=== PATIENT | male | born 1950 | race Caucasian/White ===

== ENCOUNTER → 2016-05-25 | Outpatient (CLI) | payer MEDICARE, OTHER ==
--- NOTE | 2016-05-25 19:09 | PN ---
DATE OF SERVICE: 05/25/2016 A 65-year-old gentleman who has been followed in the sleep center for treatment of obstructive sleep apnea/hypopnea syndrome. Recently patient had a diagnostic sleep study and CPAP titration and I discussed results of the tests with him. He received his new CPAP unit. I checked his CPAP unit. He uses equipment every night for the whole night without any problems. He used it 30 out of 30 nights for more than 4 hours range. Average usage time is 8.7 hours. CPAP pressure of 17 and leak is 11 L/min, which is acceptable. Apnea-hypopnea index with the machine is only 0.4 so patient's respiration is in very good control. He feels comfortable with the machine. He feels well with it regarding his sleep and during the day. [place] Sleepiness Scale today is 4. MEDICATIONS: Lisinopril, amlodipine, furosemide, atorvastatin, baby aspirin. PHYSICAL EXAMINATION: GENERAL: During physical exam, the patient in no distress. VITAL SIGNS: BP 152/90, HR 103, RR 16. Weight 320. Temperature 97.9. Oxygen saturation at room air 96%. HEENT: PERRLA, EOMI, Evaluation of the oropharynx showed extremely low position of soft palate. NECK: Supple. No JVD, Thyroid is not palpable. LUNGS: Clear to percussion and to auscultation. Good air exchange. No wheezing or rhonchi. HEART: S1, S2 regular. No murmurs, gallops, or rubs. ABDOMEN: Obese, soft and nontender. Bowel sounds are present. No organomegaly appreciated. TELEPHONE DIRECTORY DELIVERER: Awake, alert, and oriented x3. Cranial nerves 2 to 7 intact. There is no fasciculation or atrophy noted. No focal deficits observed. IMPRESSION: 1. Obstructive sleep apnea/hypopnea syndrome on control with CPAP at 17 cm of water. Patient demonstrated 100% compliance with treatment benefiting from treatment. 2. Obesity. 3. Hypertension. 4. Mild periodic limb movements documented during the sleep study. 5. Hyperlipidemia. 6. History of swelling of the legs in the past. No swelling today. 7. History of nocturia. Possibly one episode of nocturia at night. PLAN: 1. Continue treatment with CPAP every night for the whole night. 2. Losing weight. 3. Sleep hygiene with regular time in bed for at least 8 hours. 4. No driving if feeling any sleepiness. 5. Follow-up visit in one year. Thank you very much for allowing me to participate in the management of your patient. Sincerely, Alcides Schreiber MD, PhD, FAASM Diplomat of [place] [employer], Sleep Medicine Board by [place] [employer] [employer] Advanced Quality Engineer of [facility] [place]
== END | disposition home or self-care (01) ==
LOC: SLEEP 15:23
PROVIDERS: ATTEND Internal Medicine
DX: G47.33 Obstructive sleep apnea (adult) (pediatric) (principal); E66.9 Obesity, unspecified; I10 Essential (primary) hypertension; E78.5 Hyperlipidemia, unspecified; Z79.899 Other long term (current) drug therapy

== ENCOUNTER 2016-11-29 10:42 | Inpatient (IN) | payer MEDICARE, OTHER ==
[2016-11-29] MEDS ORDERED: SODIUM CHLORIDE 0.9% 500 ML IV STA (11:01)
--- NOTE | 2016-11-29 11:06 | ED ---
General Adult HPI - General Chief complaint: Neuro Symptoms/Deficit Stated complaint: slurred speach, sent by Time Seen by Provider: 11/29/16 10:45 Source: patient, RN notes reviewed Mode of arrival: wheelchair Limitations: no limitations - History of Present Illness Initial comments: This is a 66-year-old male who presents emergency department after having seen his primary medical care doctor. Patient was here for just a regular checkup but he had a little bit of slurred speech and the patient states he's noticed this for a month. Patient states his been getting slightly worse such that more words or being slurred. Patient states sometimes he is able to speak clearly but for the most part he's got a little bit of slur. Patient denies headache patient denies any numbness or weakness patient denies any facial droop per patient denies any visual disturbance. Patient denies any chest pain palpitations difficulty breathing shortness of breath. Patient denies abdominal pain patient denies nausea vomiting diarrhea. Patient denies any other symptoms at this time. - Related Data Home Medications Medication Instructions Recorded Confirmed Aspirin [Adult Low Dose Aspirin EC] 81 mg PO HS 10/25/15 11/29/16 Furosemide [Lasix] 20 mg PO DAILY 10/25/15 11/29/16 Lisinopril [Zestril] 20 mg PO BID 10/25/15 11/29/16 amLODIPine BESYLATE [Norvasc] 10 mg PO DAILY 10/28/15 11/29/16 Atorvastatin [Lipitor] 10 mg PO DAILY 11/29/16 11/29/16 Magnesium Oxide [Mag-Ox] 400 mg PO DAILY 11/29/16 11/29/16 Potassium 99 mg PO BID 11/29/16 11/29/16 Allergies Allergy/AdvReac Type Severity Reaction Status Date / Time No Known Allergies Allergy Verified 11/29/16 11:34 Review of Systems ROS Statement: Those systems with pertinent positive or pertinent negative responses have been documented in the HPI. ROS Other: All systems not noted in ROS Statement are negative. Past Medical History Past Medical History: Hypertension, Sleep Apnea/CPAP/BIPAP Additional Past Medical History / Comment(s): uses CPAP, leg swelling History of Any Multi-Drug Resistant Organisms: None Reported Past Surgical History: Orthopedic Surgery Additional Past Surgical History / Comment(s): heel spurs removed, colonoscopy, basal call carcinoma Past Anesthesia/Blood Transfusion Reactions: Previous Problems w/ Anesthesia Additional Past Anesthesia/Blood Transfusion Reaction / Comment(s): stopped breathing during colonoscopy yrs. ago before sleep apnea diagnosed per pt. Past Psychological History: No Psychological Hx Reported Smoking Status: Never smoker Past Alcohol Use History: None Reported Past Drug Use History: None Reported - Past Family History Father Family Medical History: Cancer General Exam - General Exam Comments Initial Comments: GENERAL: Patient is well-developed and well-nourished. Patient is nontoxic and well- hydrated and is in mild distress. ENT: Neck is soft and supple. No significant lymphadenopathy is noted. Oropharynx is clear. Moist mucous membranes. Neck has full range of motion without eliciting any pain. EYES: The sclera were anicteric and conjunctiva were pink and moist. Extraocular movements were intact and pupils were equal round and reactive to light. Eyelids were unremarkable. PULMONARY: Unlabored respirations. Good breath sounds bilaterally. No audible rales rhonchi or wheezing was noted. CARDIOVASCULAR: There is a regular rate and rhythm without any murmurs gallops or rubs. ABDOMEN: Soft and nontender with normal bowel sounds. SKIN: Skin is clear with no lesions or rashes and otherwise unremarkable. NEUROLOGIC: Patient is alert and oriented x3. Cranial nerves II through XII are grossly intact. Motor and sensory are also intact. Occasionally the patient has a very mild slurring of some words. Symmetrical smile. Cerebellar exam grossly intact. MUSCULOSKELETAL: Normal extremities with adequate strength and full range of motion. LYMPHATICS: No significant lymphadenopathy is noted PSYCHIATRIC: Normal psychiatric evaluation. Limitations: no limitations Course Vital Signs 11/29/16 10:47 Temperature 98.0 F Pulse Rate 78 Respiratory 18 Rate Blood Pressure 187/110 O2 Sat by Pulse 97 Oximetry Medical Decision Making - Medical Decision Making EKG shows normal sinus rhythm at 87 bpm MA interval is 172 QRS is 90 QT interval is 392 QTC is 471. EKG shows no ST segment elevation or depression or T wave abnormalities are noted Computed tomography scan shows no acute abnormality. Chest x-ray shows no acute normalities. I spoke with Dr. Uriarte he agreed to admit the patient admitted the patient I consult the neurology. - Lab Data Result diagrams: 11/29/16 11:20 11/29/16 11:20 Lab Results 11/29/16 11/29/16 11/29/16 Range/Units 11:20 11:20 11:20 WBC 7.8 (3.8-10.6) k/uL RBC 5.33 (4.30-5.90) m/uL Hgb 16.3 (13.0-17.5) gm/dL Hct 45.7 (39.0-53.0) % MCV 85.8 (80.0-100.0) fL MCH 30.6 (25.0-35.0) pg MCHC 35.7 (31.0-37.0) g/dL RDW 13.4 (11.5-15.5) % Plt Count 277 (150-450) k/uL Neutrophils % 66 % Lymphocytes % 22 % Monocytes % 6 % Eosinophils % 4 % Basophils % 1 % Neutrophils # 5.1 (1.3-7.7) k/uL Lymphocytes # 1.7 (1.0-4.8) k/uL Monocytes # 0.5 (0-1.0) k/uL Eosinophils # 0.3 (0-0.7) k/uL Basophils # 0.1 (0-0.2) k/uL PT (9.0-12.0) sec INR (<1.2) APTT (22.0-30.0) sec Sodium 140 (137-145) mmol/L Potassium 4.3 (3.5-5.1) mmol/L Chloride 107 (98-107) mmol/L Carbon Dioxide 25 (22-30) mmol/L Anion Gap 8 mmol/L BUN 15 (9-20) mg/dL Creatinine 0.87 (0.66-1.25) mg/dL Est GFR (MDRD) Af Amer >60 (>60 ml/min/1.73 sqM) Est GFR (MDRD) Non-Af >60 (>60 ml/min/1.73 sqM) Glucose 107 H (74-99) mg/dL Calcium 9.0 (8.4-10.2) mg/dL Total Bilirubin 0.6 (0.2-1.3) mg/dL AST 23 (17-59) U/L ALT 40 (21-72) U/L Alkaline Phosphatase 65 (38-126) U/L Total Creatine Kinase 52 L (55-170) U/L CK-MB (CK-2) 0.9 (0.0-2.4) ng/mL CK-MB (CK-2) Rel Index 1.7 Troponin I <0.012 (0.000-0.034) ng/mL Total Protein 6.8 (6.3-8.2) g/dL Albumin 4.1 (3.5-5.0) g/dL 11/29/16 Range/Units 11:20 WBC (3.8-10.6) k/uL RBC (4.30-5.90) m/uL Hgb (13.0-17.5) gm/dL Hct (39.0-53.0) % MCV (80.0-100.0) fL MCH (25.0-35.0) pg MCHC (31.0-37.0) g/dL RDW (11.5-15.5) % Plt Count (150-450) k/uL Neutrophils % % Lymphocytes % % Monocytes % % Eosinophils % % Basophils % % Neutrophils # (1.3-7.7) k/uL Lymphocytes # (1.0-4.8) k/uL Monocytes # (0-1.0) k/uL Eosinophils # (0-0.7) k/uL Basophils # (0-0.2) k/uL PT 10.3 (9.0-12.0) sec INR 1.0 (<1.2) APTT 25.4 (22.0-30.0) sec Sodium (137-145) mmol/L Potassium (3.5-5.1) mmol/L Chloride (98-107) mmol/L Carbon Dioxide (22-30) mmol/L Anion Gap mmol/L BUN (9-20) mg/dL Creatinine (0.66-1.25) mg/dL Est GFR (MDRD) Af Amer (>60 ml/min/1.73 sqM) Est GFR (MDRD) Non-Af (>60 ml/min/1.73 sqM) Glucose (74-99) mg/dL Calcium (8.4-10.2) mg/dL Total Bilirubin (0.2-1.3) mg/dL AST (17-59) U/L ALT (21-72) U/L Alkaline Phosphatase (38-126) U/L Total Creatine Kinase (55-170) U/L CK-MB (CK-2) (0.0-2.4) ng/mL CK-MB (CK-2) Rel Index Troponin I (0.000-0.034) ng/mL Total Protein (6.3-8.2) g/dL Albumin (3.5-5.0) g/dL Disposition Clinical Impression: Cerebrovascular accident Disposition: ADMITTED IP TO THIS HOSP Referrals: Joaquim Balncas MD [Primary Care Provider] - 1-2 days Time of Disposition: 12:56
[2016-11-29 11:40] LABS: Basophils # (A) 0.1 k/uL (0-0.2); Basophils % (A) 1 %; CH 31.1; CHCM 36.4; Eosinophils # (A) 0.3 k/uL (0-0.7); Eosinophils % (A) 4 %; HCT 45.7 % (39.0-53.0); HDW 3.09; HGB 16.3 gm/dL (13.0-17.5); Luc # (Auto) 0.14; Luc % (Auto) 2; Lymphocytes # (A) 1.7 k/uL (1.0-4.8); Lymphocytes % (A) 22 %; MCH 30.6 pg (25.0-35.0); MCHC 35.7 g/dL (31.0-37.0); MCV 85.8 fL (80.0-100.0); Mean Platelet Volume 6.7; Monocytes # (A) 0.5 k/uL (0-1.0); Monocytes % (A) 6 %; Neutrophils # (A) 5.1 k/uL (1.3-7.7); Neutrophils % (A) 66 %; RBC 5.33 m/uL (4.30-5.90); RDW 13.4 % (11.5-15.5); WBC 7.8 k/uL (3.8-10.6); WBC (Perox) 7.78
[2016-11-29 11:45] LABS: ALT 40 U/L (21-72); AST 23 U/L (17-59); Alkaline Phosphatase 65 U/L (38-126); Anion Gap 8 mmol/L; Blood Urea Nitrogen 15 mg/dL (9-20); Carbon Dioxide 25 mmol/L (22-30); Chloride 107 mmol/L (98-107); Glucose 107 mg/dL (74-99); Non-African American GFR(MDRD) >60 (>60 ml/min/1.73 sqM); Potassium 4.3 mmol/L (3.5-5.1); Sodium 140 mmol/L (137-145); Total Bilirubin 0.6 mg/dL (0.2-1.3); Total Protein 6.8 g/dL (6.3-8.2)
[2016-11-29 11:52] LABS: Partial Thromboplastin Time 25.4 sec (22.0-30.0); Prothrombin Time 10.3 sec (9.0-12.0)
[2016-11-29 11:58] LABS: Creatine Kinase 52 U/L (55-170)
[2016-11-29 12:11] LABS: Creatine Kinase MB 0.9 ng/mL (0.0-2.4); Troponin I <0.012 ng/mL (0.000-0.034)
--- NOTE | 2016-11-29 12:34 | XR ---
EXAMINATION TYPE: XR chest 2V DATE OF EXAM: 11/29/2016 COMPARISON: NONE TECHNIQUE: PA and lateral views submitted. HISTORY: Altered mental status FINDINGS: The lungs are clear and there is no pneumothorax, pleural effusion, or focal pneumonia. Hypertrophi c degenerative change spine. Arthropathy of the shoulders. IMPRESSION: 1. No acute process.
--- NOTE | 2016-11-29 12:34 | CT ---
EXAMINATION TYPE: CT brain wo con DATE OF EXAM: 11/29/2016 COMPARISON: NONE HISTORY: Slurred speech for one month. CT DLP: 1180.[address] of the brain was performed. The ventricles, basal cisterns and sulci overlying the cerebral convexities demonstrate mild enlargem ent. There is no evidence for intracranial hemorrhage or sulcal effacement. There is decreased attenuation about the periventricular white matter and deep white matter of both c erebral hemispheres, compatible with chronic small vessel ischemia. Differential diagnosis does inclu de demyelination. No mass effects are seen.No midline shift. Osseous calvarium is intact. Chronic sinusitis. If symptoms persist consider MRI. IMPRESSION: 1. Age related atrophic and chronic small vessel ischemic change without acute intracranial process s een at this time.
--- NOTE | 2016-11-29 17:06 | US ---
EXAMINATION TYPE: US carotid duplex BILAT DATE OF EXAM: 11/29/2016 COMPARISON: NONE CLINICAL HISTORY: Stenosis. EXAM MEASUREMENTS: RIGHT: Peak Systolic Velocity (PSV) cm/sec ----- Right CCA: 62.8 ----- Right ICA: 71.3 ----- Right ECA: 106.2 ICA/CCA ratio: 1.1 RIGHT: End Diastole cm/sec ----- Right CCA: 14.4 ----- Right ICA: 29.6 ----- Right ECA: 17.5 LEFT: Peak Systolic Velocity (PSV) cm/sec ----- Left CCA: 75.8 ----- Left ICA: 96.8 ----- Left ECA: 118.0 ICA/CCA ratio: 1.3 LEFT: End Diastole cm/sec ----- Left CCA: 22.5 ----- Left ICA: 38.6 ----- Left ECA: 23.4 VERTEBRALS (direction of flow): Right Vertebral: Antegrade Left Vertebral: Antegrade Rhythm: Normal IMPRESSION: MILD/MODERATE AMOUNT OF INTIMAL THICKENING; NO ELEVATED VELOCITIES AND NO SIGNIFICANT STENOSIS.
--- NOTE | 2016-11-29 17:17 | P.CNNES ---
History of Present Illness Consult date: 11/29/16 Reason for Consult: Patient being evaluated for slurred speech and possible TIA. History of Present Illness: This patient is a 66-year-old right-handed white male who was in his usual state of health until earlier this morning. Patient went to see his primary care physician Dr. Blancas and was noted on examination today he is having slurring of his speech. According to the patient he has been having difficulty with his speech for the past 1 month. He states he has word finding difficulties as well as some degree of aphasia. Sometimes he speaks clearly and other times his speech is quite slurred and difficult to understand. The patient denied any headache or visual changes. He denied any facial drooping. He has no previous history of TIA or stroke. Dr. Blancas recommended the patient to go directly to the emergency room this morning for further evaluation. He was seen in the ER by Dr. Gibson. A computed tomography scan of the brain was ordered which revealed age related atrophy and chronic small vessel ischemic changes. No evidence for acute stroke or hemorrhage. Patient was recommended admission to the hospital for a full neurological workup for possible TIA versus stroke. The patient's stroke risk factors include hypertension, obesity, and borderline diabetes mellitus. Patient states he does check his blood sugars once or twice a day. His sugars are always below 130. This morning his blood sugar was 134. The patient denies any headache at this time. He has no visual changes. He has been taking one baby aspirin on a daily basis. He does have a history of obstructive sleep apnea and does use a CPAP machine at night. The patient denies any family history of stroke. His speech does appear to be slightly dysphasic today on examination. He is now been admitted and neurology has been consulted for further evaluation and recommendations. Review of Systems Constitutional: Denies chills, Denies fever Eyes: denies blurred vision, denies pain Ears, nose, mouth and throat: Denies headache, Denies sore throat Cardiovascular: Denies chest pain, Denies shortness of breath Respiratory: Denies cough Gastrointestinal: Denies abdominal pain, Denies diarrhea, Denies nausea, Denies vomiting Musculoskeletal: Denies myalgias Integumentary: Denies pruritus, Denies rash Neurological: Reports aphasia, Reports change in speech, Reports confusion, Reports memory loss, Reports vertigo, Denies numbness, Denies weakness Psychiatric: Denies anxiety, Denies depression Endocrine: Denies fatigue, Denies weight change Past Medical History Past Medical History: Cancer, Hyperlipidemia, Hypertension, Pneumonia, Rheumatoid Arthritis (RA), Sleep Apnea/CPAP/BIPAP Additional Past Medical History / Comment(s): stress test 2006, rt side dominant ,uses CPAP,bronchitis, skin ca lt arm, "i was told i was on [place]line of dm- i just watch what i eat" History of Any Multi-Drug Resistant Organisms: None Reported Past Surgical History: Orthopedic Surgery, Tonsillectomy Additional Past Surgical History / Comment(s): heel spurs removed, colonoscopy, basal call carcinoma Past Anesthesia/Blood Transfusion Reactions: Previous Problems w/ Anesthesia Additional Past Anesthesia/Blood Transfusion Reaction / Comment(s): stopped breathing during colonoscopy yrs. ago before sleep apnea diagnosed per pt. Smoking Status: Never smoker - Past Family History Father Family Medical History: Cancer, Hypertension Additional Family Medical History / Comment(s): oral cancer Mother Family Medical History: Cancer Additional Family Medical History / Comment(s): "irreg heart rythym" Medications and Allergies Home Medications Medication Instructions Recorded Confirmed Type Aspirin [Adult Low Dose Aspirin EC] 81 mg PO HS 10/25/15 11/29/16 History Furosemide [Lasix] 20 mg PO DAILY 10/25/15 11/29/16 History Lisinopril [Zestril] 20 mg PO BID 10/25/15 11/29/16 History amLODIPine BESYLATE [Norvasc] 10 mg PO DAILY 10/28/15 11/29/16 History Atorvastatin [Lipitor] 10 mg PO DAILY 11/29/16 11/29/16 History Magnesium Oxide [Mag-Ox] 400 mg PO DAILY 11/29/16 11/29/16 History Potassium 99 mg PO BID 11/29/16 11/29/16 History Allergies Allergy/AdvReac Type Severity Reaction Status Date / Time No Known Allergies Allergy Verified 11/29/16 11:34 Physical Examination - Vital Signs Vital Signs: Vital Signs Temp Pulse Pulse Resp BP BP Pulse Ox 11/29/16 14:37 97.4 F L 83 18 182/86 96 11/29/16 14:00 97.3 F L 16 153/78 98 11/29/16 13:02 98.5 F 81 20 159/80 98 11/29/16 10:47 98.0 F 78 18 187/110 97 Intake and Output 11/29/16 11/29/16 11/29/16 06:59 14:59 22:59 Intake Total 500 Balance 500 Intake: IV 500 Invasive Line 1 500 Other: Weight 142.428 kg Patient Weight 11/30/16 06:59 Weight 142.428 kg - Constitutional General appearance: cooperative, obese - EENT EENT: PERRL, mucous membranes moist - Respiratory Respiratory: lungs clear, normal breath sounds - Cardiovascular Cardiovascular: regular rate, normal S1, normal S2 Extremities: no peripheral edema bilaterally - Gastrointestinal Gastrointestinal: normoactive bowel sounds - Integumentary Integumentary: normal - Neurologic Cranial nerve examination: PERRL, EOMI, VFF, V1/V2/V3 grossly intact, face symmetric, tongue midline, intact gag reflex, intact corneal reflex, normal palatal elevation Speech examination: intact Sensorimotor examination: intact Detailed motor examination: grossly full strength in all extremities Motor examination - right side: 4/5: biceps, triceps, wrist flexion, wrist extension, generating station mechanic, hip flexors, knee extensors, dorsiflexion, toe extension (EHL) , plantarflexion Motor examination - left side: 4/5: biceps, triceps, wrist flexion, wrist extension, generating station mechanic, hip flexors, knee extensors, dorsiflexion, toe extension (EHL) , plantarflexion Detailed sensory examination: intact Reflex and gait examination: intact Reflexes: 1+: ankle, bicep, knee, tricep - Musculoskeletal Musculoskeletal: no pain - Psychiatric Psychiatric: mood/affect appropriate, cooperative Results - Laboratory Findings CBC and BMP: 11/29/16 11:20 11/29/16 11:20 Abnormal Lab Findings: Abnormal Labs 11/29/16 11/29/16 11:20 11:20 Glucose 107 H Total Creatine Kinase 52 L Assessment and Plan (1) Acute ischemic left middle cerebral artery (MCA) stroke Status: Acute Code(s): I63.512 - CEREB INFRC D/T UNSP OCCLS OR STENOS OF LEFT MID CEREB ART (2) Essential hypertension Status: Acute Code(s): I10 - ESSENTIAL (PRIMARY) HYPERTENSION (3) TIA (transient ischemic attack) Status: Acute Code(s): G45.9 - TRANSIENT CEREBRAL ISCHEMIC ATTACK, UNSPECIFIED (4) Morbid obesity Status: Acute Code(s): E66.01 - MORBID (SEVERE) OBESITY DUE TO EXCESS CALORIES Plan: This patient is a 66-year-old male who was admitted to the hospital today due to findings of slurred speech which has been ongoing for the past 1 month. Patient went to see his primary care physician this morning Dr. Blancas and was found to have evidence of slurred speech. He was recommended to come directly to the emergency room for further evaluation. He was seen in the ER by Dr. Gibson. A computed tomography scan of the brain was completed and was negative for any evidence of acute stroke. He was admitted to hospital for further evaluation and treatment. Patient denies any previous history of TIA or stroke. Apparently his speech problems have been ongoing for the past 1 month. He has episodes of intermittent aphasia. We have recommended the patient undergo a complete stroke evaluation. We will also obtain an MRI of the brain for further evaluation of acute left hemispheric stroke. Due to the patient's weight hopefully he will be able to complete the MRI locally. The patient should be maintained on aspirin at this time for secondary stroke prevention. We will continue close neurological follow-up with this patient during this admission. His overall prognosis at this time remains guarded. Time with Patient: Greater than 30
[2016-11-29] MEDS: LISINOPRIL 20 MG TAB PO SCH (20:56)
[2016-11-29] MEDS: POTASSIUM CHLORIDE ORAL LIQUID 40 MEQ/30 ML CUP PO SCH (20:56)
[2016-11-29] MEDS ORDERED: ASPIRIN 81 MG PO SCH (21:00)
--- NOTE | 2016-11-29 22:06 | HP ---
HISTORY AND PHYSICAL DATE OF ADMISSION: 11/29/2016 PRESENTING COMPLAINT: Slurred speech. HISTORY OF PRESENTING COMPLAINT: This is a pleasant 66-year-old patient of Dr. Blancas. He presented with his . Chronic stable medical conditions include hypertension, hyperlipidemia, rheumatoid arthritis and obstructive sleep apnea. The patient went to see Dr. Blancas today and did mention that for about 3 days his speech has been slurred. His has not noticed that. He has no difficulty in swallowing, no change in vision. No headache. No focal weakness. Patient was sent in for further workup. REVIEW OF SYSTEMS: CONSTITUTIONAL: None. HEENT: None. RESPIRATORY: None. CARDIOVASCULAR: None. GASTROINTESTINAL: None. GENITOURINARY: None. MUSCULOSKELETAL: Pain in the joints. DERMATOLOGICAL: None. HEMATOLOGIC: None. LYMPHATICS: None. PSYCHIATRY: None. NEUROLOGICAL: As above. PAST HISTORY: 1. Hypertension. 2. Hyperlipidemia. 3. Rheumatoid arthritis. 4. Obstructive sleep apnea. PAST SURGICAL HISTORY: 1. Orthopedic surgery. 2. Tonsillectomy. 3. Heel spurs removed. 4. Colonoscopy. 5. Basal cell carcinoma. SOCIAL HISTORY: Does not smoke. Drinks alcohol rarely. . FAMILY HISTORY: Hypertension, oral cancer. HOME MEDICATIONS: 1. Norvasc 10 mg p.o. daily. 2. Potassium 99 mEq p.o. b.i.d. 3. Magnesium 400 mg p.o. daily. 4. Zestril 20 mg p.o. b.i.d. 5. Lasix 20 mg p.o. daily. 6. Lipitor 10 mg p.o. daily. 7. Aspirin 81 mg at bedtime. ALLERGIES: NONE. PHYSICAL EXAMINATION: Temperature 98, pulse 78, respiration 18, blood pressure 187/110, pulse ox 97% on room air. Repeat blood pressure 159/80. GENERAL APPEARANCE: Well built; BMI 43.8. Sitting up, not in distress. EYES: Pupils equal. Conjunctivae normal. HEENT: Oral cavity normal. NECK JVD not raised. Mass not palpable. RESPIRATORY: Effort normal. LUNGS: Clear. CARDIOVASCULAR: First and second sounds normal. No edema. ABDOMEN: Soft, nontender. Liver and spleen not palpable. LYMPHATIC: No lymph node palpable in neck or axillae. PSYCHIATRY: Alert and oriented x3. Mood and affect normal. NEUROLOGICAL: Pupils equal. Very slight facial asymmetry. Speech is very slightly slow. Power and sensation grossly intact. Both the limbs equal and symmetrical. Sensation preserved. INVESTIGATIONS: White count 7.8, hemoglobin 16.3, potassium 4.3. BUN and creatinine are normal. Troponin negative. CT scan of brain showed no specific changes. Carotid Doppler negative for any critical stenosis. EKG shows normal sinus rhythm. ASSESSMENT: 1. Possible subacute stroke in a patient with 3 days of duration. Could be a lacunar infarct affecting only the speech area; that is the right-sided Broca's area. This though could be ischemic in a right-handed patient. 2. Morbid obesity. BMI 43.8. 3. Essential hypertension. 4. Hyperlipidemia. 5. Bilateral chronic rheumatoid arthritis. 6. Obstructive sleep apnea; uses CPAP machine. PLAN: Neurology was consulted. The patient is already on aspirin. Will increase the Lipitor to 40 mg a day. Other home medications to be resumed. Care was discussed with the patient and his at the bedside. Questions were answered. Since the stroke symptoms are already 3 days out, another plain CT scan will not make much of a difference. Await further input from Neurology. Neurology has already ordered an EEG and an MRI of the brain without contrast. MMODL / IJN: [id number] /
[2016-11-30 02:51] LABS: Cholesterol 144 mg/dL (<200); HDL Cholesterol 39 mg/dL (40-60)
[2016-11-30] MEDS: LISINOPRIL 20 MG TAB PO SCH (08:35)
[2016-11-30] MEDS: POTASSIUM CHLORIDE ORAL LIQUID 40 MEQ/30 ML CUP PO SCH (08:35)
[2016-11-30] MEDS ORDERED: amLODIPine 10 MG TAB PO SCH (09:00)
[2016-11-30] MEDS ORDERED: ENOXAPARIN 40 MG/0.4 ML SYRINGE SQ SCH (09:00)
[2016-11-30] MEDS ORDERED: FUROSEMIDE 20 MG TAB PO SCH (09:00)
[2016-11-30] MEDS ORDERED: MAGNESIUM OXIDE 400 MG TAB PO SCH (09:00)
[2016-11-30] MEDS ORDERED: ATORVASTATIN 10 MG TAB PO SCH (09:00)
[2016-11-30 10:04] VITALS: RESP 20; TEMP 97.6
--- NOTE | 2016-11-30 11:12 | MR ---
EXAMINATION TYPE: MR brain wo con DATE OF EXAM: 11/30/2016 COMPARISON: NONE HISTORY: Patient with acute aphasia and weakness CONTRAST: Performed utilizing 0 mL intravenous Gadavist gadolinium contrast. TECHNIQUE: Multiplanar, multiecho imaging on a 3.0 Sharita magnet is performed through the brain. Stud y is performed within 24 hours of arrival to the hospital. The craniovertebral junction is normal. The pituitary is normal. Diffusion-weighted imaging is performed. No abnormal hyperintensity is present to suggest an acute i ntracranial infarct or acute ischemic change. There are normal vascular flow voids within the visualized intracranial cerebral vasculature. Optic c hiasm is visualized is normal. There is a small area of increased signal within the parietal-occipital white matter near the occipit al horn of the left lateral ventricle. This measures 1.1 x 0.7 cm. There are additional punctate subc ortical white matter changes present bilaterally in the hernadez radiata and centrum semiovale. These n umber greater than expected for the patient age. Findings are nonspecific. Findings are most likely r elated to microvascular ischemic changes. Ventricles and sulci are slightly prominent for the patient age. IMPRESSIONS: 1. Chronic appearing deep white matter ischemic changes with age-related atrophy.
[2016-11-30 12:23] VITALS: BP 146/85; PULSE 91
--- NOTE | 2016-11-30 18:54 | P.DS ---
Providers Date of admission: 11/29/16 12:57 Expected date of discharge: 11/30/16 Attending physician: Scottie Uriarte Consults: 11/29/16 12:57 Consult Physician Routine Consulting Provider: Jackelin Caldwell Consult Reason/Comments: CVA, slurred speech Do you want consulting provider notified?: Yes Primary care physician: [facility] Course: FINAL DIAGNOSES: -Possible subacute stroke in a patient with 3 days of duration. Could be a lacunar infarct affecting only speech area. That is the right sided brokers area. This is thought to be ischemic in a right-handed patient. -Morbid obesity BMI 43.8. -Essential hypertension. -Hyperlipidemia. -Bilateral chronic rheumatoid arthritis. -Obstructive sleep apnea uses CPAP machine. HOSPTIAL COURSE: 66-year-old patient who presented to his primary care physician's office for a 6 month evaluation stated that his speech is been slurred for about 3 days. His had noticed this. No difficulty swallowing no changes in vision no headache. Sent by primary care physician for further workup, patient admitted, neurology consulted. Computed tomography scan of the brain was negative for any evidence of acute stroke. MRI and EEG ordered, MRI revealed chronic appearing deep white matter ischemic changes with age-related atrophy. EEG likely to be performed outpatient. Patient did not have any increasing of the symptoms of brought him here nor did he have any new symptoms of strokelike activity. Patient is ambulatory with some mild assistance, tolerating his diet eating 100% of his meals, last BM prior to admission. Condition overall stable for discharge. PHYSICAL EXAM: CARDIOVASCULAR: First and second sounds noted no edema RESPIRATORY: Respiratory effort normal, lung sounds diminished bilaterally. NEUROLOGIC: Pupils equal, very slight facial asymmetry, speech is very slightly slow. Power and sensation grossly intact. Both limbs equal and symmetrical. Sensation preserved. Patient was seen and examined by nurse practitioner Shruti Gonzalez in all elements of the case discussed with attending Dr. Uriarte DISPOSITION: Home to the care of his Plan - Discharge Summary New Discharge Prescriptions: New Atorvastatin Calcium [Lipitor] 40 mg PO HS #30 tablet Lisinopril-Hctz 20-12.5 mg [Zestoretic 20-12.5] 1 tab PO BID #60 tab Continue Aspirin [Adult Low Dose Aspirin EC] 81 mg PO HS amLODIPine BESYLATE [Norvasc] 10 mg PO DAILY Magnesium Oxide [Mag-Ox] 400 mg PO DAILY Discontinued Lisinopril [Zestril] 20 mg PO BID Furosemide [Lasix] 20 mg PO DAILY Atorvastatin [Lipitor] 10 mg PO DAILY Potassium 99 mg PO BID Discharge Medication List Aspirin [Adult Low Dose Aspirin EC] 81 mg PO HS 10/25/15 [History] amLODIPine BESYLATE [Norvasc] 10 mg PO DAILY 10/28/15 [History] Magnesium Oxide [Mag-Ox] 400 mg PO DAILY 11/29/16 [History] Atorvastatin Calcium [Lipitor] 40 mg PO HS #30 tablet 11/30/16 [Rx] Lisinopril-Hctz 20-12.5 mg [Zestoretic 20-12.5] 1 tab PO BID #60 tab 11/30/16 [ Rx] Follow up Appointment(s)/Referral(s): Joaquim Blancas MD [Primary Care Provider] - 12/12/16 2:00 pm Patient Instructions/Handouts: Transient Ischemic Attack (DC), Aphasia (DC) Discharge Disposition: HOME SELF-CARE
--- NOTE | 2016-12-01 19:22 | DS ---
DISCHARGE SUMMARY DATE OF SERVICE: 11/30/2016 ATTENDING NOTE: This patient seen and examined by me on 11/30/2016. I discussed with my RASPBERRY CHECKER, Ms. Gonzalez. The patient's MRI was unremarkable. The patient could have had a lacunar stroke. Care was discussed with the patient and at the bedside. Lipitor dose being increased. Patient already on aspirin. On examination: Lungs are clear. Speech is nearly normal. Followup was arranged. MMODL / IJN: [id number] /
== END 2016-11-30 15:14 | disposition home or self-care (01) | DRG 65 ==
LOC: EC 10:42 → 6SEL 12:57
PROVIDERS: ADMIT Hospitalist; ATTEND Hospitalist
DX: I63.519 Cerebral infarction due to unspecified occlusion or stenosis of unspecified middle cerebral artery (principal); Z68.41 Body mass index [BMI] 40.0-44.9, adult; R47.01 Aphasia; I10 Essential (primary) hypertension; E66.01 Morbid (severe) obesity due to excess calories; R47.02 Dysphasia; E78.5 Hyperlipidemia, unspecified; E11.9 Type 2 diabetes mellitus without complications; M06.9 Rheumatoid arthritis, unspecified; G47.33 Obstructive sleep apnea (adult) (pediatric); Z79.82 Long term (current) use of aspirin; Z79.899 Other long term (current) drug therapy; Z85.828 Personal history of other malignant neoplasm of skin
CPT/HCPCS: 36415; 70450; 70551; 71020; 80053; 80061; 82550; 82553; 84484; 85025; 85610; 85730; 93005; 93880; 95819; 96360; 99285

== ENCOUNTER → 2017-06-14 | Outpatient (CLI) | payer MEDICARE, OTHER ==
--- NOTE | 2017-06-14 16:13 | SFUN ---
SLEEP STUDY FOLLOW UP NOTE DATE OF SERVICE: 06/14/2017 66-year-old gentleman has been followed [facility] for treatment of obstructive sleep apnea-hypopnea syndrome. The patient continued to use his CPAP equipment at home with a full-face mask. He did change his mask to different style. Part of the mask was broken by his dog and presently he is using Cynthia gel mask. I checked the patient unit. He is using equipment 24/30 nights and 13/30 nights for more than 4 hours. Average usage is 4.4 hours. Pressure is 16.2 cm of water. High leak of 54 L/minute, but apnea-hypopnea index is totally perfect 0.6. [place] Sleepiness Scale today is 1. MEDICATIONS: Lisinopril, amlodipine, furosemide, atorvastatin, baby aspirin, PHYSICAL EXAM: GENERAL Patient in no distress. VITAL SIGNS BP 128/75, HR 81, RR 16, height 5 foot 10, weight 307.8, body mass index 44, temperature 98.1, oxygen saturation on room air 95%. HEENT PERRLA, EOMI, evaluation of oropharynx showed extremely low position of soft palate. NECK Supple, no JVD. Thyroid is not palpable. LUNGS Clear to percussion and to auscultation. Good air exchange. No wheezing or rhonchi. HEART S1, S2 regular. No murmurs, gallops, or rubs. ABDOMEN Obese. Soft and nontender. Bowel sounds are present. No organomegaly appreciated. EXTREMITIES No clubbing or cyanosis. DECATOR OPERATOR Awake, alert, and oriented X3. Cranial nerves 2 to 7 intact. There is no fasciculation or atrophy. noted. No focal deficits observed. IMPRESSION: 1. Obstructive sleep apnea-hypopnea syndrome on control with CPAP at the pressure of 17 cm of water. The patient is benefitting from treatment. 2. Significant leak from the full-face mask. 3. Obesity. 4. Hypertension. 5. Hyperlipidemia. PLAN: 1. Refitted patient with a AirFit F 20 large fullface mask and with this mask the patient feels better and it looks like there is no significant leak. 2. The patient will continue to use his CPAP equipment with the same pressure every night for the whole night. 3. Prescription for AirFit F 20 large fullface mask. 4. Losing weight. 5. No driving if feeling sleepiness. 6. Followup visit in 1 year or earlier if patient has any problems. Thank you very much for allowing me to participate in management of your patient. Sincerely, Alcides Schreiber MD, PhD, FAASM Diplomat of [employer] [employer] [employer] Defense Analyst of [facility] [place] KAYODE / COREEN: [id number] /
== END | disposition home or self-care (01) ==
LOC: SLEEP 14:59
PROVIDERS: ATTEND Internal Medicine
DX: G47.33 Obstructive sleep apnea (adult) (pediatric) (principal); E66.9 Obesity, unspecified; E78.5 Hyperlipidemia, unspecified; I10 Essential (primary) hypertension; Z99.89 Dependence on other enabling machines and devices; Z79.82 Long term (current) use of aspirin; Z79.899 Other long term (current) drug therapy; Z68.41 Body mass index [BMI] 40.0-44.9, adult

== ENCOUNTER 2017-08-19 11:03 | Inpatient (IN) | payer MEDICARE, OTHER ==
[2017-08-19] MEDS ORDERED: cefTRIAXone IN SWFI 1,000 MG/10 ML SYRINGE IVP STA (11:19)
[2017-08-19] MEDS: SODIUM CHLORIDE 0.9% 500 ML IV SCH (11:38)
[2017-08-19 12:05] LABS: Basophils % (A) 0 %; Eosinophils # (A) 0.1 k/uL (0-0.7); Eosinophils % (A) 0 %; HCT 41.7 % (39.0-53.0); HGB 14.9 gm/dL (13.0-17.5); Lymphocytes % (A) 5 %; MCH 31.5 pg (25.0-35.0); MCHC 35.9 g/dL (31.0-37.0); Mean Platelet Volume 6.1; Monocytes # (A) 1.2 k/uL (0-1.0); Monocytes % (A) 6 %; Neutrophils # (A) 18.7 k/uL (1.3-7.7); Neutrophils % (A) 89 %; Platelet Count 217 k/uL (150-450); RBC 4.74 m/uL (4.30-5.90); RDW 13.6 % (11.5-15.5); WBC 21.1 k/uL (3.8-10.6)
[2017-08-19 12:14] LABS: Albumin 4.3 g/dL (3.5-5.0); Calcium 9.2 mg/dL (8.4-10.2); Potassium 3.7 mmol/L (3.5-5.1); Total Protein 6.5 g/dL (6.3-8.2)
[2017-08-19 12:19] LABS: INR 1.1 (<1.2); Partial Thromboplastin Time 23.1 sec (22.0-30.0); Prothrombin Time 10.4 sec (9.0-12.0)
[2017-08-19 12:26] LABS: Appearance,Urine Cloudy (Clear); Bacteria,Urine Many /hpf; Bilirubin,Urine Negative (Negative); Blood,Urine Small (Negative); Color,Urine Yellow; Glucose,Urine (UA) Negative (Negative); Ketones,Urine Negative (Negative); Leukocyte Esterase,Urine Large (Negative); Mucus,Urine Rare /hpf; Nitrite,Urine Positive (Negative); PH, Urine 5.5 (5.0-8.0); Protein,Urine Negative (Negative); RBC,Urine 11 /hpf (0-5); Specific Gravity,Urine 1.014 (1.001-1.035); Sperm,Urine Occasional /hpf; Urobilinogen,Urine <2.0 mg/dL (<2.0); WBC,Urine 98 /hpf (0-5)
--- NOTE | 2017-08-19 12:43 | XR ---
EXAMINATION TYPE: XR chest 2V DATE OF EXAM: 08/19/2017 COMPARISON: 11/29/2016 TECHNIQUE: PA and lateral views submitted. HISTORY: Fever and weakness FINDINGS: Lateral view limited by motion artifact. Hypertrophic and degenerative changes of the spine noted. No pneumothorax or overt failure. Heart size stable. Lateral view nondiagnostic. Right hemidiaphragm is elevated and stable. IMPRESSION: 1. Lateral view nondiagnostic. Frontal view demonstrates no gross evidence of acute infiltrate. Stabl e elevation the right hemidiaphragm.
--- NOTE | 2017-08-19 13:28 | ED ---
General Adult HPI - General Chief complaint: Fever Stated complaint: Fever Time Seen by Provider: 08/19/17 11:05 Source: patient Mode of arrival: EMS Limitations: no limitations - History of Present Illness Initial comments: 66 years old male comes in with a fever and generalized weakness he said he noticed a fever last night he is awfully weak he said he had a hard time ambulating he felt some his legs and bear his weight. A trouble voiding and he feels that he has a bladder infection. He denies any headache no neck stiffness no chest pain or shortness of breath has not been coughing up phlegm no abdominal pain no frequency urgency dysuria area and difficulty voiding noticed some frequency urgency. No weakness of upper or lower extremity - Related Data Home Medications Medication Instructions Recorded Confirmed amLODIPine BESYLATE [Norvasc] 10 mg PO DAILY 10/28/15 08/19/17 Aspirin EC [Ecotrin] 325 mg PO DAILY 08/19/17 08/19/17 Carbidopa-Levodopa 25-100 mg 1 tab PO TID@,,08/19/17 08/19/17 [Sinemet 25-100] Levothyroxine Sodium [Synthroid] 88 mcg PO DAILY 08/19/17 08/19/17 Loratadine [Claritin] 10 mg PO DAILY 08/19/17 08/19/17 Rosuvastatin Calcium [Crestor] 10 mg PO DAILY 08/19/17 08/19/17 Triamcinolone Acetonide [Nasacort] 1 spray EA NOSTRIL BID 08/19/17 08/19/17 Previous Rx's Medication Instructions Recorded Lisinopril-Hctz 20-12.5 mg 1 tab PO BID #60 tab 11/30/16 [Zestoretic 20-12.5] Allergies Allergy/AdvReac Type Severity Reaction Status Date / Time No Known Allergies Allergy Verified 08/19/17 12:26 Review of Systems ROS Statement: Those systems with pertinent positive or pertinent negative responses have been documented in the HPI. ROS Other: All systems not noted in ROS Statement are negative. Past Medical History Past Medical History: Cancer, Hyperlipidemia, Hypertension, Pneumonia, Rheumatoid Arthritis (RA), Sleep Apnea/CPAP/BIPAP Additional Past Medical History / Comment(s): stress test 2006, rt side dominant ,uses CPAP,bronchitis, skin ca lt arm, "i was told i was on boarderline of dm- i just watch what i eat" History of Any Multi-Drug Resistant Organisms: None Reported Past Surgical History: Orthopedic Surgery, Tonsillectomy Additional Past Surgical History / Comment(s): heel spurs removed, colonoscopy, basal call carcinoma Past Anesthesia/Blood Transfusion Reactions: Previous Problems w/ Anesthesia Additional Past Anesthesia/Blood Transfusion Reaction / Comment(s): stopped breathing during colonoscopy yrs. ago before sleep apnea diagnosed per pt. Past Psychological History: No Psychological Hx Reported Smoking Status: Never smoker - Past Family History Father Family Medical History: Cancer, Hypertension Additional Family Medical History / Comment(s): oral cancer Mother Family Medical History: Cancer Additional Family Medical History / Comment(s): "irreg heart rythym" General Exam - General Exam Comments Initial Comments: General: The patient is awake and alert, tired and pale Skin: Skin is warm and dry and no rashes or lesions are noted. Eye: Pupils are equal, round and reactive to light, extra-ocular movements are intact; there is normal conjunctiva bilaterally. Ears, nose, mouth and throat: There are moist mucous membranes and no oral lesions. Neck: The neck is supple, there is no tenderness or JVD. Cardiovascular: There is a regular rate and rhythm. No murmur, rub or gallop is appreciated. Respiratory: To auscultation bilateral, no wheezing no rhonchi no distress respiratory hutchinson noticed Gastrointestinal: Soft, non-distended, non-tender abdomen without masses or organomegaly noted. There is no rebound or guarding present. Bowel sounds are unremarkable. Back: There is no tenderness to palpation in the midline. There is no obvious deformity. Musculoskeletal: Normal ROM, no tenderness, There is no pedal edema. There is no calf tenderness or swelling. No cords were appreciated. Neurological: CN II-XII intact, Cranial nerves III through XII are intact. There are no obvious motor or sensory deficits. Coordination appears grossly intact. Speech is normal. Psychiatric: Cooperative, appropriate mood & affect, normal judgment. Limitations: no limitations Course Vital Signs 08/19/17 08/19/17 08/19/17 11:07 11:11 13:02 Temperature 98.4 F 98.4 F Pulse Rate 104 H 102 H Respiratory 22 20 Rate Blood Pressure 123/65 125/67 O2 Sat by Pulse 93 L 100 Oximetry On reassessment noticed white count is 21 with a significant left shift compressive metabolic panel is unremarkable chest x-ray is unremarkable urinalysis shows significant for UTIs most probably source of sepsis, he has a history of congestive heart failure carefully we hydrated him and he got some antibiotics and now is going to be on coronary Zosyn be admitted to Dr. Moran service and will consult to Dr. Bhavesh GARCIA doctor EKG Findings - EKG Comments: EKG Findings:: EKG is a normal sinus rhythm ventricular rate is 100 [place] interval is 1 H2 QRS duration is 96 QT/QTc is 374/482 review of this EKG does not reveal any ST elevation or ST depression Medical Decision Making - Lab Data Result diagrams: 08/19/17 11:41 08/19/17 11:41 Lab Results 08/19/17 08/19/17 08/19/17 Range/Units 11:41 11:41 11:41 WBC 21.1 H (3.8-10.6) k/uL RBC 4.74 (4.30-5.90) m/uL Hgb 14.9 (13.0-17.5) gm/dL Hct 41.7 (39.0-53.0) % MCV 88.0 (80.0-100.0) fL MCH 31.5 (25.0-35.0) pg MCHC 35.9 (31.0-37.0) g/dL RDW 13.6 (11.5-15.5) % Plt Count 217 (150-450) k/uL Neutrophils % 89 % Lymphocytes % 5 % Monocytes % 6 % Eosinophils % 0 % Basophils % 0 % Neutrophils # 18.7 H (1.3-7.7) k/uL Lymphocytes # 1.0 (1.0-4.8) k/uL Monocytes # 1.2 H (0-1.0) k/uL Eosinophils # 0.1 (0-0.7) k/uL Basophils # 0.0 (0-0.2) k/uL PT (9.0-12.0) sec INR (<1.2) APTT (22.0-30.0) sec Sodium 138 (137-145) mmol/L Potassium 3.7 (3.5-5.1) mmol/L Chloride 100 (98-107) mmol/L Carbon Dioxide 23 (22-30) mmol/L Anion Gap 15 mmol/L BUN 25 H (9-20) mg/dL Creatinine 1.15 (0.66-1.25) mg/dL Est GFR (CKD-EPI)AfAm 77 (>60 ml/min/1.73 sqM) Est GFR (CKD-EPI)NonAf 66 (>60 ml/min/1.73 sqM) Glucose 151 H (74-99) mg/dL Plasma Lactic Acid Antonio 1.1 (0.7-2.0) mmol/L Calcium 9.2 (8.4-10.2) mg/dL Total Bilirubin 1.0 (0.2-1.3) mg/dL AST 15 L (17-59) U/L ALT 20 L (21-72) U/L Alkaline Phosphatase 49 (38-126) U/L Troponin I (0.000-0.034) ng/mL Total Protein 6.5 (6.3-8.2) g/dL Albumin 4.3 (3.5-5.0) g/dL Urine Color Urine Appearance (Clear) Urine pH (5.0-8.0) Ur Specific Paulding (1.001-1.035) Urine Protein (Negative) Urine Glucose (UA) (Negative) Urine Ketones (Negative) Urine Blood (Negative) Urine Nitrite (Negative) Urine Bilirubin (Negative) Urine Urobilinogen (<2.0) mg/dL Ur Leukocyte Esterase (Negative) Urine RBC (0-5) /hpf Urine WBC (0-5) /hpf Urine Bacteria (None) /hpf Urine Mucus (None) /hpf Urine Sperm (None) /hpf 08/19/17 08/19/17 08/19/17 Range/Units 11:41 11:41 12:09 WBC (3.8-10.6) k/uL RBC (4.30-5.90) m/uL Hgb (13.0-17.5) gm/dL Hct (39.0-53.0) % MCV (80.0-100.0) fL MCH (25.0-35.0) pg MCHC (31.0-37.0) g/dL RDW (11.5-15.5) % Plt Count (150-450) k/uL Neutrophils % % Lymphocytes % % Monocytes % % Eosinophils % % Basophils % % Neutrophils # (1.3-7.7) k/uL Lymphocytes # (1.0-4.8) k/uL Monocytes # (0-1.0) k/uL Eosinophils # (0-0.7) k/uL Basophils # (0-0.2) k/uL PT 10.4 (9.0-12.0) sec INR 1.1 (<1.2) APTT 23.1 (22.0-30.0) sec Sodium (137-145) mmol/L Potassium (3.5-5.1) mmol/L Chloride (98-107) mmol/L Carbon Dioxide (22-30) mmol/L Anion Gap mmol/L BUN (9-20) mg/dL Creatinine (0.66-1.25) mg/dL Est GFR (CKD-EPI)AfAm (>60 ml/min/1.73 sqM) Est GFR (CKD-EPI)NonAf (>60 ml/min/1.73 sqM) Glucose (74-99) mg/dL Plasma Lactic Acid Antonio (0.7-2.0) mmol/L Calcium (8.4-10.2) mg/dL Total Bilirubin (0.2-1.3) mg/dL AST (17-59) U/L ALT (21-72) U/L Alkaline Phosphatase (38-126) U/L Troponin I <0.012 (0.000-0.034) ng/mL Total Protein (6.3-8.2) g/dL Albumin (3.5-5.0) g/dL Urine Color Yellow Urine Appearance Cloudy (Clear) Urine pH 5.5 (5.0-8.0) Ur Specific Paulding 1.014 (1.001-1.035) Urine Protein Negative (Negative) Urine Glucose (UA) Negative (Negative) Urine Ketones Negative (Negative) Urine Blood Small H (Negative) Urine Nitrite Positive (Negative) Urine Bilirubin Negative (Negative) Urine Urobilinogen <2.0 (<2.0) mg/dL Ur Leukocyte Esterase Large H (Negative) Urine RBC 11 H (0-5) /hpf Urine WBC 98 H (0-5) /hpf Urine Bacteria Many H (None) /hpf Urine Mucus Rare H (None) /hpf Urine Sperm Occasional H (None) /hpf Disposition Clinical Impression: Sepsis Disposition: ADMITTED IP TO THIS HOSP Condition: Good Referrals: Joaquim Blancas MD [Primary Care Provider] - 1-2 days
[2017-08-19] MEDS ORDERED: ACETAMINOPHEN TAB 325 MG TAB PO PRN (13:31)
[2017-08-19] MEDS ORDERED: NALOXONE 0.4 MG/ML 1 ML VIAL IV PRN (13:31)
[2017-08-19] MEDS ORDERED: ONDANSETRON 4 MG/2 ML VIAL IVP PRN (13:31)
[2017-08-19] MEDS ORDERED: PIPERACILLIN-TAZOBACTAM 3.375 GM in DEXTROSE/WATER 1 50ML.BAG IVPB STA (13:35)
[2017-08-19 14:58] VITALS: BMI 41.9
[2017-08-19] MEDS: ACETAMINOPHEN TAB 500 MG TAB PO PRN ×2 (15:35→22:55)
[2017-08-19 17:08] LABS: Glucose,Whole Blood 134 mg/dL (75-99)
[2017-08-19] MEDS: CARBIDOPA-LEVODOPA 25-100 MG 1 EACH TAB PO SCH (17:31)
[2017-08-19] MEDS ORDERED: CALCIUM CARBONATE 500 MG CHEWABLE PO PRN (18:27)
[2017-08-19] MEDS ORDERED: MELATONIN 3 MG TABLET PO PRN (18:27)
[2017-08-19] MEDS ORDERED: ALPRAZolam 0.25 MG TAB PO PRN (18:27)
[2017-08-19 18:45] LABS: Creatine Kinase 42 U/L (55-170)
[2017-08-19] MEDS: LACTATED RINGERS 1,000 ML IV SCH (18:47)
[2017-08-19 18:52] LABS: Creatine Kinase MB <0.2 ng/mL (0.0-2.4)
--- NOTE | 2017-08-19 19:07 | HP ---
HISTORY AND PHYSICAL DATE OF ADMISSION: 08/19/2017 DATE OF SERVICE: August 19, 2017. PRESENTING COMPLAINT: Weak and tired. HISTORY OF PRESENTING COMPLAINT: A very pleasant 66-year-old patient of Dr. Blancas. Chronic stable medical conditions include obesity, hypertension, hyperlipidemia, rheumatoid arthritis and obstructive sleep apnea for which he uses a CPAP machine. Patient over 25 pounds, feeling extremely weak, tired, run down, could barely get up, difficulty in urinating, decreased appetite, fever, tired, run down. Some fullness in the pelvic area. The patient presented to the ER, was found to have a fever. Urine came back rather infected appearing. Was started on IV Zosyn. Having some difficulty making urine. Hence a Nielsen catheter was placed. The patient was admitted. REVIEW OF SYSTEMS: CONSTITUTIONAL: Weak, tired, febrile. HEENT none. RESPIRATORY: Baseline some shortness of breath. CARDIOVASCULAR none. GASTROINTESTINAL none. GENITOURINARY as above. MUSCULOSKELETAL: Pain in joints. DERMATOLOGICAL and hematologic, lymphatics none. PSYCHIATRY none. NEUROLOGICAL none. PAST MEDICAL HISTORY: Diet-controlled diabetes, hyperlipidemia, hypertension, rheumatoid arthritis, obstructive sleep apnea, hypothyroid, skin cancer, left arm. PAST SURGICAL HISTORY: Tonsillectomy, heel spur removed, colonoscopy, basal cell carcinoma. SOCIAL HISTORY: Alcohol rarely. Does not smoke. . Uses a CPAP. FAMILY HISTORY: Of cancer, hypertension, oral cancer. HOME MEDICATIONS: 1. Norvasc 10 mg a day. 2. Nasacort 1 spray each nostril b.i.d. 3. Crestor 10 mg p.o. daily. 4. Claritin 10 mg p.o. daily. 5. Zestoretic 20/12.5 one tab p.o. b.i.d. 6. Synthroid 88 mcg p.o. daily. 7. Sinemet 25/100 one tablet p.o. t.i.d. 8. Aspirin 325 p.o. daily. ALLERGIES: None. PHYSICAL EXAMINATION: VITAL SIGNS: Temperature 100.8, pulse 125, respiratory rate 24, blood pressure 143/80, pulse ox 98% on 3 L. GENERAL APPEARANCE: Well built, BMI 42. Lying in bed, tired appearing. EYES: Pupils equal. Conjunctivae normal. HEENT: External appearance of nose and ears normal. Oral cavity normal. NECK: JVD unable to assess. Mass not palpable. RESPIRATORY: Effort increased. LUNGS: Decreased breath sounds. CARDIOVASCULAR: Heart sounds muffled. No edema. ABDOMEN: Soft, nontender. Liver and spleen not palpable. LYMPHATICS: No lymph nodes palpable in the neck and axillae. PSYCHIATRY: Alert and oriented x3. Mood and affect normal. NEUROLOGICAL: Pupils equal. Cranial nerves grossly intact. Power and sensation grossly intact. INVESTIGATIONS: White count 21.1, hemoglobin 14.9, potassium 3.7, BUN 25. UA positive for leukocyte esterase. WBC. ASSESSMENT: 1. Acute uncomplicated cystitis causing severe sepsis, present on admission. 2. Morbid obesity BMI 42.0. 3. Essential hypertension. 4. Hyperlipidemia. 5. Chronic rheumatoid arthritis. 6. Obstructive sleep apnea uses CPAP machine. PLAN: Home medications resumed. Patient is put on IV fluids, started on IV Zosyn. Care was discussed with the patient. Questions were answered. Copy to Dr. Blancas. MMGALDINOL / ROSION: [id number] /
[2017-08-19] MEDS: LISINOPRIL-HCTZ 20-12.5 MG 1 EACH TAB PO SCH (20:20)
[2017-08-19] MEDS: ENOXAPARIN 40 MG/0.4 ML SYRINGE SQ SCH (20:21)
[2017-08-19 20:58] LABS: Glucose,Whole Blood 123 mg/dL (75-99)
[2017-08-19] MEDS ORDERED: PIPERACILLIN-TAZOBACTAM 3.375 GM in DEXTROSE/WATER 1 50ML.BAG IVPB SCH (22:00)
--- NOTE | 2017-08-19 23:17 | CONS ---
CONSULTATION DATE OF SERVICE: 08/19/2017. REASON FOR CONSULTATION: Sepsis. HISTORY OF PRESENT ILLNESS: The patient is a 66-year-old male presenting to the ER at [facility] with fever and generalized . The patient's symptoms started last night. The patient week he tried to go to urinate. However, he was having difficulty urinating. However, the mentioned that when he would stand up he was able to urinate some. The patient has been complaining of burning of urine as well, but denies having any significant suprapubic or flank pain, has been nauseated but no vomiting. The patient denies having any chest pain or shortness of breath or cough. With worsening symptoms, he presented to the [facility] ER. The patient being evaluated by the ER physician. The patient did have a fever of 100.8. He did have elevated white count 21.1 and urine has been significantly positive. The patient did have a chest x-ray that was reported negative for any pneumonia. The patient has been diagnosed with urinary tract infection with possible sepsis. The patient did received a dose of Zosyn in the hospital and ID was consulted for further recommendation regarding antibiotic therapy. REVIEW OF SYSTEMS: CONSTITUTIONAL: Positive for weakness along with fever and chills. Eyes: No complaint. ENT no complaint. Respiratory no complaint. Cardiovascular no complaint. Genitourinary as per HPI. Gastrointestinal no complaint. Musculoskeletal no complaint. Integumentary: No complaint. Psychological no complaint. Endocrine no complaint. Neurologic no complaint. PAST MEDICAL HISTORY: Hypertension, hyperlipidemia, rheumatoid arthritis, sleep apnea, skin cancer. PAST SURGICAL HISTORY: Tonsillectomy, spur removed, colonoscopy and questionable infection. SOCIAL HISTORY: Denies smoking, drinking or drug use. FAMILY HISTORY: Father history of oral cancer. Mother history of irregular heart rhythm and cancer. ALLERGIES: No known drug allergies. MEDICATION: The patient is currently on Zosyn, Zofran, Narcan, Melatonin, Claritin and Synthroid, lactated Ringers, lisinopril, hydrochlorothiazide, Lovenox, Sinemet, TUMS, Lipitor, aspirin, Norvasc, Xanax and Tylenol. EXAMINATION: Blood pressure is 143/80 with a pulse of 125, temperature of 100.8. He is 98% on 2 L nasal cannula. General description is an elderly male lying in bed in no distress. No tachypnea or accessory muscles of respiration use. HEENT: Shows no pallor or scleral icterus. Oral mucosa membranes dry. No pharyngeal erythema or thrush. Neck trachea central. No thyromegaly. Lungs unlabored breathing. Clear to auscultation anteriorly. No wheeze or crackles. Heart S1, S2. Regular rate and rhythm. ABDOMEN: Soft, no tenderness. No guarding. No rigidity. No organomegaly. EXTREMITIES: No edema of the feet. Skin examination: No rash or mass palpable. Neurological: Patient is awake, alert, oriented times three. Mood and affect normal. LABS: Hemoglobin is 14.8, white count 21.1 with a BUN of 25, creatinine is 1.15. Electrolytes have been normal. Liver enzymes are normal. Urine has been cloudy with large leukocyte esterases, 98 WBC. Cultures currently pending. DIAGNOSTIC IMPRESSION AND PLAN: Patient admitted to the hospital with sepsis and patient did have fever of 100.8, significant difficulty urination along with burning of urine, significantly positive urinalysis, tachycardia, elevated white count, likely sepsis with secondary urinary source with risk factors including urinary outflow obstruction likely from enteric gram- negative pathogen could be an E coli, or similar pathogen as the patient has not been on antibiotic in the recent past. PLAN: 1. Discontinue Zosyn. 2. We will start the patient on Rocephin 2 g IV piggyback. 3. In view of the difficulty in urination and urine retention, temporary Nielsen catheter with initiation of the Flomax and a goal of discontinue of Nielsen in the next 24-48 hours. 4. We will follow up on clinical condition and culture to further adjust medication if needed. Thank you for this consultation. We will follow this patient along with you. MMODL / IJN: [id number] /
[2017-08-20 00:25] LABS: Creatine Kinase 41 U/L (55-170)
[2017-08-20] MEDS: TAMSULOSIN 0.4 MG CAP.ER.24H PO SCH ×2 (00:32→16:43)
[2017-08-20 00:34] LABS: Creatine Kinase MB <0.2 ng/mL (0.0-2.4)
[2017-08-20] MEDS: IBUPROFEN 400 MG TAB PO PRN (01:17)
[2017-08-20] MEDS: LACTATED RINGERS 1,000 ML IV SCH ×3 (01:26→16:44)
[2017-08-20] MEDS: LEVOTHYROXINE 88 MCG TAB PO SCH (06:33)
[2017-08-20 07:15] LABS: Glucose,Whole Blood 121 mg/dL (75-99)
[2017-08-20] MEDS: amLODIPine 10 MG TAB PO SCH (07:55)
[2017-08-20] MEDS: LISINOPRIL-HCTZ 20-12.5 MG 1 EACH TAB PO SCH ×2 (07:56→20:30)
[2017-08-20] MEDS: LORATADINE 10 MG TAB PO SCH (08:02)
[2017-08-20] MEDS: ASPIRIN 325 MG TAB PO SCH (08:02)
[2017-08-20] MEDS: ATORVASTATIN 20 MG TAB PO SCH (08:02)
[2017-08-20] MEDS: CARBIDOPA-LEVODOPA 25-100 MG 1 EACH TAB PO SCH ×3 (08:02→16:43)
[2017-08-20] MEDS: cefTRIAXone IN SWFI 2,000 MG/20 ML SYRINGE IVP SCH (08:02)
[2017-08-20] MEDS: FLUTICASONE 50MCG/SPRAY NASAL 16GM EA NOSTRIL SCH (08:02)
[2017-08-20] MEDS: ENOXAPARIN 40 MG/0.4 ML SYRINGE SQ SCH (08:02)
[2017-08-20 08:45] LABS: Basophils # (A) 0.1 k/uL (0-0.2); Basophils % (A) 0 %; Eosinophils % (A) 0 %; HCT 39.5 % (39.0-53.0); HGB 13.6 gm/dL (13.0-17.5); Lymphocytes # (A) 1.2 k/uL (1.0-4.8); Lymphocytes % (A) 8 %; MCHC 34.5 g/dL (31.0-37.0); MCV 90.1 fL (80.0-100.0); Mean Platelet Volume 6.7; Monocytes # (A) 0.7 k/uL (0-1.0); Monocytes % (A) 4 %; Neutrophils # (A) 14.4 k/uL (1.3-7.7); Neutrophils % (A) 87 %; Platelet Count 198 k/uL (150-450); RBC 4.39 m/uL (4.30-5.90); RDW 13.5 % (11.5-15.5); WBC 16.4 k/uL (3.8-10.6)
[2017-08-20 08:57] LABS: Calcium 8.6 mg/dL (8.4-10.2); Potassium 3.6 mmol/L (3.5-5.1)
[2017-08-20 09:10] LABS: Creatine Kinase MB 0.3 ng/mL (0.0-2.4)
[2017-08-20 09:28] LABS: Glucose,Whole Blood 196 mg/dL (75-99)
[2017-08-20 11:22] LABS: Hemoglobin A1C 5.1 % (4.0-6.0)
[2017-08-20 11:43] LABS: Glucose,Whole Blood 147 mg/dL (75-99)
[2017-08-20 17:04] LABS: Glucose,Whole Blood 121 mg/dL (75-99)
[2017-08-20 20:53] LABS: Glucose,Whole Blood 158 mg/dL (75-99)
--- NOTE | 2017-08-20 20:54 | PN ---
PROGRESS NOTE DATE OF SERVICE: 08/20/2017. REASON FOR FOLLOWUP: Urinary tract infection with sepsis. INTERVAL HISTORY: The patient is afebrile. He is feeling slightly better. RN did mention after placement of a Nielsen catheter, almost 1800 mL of dark purulent urine was drained out. The patient denies any chest pain or shortness of breath or cough. No abdominal pain or diarrhea. EXAMINATION: Blood pressure 90/60 with a pulse of 99, temperature 98.7, he is 94% on room air. GENERAL DESCRIPTION: An elderly male lying in bed in no distress. RESPIRATORY SYSTEM: Unlabored breathing. Clear to auscultation anteriorly. HEART: S1, S2. Regular rate and rhythm. ABDOMEN: Soft, no tenderness. LABS: Hemoglobin 13.6, white count 16.4 with a BUN of 23, creatinine is 1.32. Urine showing gram-negative. DIAGNOSTIC IMPRESSION AND PLAN: Patient admitted to the hospital with sepsis, source is Gram-negative urinary tract infection with risk factor including the urinary retention, status post Nielsen catheter placement and initiation of Flomax. The patient, at this time, will continue with Rocephin while waiting for the urine culture to finalize. Continue supportive care. MMODL / IJN: [id number] /
[2017-08-21] MEDS: LEVOTHYROXINE 88 MCG TAB PO SCH (06:24)
[2017-08-21] MEDS: LACTATED RINGERS 1,000 ML IV SCH ×3 (06:24→16:46)
[2017-08-21 07:07] LABS: Glucose,Whole Blood 112 mg/dL (75-99)
[2017-08-21 09:46] LABS: Anion Gap 12 mmol/L; Blood Urea Nitrogen 16 mg/dL (9-20); Calcium 8.3 mg/dL (8.4-10.2); Carbon Dioxide 24 mmol/L (22-30); Chloride 105 mmol/L (98-107); Glucose 157 mg/dL (74-99); Potassium 3.8 mmol/L (3.5-5.1); Sodium 141 mmol/L (137-145)
[2017-08-21] MEDS: amLODIPine 10 MG TAB PO SCH (10:04)
[2017-08-21] MEDS: CARBIDOPA-LEVODOPA 25-100 MG 1 EACH TAB PO SCH ×3 (10:04→16:45)
[2017-08-21] MEDS: ASPIRIN 325 MG TAB PO SCH (10:04)
[2017-08-21] MEDS: ATORVASTATIN 20 MG TAB PO SCH (10:04)
[2017-08-21] MEDS: cefTRIAXone IN SWFI 2,000 MG/20 ML SYRINGE IVP SCH (10:04)
[2017-08-21] MEDS: LORATADINE 10 MG TAB PO SCH (10:05)
[2017-08-21] MEDS: FLUTICASONE 50MCG/SPRAY NASAL 16GM EA NOSTRIL SCH (10:05)
[2017-08-21] MEDS: ENOXAPARIN 40 MG/0.4 ML SYRINGE SQ SCH (10:05)
[2017-08-21] MEDS: LISINOPRIL-HCTZ 20-12.5 MG 1 EACH TAB PO SCH ×2 (10:05→21:06)
[2017-08-21 12:10] LABS: Glucose,Whole Blood 198 mg/dL (75-99)
--- NOTE | 2017-08-21 15:37 | PN ---
PROGRESS NOTE DATE OF SERVICE: 08/21/2017. REASON FOR FOLLOWUP: E coli urinary tract infection. INTERVAL HISTORY: The patient overall fever pattern has improved. He is breathing comfortably. Denies having any chest pain or shortness of breath or cough. No abdominal pain or any diarrhea. He still has a Nielsen catheter in. EXAMINATION: Blood pressure is 121/76, pulse of 98, temperature 99. He is 94% on room air. General description is an elderly male lying in bed in no distress. Respiratory system: Unlabored breathing, clear to auscultation anteriorly. Heart S1, S2. Regular rate and rhythm. Abdomen soft, no tenderness. LABS: BUN of 15, creatinine 1.0. Urine with an E coli sensitive pathogen. Blood cultures have been negative. DIAGNOSTIC IMPRESSION AND PLAN: Patient with sepsis, source is E coli urinary tract infection in a patient who does have underlying urinary retention to be a risk factor. Currently on Rocephin. Plan to continue with the plan to finish therapy with oral Cipro 500 mg twice a day for at least 10-12 days. Nielsen catheter should be discontinued with a trial of void. Continue supportive care. MMODL / IJN: [id number] /
[2017-08-21] MEDS: TAMSULOSIN 0.4 MG CAP.ER.24H PO SCH (16:45)
[2017-08-21 16:53] LABS: Glucose,Whole Blood 143 mg/dL (75-99)
--- NOTE | 2017-08-21 20:43 | PN ---
PROGRESS NOTE DATE OF SERVICE: 08/20/2017 PRESENTING COMPLAINT: Tired, rundown. INTERVAL HISTORY: This patient presented with UTI and sepsis. He was seen by me yesterday. Feeling tired, rundown. Feels warm. Low-grade fever. Appetite is okay, a shad better. Getting IV Zosyn. Nielsen catheter in place. Still feels tired and rundown, not too keen to get out of bed. REVIEW OF SYSTEMS: Done for constitutional, cardiovascular, GI, pulmonary; relevant findings as above. CURRENT MEDICATIONS: Current medications include IV Zosyn. PHYSICAL EXAMINATION: T-max was 101.1 the night before, pulse of 118. Fever has now come down. Blood pressure 86/49, pulse ox 94% on room air. GENERAL APPEARANCE: Lying in bed, tired-appearing. EYES: Pupils equal. Conjunctivae normal. HEENT: External appearance of nose and ears normal. Oral cavity normal. NECK: JVD not raised. Mass not palpable. RESPIRATORY: Effort increased. LUNGS: Decreased breath sounds. CARDIOVASCULAR: Heart sounds muffled. No edema. ABDOMEN: Soft, nontender. Liver and spleen not palpable. PSYCHIATRY: Alert and oriented x3. Mood and affect normal. Nielsen catheter in place. INVESTIGATIONS: White count 16.4, potassium 3.6, BUN 23, creatinine 1.32. Accu-Cheks noted. ASSESSMENT: 1. Acute complicated cystitis causing severe sepsis, present on admission, from Escherichia coli. 2. Morbid obesity with body mass index of 42. 3. Essential hypertension. 4. Hyperlipidemia. 5. Chronic rheumatoid arthritis. 6. Obstructive sleep apnea; uses CPAP machine. PLAN: Continue with current medication and treatment plan. Antibiotics were switched to ceftriaxone. Patient is still feeling tired, rundown. Encouraged to be out of bed. MMODL / IJN: [id number] /
--- NOTE | 2017-08-21 20:55 | PN ---
PROGRESS NOTE DATE OF SERVICE: August 21, 2017 PRESENTING COMPLAINT: UTI with sepsis. INTERVAL HISTORY: This patient presented with acute UTI with sepsis. Cultures are growing E coli. Feels a shade better. Does not like hospital food. is present. Did get out of bed once with therapy. Does still feeling tired. Still has a Nielsen catheter. REVIEW OF SYSTEMS: Done for constitutional, cardiovascular, GI, pulmonary and relevant findings as above. CURRENT MEDICATIONS: Reviewed that include IV ceftriaxone. PHYSICAL EXAMINATION: VITAL SIGNS: Temperature 99.8, pulse 103, respirations 16, blood pressure 126/68, pulse ox 92% on room air. GENERAL APPEARANCE: Lying in bed, tired appearing, flushed. EYES: Pupils equal. Conjunctivae normal. HEENT: External appearance of nose and ears normal. Oral cavity normal. NECK: JVD unable to assess. Mass not palpable. RESPIRATORY: Effort increased. LUNGS: Decreased breath sounds. CARDIOVASCULAR. Heart sounds muffled. No edema. ABDOMEN: Soft, nontender. Liver and spleen not palpable. PSYCHIATRY: Alert and oriented x3. Mood and affect normal. INVESTIGATIONS: Potassium 3.8, BUN and creatinine is normal. ASSESSMENT: 1. Acute cystitis causing severe sepsis, present on admission from E coli. 2. Morbid obesity BMI 42. 3. Essential hypertension. 4. Hyperlipidemia. 5. Chronic rheumatoid arthritis. 6. Obstructive sleep apnea uses CPAP machine. 7. Medical debility from underlying sepsis. PLAN: Patient is doing somewhat better. Did speak to the patient and the . Encouraged to increase oral intake. I spoke to the nurse to DC the Nielsen catheter and get him up on a chair. Questions were answered. I do expect him hopefully to turn around significantly by tomorrow. MMODL / IJN: [id number] /
[2017-08-21 21:04] LABS: Glucose,Whole Blood 142 mg/dL (75-99)
[2017-08-22] MEDS: LEVOTHYROXINE 88 MCG TAB PO SCH (06:25)
[2017-08-22] MEDS: LACTATED RINGERS 1,000 ML IV SCH ×3 (06:26→17:37)
[2017-08-22] MEDS: IBUPROFEN 400 MG TAB PO PRN (06:34)
[2017-08-22 07:22] LABS: Glucose,Whole Blood 134 mg/dL (75-99)
[2017-08-22] MEDS: ATORVASTATIN 20 MG TAB PO SCH (09:32)
[2017-08-22] MEDS: ASPIRIN 325 MG TAB PO SCH (09:32)
[2017-08-22] MEDS: amLODIPine 10 MG TAB PO SCH (09:32)
[2017-08-22] MEDS: FLUTICASONE 50MCG/SPRAY NASAL 16GM EA NOSTRIL SCH (09:35)
[2017-08-22] MEDS: ENOXAPARIN 40 MG/0.4 ML SYRINGE SQ SCH (09:35)
[2017-08-22] MEDS: cefTRIAXone IN SWFI 2,000 MG/20 ML SYRINGE IVP SCH (09:35)
[2017-08-22] MEDS: CARBIDOPA-LEVODOPA 25-100 MG 1 EACH TAB PO SCH ×3 (09:35→16:33)
[2017-08-22] MEDS: LISINOPRIL-HCTZ 20-12.5 MG 1 EACH TAB PO SCH ×2 (09:35→21:32)
[2017-08-22] MEDS: LORATADINE 10 MG TAB PO SCH (09:36)
[2017-08-22 09:56] LABS: Basophils % (A) 1 %; Eosinophils # (A) 0.3 k/uL (0-0.7); Eosinophils % (A) 4 %; HGB 13.6 gm/dL (13.0-17.5); Lymphocytes # (A) 0.8 k/uL (1.0-4.8); Lymphocytes % (A) 11 %; MCH 30.8 pg (25.0-35.0); MCHC 34.7 g/dL (31.0-37.0); MCV 88.6 fL (80.0-100.0); Mean Platelet Volume 6.8; Monocytes # (A) 0.4 k/uL (0-1.0); Monocytes % (A) 5 %; Neutrophils # (A) 5.5 k/uL (1.3-7.7); Neutrophils % (A) 78 %; Platelet Count 188 k/uL (150-450); RBC 4.41 m/uL (4.30-5.90); RDW 13.5 % (11.5-15.5)
[2017-08-22 10:04] LABS: Anion Gap 14 mmol/L; Blood Urea Nitrogen 18 mg/dL (9-20); Calcium 8.6 mg/dL (8.4-10.2); Carbon Dioxide 26 mmol/L (22-30); Chloride 104 mmol/L (98-107); Glucose 150 mg/dL (74-99); Potassium 4.2 mmol/L (3.5-5.1); Sodium 144 mmol/L (137-145)
[2017-08-22 11:36] LABS: Glucose,Whole Blood 151 mg/dL (75-99)
[2017-08-22 16:44] LABS: Glucose,Whole Blood 147 mg/dL (75-99)
[2017-08-22] MEDS: TAMSULOSIN 0.4 MG CAP.ER.24H PO SCH (17:36)
--- NOTE | 2017-08-22 17:46 | PN ---
PROGRESS NOTE DATE OF SERVICE: 08/22/2017 REASON FOR FOLLOWUP: Urinary tract infection. INTERVAL HISTORY: The patient is currently afebrile. He seems to be breathing comfortably. Denies having any chest pain or shortness of breath or cough. Still has significant amount of urinary retention, as the straight catheterization this morning had about 2 L of urine. PHYSICAL EXAMINATION: Blood pressure is 127/77 with a pulse of 89, temperature 98.5. He is 96% on room air. General description is an elderly male up in the chair in no distress. RESPIRATORY SYSTEM: Unlabored breathing. Clear to auscultation anteriorly. HEART: S1, S2. Regular rate and rhythm. ABDOMEN: Soft. No tenderness. LABS: Hemoglobin is 13.6, white count of 7.0, BUN of 18, creatinine 0.99. DIAGNOSTIC IMPRESSION AND PLAN: Patient admitted to hospital with sepsis. Source is E coli urinary tract infection. Patient does have significant urinary retention, putting him at risk of this infection. Patient at this time will continue with Rocephin with the plan to finish therapy with oral Cipro 500 mg twice a day for another 10 days with close outpatient followup. MMODL / IJN: [id number] /
--- NOTE | 2017-08-22 19:14 | PN ---
PROGRESS NOTE DATE OF SERVICE: 08/27/2017. PRESENTING COMPLAINT: Tired. INTERVAL HISTORY: Patient presents with UTI with sepsis. Cultures growing E coli. The patient's arthritic pain in the hip and lower back is flaring up. Appetite is better today. Did walk a bit in the hallway. The patient did retain some urine. REVIEW OF SYSTEMS: Done for constitutional, cardiovascular, GI, pulmonary; relevant findings as above. CURRENT MEDICATIONS: Reviewed, that include IV ceftriaxone. PHYSICAL EXAMINATION: On examination, afebrile, pulse 80, respirations 16, blood pressure 139/75, pulse 95% on 3 L. GENERAL APPEARANCE: Sitting up in a chair, awake. EYES: Pupils equal. Conjunctivae normal. HEENT: External appearance of nose and ears normal. Oral cavity normal. NECK: JVD not raised. Mass not palpable. Respiratory effort normal. LUNGS: Decreased breath sounds. CARDIOVASCULAR: First heart sound muffled. No edema. ABDOMEN: Soft, nontender. Liver and spleen not palpable. PSYCHIATRY: Alert and oriented x3. Mood and affect normal. INVESTIGATIONS: White count 7, potassium 4.2 Accu-Cheks are noted. ASSESSMENT: 1. Acute uncomplicated cystitis causing severe sepsis, present on admission with E coli. 2. Morbid obesity, BMI of 42. 3. Essential hypertension. 4. Hyperlipidemia. 5. Chronic rheumatoid arthritis. 6. Obstructive sleep apnea, uses CPAP machine. 7. Medical debility from underlying sepsis. 8. Acute urinary retention after using a Nielsen catheter, probably from decreased mobility. PLAN: Patient encouraged to ambulate. Will add some Flomax. The patient's white count has come down. Will follow. MMODL / IJN: [id number] /
[2017-08-22 21:01] LABS: Glucose,Whole Blood 150 mg/dL (75-99)
[2017-08-23 06:31] VITALS: BP 124/78; PULSE 86; RESP 16; TEMP 97.4
[2017-08-23] MEDS: LEVOTHYROXINE 88 MCG TAB PO SCH (06:58)
[2017-08-23 07:24] LABS: Glucose,Whole Blood 124 mg/dL (75-99)
[2017-08-23] MEDS: IBUPROFEN 400 MG TAB PO PRN (08:04)
[2017-08-23] MEDS: cefTRIAXone IN SWFI 2,000 MG/20 ML SYRINGE IVP SCH (08:05)
[2017-08-23] MEDS: amLODIPine 10 MG TAB PO SCH (08:05)
[2017-08-23] MEDS: LORATADINE 10 MG TAB PO SCH (08:05)
[2017-08-23] MEDS: ATORVASTATIN 20 MG TAB PO SCH (08:05)
[2017-08-23] MEDS: ENOXAPARIN 40 MG/0.4 ML SYRINGE SQ SCH (08:05)
[2017-08-23] MEDS: CARBIDOPA-LEVODOPA 25-100 MG 1 EACH TAB PO SCH ×2 (08:05→12:31)
[2017-08-23] MEDS: LISINOPRIL-HCTZ 20-12.5 MG 1 EACH TAB PO SCH (08:05)
[2017-08-23] MEDS: FLUTICASONE 50MCG/SPRAY NASAL 16GM EA NOSTRIL SCH (08:06)
[2017-08-23] MEDS: ASPIRIN 325 MG TAB PO SCH (08:06)
[2017-08-23 09:26] LABS: Anion Gap 13 mmol/L; Blood Urea Nitrogen 17 mg/dL (9-20); Carbon Dioxide 27 mmol/L (22-30); Chloride 101 mmol/L (98-107); Glucose 156 mg/dL (74-99); Potassium 3.8 mmol/L (3.5-5.1); Sodium 141 mmol/L (137-145)
--- NOTE | 2017-08-23 14:48 | PN ---
PROGRESS NOTE DATE OF SERVICE: 08/23/2017 REASON FOR FOLLOWUP: E coli urinary tract infection, complicated. INTERVAL HISTORY: The patient is currently afebrile. He seems to be breathing comfortably. Denies having any chest pain or shortness of breath. No abdominal pain or any diarrhea. PHYSICAL EXAMINATION: Blood pressure 124/78 with a pulse of 86, temperature 97.4. He is 97% on room air. General description is an elderly male up in the chair in no distress. RESPIRATORY SYSTEM: Unlabored breathing, clear to auscultation anteriorly. HEART: S1, S2. Regular rate and rhythm. ABDOMEN: Soft, no tenderness. LABS: BUN of 17, creatinine 0.92. DIAGNOSTIC IMPRESSION AND PLAN: Patient with an Escherichia coli urinary tract infection complicated, currently on Rocephin and will be transitioned to oral Cipro 500 mg twice a day for another 10 days with close outpatient followup. MMODL / IJN: [id number] /
== END 2017-08-23 15:12 | disposition home or self-care (01) | DRG 872 ==
LOC: EC 11:03 → 4MS4W 13:31
PROVIDERS: ADMIT Hospitalist; ATTEND Hospitalist
DX: A41.51 Sepsis due to Escherichia coli [E. coli] (principal); N30.00 Acute cystitis without hematuria; Z68.41 Body mass index [BMI] 40.0-44.9, adult; R65.20 Severe sepsis without septic shock; E03.9 Hypothyroidism, unspecified; E11.9 Type 2 diabetes mellitus without complications; E66.01 Morbid (severe) obesity due to excess calories; E78.5 Hyperlipidemia, unspecified; G47.33 Obstructive sleep apnea (adult) (pediatric); I10 Essential (primary) hypertension; M06.9 Rheumatoid arthritis, unspecified; N13.9 Obstructive and reflux uropathy, unspecified; M16.10 Unilateral primary osteoarthritis, unspecified hip; M47.9 Spondylosis, unspecified; Z79.899 Other long term (current) drug therapy; Z79.82 Long term (current) use of aspirin; Z79.890 Hormone replacement therapy; Z85.828 Personal history of other malignant neoplasm of skin; Z87.01 Personal history of pneumonia (recurrent); Z82.49 Family history of ischemic heart disease and other diseases of the circulatory system; Z80.0 Family history of malignant neoplasm of digestive organs
CPT/HCPCS: 36415; 71046; 80048; 80053; 81001; 82550; 82553; 83036; 83605; 84484; 85025; 85610; 85730; 87040; 87077; 87086; 87186; 93005; 94760; 96361; 96365; 96375; 99285

== ENCOUNTER 2018-03-26 22:17 | Observation (INO) | payer MEDICARE, OTHER ==
[2018-03-26] MEDS ORDERED: IBUPROFEN 600 MG TAB PO STA (22:28)
[2018-03-26] MEDS ORDERED: ACETAMINOPHEN TAB 500 MG TAB PO STA (22:28)
[2018-03-26] MEDS ORDERED: SODIUM CHLORIDE 0.9% 500 ML 500 ML IV SCH (22:30)
--- NOTE | 2018-03-26 22:33 | ED ---
General Adult HPI - General Stated complaint: Weakness Time Seen by Provider: 03/26/18 22:21 Source: patient, EMS, RN notes reviewed Mode of arrival: EMS Limitations: no limitations - History of Present Illness Initial comments: Patient is a pleasant 67-year-old male presenting to the emergency Department with general weakness. Onset of symptoms was just the past hour or 2. Patient feels weak all over. Patient had difficulty walking up the steps. No isolated area of weakness. No confusion. EMS did notice fever. Patient was unaware of this. Patient does admit to having mild rhinorrhea. No cough or dyspnea. No chest pain. No abdominal pain. Patient does have a catheter placed approximately one month ago. Patient does admit to having some leg swelling however states this is actually improved for him compared to chronic. - Related Data Home Medications Medication Instructions Recorded Confirmed amLODIPine BESYLATE [Norvasc] 10 mg PO DAILY 10/28/15 03/26/18 Carbidopa-Levodopa 25-100 mg 1 tab PO TID 08/19/17 03/26/18 [Sinemet 25-100 mg] Levothyroxine Sodium [Synthroid] 88 mcg PO DAILY 08/19/17 03/26/18 Loratadine [Claritin] 10 mg PO DAILY 08/19/17 03/26/18 Rosuvastatin Calcium [Crestor] 10 mg PO DAILY 08/19/17 03/26/18 Ibuprofen [Motrin Ib] 200 mg PO Q4H PRN 03/26/18 03/26/18 Lisinopril-Hctz 20-12.5 mg 1 tab PO DAILY 03/26/18 03/26/18 [Zestoretic 20-12.5] diphenhydrAMINE [Benadryl] 25 mg PO HS PRN 03/26/18 03/26/18 Previous Rx's Medication Instructions Recorded Aspirin 81 mg PO DAILY #1 chewable 08/23/17 Allergies Allergy/AdvReac Type Severity Reaction Status Date / Time No Known Allergies Allergy Verified 03/26/18 22:50 Review of Systems ROS Statement: Those systems with pertinent positive or pertinent negative responses have been documented in the HPI. ROS Other: All systems not noted in ROS Statement are negative. Constitutional: Reports: chills, weakness, other (Patient was unaware of fever.) Eyes: Denies: eye pain ENT: Reports: congestion. Denies: ear pain Respiratory: Denies: cough, dyspnea Cardiovascular: Denies: chest pain Endocrine: Denies: fatigue Gastrointestinal: Denies: abdominal pain Genitourinary: Denies: dysuria, hematuria Musculoskeletal: Denies: back pain Skin: Denies: rash Neurological: Reports: as per HPI Past Medical History Past Medical History: Cancer, CVA/TIA, Diabetes Mellitus, Hyperlipidemia, Hypertension, Pneumonia, Rheumatoid Arthritis (RA), Sleep Apnea/CPAP/BIPAP, Thyroid Disorder Additional Past Medical History / Comment(s): stress test 2006, rt side weak/ slurred speech/possible tia ,uses CPAP,bronchitis, skin ca lt arm, parkinson's disease, "i was told i was on [place] of dm- i just watch what i eat" History of Any Multi-Drug Resistant Organisms: None Reported Past Surgical History: Tonsillectomy Additional Past Surgical History / Comment(s): heel spurs removed, colonoscopy, basal call carcinoma Past Anesthesia/Blood Transfusion Reactions: Previous Problems w/ Anesthesia Additional Past Anesthesia/Blood Transfusion Reaction / Comment(s): stopped breathing during colonoscopy yrs. ago before sleep apnea diagnosed per pt. Past Psychological History: No Psychological Hx Reported Additional Psychological History / Comment(s): pt is independant. lives in single level home that has 4 front porch steps.1 pet dog. no home care services recieved. has a cpap machine. Smoking Status: Never smoker Past Alcohol Use History: Rare Past Drug Use History: None Reported - Past Family History Father Family Medical History: Cancer, Hypertension Additional Family Medical History / Comment(s): oral cancer Mother Family Medical History: Cancer Additional Family Medical History / Comment(s): "irreg heart rythym" General Exam Limitations: no limitations General appearance: alert, in no apparent distress Head exam: Present: atraumatic Eye exam: Present: normal appearance, PERRL ENT exam: Present: normal oropharynx Neck exam: Present: normal inspection. Absent: meningismus Respiratory exam: Present: normal lung sounds bilaterally Cardiovascular Exam: Present: normal rhythm, tachycardia GI/Abdominal exam: Present: soft. Absent: distended, tenderness Extremities exam: Present: pedal edema. Absent: calf tenderness Neurological exam: Present: alert, oriented X3, CN II-XII intact. Absent: motor sensory deficit Expanded Neurological exam: Present: protecting the airway Patient oriented to: Present: person, place, time Speech: Present: fluid speech Cranial nerves: EOM's Intact: Normal Motor strength exam: RUE: 5, LUE: 5, RLE: 5, LLE: 5 Eye Response: (4) open spontaneously Motor Response: (6) obeys commands Verbal Response: (5) oriented Psychiatric exam: Present: normal affect, normal mood Skin exam: Present: normal color. Absent: rash Course Vital Signs 03/26/18 03/26/18 22:29 23:57 Temperature 103.1 F H 101.8 F H Pulse Rate 124 H 114 H Respiratory 18 20 Rate Blood Pressure 150/86 110/63 O2 Sat by Pulse 95 95 Oximetry - Reevaluation(s) Reevaluation #1: 03/27/18 00:39 Heart rate has improved to 111. Patient still has difficulty getting up and walking. Patient does meet sepsis criteria. This is diagnosed at 0039. Blood culture and lactic acid and IV and about X have all been ordered. Dr. Lewis has been paged for admission. EKG Findings - EKG Comments: EKG Findings:: Sinus tachycardia 120. [place] 182. QRS 90. QT return. QTC 438. Left axis. No acute ST change. Normal QRS. Medical Decision Making - Lab Data Result diagrams: 03/26/18 23:04 03/26/18 23:04 Lab Results 03/26/18 03/26/18 03/26/18 Range/Units 23:04 23:04 23:04 WBC 8.7 (3.8-10.6) k/uL RBC 4.81 (4.30-5.90) m/uL Hgb 14.5 (13.0-17.5) gm/dL Hct 42.0 (39.0-53.0) % MCV 87.3 (80.0-100.0) fL MCH 30.2 (25.0-35.0) pg MCHC 34.6 (31.0-37.0) g/dL RDW 12.8 (11.5-15.5) % Plt Count 293 (150-450) k/uL Neutrophils % 78 % Lymphocytes % 12 % Monocytes % 7 % Eosinophils % 1 % Basophils % 1 % Neutrophils # 6.7 (1.3-7.7) k/uL Lymphocytes # 1.0 (1.0-4.8) k/uL Monocytes # 0.6 (0-1.0) k/uL Eosinophils # 0.1 (0-0.7) k/uL Basophils # 0.1 (0-0.2) k/uL PT 9.9 (9.0-12.0) sec INR 0.9 (<1.2) APTT 24.4 (22.0-30.0) sec Sodium (137-145) mmol/L Potassium (3.5-5.1) mmol/L Chloride (98-107) mmol/L Carbon Dioxide (22-30) mmol/L Anion Gap mmol/L BUN (9-20) mg/dL Creatinine (0.66-1.25) mg/dL Est GFR (CKD-EPI)AfAm (>60 ml/min/1.73 sqM) Est GFR (CKD-EPI)NonAf (>60 ml/min/1.73 sqM) Glucose (74-99) mg/dL Plasma Lactic Acid Antonio 1.1 (0.7-2.0) mmol/L Calcium (8.4-10.2) mg/dL Total Bilirubin (0.2-1.3) mg/dL AST (17-59) U/L ALT (21-72) U/L Alkaline Phosphatase (38-126) U/L Total Protein (6.3-8.2) g/dL Albumin (3.5-5.0) g/dL Urine Color Urine Appearance (Clear) Urine pH (5.0-8.0) Ur Specific [place] (1.001-1.035) Urine Protein (Negative) Urine Glucose (UA) (Negative) Urine Ketones (Negative) Urine Blood (Negative) Urine Nitrite (Negative) Urine Bilirubin (Negative) Urine Urobilinogen (<2.0) mg/dL Ur Leukocyte Esterase (Negative) Urine RBC (0-5) /hpf Urine WBC (0-5) /hpf Urine WBC Clumps (None) /hpf Ur Squamous Epith Cells (0-4) /hpf Urine Bacteria (None) /hpf Influenza Type A RNA (Not Detectd) Influenza Type B (PCR) (Not Detectd) 03/26/18 03/26/18 03/26/18 Range/Units 23:04 23:04 23:10 WBC (3.8-10.6) k/uL RBC (4.30-5.90) m/uL Hgb (13.0-17.5) gm/dL Hct (39.0-53.0) % MCV (80.0-100.0) fL MCH (25.0-35.0) pg MCHC (31.0-37.0) g/dL RDW (11.5-15.5) % Plt Count (150-450) k/uL Neutrophils % % Lymphocytes % % Monocytes % % Eosinophils % % Basophils % % Neutrophils # (1.3-7.7) k/uL Lymphocytes # (1.0-4.8) k/uL Monocytes # (0-1.0) k/uL Eosinophils # (0-0.7) k/uL Basophils # (0-0.2) k/uL PT (9.0-12.0) sec INR (<1.2) APTT (22.0-30.0) sec Sodium 137 (137-145) mmol/L Potassium 4.0 (3.5-5.1) mmol/L Chloride 102 (98-107) mmol/L Carbon Dioxide 24 (22-30) mmol/L Anion Gap 11 mmol/L BUN 27 H (9-20) mg/dL Creatinine 1.32 H (0.66-1.25) mg/dL Est GFR (CKD-EPI)AfAm 64 (>60 ml/min/1.73 sqM) Est GFR (CKD-EPI)NonAf 56 (>60 ml/min/1.73 sqM) Glucose 158 H (74-99) mg/dL Plasma Lactic Acid Antonio (0.7-2.0) mmol/L Calcium 9.2 (8.4-10.2) mg/dL Total Bilirubin 0.8 (0.2-1.3) mg/dL AST 19 (17-59) U/L ALT 20 L (21-72) U/L Alkaline Phosphatase 60 (38-126) U/L Total Protein 6.8 (6.3-8.2) g/dL Albumin 4.0 (3.5-5.0) g/dL Urine Color Yellow Urine Appearance Turbid (Clear) Urine pH 6.0 (5.0-8.0) Ur Specific [place] 1.016 (1.001-1.035) Urine Protein 3+ H (Negative) Urine Glucose (UA) Negative (Negative) Urine Ketones Negative (Negative) Urine Blood Moderate H (Negative) Urine Nitrite Positive (Negative) Urine Bilirubin Negative (Negative) Urine Urobilinogen <2.0 (<2.0) mg/dL Ur Leukocyte Esterase Large H (Negative) Urine RBC 65 H (0-5) /hpf Urine WBC >182 H (0-5) /hpf Urine WBC Clumps Few H (None) /hpf Ur Squamous Epith Cells 1 (0-4) /hpf Urine Bacteria Rare H (None) /hpf Influenza Type A RNA Not Detected (Not Detectd) Influenza Type B (PCR) Not Detected (Not Detectd) - Radiology Data Radiology results: report reviewed (Chest x-ray shows no acute process) Critical Care Time Critical Care Time: Yes Total Critical Care Time: 33 Disposition Clinical Impression: Sepsis, Urinary tract infection Disposition: ADMITTED IP TO THIS [facility] Condition: Serious Is patient prescribed a controlled substance at d/c from ED?: No Referrals: Joaquim Blancas MD [Primary Care Provider] - 1-2 days Decision Time: 00:40
[2018-03-26 23:22] LABS: Basophils # (A) 0.1 k/uL (0-0.2); Basophils % (A) 1 %; Eosinophils # (A) 0.1 k/uL (0-0.7); Eosinophils % (A) 1 %; HGB 14.5 gm/dL (13.0-17.5); Lymphocytes % (A) 12 %; MCH 30.2 pg (25.0-35.0); MCHC 34.6 g/dL (31.0-37.0); MCV 87.3 fL (80.0-100.0); Mean Platelet Volume 6.1; Monocytes # (A) 0.6 k/uL (0-1.0); Monocytes % (A) 7 %; Neutrophils # (A) 6.7 k/uL (1.3-7.7); Neutrophils % (A) 78 %; Platelet Count 293 k/uL (150-450); RBC 4.81 m/uL (4.30-5.90); RDW 12.8 % (11.5-15.5); WBC 8.7 k/uL (3.8-10.6)
[2018-03-26 23:27] LABS: Appearance,Urine Turbid (Clear); Bacteria,Urine Rare /hpf; Bilirubin,Urine Negative (Negative); Blood,Urine Moderate (Negative); Color,Urine Yellow; Glucose,Urine (UA) Negative (Negative); Ketones,Urine Negative (Negative); Leukocyte Esterase,Urine Large (Negative); Nitrite,Urine Positive (Negative); Protein,Urine 3+ (Negative); RBC,Urine 65 /hpf (0-5); Specific Gravity,Urine 1.016 (1.001-1.035); Squamous Epithelial Cell,Urine 1 /hpf (0-4); Urobilinogen,Urine <2.0 mg/dL (<2.0); WBC,Urine >182 /hpf (0-5)
[2018-03-26 23:30] LABS: INR 0.9 (<1.2); Partial Thromboplastin Time 24.4 sec (22.0-30.0); Prothrombin Time 9.9 sec (9.0-12.0)
[2018-03-26 23:32] LABS: Calcium 9.2 mg/dL (8.4-10.2); Total Bilirubin 0.8 mg/dL (0.2-1.3); Total Protein 6.8 g/dL (6.3-8.2)
[2018-03-26] MEDS ORDERED: cefTRIAXone 2,000 MG in SODIUM CHLORIDE 0.9% 100 ML IVPB STA (23:34)
[2018-03-26] MEDS ORDERED: SODIUM CHLORIDE 0.9% 500 ML 500 ML IV STA (23:35)
--- NOTE | 2018-03-26 23:45 | XR ---
EXAMINATION TYPE: XR chest 2V DATE OF EXAM: 03/26/2018 COMPARISON: 08/19/2017 HISTORY: Fever and weakness TECHNIQUE: Frontal and lateral views of the chest are obtained. FINDINGS: There is no heart failure nor confluent pneumonic infiltrate. Costophrenic angles are jackie r. There is poor inspiration. There are chest leads. IMPRESSION: No active cardiopulmonary disease. Inspiration decreased compared to old exam.
[2018-03-27] MEDS ORDERED: NALOXONE 0.4 MG/ML 1 ML VIAL IV PRN (00:40)
[2018-03-27] MEDS ORDERED: IBUPROFEN 400 MG TAB PO PRN (00:40)
[2018-03-27] MEDS ORDERED: ACETAMINOPHEN TAB 325 MG TAB PO PRN (00:40)
[2018-03-27] MEDS: SODIUM CHLORIDE 0.9% 1,000 ML IV SCH ×3 (01:31→17:15)
[2018-03-27 09:53] VITALS: BMI 44.1
[2018-03-27] MEDS ORDERED: CARBIDOPA-LEVODOPA 25-100 MG 1 EACH TAB PO SCH (12:00)
[2018-03-27] MEDS: ASPIRIN 81 MG PO SCH (12:51)
[2018-03-27] MEDS: ATORVASTATIN 10 MG TAB PO SCH (12:51)
[2018-03-27] MEDS: amLODIPine 10 MG TAB PO SCH (12:51)
[2018-03-27] MEDS: LEVOTHYROXINE 88 MCG TAB PO SCH (12:51)
[2018-03-27] MEDS: CARBIDOPA-LEVODOPA 25-100 MG 1 EACH TAB PO SCH ×2 (14:37→20:45)
[2018-03-27] MEDS ORDERED: CALCIUM CARBONATE 500 MG CHEWABLE PO PRN (17:00)
[2018-03-27] MEDS ORDERED: LACTULOSE 20 GM/30 ML CUP PO PRN (17:00)
[2018-03-27] MEDS ORDERED: ONDANSETRON 4 MG/2 ML VIAL IVP PRN (17:00)
[2018-03-27] MEDS ORDERED: MAGNESIUM HYDROXIDE 2,400 MG/10 ML CUP PO PRN (17:00)
[2018-03-27] MEDS ORDERED: MELATONIN 3 MG TABLET PO PRN (17:00)
[2018-03-27] MEDS ORDERED: Acetaminophen-Codeine 300-30mg TAB PO PRN (17:00)
[2018-03-27] MEDS ORDERED: ALPRAZolam 0.25 MG TAB PO PRN (17:00)
[2018-03-27] MEDS: ENOXAPARIN 40 MG/0.4 ML SYRINGE SQ SCH (17:15)
--- NOTE | 2018-03-27 18:04 | HP ---
HISTORY AND PHYSICAL DATE OF ADMISSION: 03/27/2018 DATE OF SERVICE: 03/27/2018 PRESENTING COMPLAINT: Feeling unwell. HOSPITAL COURSE: This is a pleasant 67-year-old patient who follows with Dr. Blancas. Chronic stable medical conditions include osteoarthritis, hypertension, hyperlipidemia, rheumatoid arthritis, obstructive sleep apnea. Uses a CPAP machine. He has diabetes. Patient is being worked up for Parkinson's disease and due to see Dr. [facility] at [facility]. Patient about a week ago for urinary retention had a Nielsen catheter placed by Dr. Rao. Four days ago he started having fever, chills, feeling tired, rundown, not feeling well. He presented to the ER, had a fever up to 103.1. Patient's urine came back rather infected-appearing and patient was given IV ceftriaxone, admitted for the same. His is present. Appetite had gone down. Feeling tired and rundown. REVIEW OF SYSTEMS: CONSTITUTIONAL: Weak, tired, febrile. HEENT: None. RESPIRATORY: None. CARDIOVASCULAR: None. GASTROINTESTINAL: None. GENITOURINARY: As above. MUSCULOSKELETAL: Pain in joints. DERMATOLOGICAL: None. HEMATOLOGICAL: None. LYMPHATICS: None. PSYCHIATRY: None. NEUROLOGICAL: Slowness of movement. Does use a cane when he goes outside. PAST MEDICAL HISTORY: 1. Diet-controlled diabetes. 2. Hyperlipidemia. 3. Hypertension. 4. Rheumatoid arthritis. 5. Obstructive sleep apnea. 6. Hypothyroid. 7. Skin cancer. PAST SURGICAL HISTORY: 1. Tonsillectomy. 2. Left heel spur. 3. Colonoscopy. 4. Basal cell carcinoma. SOCIAL HISTORY: Alcohol rarely. Does not smoke. . FAMILY HISTORY: Cancer, hypertension, oral cancer. HOME MEDICATIONS: 1. Sinemet 25/100 two tablets p.o. b.i.d., 1.5 tablet at noon. 2. Benadryl 25 mg at bedtime p.r.n. 3. Norvasc 10 mg p.o. daily. 4. Crestor 10 mg p.o. daily. 5. Claritin 10 mg p.o. daily. 6. Zestoretic 20/12.5 one tablet p.o. daily. 7. Synthroid 88 mcg p.o. daily. 8. Motrin 200 mg q.4 p.r.n. 9. Aspirin 81 mg a day. ALLERGIES: NONE. PHYSICAL EXAMINATION: VITAL SIGNS ON PRESENTATION: Temperature 103.1, pulse 124, respiration 18, blood pressure 150/86, pulse ox 95% on room air. GENERAL APPEARANCE: Well built; BMI 44.2. Propped up in bed, tired-appearing. EYES: Pupils equal. Conjunctivae normal. HEENT: External appearance of nose and ears normal. Oral cavity normal. NECK: JVD unable to assess. Mass not palpable. RESPIRATORY: Effort increased. LUNGS: Decreased breath sounds. CARDIOVASCULAR: Heart sounds muffled. No edema. ABDOMEN: Soft, nontender. Liver and spleen not palpable. Nielsen catheter in place. Urine somewhat strong-appearing, yellow in color. LYMPHATICS: No lymph node palpable in neck or axillae. PSYCHIATRY: Alert and oriented x3. Mood and affect normal. NEUROLOGICAL: Pupils equal. Cranial nerves grossly intact. Power and sensation grossly intact. INVESTIGATIONS: White count 8.7, hemoglobin 14.5, potassium 4.0, BUN 27, creatinine 1.32. The patient's creatinine was 0.9 back in August. UA positive for leukocyte esterase, WBC. ASSESSMENT: 1. Acute urinary tract infection, likely from cystitis secondary to Nielsen catheter causing sepsis on presentation. 2. Acute renal failure in a patient who has been taking Motrin and also on Zestoretic; could be acute tubular necrosis. 3. Morbid obesity; body mass index more than 40. 4. Essential hypertension. 5. Hyperlipidemia. 6. Chronic rheumatoid arthritis. 7. Obstructive sleep apnea. Uses CPAP machine. 8. Possible Parkinson's disease, for which patient is on Sinemet. 9. Hypothyroid. 10.Hyperlipidemia. PLAN: Home medications are resumed. Patient is put on IV ceftriaxone. He is also getting IV fluids. Will give Lovenox for DVT prophylaxis. Urine cultures pending. Will consult Urology to get their opinion. Will add Flomax 0.4 mg at night. Care was discussed in detail with the patient and his at the bedside. Patient will need a 2-night stay in the hospital, given the sepsis picture. MMODL / IJN: [id number] /
[2018-03-27] MEDS: LACTATED RINGERS 1,000 ML IV SCH (18:16)
[2018-03-28] MEDS: LACTATED RINGERS 1,000 ML IV SCH ×2 (07:56→20:32)
[2018-03-28 08:50] LABS: Basophils # (A) 0.1 k/uL (0-0.2); Basophils % (A) 1 %; Eosinophils # (A) 0.3 k/uL (0-0.7); Eosinophils % (A) 3 %; HCT 43.3 % (39.0-53.0); HGB 14.9 gm/dL (13.0-17.5); Lymphocytes # (A) 2.1 k/uL (1.0-4.8); Lymphocytes % (A) 21 %; MCH 30.7 pg (25.0-35.0); MCHC 34.4 g/dL (31.0-37.0); MCV 89.2 fL (80.0-100.0); Mean Platelet Volume 6.8; Monocytes # (A) 0.7 k/uL (0-1.0); Monocytes % (A) 7 %; Neutrophils # (A) 6.5 k/uL (1.3-7.7); Neutrophils % (A) 66 %; Platelet Count 280 k/uL (150-450); RBC 4.86 m/uL (4.30-5.90); RDW 12.9 % (11.5-15.5); WBC 9.9 k/uL (3.8-10.6)
[2018-03-28] MEDS: CARBIDOPA-LEVODOPA 25-100 MG 1 EACH TAB PO SCH ×3 (09:01→20:31)
[2018-03-28] MEDS: amLODIPine 10 MG TAB PO SCH (09:02)
[2018-03-28] MEDS: ENOXAPARIN 40 MG/0.4 ML SYRINGE SQ SCH (09:03)
[2018-03-28] MEDS: ASPIRIN 81 MG PO SCH (09:03)
[2018-03-28] MEDS: ATORVASTATIN 10 MG TAB PO SCH (09:03)
[2018-03-28 09:08] LABS: Calcium 9.1 mg/dL (8.4-10.2); Potassium 4.3 mmol/L (3.5-5.1)
[2018-03-28] MEDS: LEVOTHYROXINE 88 MCG TAB PO SCH (10:08)
[2018-03-28 21:40] LABS: Hemoglobin A1C 5.1 % (4.0-6.0)
--- NOTE | 2018-03-29 00:23 | PN ---
PROGRESS NOTE ] DATE OF SERVICE: 03/28/2018. PRESENTING COMPLAINT: Unwell. INTERVAL HISTORY: This patient presented with acute UTI with sepsis with a Nielsen catheter just placed by Dr. Rao. Feeling better. Diet is getting better. Did have some fever last night. Tolerating a diet better. at the bedside. REVIEW OF SYSTEMS: Done for constitutional, cardiovascular, GI, pulmonary; relevant findings as above. CURRENT MEDICATIONS: Reviewed that include IV ceftriaxone. PHYSICAL EXAMINATION: VITAL SIGNS: Temperature last night 101.2, none this morning. Pulse 83, respirations 18, blood pressure 131/78, pulse ox 95% on room air. GENERAL APPEARANCE: Lying in bed, looking better. EYES: Conjunctivae normal. NECK: JVD not raised. Mass not palpable. Respiratory effort normal. LUNGS: Clear. CARDIOVASCULAR: Heart sounds muffled no edema. ABDOMEN: Soft, nontender. Liver and spleen not palpable. Nielsen catheter in place. PSYCHIATRY: Alert and oriented x3. Mood and affect normal. INVESTIGATIONS: White count 9.9, BUN 16, creatinine 1.17. Urine microbiology showing gram-negative bacilli. ASSESSMENT: 1. Acute urinary tract infection, likely cystitis secondary to Nielsen catheter causing sepsis on presentation, from gram-negative bacilli. 2. Acute renal failure. The patient has been taking Motrin. Also, Zestoretic. Could be acute tubular necrosis with some improvement. 3. Morbid obesity. BMI more than 40. 4. Essential hypertension. 5. Hyperlipidemia. 6. Chronic rheumatoid arthritis. 7. Obstructive sleep apnea uses CPAP machine. 8. Parkinson disease on Sinemet. 9. Hypothyroid. 10.Hyperlipidemia. PLAN: Continue current medication and treatment plan. Repeat labs in the morning. Awaiting culture results. Care was discussed with the patient and . MMODL / IJN: [id number] /
[2018-03-29] MEDS: LEVOTHYROXINE 88 MCG TAB PO SCH (05:54)
[2018-03-29 08:21] LABS: Basophils # (A) 0.1 k/uL (0-0.2); Basophils % (A) 1 %; Eosinophils # (A) 0.4 k/uL (0-0.7); Eosinophils % (A) 4 %; HCT 41.4 % (39.0-53.0); Lymphocytes # (A) 2.4 k/uL (1.0-4.8); Lymphocytes % (A) 29 %; MCH 30.3 pg (25.0-35.0); MCHC 33.8 g/dL (31.0-37.0); MCV 89.8 fL (80.0-100.0); Mean Platelet Volume 6.7; Monocytes # (A) 0.6 k/uL (0-1.0); Monocytes % (A) 7 %; Neutrophils # (A) 4.7 k/uL (1.3-7.7); Neutrophils % (A) 56 %; Platelet Count 274 k/uL (150-450); RBC 4.61 m/uL (4.30-5.90); RDW 12.9 % (11.5-15.5); WBC 8.4 k/uL (3.8-10.6)
[2018-03-29 08:30] LABS: Calcium 9.2 mg/dL (8.4-10.2); Potassium 4.4 mmol/L (3.5-5.1)
[2018-03-29] MEDS: CARBIDOPA-LEVODOPA 25-100 MG 1 EACH TAB PO SCH ×2 (08:38→12:56)
[2018-03-29] MEDS: amLODIPine 10 MG TAB PO SCH (08:38)
[2018-03-29] MEDS: ATORVASTATIN 10 MG TAB PO SCH (08:38)
[2018-03-29] MEDS: ASPIRIN 81 MG PO SCH (08:38)
[2018-03-29] MEDS: ENOXAPARIN 40 MG/0.4 ML SYRINGE SQ SCH (08:39)
[2018-03-29] MEDS: LACTATED RINGERS 1,000 ML IV SCH (08:51)
[2018-03-29 12:40] VITALS: BP 121/71; PULSE 97; TEMP 97.5
[2018-03-29 12:42] VITALS: RESP 18
--- NOTE | 2018-03-29 22:41 | DS ---
DISCHARGE SUMMARY DATE OF ADMISSION: 03/27/2018. DATE OF DISCHARGE: 03/29/2018. FINAL DIAGNOSES: 1. Acute urinary tract infection from cystitis secondary to Nielsen catheter causing sepsis from Escherichia coli, present on admission. 2. Acute renal failure likely acute tubular necrosis from sepsis and possibly from medication, with improvement. 3. Morbid obesity, BMI 40. 4. Essential hypertension. 5. Hyperlipidemia. 6. Chronic rheumatoid arthritis. 7. Obstructive sleep apnea, uses CPAP machine. 8. Parkinson disease, on Sinemet. 9. Hypothyroid. 10.Hyperlipidemia. HOSPITAL COURSE: This very pleasant patient who had just a Nielsen catheter placed for trouble urinating by Dr. Rao about a week ago, presented with septic picture. Cultures came back positive for Escherichia coli, treated with IV ceftriaxone. Nearly back to his baseline by the time of discharge. The patient is being followed by out of [facility] for Parkinson disease. Today, patient is tolerating a diet, feeling well. PHYSICAL EXAMINATION: Temperature 97.5, pulse 997, respirations 18, blood pressure 120/71, pulse ox normal on room air. LUNGS: Fair air entry. PSYCH: A and O x3. LABS: White count 8.4, hemoglobin 14.0, creatinine 1.16. Urine culture did grow E coli. DISCHARGE MEDICATIONS: 1. Norvasc 10 mg a day. 2. Sinemet 25/100, tablet p.o. daily. 3. Synthroid 88 mcg a day. 4. Crestor 10 mg p.o. daily. 5. Aspirin 81 mg a day. 6. Zestoretic 20/12.5 one tab p.o. daily. 7. Levaquin 250 mg a day for 7 tablets. 8. Melatonin 5 mg at bedtime p.r.n. Discontinued, Claritin, Benadryl, ibuprofen. FOLLOWUP: 1. Follow up with Dr. Blancas in 1 week. 2. Follow up with Dr. Rao in 1 week. OTHER: Nielsen catheter remains in place. MMODL / IJN: [id number] /
== END 2018-03-29 16:10 | disposition home or self-care (01) ==
LOC: EC 22:17 → 3NMEDONC 03-27 00:45
PROVIDERS: ADMIT Hospitalist; ATTEND Hospitalist
DX: N30.90 Cystitis, unspecified without hematuria (principal); A41.51 Sepsis due to Escherichia coli [E. coli]; T83.518A Infection and inflammatory reaction due to other urinary catheter, initial encounter; N17.9 Acute kidney failure, unspecified; Z68.41 Body mass index [BMI] 40.0-44.9, adult; E66.01 Morbid (severe) obesity due to excess calories; I10 Essential (primary) hypertension; E78.5 Hyperlipidemia, unspecified; M06.9 Rheumatoid arthritis, unspecified; Z99.89 Dependence on other enabling machines and devices; G20 Parkinson's disease; E03.9 Hypothyroidism, unspecified; M19.90 Unspecified osteoarthritis, unspecified site; E11.9 Type 2 diabetes mellitus without complications; G47.33 Obstructive sleep apnea (adult) (pediatric); R47.81 Slurred speech; R53.1 Weakness; Z85.828 Personal history of other malignant neoplasm of skin; Z82.49 Family history of ischemic heart disease and other diseases of the circulatory system; Z80.8 Family history of malignant neoplasm of other organs or systems; Z79.899 Other long term (current) drug therapy; Z79.82 Long term (current) use of aspirin; Z79.890 Hormone replacement therapy; M79.89 Other specified soft tissue disorders; Z86.73 Personal history of transient ischemic attack (TIA), and cerebral infarction without residual deficits; Z87.01 Personal history of pneumonia (recurrent)
CPT/HCPCS: 96372 ×3; 96365; 99291; 36415; 94760; 93005; 97163; 97535; 97166; 80053; 80048 ×2; 83605; 85025 ×3; 85610; 85730; 81001; 87040; 87086; 87077; 87186; 87502; 83036; 71046; G0378 ×3; J0696 ×3; J1650 ×3

== ENCOUNTER 2018-06-06 09:24 | Emergency (ER) | payer MEDICARE, OTHER ==
[2018-06-06 09:30] VITALS: BP 157/82; PULSE 88; RESP 20; TEMP 97.9
[2018-06-06] MEDS ORDERED: COLLAGENASE 250 UNIT/GM OINTMENT 30 GM TUBE TOPICAL STA (09:53)
--- NOTE | 2018-06-06 09:56 | ED ---
Skin/Abscess/FB HPI - General Chief complaint: Skin/Abscess/Foreign Body Stated complaint: bedsore Time Seen by Provider: 06/06/18 09:32 Source: patient, RN notes reviewed Mode of arrival: ambulatory Limitations: no limitations - History of Present Illness Initial comments: 67-year-old male presents emergency department with family for concerns of decub itus ulcer. Patient states that he had cervical fusion 2 weeks ago. Patient states he has been changing positions but no some discomfort in the cleft of his buttocks. Patient states that this home health care nurse advised him come emergency department to be referred to wound center. Patient reports no fevers or chills. Patient states that he has been sitting on the cushion he has been laying in bed on his side and off taking pressure off the area. - Related Data Home Medications Medication Instructions Recorded Confirmed amLODIPine BESYLATE [Norvasc] 10 mg PO DAILY 10/28/15 03/26/18 Levothyroxine Sodium [Synthroid] 88 mcg PO DAILY 08/19/17 03/26/18 Rosuvastatin Calcium [Crestor] 10 mg PO DAILY 08/19/17 03/26/18 Lisinopril-Hctz 20-12.5 mg 1 tab PO DAILY 03/26/18 03/26/18 [Zestoretic 20-12.5] Acetaminophen Tab [Tylenol Tab] 650 mg PO Q6H PRN 06/06/18 06/06/18 Gabapentin [Neurontin] 600 mg PO TID 06/06/18 06/06/18 Methocarbamol [Robaxin] 1,000 mg PO Q8H 06/06/18 06/06/18 Sennosides-Docusate Sodium 2 tab PO BID 06/06/18 06/06/18 [Senokot-S] oxyCODONE HCL [Roxicodone] 5 - 10 mg PO Q4H PRN 06/06/18 06/06/18 Previous Rx's Medication Instructions Recorded Aspirin 81 mg PO DAILY #1 chewable 08/23/17 Collagenase [Santyl] 1 applic TOPICAL DAILY #40 tube 06/06/18 Allergies Allergy/AdvReac Type Severity Reaction Status Date / Time No Known Allergies Allergy Verified 06/06/18 10:01 Review of Systems ROS Statement: Those systems with pertinent positive or pertinent negative responses have been documented in the HPI. ROS Other: All systems not noted in ROS Statement are negative. Past Medical History Past Medical History: Cancer, CVA/TIA, Diabetes Mellitus, Hyperlipidemia, Hypertension, Pneumonia, Rheumatoid Arthritis (RA), Sleep Apnea/CPAP/BIPAP, Thyroid Disorder Additional Past Medical History / Comment(s): Slurred speech/possible tia ,uses CPAP at bed,bronchitis, skin ca lt arm, parkinson's disease is being worked up, History of Any Multi-Drug Resistant Organisms: Other MDRO Past Surgical History: Tonsillectomy Additional Past Surgical History / Comment(s): Heel spurs removed, colonoscopy, basal call carcinoma: skin cancer removed, Spinal fusion. Past Anesthesia/Blood Transfusion Reactions: Previous Problems w/ Anesthesia Additional Past Anesthesia/Blood Transfusion Reaction / Comment(s): Stopped breathing during colonoscopy yrs. ago before sleep apnea diagnosed per pt. Past Psychological History: No Psychological Hx Reported Smoking Status: Never smoker Past Alcohol Use History: Rare Past Drug Use History: None Reported - Past Family History Father Family Medical History: Cancer, Hypertension Additional Family Medical History / Comment(s): oral cancer Mother Family Medical History: Cancer Additional Family Medical History / Comment(s): "irreg heart rythym" General Exam General appearance: alert, in no apparent distress Head exam: Present: atraumatic, normocephalic, normal inspection Respiratory exam: Present: normal lung sounds bilaterally. Absent: respiratory distress, wheezes, rales, rhonchi, stridor Cardiovascular Exam: Present: regular rate, normal rhythm, normal heart sounds. Absent: systolic murmur, diastolic murmur, rubs, gallop, clicks Rectal exam: Absent: normal inspection (There is most likely a deep ulcerated area at the cleft of the buttocks, unstageable secondary to not visualizing deficits. Surrounding stage II superficial) Course Vital Signs 06/06/18 09:27 Temperature 97.9 F Pulse Rate 88 Respiratory 20 Rate Blood Pressure 157/82 O2 Sat by Pulse 97 Oximetry Medical Decision Making - Medical Decision Making 67-year-old male presents emergency department for decubitus ulcer which started on Sunday. This is secondary to being more sedentary from cervical fusion. Patient was set up with wound center by us in the emergency department. Patient will be started on Santyl cream along with daily cleansing with saline. We discussed no use of hydrogen peroxide or alcohol. Patient will have saline gauze applied over. Patient will follow-up with wound center and will be return for any worsening symptoms. Patient will given oral antibiotics secondary to recent fusion and concern for infection. Disposition Clinical Impression: Decubital ulcer Disposition: HOME SELF-CARE Condition: Stable Instructions (If sedation given, give patient instructions): How to Prevent Pressure Injuries (ED) Additional Instructions: Follow-up with the wound center and home nursing.Please return to the Emergency Department if symptoms worsen or any other concerns. Prescriptions: Collagenase [Santyl] 1 applic TOPICAL DAILY #40 tube Is patient prescribed a controlled substance at d/c from ED?: No Referrals: Joaquim Blancas MD [Primary Care Provider] - 1-2 days Time of Disposition: 10:05
== END 2018-06-06 10:25 | disposition home or self-care (01) ==
LOC: EC 09:24
DX: L89.310 Pressure ulcer of right buttock, unstageable (principal); L89.320 Pressure ulcer of left buttock, unstageable; I10 Essential (primary) hypertension; G47.30 Sleep apnea, unspecified; E07.9 Disorder of thyroid, unspecified; Z99.89 Dependence on other enabling machines and devices; Z86.73 Personal history of transient ischemic attack (TIA), and cerebral infarction without residual deficits; Z85.828 Personal history of other malignant neoplasm of skin; Z98.1 Arthrodesis status; Z98.890 Other specified postprocedural states; Z79.890 Hormone replacement therapy; Z79.899 Other long term (current) drug therapy
CPT/HCPCS: 99283

== ENCOUNTER 2018-06-16 20:56 | Emergency (ER) | payer MEDICARE, OTHER ==
[2018-06-16 21:05] VITALS: TEMP 98.3
--- NOTE | 2018-06-16 21:29 | ED ---
Male Urogenital HPI - General Chief complaint: Urogenital Stated complaint: Hematuria Source: patient Mode of arrival: ambulatory - History of Present Illness Initial comments: This patient is a 67-year-old man who presents with complaint of hematuria and a feeling that his bladder is full. The patient states that he noticed blood yesterday but that it became dark red today. He has a Nielsen catheter present for approximately 3 months since having had what is believed to be neurogenic bladder. The patient last had his Nielsen catheter changed on May 18. He states that he is due to see the urologist on Sunday when the catheter will be removed and they will see if his neurogenic bladder has resolved. The patient denied any fever or chills. He has not had chest pain, dyspnea, palpitations, a bdominal pain, nausea or vomiting. No back pain. MD Complaint: other (Hematuria) Onset/Timin -: days(s) Location: abdomen Radiation: none Severity: mild Quality: other (Fullness) Consistency: constant Improves with: none Worsens with: none Reports: urinary retention, blood in urine - Related Data Home Medications Medication Instructions Recorded Confirmed amLODIPine BESYLATE [Norvasc] 10 mg PO DAILY 10/28/15 06/06/18 Levothyroxine Sodium [Synthroid] 88 mcg PO DAILY 08/19/17 06/06/18 Rosuvastatin Calcium [Crestor] 10 mg PO DAILY 08/19/17 06/06/18 Lisinopril-Hctz 20-12.5 mg 1 tab PO DAILY 03/26/18 06/06/18 [Zestoretic 20-12.5] Acetaminophen Tab [Tylenol Tab] 650 mg PO Q6H PRN 06/06/18 06/06/18 Gabapentin [Neurontin] 600 mg PO TID 06/06/18 06/06/18 Methocarbamol [Robaxin] 1,000 mg PO Q8H 06/06/18 06/06/18 Sennosides-Docusate Sodium 2 tab PO BID 06/06/18 06/06/18 [Senokot-S] oxyCODONE HCL [Roxicodone] 5 - 10 mg PO Q4H PRN 06/06/18 06/06/18 Previous Rx's Medication Instructions Recorded Aspirin 81 mg PO DAILY #1 chewable 08/23/17 Collagenase [Santyl] 1 applic TOPICAL DAILY #40 tube 06/06/18 Sulfamethox-Tmp 800-160Mg [Bactrim 1 each PO Q12HR #20 tab 06/06/18 Ds] Allergies Allergy/AdvReac Type Severity Reaction Status Date / Time No Known Allergies Allergy Verified 06/06/18 10:01 Review of Systems ROS Statement: Those systems with pertinent positive or pertinent negative responses have been documented in the HPI. ROS Other: All systems not noted in ROS Statement are negative. Constitutional: Denies: fever, chills, weakness Respiratory: Denies: cough, dyspnea Cardiovascular: Denies: chest pain, palpitations, edema Gastrointestinal: Denies: abdominal pain Genitourinary: Reports: as per HPI Musculoskeletal: Denies: back pain Skin: Denies: rash Hematological/Lymphatic: Denies: easy bleeding Past Medical History Past Medical History: Cancer, CVA/TIA, Diabetes Mellitus, Hyperlipidemia, Hypertension, Pneumonia, Rheumatoid Arthritis (RA), Sleep Apnea/CPAP/BIPAP, Thyroid Disorder Additional Past Medical History / Comment(s): Slurred speech/possible tia ,uses CPAP at bed,bronchitis, skin ca lt arm, parkinson's disease is being worked up, History of Any Multi-Drug Resistant Organisms: Other MDRO Past Surgical History: Tonsillectomy Additional Past Surgical History / Comment(s): Heel spurs removed, colonoscopy, basal call carcinoma: skin cancer removed, Spinal fusion. Past Anesthesia/Blood Transfusion Reactions: Previous Problems w/ Anesthesia Additional Past Anesthesia/Blood Transfusion Reaction / Comment(s): Stopped b reathing during colonoscopy yrs. ago before sleep apnea diagnosed per pt. Past Psychological History: No Psychological Hx Reported Smoking Status: Never smoker Past Alcohol Use History: Rare Past Drug Use History: None Reported - Past Family History Father Family Medical History: Cancer, Hypertension Additional Family Medical History / Comment(s): oral cancer Mother Family Medical History: Cancer Additional Family Medical History / Comment(s): "irreg heart rythym" General Exam General appearance: alert, in no apparent distress Respiratory exam: Present: normal lung sounds bilaterally. Absent: respiratory distress, wheezes, rales, rhonchi, stridor Cardiovascular Exam: Present: regular rate, normal rhythm, normal heart sounds. Absent: systolic murmur, diastolic murmur, rubs, gallop GI/Abdominal exam: Present: soft. Absent: distended, tenderness, guarding, rebound, rigid, mass Skin exam: Present: warm, dry, intact, normal color. Absent: rash Course Vital Signs 06/16/18 21:01 Temperature 98.3 F Pulse Rate 98 Respiratory 16 Rate Blood Pressure 111/74 O2 Sat by Pulse 98 Oximetry Disposition Clinical Impression: Hematuria, Urinary retention Disposition: HOME SELF-CARE Condition: Good Instructions (If sedation given, give patient instructions): Urinary Retention in Men (ED) Referrals: Joaquim Blancas MD [Primary Care Provider] - 1-2 days Yogesh Rao MD [STAFF PHYSICIAN] - 1-2 days
[2018-06-16] MEDS ORDERED: ACETAMINOPHEN TAB 325 MG TAB PO STA (23:38)
[2018-06-17 00:02] VITALS: PULSE 87; RESP 18
[2018-06-17 00:14] VITALS: BP 110/75
== END 2018-06-17 00:25 | disposition home or self-care (01) ==
LOC: EC 20:56
DX: R31.9 Hematuria, unspecified (principal); R33.9 Retention of urine, unspecified; E78.5 Hyperlipidemia, unspecified; I10 Essential (primary) hypertension; G47.30 Sleep apnea, unspecified; E07.9 Disorder of thyroid, unspecified; Z79.890 Hormone replacement therapy; Z79.899 Other long term (current) drug therapy; Z98.1 Arthrodesis status; Z85.828 Personal history of other malignant neoplasm of skin
CPT/HCPCS: 51702; 99283

== ENCOUNTER 2018-09-26 23:06 | Inpatient (IN) | payer MEDICARE, OTHER ==
[2018-09-26] MEDS ORDERED: LEVOFLOXACIN 750MG-D5W PMX 750 MG in DEXTROSE/WATER 1 150ML.BAG IVPB STA (23:33)
[2018-09-27] MEDS: SODIUM CHLORIDE 0.9% 500 ML 500 ML IV SCH ×3 (00:01→03:36)
[2018-09-27 00:02] LABS: Basophils # (A) 0.1 k/uL (0-0.2); Basophils % (A) 0 %; Eosinophils # (A) 0.1 k/uL (0-0.7); Eosinophils % (A) 1 %; HCT 40.4 % (39.0-53.0); HGB 14.1 gm/dL (13.0-17.5); Lymphocytes # (A) 0.5 k/uL (1.0-4.8); Lymphocytes % (A) 3 %; MCH 29.5 pg (25.0-35.0); MCHC 34.9 g/dL (31.0-37.0); MCV 84.6 fL (80.0-100.0); Mean Platelet Volume 7.1; Monocytes # (A) 0.8 k/uL (0-1.0); Monocytes % (A) 5 %; Neutrophils % (A) 91 %; Platelet Count 259 k/uL (150-450); RBC 4.78 m/uL (4.30-5.90); RDW 14.5 % (11.5-15.5); WBC 18.6 k/uL (3.8-10.6)
[2018-09-27 00:05] LABS: Albumin 4.1 g/dL (3.5-5.0); Appearance,Urine Turbid (Clear); Bilirubin,Urine Negative (Negative); Blood,Urine Large (Negative); Calcium 9.6 mg/dL (8.4-10.2); Color,Urine Dark Red; Glucose,Urine (UA) Negative (Negative); Ketones,Urine Negative (Negative); Leukocyte Esterase,Urine Large (Negative); Mucus,Urine Many /hpf; Nitrite,Urine Negative (Negative); PH, Urine 5.5 (5.0-8.0); Potassium 4.1 mmol/L (3.5-5.1); Protein,Urine 2+ (Negative); RBC,Urine >182 /hpf (0-5); Total Bilirubin 0.6 mg/dL (0.2-1.3); Total Protein 6.6 g/dL (6.3-8.2); Urobilinogen,Urine <2.0 mg/dL (<2.0); WBC,Urine >182 /hpf (0-5)
[2018-09-27 00:07] LABS: Specific Gravity,Urine >1.050 (1.001-1.035)
[2018-09-27 00:13] LABS: INR 0.9 (<1.2); Partial Thromboplastin Time 21.9 sec (22.0-30.0); Prothrombin Time 10.1 sec (9.0-12.0)
--- NOTE | 2018-09-27 00:32 | ED ---
General Adult HPI - General Source: patient, EMS Mode of arrival: EMS Limitations: no limitations <Zach Brown - Last Filed: 09/27/18 03:48> <Lion Castro - Last Filed: 09/29/18 13:19> - General Chief complaint: Weakness Stated complaint: Weakness Time Seen by Provider: 09/26/18 23:08 - History of Present Illness Initial comments: Patient is a 68-year-old male with a history of cancer and CVA is presenting to emergency Department with dizziness. Patient has a speech disability so his is here as a historian. His states the patient has a Nielsen catheter that is changed at appropriate intervals by home nurse. reports after the Nielsen was changed earlier today, hematuria was present in the bag. The states that her and the home nurse attempted to walk the patient to the bathroom when he "gave out"and fell. reports he was feeling cold and shaking. denies loss of consciousness at time of incident. At this point patient reports he feels "fine"and has no other complaints. Patient denies headache, blurry vision, nausea, vomiting, chest pain, chest tightness, shortness of breath, cough, abdominal pain, nausea, vomiting, diarrhea. The patient reports patient has bilateral lower extremity edema as his baseline. (Zach Brown) - Related Data Home Medications Medication Instructions Recorded Confirmed amLODIPine BESYLATE [Norvasc] 10 mg PO DAILY 10/28/15 09/27/18 Levothyroxine Sodium [Synthroid] 88 mcg PO DAILY 08/19/17 09/27/18 Rosuvastatin Calcium [Crestor] 10 mg PO DAILY 08/19/17 09/27/18 Lisinopril-Hctz 20-12.5 mg 1 tab PO DAILY 03/26/18 09/27/18 [Zestoretic 20-12.5] Acetaminophen Tab [Tylenol] 650 mg PO Q6H PRN 06/06/18 09/27/18 Cholecalciferol [Vitamin D3 (25 2,000 unit PO DAILY 08/31/18 09/27/18 Mcg = 1000 Iu)] Sennosides-Docusate Sodium 2 tab PO BID 09/27/18 09/27/18 [Senokot-S] Previous Rx's Medication Instructions Recorded Aspirin 81 mg PO DAILY #1 chewable 08/23/17 Psyllium Husk 100% [Metamucil 6 gm PO DAILY #1 packet 09/04/18 Packet] Allergies Allergy/AdvReac Type Severity Reaction Status Date / Time No Known Allergies Allergy Verified 09/27/18 07:24 Review of Systems ROS Other: All systems not noted in ROS Statement are negative. <Zach Brown - Last Filed: 09/27/18 03:48> ROS Other: All systems not noted in ROS Statement are negative. <Lion Castro - Last Filed: 09/29/18 13:19> ROS Statement: Those systems with pertinent positive or pertinent negative responses have been documented in the HPI. Past Medical History Past Medical History: Cancer, CVA/TIA, Hyperlipidemia, Hypertension, Pneumonia, Rheumatoid Arthritis (RA), Sleep Apnea/CPAP/BIPAP, Thyroid Disorder Additional Past Medical History / Comment(s): Slurred speech/possible tia ,uses CPAP at bed,bronchitis, skin ca lt arm, parkinson's disease is being worked up History of Any Multi-Drug Resistant Organisms: Other MDRO Past Surgical History: Tonsillectomy Additional Past Surgical History / Comment(s): Heel spurs removed, colonoscopy, basal call carcinoma: skin cancer removed, Spinal fusion. Past Anesthesia/Blood Transfusion Reactions: Previous Problems w/ Anesthesia Additional Past Anesthesia/Blood Transfusion Reaction / Comment(s): Stopped breathing during colonoscopy yrs. ago before sleep apnea diagnosed per pt. Past Psychological History: No Psychological Hx Reported Smoking Status: Never smoker Past Alcohol Use History: Rare Past Drug Use History: None Reported - Past Family History Father Family Medical History: Cancer, Hypertension Additional Family Medical History / Comment(s): oral cancer Mother Family Medical History: Cancer Additional Family Medical History / Comment(s): "irreg heart rythym" <Zach Brown - Last Filed: 09/27/18 03:48> General Exam Limitations: no limitations, language barrier (Spacious disability due to CVA) General appearance: alert, in no apparent distress, obese Head exam: Present: atraumatic, normocephalic, normal inspection Eye exam: Present: normal appearance, PERRL, EOMI Pupils: Present: normal accommodation ENT exam: Present: normal exam, normal oropharynx, mucous membranes moist, TM's normal bilaterally, normal external ear exam Neck exam: Present: normal inspection. Absent: tenderness, meningismus, lymphadenopathy Respiratory exam: Present: normal lung sounds bilaterally (Shallow breathing) Cardiovascular Exam: Present: normal rhythm, tachycardia, normal heart sounds GI/Abdominal exam: Present: soft. Absent: tenderness Extremities exam: Present: normal inspection (Bilateral lower extremity edema. +2 dorsalis pedis and posterior tibialis.), normal capillary refill. Absent: calf tenderness Back exam: Present: normal inspection Neurological exam: Present: alert, oriented X3 Psychiatric exam: Present: normal affect, normal mood Skin exam: Present: warm, intact, normal color <Zach Brown - Last Filed: 09/27/18 03:48> Course Vital Signs 09/26/18 09/27/18 09/27/18 23:11 00:10 00:11 Temperature 103.5 F H Pulse Rate 129 H 116 H Respiratory 20 22 20 Rate Blood Pressure 87/50 83/48 O2 Sat by Pulse 89 L 92 L Oximetry 09/27/18 09/27/18 09/27/18 00:20 00:46 03:32 Temperature 100.8 F H Pulse Rate 112 H 112 H 106 H Respiratory 20 20 29 H Rate Blood Pressure 105/68 94/54 O2 Sat by Pulse 92 L 94 L 94 L Oximetry 09/27/18 09/27/18 09/27/18 03:40 03:50 04:00 Temperature Pulse Rate 101 H 100 100 Respiratory 31 H 21 23 Rate Blood Pressure 78/52 78/52 92/55 O2 Sat by Pulse 96 95 95 Oximetry 09/27/18 09/27/18 09/27/18 04:10 04:20 04:30 Temperature Pulse Rate 100 96 96 Respiratory 29 H 19 22 Rate Blood Pressure 92/55 92/55 92/55 O2 Sat by Pulse 95 96 96 Oximetry 09/27/18 09/27/18 09/27/18 04:40 04:50 05:00 Temperature Pulse Rate 96 94 97 Respiratory 30 H 13 22 Rate Blood Pressure 92/55 92/55 92/55 O2 Sat by Pulse 96 96 97 Oximetry 09/27/18 09/27/18 09/27/18 05:10 05:20 05:30 Temperature Pulse Rate 93 98 99 Respiratory 23 9 L 27 H Rate Blood Pressure 92/55 92/55 92/55 O2 Sat by Pulse 97 Oximetry 09/27/18 09/27/18 09/27/18 05:40 05:50 06:00 Temperature Pulse Rate 96 97 Respiratory 8 L 28 H 12 Rate Blood Pressure 92/55 92/55 92/55 O2 Sat by Pulse Oximetry 09/27/18 09/27/18 09/27/18 06:10 06:13 06:20 Temperature 99.9 F H Pulse Rate 98 Respiratory 21 22 Rate Blood Pressure 93/61 93/61 O2 Sat by Pulse Oximetry 09/27/18 09/27/18 06:30 06:40 Temperature Pulse Rate 96 Respiratory 25 H 20 Rate Blood Pressure 93/61 105/79 O2 Sat by Pulse Oximetry EKG Findings - EKG Comments: EKG Findings:: Sinus tachycardia, low voltage QRS, borderline EKG. Ventricular rate 114, QRS duration 94, QT/QTc is 326/449, P-RT axes 70 -10 14 <Zach Brown - Last Filed: 09/27/18 03:48> Medical Decision Making - Lab Data Result diagrams: 09/26/18 23:43 09/26/18 23:43 <Zach Brown - Last Filed: 09/27/18 03:48> - Lab Data Result diagrams: 09/29/18 04:43 09/28/18 05:16 <Lion Castro - Last Filed: 09/29/18 13:19> - Medical Decision Making Patient is a 68-year-old male presenting to emergency Department with dizziness. Upon arrival patient was hypotensive, febrile and tachycardic. Immediate sepsis protocol was started. EKG is indicative of sinus tachycardia. Lactic acid was 3.9. Patient was given 2 g of Rocephin and 2.5 L of fluid. Patient has hematuria, elevated urine white blood cells and large amounts of leukocyte esterase. Possible cause for the sepsis could be related to the renal system. Patient will be admitted under sepsis protocol. Dr. Castro also examined the patient and is in agreement with the treatment plan. Admitting physician is Dr. Dubose. (Zach Brown) I saw this patient in conjunction with the physician lead recreation assistant. I performed independent history and physical exam. Agree with case management. (Camden Castro [facility]) - Lab Data Lab Results 07/18/19 07/18/19 07/18/19 Range/Units 23:43 23:43 23:43 WBC 18.6 H (3.8-10.6) k/uL RBC 4.78 (4.30-5.90) m/uL Hgb 14.1 (13.0-17.5) gm/dL Hct 40.4 (39.0-53.0) % MCV 84.6 (80.0-100.0) fL MCH 29.5 (25.0-35.0) pg MCHC 34.9 (31.0-37.0) g/dL RDW 14.5 (11.5-15.5) % Plt Count 259 (150-450) k/uL Neutrophils % 91 % Lymphocytes % 3 % Monocytes % 5 % Eosinophils % 1 % Basophils % 0 % Neutrophils # 17.0 H (1.3-7.7) k/uL Lymphocytes # 0.5 L (1.0-4.8) k/uL Monocytes # 0.8 (0-1.0) k/uL Eosinophils # 0.1 (0-0.7) k/uL Basophils # 0.1 (0-0.2) k/uL PT (9.0-12.0) sec INR (<1.2) APTT (22.0-30.0) sec Sodium 138 (137-145) mmol/L Potassium 4.1 (3.5-5.1) mmol/L Chloride 102 (98-107) mmol/L Carbon Dioxide 23 (22-30) mmol/L Anion Gap 13 mmol/L BUN 25 H (9-20) mg/dL Creatinine 1.26 H (0.66-1.25) mg/dL Est GFR (CKD-EPI)AfAm 67 (>60 ml/min/1.73 sqM) Est GFR (CKD-EPI)NonAf 58 (>60 ml/min/1.73 sqM) Glucose 136 H (74-99) mg/dL Lactic Ac Sepsis Rflx Plasma Lactic Acid Antonio 3.9 H* (0.7-2.0) mmol/L Calcium 9.6 (8.4-10.2) mg/dL Total Bilirubin 0.6 (0.2-1.3) mg/dL AST 27 (17-59) U/L ALT 29 (21-72) U/L Alkaline Phosphatase 57 (38-126) U/L Troponin I (0.000-0.034) ng/mL Total Protein 6.6 (6.3-8.2) g/dL Albumin 4.1 (3.5-5.0) g/dL Urine Color Urine Appearance (Clear) Urine pH (5.0-8.0) Ur Specific [place] (1.001-1.035) Urine Protein (Negative) Urine Glucose (UA) (Negative) Urine Ketones (Negative) Urine Blood (Negative) Urine Nitrite (Negative) Urine Bilirubin (Negative) Urine Urobilinogen (<2.0) mg/dL Ur Leukocyte Esterase (Negative) Urine RBC (0-5) /hpf Urine WBC (0-5) /hpf Urine WBC Clumps (None) /hpf Urine Mucus (None) /hpf 09/26/18 09/26/18 09/26/18 Range/Units 23:43 23:43 23:43 WBC (3.8-10.6) k/uL RBC (4.30-5.90) m/uL Hgb (13.0-17.5) gm/dL Hct (39.0-53.0) % MCV (80.0-100.0) fL MCH (25.0-35.0) pg MCHC (31.0-37.0) g/dL RDW (11.5-15.5) % Plt Count (150-450) k/uL Neutrophils % % Lymphocytes % % Monocytes % % Eosinophils % % Basophils % % Neutrophils # (1.3-7.7) k/uL Lymphocytes # (1.0-4.8) k/uL Monocytes # (0-1.0) k/uL Eosinophils # (0-0.7) k/uL Basophils # (0-0.2) k/uL PT 10.1 (9.0-12.0) sec INR 0.9 (<1.2) APTT 21.9 L (22.0-30.0) sec Sodium (137-145) mmol/L Potassium (3.5-5.1) mmol/L Chloride (98-107) mmol/L Carbon Dioxide (22-30) mmol/L Anion Gap mmol/L BUN (9-20) mg/dL Creatinine (0.66-1.25) mg/dL Est GFR (CKD-EPI)AfAm (>60 ml/min/1.73 sqM) Est GFR (CKD-EPI)NonAf (>60 ml/min/1.73 sqM) Glucose (74-99) mg/dL Lactic Ac Sepsis Rflx Plasma Lactic Acid Antonio (0.7-2.0) mmol/L Calcium (8.4-10.2) mg/dL Total Bilirubin (0.2-1.3) mg/dL AST (17-59) U/L ALT (21-72) U/L Alkaline Phosphatase (38-126) U/L Troponin I 0.037 H* (0.000-0.034) ng/mL Total Protein (6.3-8.2) g/dL Albumin (3.5-5.0) g/dL Urine Color Dark Red Urine Appearance Turbid (Clear) Urine pH 5.5 (5.0-8.0) Ur Specific [place] >1.050 H (1.001-1.035) Urine Protein 2+ H (Negative) Urine Glucose (UA) Negative (Negative) Urine Ketones Negative (Negative) Urine Blood Large H (Negative) Urine Nitrite Negative (Negative) Urine Bilirubin Negative (Negative) Urine Urobilinogen <2.0 (<2.0) mg/dL Ur Leukocyte Esterase Large H (Negative) Urine RBC >182 H (0-5) /hpf Urine WBC >182 H (0-5) /hpf Urine WBC Clumps Many H (None) /hpf Urine Mucus Many H (None) /hpf 09/27/18 Range/Units 00:32 WBC (3.8-10.6) k/uL RBC (4.30-5.90) m/uL Hgb (13.0-17.5) gm/dL Hct (39.0-53.0) % MCV (80.0-100.0) fL MCH (25.0-35.0) pg MCHC (31.0-37.0) g/dL RDW (11.5-15.5) % Plt Count (150-450) k/uL Neutrophils % % Lymphocytes % % Monocytes % % Eosinophils % % Basophils % % Neutrophils # (1.3-7.7) k/uL Lymphocytes # (1.0-4.8) k/uL Monocytes # (0-1.0) k/uL Eosinophils # (0-0.7) k/uL Basophils # (0-0.2) k/uL PT (9.0-12.0) sec INR (<1.2) APTT (22.0-30.0) sec Sodium (137-145) mmol/L Potassium (3.5-5.1) mmol/L Chloride (98-107) mmol/L Carbon Dioxide (22-30) mmol/L Anion Gap mmol/L BUN (9-20) mg/dL Creatinine (0.66-1.25) mg/dL Est GFR (CKD-EPI)AfAm (>60 ml/min/1.73 sqM) Est GFR (CKD-EPI)NonAf (>60 ml/min/1.73 sqM) Glucose (74-99) mg/dL Lactic Ac Sepsis Rflx Y Plasma Lactic Acid Antonio (0.7-2.0) mmol/L Calcium (8.4-10.2) mg/dL Total Bilirubin (0.2-1.3) mg/dL AST (17-59) U/L ALT (21-72) U/L Alkaline Phosphatase (38-126) U/L Troponin I (0.000-0.034) ng/mL Total Protein (6.3-8.2) g/dL Albumin (3.5-5.0) g/dL Urine Color Urine Appearance (Clear) Urine pH (5.0-8.0) Ur Specific [place] (1.001-1.035) Urine Protein (Negative) Urine Glucose (UA) (Negative) Urine Ketones (Negative) Urine Blood (Negative) Urine Nitrite (Negative) Urine Bilirubin (Negative) Urine Urobilinogen (<2.0) mg/dL Ur Leukocyte Esterase (Negative) Urine RBC (0-5) /hpf Urine WBC (0-5) /hpf Urine WBC Clumps (None) /hpf Urine Mucus (None) /hpf Disposition Is patient prescribed a controlled substance at d/c from ED?: No Time of Disposition: 02:05 <Zach Brown - Last Filed: 09/27/18 03:48> <Lion Castro - Last Filed: 09/29/18 13:19> Clinical Impression: Sepsis Disposition: ADMITTED IP TO THIS HOSP Condition: Stable
[2018-09-27] MEDS ORDERED: cefTRIAXone IN SWFI 1,000 MG/10 ML SYRINGE IVP STA ×2 (00:37→00:38)
[2018-09-27] MEDS ORDERED: SODIUM CHLORIDE 0.9% 2,500 ML IV STA (00:45)
--- NOTE | 2018-09-27 00:48 | XR ---
EXAM: XR Chest, 1 View CLINICAL HISTORY: ITS.REASON XR Reason: Fever TECHNIQUE: Frontal view of the chest. COMPARISON: No relevant prior studies available. FINDINGS: Lungs: Unremarkable. No consolidation. Pleural space: Unremarkable. No pneumothorax. Heart: No pneumomediastinum. Mediastinum: Unremarkable. Bones/joints: No definite fracture. IMPRESSION: No acute findings.
[2018-09-27 08:13] LABS: Basophils # (A) 0.1 k/uL (0-0.2); Basophils % (A) 0 %; Eosinophils % (A) 0 %; HGB 11.7 gm/dL (13.0-17.5); Lymphocytes # (A) 0.8 k/uL (1.0-4.8); Lymphocytes % (A) 3 %; MCH 29.4 pg (25.0-35.0); MCHC 33.4 g/dL (31.0-37.0); MCV 87.8 fL (80.0-100.0); Mean Platelet Volume 7.1; Monocytes # (A) 1.2 k/uL (0-1.0); Monocytes % (A) 5 %; Neutrophils # (A) 22.1 k/uL (1.3-7.7); Neutrophils % (A) 91 %; Platelet Count 238 k/uL (150-450); RBC 3.99 m/uL (4.30-5.90); RDW 13.5 % (11.5-15.5); WBC 24.4 k/uL (3.8-10.6)
[2018-09-27 10:01] LABS: Glucose,Whole Blood 106 mg/dL (75-99)
[2018-09-27] MEDS ORDERED: SODIUM CHLORIDE 0.9% 1,000 ML IV SCH (13:30)
[2018-09-27 18:43] LABS: Basophils # (A) 0.1 k/uL (0-0.2); Basophils % (A) 0 %; Eosinophils % (A) 0 %; HCT 38.7 % (39.0-53.0); HGB 12.9 gm/dL (13.0-17.5); Lymphocytes # (A) 0.8 k/uL (1.0-4.8); Lymphocytes % (A) 5 %; MCH 28.9 pg (25.0-35.0); MCHC 33.3 g/dL (31.0-37.0); MCV 86.7 fL (80.0-100.0); Mean Platelet Volume 6.7; Monocytes # (A) 0.5 k/uL (0-1.0); Monocytes % (A) 3 %; Neutrophils # (A) 14.8 k/uL (1.3-7.7); Neutrophils % (A) 91 %; Platelet Count 226 k/uL (150-450); RBC 4.46 m/uL (4.30-5.90); RDW 13.3 % (11.5-15.5); WBC 16.3 k/uL (3.8-10.6)
[2018-09-27] MEDS: ACETAMINOPHEN TAB 325 MG TAB PO PRN (19:44)
--- NOTE | 2018-09-28 00:32 | P.HPIM ---
History of Present Illness H&P Date: 09/27/18 Chief Complaint: Dizzy History of presenting complaint: This is a very pleasant 67-year-old patient of follows with Dr. Blancas.. Chronic stable medical conditions include osteoarthritis, hypertension, hyperlipidemia, rheumatoid arthritis, obstructive sleep apnea and uses CPAP machine, diabetes. Patient has been worked up by at [facility] and he does not have Parkinson's disease but has some Parkinson-like features. Patient had cervical spine fusion from C2 to C6 at [facility]. Patient does go for physical therapy for both upper and lower extremity. At her baseline able to use his walker to get about the house. Can also do about 4-5 stairs. Patient able to use his right arm and feed himself. He is not able to wipe himself. Prior to surgery is having increasing pain in the right arm which is better now. The patient had a chronic Nielsen catheter. Follows with Dr. Cerda from urology. Patient had a home care nurse come out with a change the Nielsen catheter. Not much urine was coming out some blood was coming out under the nurse later came out." Significant amount of blood came out and so around the Nielsen and soaked the bed. Eventually the Nielsen catheter was changed and then urine output was coming out good. According to the patient had lost a quarter good amount of blood. When patient to try to walk he became dizzy and patient had to be low to the ground. Patient has been feeling a bit cold. And patient admitted for the same. Appetite is okay otherwise.. Review of systems: GEN.: Weak and tired. EYES: None HEENT: None NECK: Wears a collar with some pain RESPIRATORY: None CARDIOVASCULAR: None GASTROINTESTINAL: Has a bowel movement every 2 or 3 days] GENITOURINARY: As above MUSCULOSKELETAL: Weakness in the arms and legs LYMPHATICS: None HEMATOLOGICAL: None PSYCHIATRY: None NEUROLOGICAL: None Past medical history: Diet controlled diabetes, hyperlipidemia, hypertension, rheumatoid arthritis, obstructive sleep apnea, hypothyroid, skin cancer, Parkinson-like symptoms, chronic bladder dysfunction, with chronic Nielsen catheter Social history: Lives with his . Does not smoke. Alcohol rarely. Uses a walker Family history: Cancer, hypertension, oral cancer Physical examination: VITAL SIGNS: 103.5, 129, 20, 87 x 50, 89% room air GENERAL: BMI 45.6, sitting up propped up tired, . EYES: Pupils equal. Conjunctiva normal. HEENT: External appearance of nose and ears normal, oral cavity grossly normal. NECK: Neck collar in place. HEART: First and second heart sounds are normal; no edema. LUNGS: Respiratory rate normal; clear to auscultation. ABDOMEN: Soft, nontender, liver spleen not palpable, no masses palpable, Nielsen catheter in place. LYMPHATICS: No lymph nodes palpable in the axilla and neck. PSYCH: Alert and oriented x3; mood and affect normal. NEUROLOGICAL: Cranial nerves grossly intact; no facial asymmetry, decreased power lower extremity. Investigations reviewed in the clinical context: White count 18.6, repeat 24.4 hemoglobin 11.7 BUN 25 creatinine 1.26 Plasma lactic acid 3.9, repeat 2.0 Troponin I 0.037, 0.070 UA infected appearing Assessment: -Acute UTI from cystitis secondary to Nielsen catheter causing severe sepsis, POA -Lactic acidosis from sepsis -Morbid obesity BMI 39.1 -Essential hypertension -Hyperlipidemia -Chronic rheumatoid arthritis -Obstructive sleep apnea uses CPAP machine -Hypothyroid -Hyperlipidemia -Parkinson's-like symptoms with no Parkinson disease -Recent C2 to C6 cervical spine fusion with a neck collar in place -Gait dysfunction currently using a walker -Chronic bladder dysfunction with urinary retention with a chronic Nielsen catheter for further workup at [facility] being followed by by Dr. Maxwell olivera Plan: Home medications be renewed. Care was discussed the patient and . Give IV fluids. Antibiotics. Expect patient to stay in the hospital at least for 2 nights. Past Medical History Past Medical History: Cancer, CVA/TIA, Hyperlipidemia, Hypertension, Pneumonia, Rheumatoid Arthritis (RA), Sleep Apnea/CPAP/BIPAP, Thyroid Disorder Additional Past Medical History / Comment(s): Slurred speech/possible tia ,uses CPAP at bed,bronchitis, skin ca lt arm, parkinson's disease is being worked up History of Any Multi-Drug Resistant Organisms: Other MDRO Past Surgical History: Tonsillectomy Additional Past Surgical History / Comment(s): Heel spurs removed, colonoscopy, basal call carcinoma: skin cancer removed, Spinal fusion. Past Anesthesia/Blood Transfusion Reactions: Previous Problems w/ Anesthesia Additional Past Anesthesia/Blood Transfusion Reaction / Comment(s): Stopped breathing during colonoscopy yrs. ago before sleep apnea diagnosed per pt. Past Psychological History: No Psychological Hx Reported Smoking Status: Never smoker Past Alcohol Use History: Rare Past Drug Use History: None Reported - Past Family History Father Family Medical History: Cancer, Hypertension Additional Family Medical History / Comment(s): oral cancer Mother Family Medical History: Cancer Additional Family Medical History / Comment(s): "irreg heart rythym" Medications and Allergies Home Medications Medication Instructions Recorded Confirmed Type amLODIPine BESYLATE [Norvasc] 10 mg PO DAILY 10/28/15 09/27/18 History Levothyroxine Sodium [Synthroid] 88 mcg PO DAILY 08/19/17 09/27/18 History Rosuvastatin Calcium [Crestor] 10 mg PO DAILY 08/19/17 09/27/18 History Aspirin 81 mg PO DAILY #1 chewable 08/23/17 09/27/18 Rx Lisinopril-Hctz 20-12.5 mg 1 tab PO DAILY 03/26/18 09/27/18 History [Zestoretic 20-12.5] Acetaminophen Tab [Tylenol] 650 mg PO Q6H PRN 06/06/18 09/27/18 History Cholecalciferol [Vitamin D3 (25 2,000 unit PO DAILY 08/31/18 09/27/18 History Mcg = 1000 Iu)] Psyllium Husk 100% [Metamucil 6 gm PO DAILY #1 packet 09/04/18 09/27/18 Rx Packet] Sennosides-Docusate Sodium 2 tab PO BID 09/27/18 09/27/18 History [Senokot-S] Allergies Allergy/AdvReac Type Severity Reaction Status Date / Time No Known Allergies Allergy Verified 09/27/18 07:24 Physical Exam Vitals: Vital Signs Temp Pulse Pulse Resp BP BP Pulse Ox 09/27/18 17:01 96 09/27/18 16:00 98 F 98 96 24 119/59 94 L 09/27/18 14:00 96 22 134/70 95 09/27/18 12:00 99 F 105 H 96 22 135/77 94 L 09/27/18 11:00 24 135/77 95 09/27/18 09:45 99.9 F H 96 18 128/76 96 09/27/18 06:40 20 105/79 09/27/18 06:30 96 25 H 93/61 09/27/18 06:20 98 22 93/61 09/27/18 06:13 99.9 F H 09/27/18 06:10 21 93/61 09/27/18 06:00 97 12 92/55 09/27/18 05:50 28 H 92/55 09/27/18 05:40 96 8 L 92/55 09/27/18 05:30 99 27 H 92/55 09/27/18 05:20 98 9 L 92/55 09/27/18 05:10 93 23 92/55 97 09/27/18 05:00 97 22 92/55 97 09/27/18 04:50 94 13 92/55 96 09/27/18 04:40 96 30 H 92/55 96 09/27/18 04:30 96 22 92/55 96 09/27/18 04:20 96 19 92/55 96 09/27/18 04:10 100 29 H 92/55 95 09/27/18 04:00 100 23 92/55 95 09/27/18 03:50 100 21 78/52 95 09/27/18 03:40 101 H 31 H 78/52 96 09/27/18 03:32 106 H 29 H 94 L 09/27/18 00:46 100.8 F H 112 H 20 94/54 94 L 09/27/18 00:20 112 H 20 105/68 92 L 09/27/18 00:11 20 09/27/18 00:10 116 H 22 83/48 92 L 09/26/18 23:11 103.5 F H 129 H 20 87/50 89 L Intake and Output 09/27/18 09/27/18 09/27/18 06:59 14:59 22:59 Intake Total 600 Output Total 200 2400 855 Balance -200 -2400 -255 Intake: IV 600 Sodium Chloride 0.9% 1, 600 000 ml @ 75 mls/hr IV . [id number] [facility] Rx#:[id number] Output: Urine 200 2400 855 Uretheral (Nielsen) 200 Other: Voiding Method Indwelling Catheter Indwelling Catheter Weight 136.078 kg Results CBC & Chem 7: 09/27/18 17:52 09/26/18 23:43 Labs: Abnormal Lab Results - Last 24 Hours (Table) 09/26/18 09/26/18 09/26/18 Range/Units 23:43 23:43 23:43 WBC 18.6 H (3.8-10.6) k/uL RBC (4.30-5.90) m/uL Hgb (13.0-17.5) gm/dL Hct (39.0-53.0) % Neutrophils # 17.0 H (1.3-7.7) k/uL Lymphocytes # 0.5 L (1.0-4.8) k/uL Monocytes # (0-1.0) k/uL APTT (22.0-30.0) sec BUN 25 H (9-20) mg/dL Creatinine 1.26 H (0.66-1.25) mg/dL Glucose 136 H (74-99) mg/dL POC Glucose (mg/dL) (75-99) mg/dL Plasma Lactic Acid Antonio 3.9 H* (0.7-2.0) mmol/L Troponin I (0.000-0.034) ng/mL Ur Specific [place] (1.001-1.035) Urine Protein (Negative) Urine Blood (Negative) Ur Leukocyte Esterase (Negative) Urine RBC (0-5) /hpf Urine WBC (0-5) /hpf Urine WBC Clumps (None) /hpf Urine Mucus (None) /hpf 09/26/18 09/26/18 09/26/18 Range/Units 23:43 23:43 23:43 WBC (3.8-10.6) k/uL RBC (4.30-5.90) m/uL Hgb (13.0-17.5) gm/dL Hct (39.0-53.0) % Neutrophils # (1.3-7.7) k/uL Lymphocytes # (1.0-4.8) k/uL Monocytes # (0-1.0) k/uL APTT 21.9 L (22.0-30.0) sec BUN (9-20) mg/dL Creatinine (0.66-1.25) mg/dL Glucose (74-99) mg/dL POC Glucose (mg/dL) (75-99) mg/dL Plasma Lactic Acid Antonio (0.7-2.0) mmol/L Troponin I 0.037 H* (0.000-0.034) ng/mL Ur Specific [place] >1.050 H (1.001-1.035) Urine Protein 2+ H (Negative) Urine Blood Large H (Negative) Ur Leukocyte Esterase Large H (Negative) Urine RBC >182 H (0-5) /hpf Urine WBC >182 H (0-5) /hpf Urine WBC Clumps Many H (None) /hpf Urine Mucus Many H (None) /hpf 09/27/18 09/27/18 09/27/18 Range/Units 04:32 04:32 09:59 WBC 24.4 H (3.8-10.6) k/uL RBC 3.99 L (4.30-5.90) m/uL Hgb 11.7 L (13.0-17.5) gm/dL Hct 35.0 L (39.0-53.0) % Neutrophils # 22.1 H (1.3-7.7) k/uL Lymphocytes # 0.8 L (1.0-4.8) k/uL Monocytes # 1.2 H (0-1.0) k/uL APTT (22.0-30.0) sec BUN (9-20) mg/dL Creatinine (0.66-1.25) mg/dL Glucose (74-99) mg/dL POC Glucose (mg/dL) 106 H (75-99) mg/dL Plasma Lactic Acid [place] (0.7-2.0) mmol/L Troponin I 0.070 H* (0.000-0.034) ng/mL Ur Specific [place] (1.001-1.035) Urine Protein (Negative) Urine Blood (Negative) Ur Leukocyte Esterase (Negative) Urine RBC (0-5) /hpf Urine WBC (0-5) /hpf Urine WBC Clumps (None) /hpf Urine Mucus (None) /hpf 09/27/18 Range/Units 17:52 WBC 16.3 H (3.8-10.6) k/uL RBC (4.30-5.90) m/uL Hgb 12.9 L (13.0-17.5) gm/dL Hct 38.7 L (39.0-53.0) % Neutrophils # 14.8 H (1.3-7.7) k/uL Lymphocytes # 0.8 L (1.0-4.8) k/uL Monocytes # (0-1.0) k/uL APTT (22.0-30.0) sec BUN (9-20) mg/dL Creatinine (0.66-1.25) mg/dL Glucose (74-99) mg/dL POC Glucose (mg/dL) (75-99) mg/dL Plasma Lactic Acid Antonio (0.7-2.0) mmol/L Troponin I (0.000-0.034) ng/mL Ur Specific [place] (1.001-1.035) Urine Protein (Negative) Urine Blood (Negative) Ur Leukocyte Esterase (Negative) Urine RBC (0-5) /hpf Urine WBC (0-5) /hpf Urine WBC Clumps (None) /hpf Urine Mucus (None) /hpf Microbiology - Last 24 Hours (Table) 09/26/18 23:43 Urine Culture - Preliminary Urine,Voided
[2018-09-28] MEDS ORDERED: ENOXAPARIN 40 MG/0.4 ML SYRINGE SQ SCH (00:35)
[2018-09-28] MEDS: SODIUM CHLORIDE 0.9% 1,000 ML IV SCH ×3 (02:11→16:15)
[2018-09-28] MEDS: ACETAMINOPHEN TAB 325 MG TAB PO PRN ×2 (03:40→19:53)
[2018-09-28 05:40] LABS: Basophils # (A) 0.1 k/uL (0-0.2); Basophils % (A) 1 %; Eosinophils # (A) 0.1 k/uL (0-0.7); Eosinophils % (A) 1 %; HCT 36.4 % (39.0-53.0); HGB 12.1 gm/dL (13.0-17.5); Lymphocytes # (A) 1.2 k/uL (1.0-4.8); Lymphocytes % (A) 11 %; MCH 29.2 pg (25.0-35.0); MCHC 33.3 g/dL (31.0-37.0); MCV 87.6 fL (80.0-100.0); Mean Platelet Volume 7.1; Monocytes # (A) 0.4 k/uL (0-1.0); Monocytes % (A) 4 %; Neutrophils # (A) 9.1 k/uL (1.3-7.7); Neutrophils % (A) 83 %; Platelet Count 194 k/uL (150-450); RBC 4.15 m/uL (4.30-5.90); RDW 14.5 % (11.5-15.5)
[2018-09-28 05:50] LABS: African American GFR (CKD) >90 (>60 ml/min/1.73 sqM); Anion Gap 8 mmol/L; Blood Urea Nitrogen 15 mg/dL (9-20); Calcium 8.5 mg/dL (8.4-10.2); Carbon Dioxide 25 mmol/L (22-30); Chloride 106 mmol/L (98-107); Glucose 115 mg/dL (74-99); Potassium 3.8 mmol/L (3.5-5.1); Sodium 139 mmol/L (137-145)
[2018-09-28] MEDS: ENOXAPARIN 40 MG/0.4 ML SYRINGE SQ SCH (06:14)
[2018-09-28] MEDS: LEVOTHYROXINE 88 MCG TAB PO SCH (06:14)
[2018-09-28] MEDS: SENNOSIDES-DOCUSATE SODIUM 1 EACH TAB PO SCH ×2 (08:44→19:49)
[2018-09-28] MEDS: PSYLLIUM HUSK 100% 6 GM PACKET PO SCH (08:44)
[2018-09-28] MEDS: ATORVASTATIN 20 MG TAB PO SCH (08:49)
[2018-09-28] MEDS: amLODIPine 10 MG TAB PO SCH (08:49)
[2018-09-28] MEDS: ASPIRIN 81 MG PO SCH (08:49)
[2018-09-28] MEDS: CHOLECALCIFEROL 1,000 UNIT TAB PO SCH (08:49)
[2018-09-28] MEDS: LISINOPRIL-HCTZ 20-12.5 MG 1 EACH TAB PO SCH (08:50)
[2018-09-28] MEDS ORDERED: amLODIPine 10 MG TAB PO SCH (09:00)
[2018-09-28] MEDS ORDERED: ATORVASTATIN 10 MG TAB PO SCH (09:00)
--- NOTE | 2018-09-28 12:59 | P.PN ---
Progress Note - Text Progress Note Date: 09/28/18 Chief Complaint: Dizzy History of presenting complaint: This is a very pleasant 67-year-old patient of follows with Dr. Blancas.. Chronic stable medical conditions include osteoarthritis, hypertension, hyperlipidemia, rheumatoid arthritis, obstructive sleep apnea and uses CPAP machine, diabetes. Patient has been worked up by at [facility] and he does not have Parkinson's disease but has some Parkinson-like features. Patient had cervical spine fusion from C2 to C6 at [facility]. Patient does go for physical therapy for both upper and lower extremity. At her baseline able to use his walker to get about the house. Can also do about 4-5 stairs. Patient able to use his right arm and feed himself. He is not able to wipe himself. Prior to surgery is having increasing pain in the right arm which is better now. The patient had a chronic Nielsen catheter. Follows with Dr. Cerda from urology. Patient had a home care nurse come out with a change the Nielsen catheter. Not much urine was coming out some blood was coming out under the nurse later came out." Significant amount of blood came out and so around the Nielsen and soaked the bed. Eventually the Nielsen catheter was changed and then urine output was coming out good. According to the patient had lost a quarter good amount of blood. When patient to try to walk he became dizzy and patient had to be low to the ground. Patient has been feeling a bit cold. Patient is having fever and chills Patient was admitted with acute UTI with severe sepsis Today-sitting up in bed. Urine in the Nielsen catheter is clear. Appetite improving. He was coming down. Getting IV fluids. Getting antibiotics. Overall feels better. Review of systems: Was done for constitutional, cardiovascular, GI, pulmonary. Genitourinary relevant finding as above Active Medications Acetaminophen (Tylenol Tab) 650 mg PO Q6HR PRN PRN Reason: Fever and/ or Pain Last Admin: 09/28/18 03:40 Dose: 650 mg Documented by: Amlodipine Besylate (Norvasc) 10 mg PO DAILY [facility] Last Admin: 09/28/18 08:49 Dose: 10 mg Documented by: Aspirin (Aspirin) 81 mg PO DAILY [facility] Last Admin: 09/28/18 08:49 Dose: 81 mg Documented by: Atorvastatin Calcium (Lipitor) 20 mg PO DAILY [facility] Last Admin: 09/28/18 08:49 Dose: 20 mg Documented by: Cholecalciferol (Vitamin D3 (25 Mcg = 1000 Iu)) 2,000 unit PO DAILY [facility] Last Admin: 09/28/18 08:49 Dose: 2,000 unit Documented by: Enoxaparin Sodium (Lovenox) 40 mg SQ DAILY [facility] Last Admin: 09/28/18 06:14 Dose: 40 mg Documented by: Lisinopril/HCTZ (Zestoretic 20-12.5) 1 each PO DAILY [facility] Last Admin: 09/28/18 08:50 Dose: 1 each Documented by: Ceftriaxone Sodium 1 gm/ (Sodium Chloride) 50 mls @ 100 mls/hr IVPB Q24H [facility] Last Admin: 09/28/18 02:08 Dose: 100 mls/hr Documented by: Sodium Chloride (Saline 0.9%) 1,000 mls @ 125 mls/hr IV .Q8H [facility] Last Admin: 09/28/18 08:49 Dose: 125 mls/hr Documented by: Levothyroxine Sodium (Synthroid) 88 mcg PO DAILY@0630 [facility] Last Admin: 09/28/18 06:14 Dose: 88 mcg Documented by: Psyllium Hydrophilic Mucilloid (Metamucil) 6 gm PO DAILY [facility] Last Admin: 09/28/18 08:44 Dose: Not Given Documented by: Senna/Docusate Sodium (Senokot-S) 2 each PO BID [facility] Last Admin: 09/28/18 08:44 Dose: Not Given Documented by: Physical examination: VITAL SIGNS: T-max 100.6 last night, afebrile this morning 79, 24, 104/59, 95% on 2 L GENERAL: Propped up in bed, eating his lunch, . EYES: Pupils equal. Conjunctiva normal. HEENT: External appearance of nose and ears normal, oral cavity grossly normal. NECK: JVD not raised, mass not palpable HEART: First and second heart sounds are normal; no edema. LUNGS: Respiratory rate normal; clear to auscultation. ABDOMEN: Soft, nontender, liver spleen not palpable, no masses palpable, Nielsen catheter in place. PSYCH: Alert and oriented x3; mood and affect normal. NEUROLOGICAL: Cranial nerves grossly intact; no facial asymmetry, decreased power lower extremity. Investigations reviewed in the clinical context: White count 11 hemoglobin 12.1 potassium 3.8 creatinine 0.97 Urine culture growing Pseudomonas Blood cultures positive for gram-negative bacilli Assessment: -Acute UTI from cystitis secondary to Nielsen catheter causing severe sepsis, with positive blood cultures with initial cultures growing Pseudomonas -Lactic acidosis from sepsis -Morbid obesity BMI 39.1 -Essential hypertension -Hyperlipidemia -Chronic rheumatoid arthritis -Obstructive sleep apnea uses CPAP machine -Hypothyroid -Hyperlipidemia -Parkinson's-like symptoms with no Parkinson disease -Recent C2 to C6 cervical spine fusion -Gait dysfunction currently using a walker -Chronic bladder dysfunction with urinary retention with a chronic Nielsen catheter for further workup at [facility] being followed by by Dr. Cerda Plan: Continue with current medications. Patient is responding to current antibiotic. Cultures are growing. Clinically looking better. Care was discussed with the patient at the bedside. We'll consult ID.
--- NOTE | 2018-09-28 15:13 | P.CRDCN ---
History of Present Illness Consult date: 09/28/18 History of present illness: This is a 67-year-old gentlemanwith history of hypertension and hyperlipidemia who was recently in the hospital and treated for sepsis. He was sent home with a Nielsen catheter. He is also diagnosed to have Parkinson's-like features. Apparently at home. Patient was having some difficulty with his Nielsen catheter. Apparently there was significantbleeding around the catheter. According to patient's , he lost quite a bit of blood. Patient was trying to walk and apparently became dizzy and lightheaded. The Nielsen was finally changed and patient has been having good urine output.patient is a troponin value was elevated. The first value was 0.037 and second one was 0.070. Patient is not having any chest pain. EKG showed sinus tachycardia. She doesn't appear that patient is having any acute coronary syndrome. We'll obtain an EKG and also echocardiogram. If there are no new changeson the EKG or echocardiogram, no further cardiac workup is suggested at this time. Review of Systems as per the chart Past Medical History Past Medical History: Cancer, CVA/TIA, Hyperlipidemia, Hypertension, Pneumonia, Rheumatoid Arthritis (RA), Sleep Apnea/CPAP/BIPAP, Thyroid Disorder Additional Past Medical History / Comment(s): Slurred speech/possible tia ,uses CPAP at bed,bronchitis, skin ca lt arm, parkinson's disease is being worked up History of Any Multi-Drug Resistant Organisms: Other MDRO Past Surgical History: Tonsillectomy Additional Past Surgical History / Comment(s): Heel spurs removed, colonoscopy, basal call carcinoma: skin cancer removed, Spinal fusion. Past Anesthesia/Blood Transfusion Reactions: Previous Problems w/ Anesthesia Additional Past Anesthesia/Blood Transfusion Reaction / Comment(s): Stopped breathing during colonoscopy yrs. ago before sleep apnea diagnosed per pt. Past Psychological History: No Psychological Hx Reported Smoking Status: Never smoker Past Alcohol Use History: Rare Past Drug Use History: None Reported - Past Family History Father Family Medical History: Cancer, Hypertension Additional Family Medical History / Comment(s): oral cancer Mother Family Medical History: Cancer Additional Family Medical History / Comment(s): "irreg heart rythym" Medications and Allergies Home Medications Medication Instructions Recorded Confirmed Type amLODIPine BESYLATE [Norvasc] 10 mg PO DAILY 10/28/15 09/27/18 History Levothyroxine Sodium [Synthroid] 88 mcg PO DAILY 08/19/17 09/27/18 History Rosuvastatin Calcium [Crestor] 10 mg PO DAILY 08/19/17 09/27/18 History Aspirin 81 mg PO DAILY #1 chewable 08/23/17 09/27/18 Rx Lisinopril-Hctz 20-12.5 mg 1 tab PO DAILY 03/26/18 09/27/18 History [Zestoretic 20-12.5] Acetaminophen Tab [Tylenol] 650 mg PO Q6H PRN 06/06/18 09/27/18 History Cholecalciferol [Vitamin D3 (25 2,000 unit PO DAILY 08/31/18 09/27/18 History Mcg = 1000 Iu)] Psyllium Husk 100% [Metamucil 6 gm PO DAILY #1 packet 09/04/18 09/27/18 Rx Packet] Sennosides-Docusate Sodium 2 tab PO BID 09/27/18 09/27/18 History [Senokot-S] Allergies Allergy/AdvReac Type Severity Reaction Status Date / Time No Known Allergies Allergy Verified 09/27/18 07:24 Physical Exam Vitals: Vital Signs Temp Pulse Pulse Resp BP Pulse Ox 09/28/18 12:00 98.0 F 85 12 114/73 93 L 09/28/18 10:00 68 17 112/57 94 L 09/28/18 08:00 98.1 F 79 24 104/59 95 09/28/18 04:00 98.3 F 81 20 118/61 94 L 09/28/18 02:00 80 22 117/68 95 09/28/18 00:00 99.5 F 86 22 119/65 94 L 09/27/18 22:00 89 12 99/57 93 L 09/27/18 20:00 100.6 F H 91 20 109/61 94 L 09/27/18 18:00 100 7 L 120/58 09/27/18 17:01 96 09/27/18 16:00 98 F 98 96 24 119/59 94 L Intake and Output 09/28/18 09/28/18 09/28/18 06:59 14:59 22:59 Intake Total 800 1370 Output Total 800 2075 Balance 0 -705 Intake: IV 750 650 Sodium Chloride 0.9% 1, 500 000 ml @ 125 mls/hr IV . Q8H [facility] Rx#:[id number] Sodium Chloride 0.9% 1, 750 150 000 ml @ 75 mls/hr IV . [id number] [facility] Rx#:[id number] Intake, IV Titration 50 Amount cefTRIAXone 1 gm In 50 Sodium Chloride 0.9% 50 ml @ 100 mls/hr IVPB Q24H [facility] Rx#:[id number] Oral 720 Output: Urine 800 2075 Other: Voiding Method Indwelling Catheter Indwelling Catheter Weight 143.2 kg GENERAL EXAM: Patient is alert and oriented and doesn't appear to be in any acute distress HEENT: Normocephalic. Normal reaction of pupils, equal size, normal range of extraocular motion. No erythema or exudates in the throat. NECK: No masses, no nuchal rigidity. CHEST: No chest wall deformity. LUNGS: Equal air entry with no crackles or wheeze. HEART: S1 and S2 normal with no audible mumurs or gallops. Regular rhythm, femorals equal on both sides.. ABDOMEN: No hepatosplenomegaly, normal bowel sounds, no guarding or rigidity. SKIN: No rashes CENTRAL NERVOUS SYSTEM: No focal deficits. EXTREMITIES: No cyanosis, clubbing or edema. Results 09/28/18 05:16 09/28/18 05:16 CBC 09/27/18 09/28/18 Range/Units 17:52 05:16 WBC 16.3 H 11.0 H (3.8-10.6) k/uL RBC 4.46 4.15 L (4.30-5.90) m/uL Hgb 12.9 L 12.1 L (13.0-17.5) gm/dL Hct 38.7 L 36.4 L (39.0-53.0) % Plt Count 226 194 (150-450) k/uL Comprehensive Metabolic Panel 09/28/18 Range/Units 05:16 Sodium 139 (137-145) mmol/L Potassium 3.8 (3.5-5.1) mmol/L Chloride 106 (98-107) mmol/L Carbon Dioxide 25 (22-30) mmol/L BUN 15 (9-20) mg/dL Creatinine 0.97 (0.66-1.25) mg/dL Glucose 115 H (74-99) mg/dL Calcium 8.5 (8.4-10.2) mg/dL Current Medications Generic Name Dose Route Start Last Admin Trade Name Freq PRN Reason Stop Dose Admin Acetaminophen 650 mg 09/27/18 13:29 09/28/18 03:40 Tylenol Tab PO 650 mg Q6HR PRN Administration Fever and/ or Pain Amlodipine Besylate 10 mg 09/28/18 09:00 09/28/18 08:49 Norvasc PO 10 mg DAILY [facility] Administration Aspirin 81 mg 09/28/18 09:00 09/28/18 08:49 Aspirin PO 81 mg DAILY [facility] Administration Atorvastatin Calcium 20 mg 09/28/18 09:00 09/28/18 08:49 Lipitor PO 20 mg DAILY [facility] Administration Cholecalciferol 2,000 unit 09/28/18 09:00 09/28/18 08:49 Vitamin D3 (25 Mcg = 1000 Iu) PO 2,000 unit DAILY [facility] Administration Enoxaparin Sodium 40 mg 09/28/18 09:00 09/28/18 06:14 Lovenox SQ 40 mg DAILY [facility] Administration Lisinopril/HCTZ 1 each 09/28/18 09:00 09/28/18 08:50 Zestoretic 20-12.5 PO 1 each DAILY [facility] Administration Sodium Chloride 1,000 mls @ 125 mls/hr 09/28/18 00:45 09/28/18 08:49 Saline 0.9% IV 125 mls/hr .Q8H [facility] Administration Ceftazidime 2 gm/ Sodium 100 mls @ 100 mls/hr 09/28/18 14:25 Chloride IVPB Q8HR [facility] Levothyroxine Sodium 88 mcg 09/28/18 06:30 09/28/18 06:14 Synthroid PO 88 mcg DAILY@0630 [facility] Administration Psyllium Hydrophilic Mucilloid 6 gm 09/28/18 09:00 09/28/18 08:44 Metamucil PO Not Given DAILY [facility] Senna/Docusate Sodium 2 each 09/28/18 09:00 09/28/18 08:44 Senokot-S PO Not Given BID [facility] Intake and Output 09/28/18 09/28/18 09/28/18 06:59 14:59 22:59 Intake Total 800 1370 Output Total 800 2075 Balance 0 -705 Intake: IV 750 650 Sodium Chloride 0.9% 1, 500 000 ml @ 125 mls/hr IV . Q8H [facility] Rx#:[id number] Sodium Chloride 0.9% 1, 750 150 000 ml @ 75 mls/hr IV . [id number] [facility] Rx#:[id number] Intake, IV Titration 50 Amount cefTRIAXone 1 gm In 50 Sodium Chloride 0.9% 50 ml @ 100 mls/hr IVPB Q24H [facility] Rx#:[id number] Oral 720 Output: Urine 800 2075 Other: Voiding Method Indwelling Catheter Indwelling Catheter Weight 143.2 kg 09/28/18 05:16 09/28/18 05:16 EKG Interpretations (text) sinus rhythm and sinus tachycardia Assessment and Plan (1) Elevated troponin Current Visit: Yes Status: Acute Code(s): R74.8 - ABNORMAL LEVELS OF OTHER SERUM ENZYMES SNOMED Code(s): 926480442 (2) History of CVA (cerebrovascular accident) Current Visit: Yes Status: Acute Code(s): Z86.73 - PRSNL HX OF TIA (TIA), AND CEREB INFRC W/O RESID DEFICITS SNOMED Code(s): 361010192 (3) Essential hypertension Current Visit: No Status: Acute Code(s): I10 - ESSENTIAL (PRIMARY) HYPERTENSION SNOMED Code(s): 52329326 Plan: There is no clinical picture consistent with acute coronary syndrome. Troponin values are elevated , underlying ischemic heart disease cannot be excluded. An echo he is being done along with a repeat EKG. If they don't show any significant findings, continue maximal medical therapy. No further cardiac workup at this time unless clinical picture changes.
--- NOTE | 2018-09-28 16:15 | ECHOF ---
Referral Reason:assess heart function MEASUREMENTS -------- HEIGHT: 180.3 cm WEIGHT: 135.2 kg BP: RVIDd: 3.1 cm (< 3.3) IVSd: 1.1 cm (0.6 - 1.1) LVIDd: 4.3 cm (3.9 - 5.3) LVPWd: 1.6 cm (0.6 - 1.1) IVSs: 1.9 cm LVIDs: 2.2 cm LVPWs: 1.7 cm Ao Diam: 3.3 cm (2.0 - 3.7) AV Cusp: 2.3 cm (1.5 - 2.6) LA Diam: 3.4 cm (2.7 - 3.8) MV EXCURSION: 12.104 mm (> 18.000) MV EF SLOPE: 64 mm/s (70 - 150) EPSS: 1.0 cm MV E Yasir: 0.68 m/s MV DecT: 186 ms MV A Yasir: 0.65 m/s MV E/A Ratio: 1.05 RAP: 5.00 mmHg RVSP: 28.15 mmHg FINDINGS -------- Sinus rhythm. This was a technically difficult study with suboptimal views. The left ventricular size is normal. Left ventricular wall thickness is normal. Overall left vent ricular systolic function is normal with, an EF between 55 - 60 %. The right ventricle is normal in size. The left atrial size is normal. The right atrial size is normal. Lumason used The aortic valve is trileaflet and appears structurally normal. The mitral valve is normal. There is trace mitral regurgitation. The tricuspid valve appears structurally normal. Mild tricuspid regurgitation present. Right vent ricular systolic pressure is normal at < 35 mmHg. There is no pulmonic regurgitation present. The aortic root size is normal. IVC Not well visulized. There is no pericardial effusion. CONCLUSIONS -------- 1. Sinus rhythm. 2. This was a technically difficult study with suboptimal views. 3. The left ventricular size is normal. 4. Left ventricular wall thickness is normal. 5. Overall left ventricular systolic function is normal with, an EF between 55 - 60 %. 6. The right ventricle is normal in size. 7. The left atrial size is normal. 8. The right atrial size is normal. 9. Lumason used 10. The aortic valve is trileaflet and appears structurally normal. 11. The mitral valve is normal. 12. There is trace mitral regurgitation. 13. The tricuspid valve appears structurally normal. 14. Mild tricuspid regurgitation present. 15. Right ventricular systolic pressure is normal at < 35 mmHg. 16. There is no pulmonic regurgitation present. 17. The aortic root size is normal. 18. IVC Not well visulized. 19. There is no pericardial effusion. HATCHERY LABORER: Afshan Miner RDCS
--- NOTE | 2018-09-28 17:14 | P.CONS ---
History of Present Illness - Reason for Consult Consult date: 09/28/18 Pseudomonas urinary tract infection and bacteremia Requesting physician: Scottie Uriarte - Chief Complaint Weakness and hematuria x 1 day - History of Present Illness Patient is a 68 year male with a past medical history significant for CVA. History of urinary retention requiring chronic indwelling Nielsen catheter and history of urinary tract infection recently with a Pseudomonas UTI and sepsis patient has been brought into the ER at [facility] on [id number] with a chief complaints of weakness apparently the patient Nielsen catheter was changed the day of presentation hospital however the patient's had did have hematuria after change of his Nielsen catheter patient was complaining of feeling cold and shaking chills no nausea no vomiting no abdominal pain or any diarrhea with the symptom the patient was evaluated by the ER physician, on arrival to the ER the patient did have a fever of 103F the patient was tachycardic heart rate of 101 patient also hypotensive with a blood pressure of 87 systolic, patient did have a positive UA with large leukocyte estrace more than 182 WBC did have elevated white 24,000 patient has been diagnosed with sepsis secondary to urinary source has been admitted to the ICU he was started on Rocephin with a blood and urine culture were positive for pseudomonas that prompted this infectious disease consultation Review of Systems Positive point has been mentioned in the HPI rest of the systems are negative Past Medical History Past Medical History: Cancer, CVA/TIA, Hyperlipidemia, Hypertension, Pneumonia, Rheumatoid Arthritis (RA), Sleep Apnea/CPAP/BIPAP, Thyroid Disorder Additional Past Medical History / Comment(s): Slurred speech/possible tia ,uses CPAP at bed,bronchitis, skin ca lt arm, parkinson's disease is being worked up History of Any Multi-Drug Resistant Organisms: Other MDRO Past Surgical History: Tonsillectomy Additional Past Surgical History / Comment(s): Heel spurs removed, colonoscopy, basal call carcinoma: skin cancer removed, Spinal fusion. Past Anesthesia/Blood Transfusion Reactions: Previous Problems w/ Anesthesia Additional Past Anesthesia/Blood Transfusion Reaction / Comm: Stopped breathing during colonoscopy yrs. ago before sleep apnea diagnosed per pt. Past Psychological History: No Psychological Hx Reported Smoking Status: Never smoker Past Alcohol Use History: Rare Past Drug Use History: None Reported - Past Family History Father Family Medical History: Cancer, Hypertension Additional Family Medical History / Comment(s): oral cancer Mother Family Medical History: Cancer Additional Family Medical History / Comment(s): "irreg heart rythym" Medications and Allergies Home Medications Medication Instructions Recorded Confirmed Type amLODIPine BESYLATE [Norvasc] 10 mg PO DAILY 10/28/15 09/27/18 History Levothyroxine Sodium [Synthroid] 88 mcg PO DAILY 08/19/17 09/27/18 History Rosuvastatin Calcium [Crestor] 10 mg PO DAILY 08/19/17 09/27/18 History Aspirin 81 mg PO DAILY #1 chewable 08/23/17 09/27/18 Rx Lisinopril-Hctz 20-12.5 mg 1 tab PO DAILY 03/26/18 09/27/18 History [Zestoretic 20-12.5] Acetaminophen Tab [Tylenol] 650 mg PO Q6H PRN 06/06/18 09/27/18 History Cholecalciferol [Vitamin D3 (25 2,000 unit PO DAILY 08/31/18 09/27/18 History Mcg = 1000 Iu)] Psyllium Husk 100% [Metamucil 6 gm PO DAILY #1 packet 09/04/18 09/27/18 Rx Packet] Sennosides-Docusate Sodium 2 tab PO BID 09/27/18 09/27/18 History [Senokot-S] Allergies Allergy/AdvReac Type Severity Reaction Status Date / Time No Known Allergies Allergy Verified 09/27/18 07:24 Physical Exam Vitals: Vital Signs Temp Pulse Resp BP Pulse Ox 09/28/18 16:00 98.8 F 80 21 127/70 95 09/28/18 14:00 88 22 128/83 93 L 09/28/18 12:00 98.0 F 85 12 114/73 93 L 09/28/18 10:00 68 17 112/57 94 L 09/28/18 08:00 98.1 F 79 24 104/59 95 09/28/18 04:00 98.3 F 81 20 118/61 94 L 09/28/18 02:00 80 22 117/68 95 09/28/18 00:00 99.5 F 86 22 119/65 94 L 09/27/18 22:00 89 12 99/57 93 L 09/27/18 20:00 100.6 F H 91 20 109/61 94 L 07/19/19 18:00 100 7 L 120/58 09/27/18 17:01 96 Intake and Output 09/28/18 09/28/18 09/28/18 06:59 14:59 22:59 Intake Total 800 1370 980 Output Total 800 2075 3000 Balance Intake: IV 750 650 500 Sodium Chloride 0.9% 1, 500 500 000 ml @ 125 mls/hr IV . Q8H MAC Rx#:[id number] Sodium Chloride 0.9% 1, 750 150 000 ml @ 75 mls/hr IV . [id number] MAC Rx#:[id number] Intake, IV Titration 50 Amount cefTRIAXone 1 gm In 50 Sodium Chloride 0.9% 50 ml @ 100 mls/hr IVPB Q24H [facility] Rx#:[id number] Oral 720 480 Output: Urine 800 2075 3000 Other: Voiding Method Indwelling Catheter Indwelling Catheter Indwelling Catheter Weight 143.2 kg GENERAL DESCRIPTION: Elderly male lying in bed, no distress. No tachypnea or accessory muscle of respiration use. HEENT: Shows Pallor , no scleral icterus. Oral mucous membrane is dry. No pharyngeal erythema or thrush NECK: Trachea central, no thyromegaly. LUNGS: Unlabored breathing. Clear to auscultation anteriorly. No wheeze or crackle. HEART: S1, S2, regular rate and rhythm. No loud murmur ABDOMEN: Soft, no tenderness , guarding or rigidity, no organomegaly EXTREMITIES: No edema of feet. SKIN: No rash, no masses palpable. NEUROLOGICAL: The patient is awake, alert, oriented x3, mood and affect normal. Results CBC & Chem 7: 09/28/18 05:16 09/28/18 05:16 Labs: Abnormal Lab Results - Last 24 Hours (Table) 09/27/18 09/28/18 09/28/18 Range/Units 17:52 05:16 05:16 WBC 16.3 H 11.0 H (3.8-10.6) k/uL RBC 4.15 L (4.30-5.90) m/uL Hgb 12.9 L 12.1 L (13.0-17.5) gm/dL Hct 38.7 L 36.4 L (39.0-53.0) % Neutrophils # 14.8 H 9.1 H (1.3-7.7) k/uL Lymphocytes # 0.8 L (1.0-4.8) k/uL Glucose 115 H (74-99) mg/dL Microbiology - Last 24 Hours (Table) 09/26/18 23:43 Blood Culture Gram Stain - Preliminary Blood Blood Culture - Preliminary Pseudomonas aeruginosa 09/26/18 23:43 Urine Culture - Preliminary Urine,Voided Pseudomonas spec 09/26/18 23:43 Blood Culture - Final Blood Assessment and Plan Assessment: 1-patient admitted hospital with sepsis in this patient who did have hypotension, tachycardia, elevated white count and a significantly positive UA presenting to the hospital have with weakness and hematuria after changing weighs Nielsen catheter with a recent history of Pseudomonas UTI likely an other episodes of Pseudomonas UTI with secondary sepsis Plan: 1-discontinue the Rocephin 2-Fortaz 2 g every 8 hours 3-gentle IV fluid 4-ultrasound of the kidney bladder area to make sure no evidence of any structur al abnormality We will follow on clinical condition and cultures to further adjust medication if needed Thank you for this consultation will follow this patient with you Time with Patient: Greater than 30
[2018-09-29] MEDS: SODIUM CHLORIDE 0.9% 1,000 ML IV SCH ×3 (01:02→17:44)
[2018-09-29 04:56] LABS: HCT 36.5 % (39.0-53.0); HGB 12.3 gm/dL (13.0-17.5); MCH 29.2 pg (25.0-35.0); MCHC 33.7 g/dL (31.0-37.0); MCV 86.6 fL (80.0-100.0); Mean Platelet Volume 7.2; Platelet Count 209 k/uL (150-450); RBC 4.21 m/uL (4.30-5.90); RDW 14.7 % (11.5-15.5)
[2018-09-29] MEDS: LEVOTHYROXINE 88 MCG TAB PO SCH (06:57)
--- NOTE | 2018-09-29 09:34 | P.PN ---
Subjective Progress Note Date: 09/29/18 This is a 68-year-old gentleman was admitted with dizziness and some difficulty with Nielsen catheter and bleeding. Patient is cardiac-hutchinson stable. His troponins are borderline elevated. His echo showed normal LV function. An EKG did not show any acute changes. He number had chest pains. He is being treated for UTI. From Cardec standpoint patient is stable Objective - Vital Signs Vital signs: Vital Signs Temp 97.8 F 09/29/18 08:00 Pulse 77 09/29/18 08:00 Resp 24 09/29/18 08:00 BP 120/75 09/29/18 08:00 Pulse Ox 95 09/29/18 08:00 Intake & Output 09/28/18 09/29/18 09/29/18 18:59 06:59 18:59 Intake Total 2350 2005 870 Output Total 5075 2075 1400 Balance -2725 -70 -530 Weight 140.3 kg Intake: IV 1150 1125 750 Sodium Chloride 0.9% 1, 1000 1125 750 000 ml @ 125 mls/hr IV . Q8H [facility] Rx#:[id number] Sodium Chloride 0.9% 1, 150 000 ml @ 75 mls/hr IV . [id number] [facility] Rx#:[id number] Intake, IV Titration 100 Amount cefTAZidime 2 gm In 100 Sodium Chloride 0.9% 100 ml @ 100 mls/hr IVPB Q8HR [facility] Rx#:[id number] Oral 1200 780 120 Output: Urine 5075 2075 1400 Other: Voiding Method Indwelling Catheter Indwelling Catheter - Exam GENERAL EXAM: Patient is alert and oriented and doesn't appear to be in any acute distress HEENT: Normocephalic. Normal reaction of pupils, equal size, normal range of extraocular motion. No erythema or exudates in the throat. NECK: No masses, no nuchal rigidity. CHEST: No chest wall deformity. LUNGS: Equal air entry with no crackles or wheeze. HEART: S1 and S2 normal with no audible mumurs or gallops. Regular rhythm, femorals equal on both sides.. ABDOMEN: No hepatosplenomegaly, normal bowel sounds, no guarding or rigidity. SKIN: No rashes CENTRAL NERVOUS SYSTEM: No focal deficits. EXTREMITIES: No cyanosis, clubbing or edema. - Labs CBC & Chem 7: 09/29/18 04:43 09/28/18 05:16 Labs: Abnormal Lab Results - Last 24 Hours (Table) 09/29/18 Range/Units 04:43 RBC 4.21 L (4.30-5.90) m/uL Hgb 12.3 L (13.0-17.5) gm/dL Hct 36.5 L (39.0-53.0) % Microbiology - Last 24 Hours (Table) 09/26/18 23:43 Blood Culture Gram Stain - Preliminary Blood Blood Culture - Preliminary Pseudomonas aeruginosa 09/26/18 23:43 Urine Culture - Preliminary Urine,Voided Pseudomonas spec Assessment and Plan (1) Elevated troponin Current Visit: Yes Status: Acute Code(s): R74.8 - ABNORMAL LEVELS OF OTHER SERUM ENZYMES SNOMED Code(s): 719221203 (2) History of CVA (cerebrovascular accident) Current Visit: Yes Status: Acute Code(s): Z86.73 - PRSNL HX OF TIA (TIA), AND CEREB INFRC W/O RESID DEFICITS SNOMED Code(s): 728342271 (3) Essential hypertension Current Visit: No Status: Acute Code(s): I10 - ESSENTIAL (PRIMARY) HYPERTENSION SNOMED Code(s): 72452064 Plan: Patient is stable from Cardec standpoint. Echo is reviewed. No further cardiac workup at this time. We'll see him as needed
[2018-09-29] MEDS: LISINOPRIL-HCTZ 20-12.5 MG 1 EACH TAB PO SCH (09:36)
[2018-09-29] MEDS: amLODIPine 10 MG TAB PO SCH (09:36)
[2018-09-29] MEDS: CHOLECALCIFEROL 1,000 UNIT TAB PO SCH (09:36)
[2018-09-29] MEDS: ATORVASTATIN 20 MG TAB PO SCH (09:36)
[2018-09-29] MEDS: ENOXAPARIN 40 MG/0.4 ML SYRINGE SQ SCH (09:36)
[2018-09-29] MEDS: ASPIRIN 81 MG PO SCH (09:36)
[2018-09-29] MEDS: SENNOSIDES-DOCUSATE SODIUM 1 EACH TAB PO SCH ×2 (09:37→19:35)
[2018-09-29] MEDS: PSYLLIUM HUSK 100% 6 GM PACKET PO SCH (09:37)
--- NOTE | 2018-09-29 13:25 | P.PN ---
Progress Note - Text Progress Note Date: 09/29/18 Chief Complaint: Tired Interval history: This is a very pleasant 67-year-old patient of follows with Dr. Blancas.. Chronic stable medical conditions include osteoarthritis, hypertension, hyperlipidemia, rheumatoid arthritis, obstructive sleep apnea and uses CPAP machine, diabetes. Patient has been worked up by at [facility] and he does not have Parkinson's disease but has some Parkinson-like features. Patient had cervical spine fusion from C2 to C6 at [facility]. Patient does go for physical therapy for both upper and lower extremity. At her baseline able to use his walker to get about the house. Can also do about 4-5 stairs. Patient able to use his right arm and feed himself. He is not able to wipe himself. Prior to surgery is having increasing pain in the right arm which is better now. The patient had a chronic Nielsen catheter. Follows with Dr. Cerda from urology. Patient had a home care nurse come out with a change the [place] catheter. Not much urine was coming out some blood was coming out under the nurse later came out." Significant amount of blood came out and so around the Nielsen and soaked the bed. Eventually the Nielsen catheter was changed and then urine output was coming out good. According to the patient had lost a quarter good amount of blood. When patient to try to walk he became dizzy and patient had to be low to the ground. Patient has been feeling a bit cold. Patient is having fever and chills Patient was admitted with acute UTI with severe sepsis Today-propped up in bed. Tolerating his diet. No fever. Overall feels a bit better.. Patient stood up with physical therapist for about 8 minutes. Review of systems: Was done for constitutional, cardiovascular, GI, pulmonary. Genitourinary relevant finding as above Active Medications Acetaminophen (Tylenol Tab) 650 mg PO Q6HR PRN PRN Reason: Fever and/ or Pain Last Admin: 09/28/18 19:53 Dose: 650 mg Documented by: Amlodipine Besylate (Norvasc) 10 mg PO DAILY [facility] Last Admin: 09/29/18 09:36 Dose: 10 mg Documented by: Aspirin (Aspirin) 81 mg PO DAILY [facility] Last Admin: 09/29/18 09:36 Dose: 81 mg Documented by: Atorvastatin Calcium (Lipitor) 20 mg PO DAILY [facility] Last Admin: 09/29/18 09:36 Dose: 20 mg Documented by: Cholecalciferol (Vitamin D3 (25 Mcg = 1000 Iu)) 2,000 unit PO DAILY [facility] Last Admin: 09/29/18 09:36 Dose: 2,000 unit Documented by: Enoxaparin Sodium (Lovenox) 40 mg SQ DAILY [facility] Last Admin: 09/29/18 09:36 Dose: 40 mg Documented by: Lisinopril/HCTZ (Zestoretic 20-12.5) 1 each PO DAILY [facility] Last Admin: 09/29/18 09:36 Dose: 1 each Documented by: Sodium Chloride (Saline 0.9%) 1,000 mls @ 125 mls/hr IV .Q8H [facility] Last Admin: 09/29/18 09:40 Dose: 125 mls/hr Documented by: Ceftazidime 2 gm/ Sodium (Chloride) 100 mls @ 100 mls/hr IVPB Q8HR [facility] Last Admin: 09/29/18 08:56 Dose: 100 mls/hr Documented by: Levothyroxine Sodium (Synthroid) 88 mcg PO DAILY@0630 [facility] Last Admin: 09/29/18 06:57 Dose: 88 mcg Documented by: Psyllium Hydrophilic Mucilloid (Metamucil) 6 gm PO DAILY [facility] Last Admin: 09/29/18 09:37 Dose: 6 gm Documented by: Senna/Docusate Sodium (Senokot-S) 2 each PO BID [facility] Last Admin: 09/29/18 09:37 Dose: 2 each Documented by: Physical examination: VITAL SIGNS: 97.8, 77, 24, 120/75, 95% room air GENERAL: Sitting up in bed, . EYES: Pupils equal. Conjunctiva normal. HEENT: External appearance of nose and ears normal, oral cavity grossly normal. NECK: JVD not raised, mass not palpable HEART: First and second heart sounds are normal; no edema. LUNGS: Respiratory rate normal; clear to auscultation. ABDOMEN: Soft, nontender, liver spleen not palpable, no masses palpable, Nielsen catheter in place. PSYCH: Alert and oriented x3; mood and affect normal. NEUROLOGICAL: Cranial nerves grossly intact; no facial asymmetry, decreased power lower extremity. Investigations reviewed in the clinical context: White count 8 hemoglobin 12.3 Urine culture growing pseudomonas aeruginosa Blood cultures positive for pseudomonas aeruginosa Assessment: -Acute UTI from cystitis secondary to Nielsen catheter causing severe sepsis, with positive blood cultures with pseudomonas aeruginosa, clinically responding -Lactic acidosis from sepsis -Morbid obesity BMI 39.1 -Essential hypertension -Hyperlipidemia -Chronic rheumatoid arthritis -Obstructive sleep apnea uses CPAP machine -Hypothyroid -Hyperlipidemia -Parkinson's-like symptoms with no Parkinson disease -Recent C2 to C6 cervical spine fusion -Gait dysfunction currently using a walker -Chronic bladder dysfunction with urinary retention with a chronic Nielsen catheter for further workup at [facility] being followed by by Dr. Cerda Plan: Improving. We'll probably need inpatient rehab. Care was discussed with the patient. Current medications to continue. Follow with ID.
--- NOTE | 2018-09-29 19:42 | PN ---
PROGRESS NOTE DATE OF SERVICE: 09/29/2018. REASON FOR FOLLOWUP: Pseudomonas UTI and bacteremia. INTERVAL HISTORY: The patient is currently afebrile. The patient is breathing comfortably. Denies having any chest pain. Occasional cough. No nausea, no vomiting. No abdominal pain or any diarrhea. PHYSICAL EXAMINATION: Blood pressure is 130/63 with a pulse of 66. Temperature 98.3. He is 91% on room air. General description is an elderly male lying in bed in no distress. Respiratory system: Unlabored breathing, clear to auscultation anteriorly. Heart S1, S2. Regular rate and rhythm. ABDOMEN: Soft, no tenderness. His extremities some trace edema of the feet. LABS: Hemoglobin is 12.8, white count 8.0, BUN of 15, creatinine 0.97. Urine finalized with Pseudomonas. Blood culture Pseudomonas with sensitivities pending. DIAGNOSTIC IMPRESSION AND PLAN: Patient with Pseudomonas aeruginosa bacteremia secondary to urinary source. The patient at this time to continue with Fortaz 2 g Q 8h. Await ultrasounds of the kidney, bladder area, blood culture repeated to document clearance of bacteremia and hopefully finish therapy with oral antibiotics. Continue supportive care. MMODL / IJN: [id number] /
[2018-09-29] MEDS: MELATONIN 3 MG TABLET PO PRN (22:12)
[2018-09-30] MEDS: ACETAMINOPHEN TAB 325 MG TAB PO PRN ×2 (04:50→22:00)
[2018-09-30] MEDS: SODIUM CHLORIDE 0.9% 1,000 ML IV SCH ×4 (04:51→23:45)
[2018-09-30] MEDS: LEVOTHYROXINE 88 MCG TAB PO SCH (06:32)
[2018-09-30] MEDS: CHOLECALCIFEROL 1,000 UNIT TAB PO SCH (08:25)
[2018-09-30] MEDS: ATORVASTATIN 20 MG TAB PO SCH (08:25)
[2018-09-30] MEDS: ENOXAPARIN 40 MG/0.4 ML SYRINGE SQ SCH (08:25)
[2018-09-30] MEDS: amLODIPine 10 MG TAB PO SCH (08:26)
[2018-09-30] MEDS: LISINOPRIL-HCTZ 20-12.5 MG 1 EACH TAB PO SCH (08:26)
[2018-09-30] MEDS: SENNOSIDES-DOCUSATE SODIUM 1 EACH TAB PO SCH ×2 (08:26→20:27)
[2018-09-30] MEDS: PSYLLIUM HUSK 100% 6 GM PACKET PO SCH (08:26)
[2018-09-30] MEDS: ASPIRIN 81 MG PO SCH (08:26)
--- NOTE | 2018-09-30 14:55 | PN ---
PROGRESS NOTE DATE OF SERVICE: 09/30/2018 REASON FOR FOLLOWUP: Pseudomonas aeruginosa UTI and bacteremia. INTERVAL HISTORY: The patient is currently afebrile. The patient has been breathing comfortably. The patient denies having any chest pain or shortness of breath or cough. No abdominal pain. No nausea, vomiting, or any diarrhea. PHYSICAL EXAMINATION: Blood pressure is 116/70 with a pulse of 59, temperature 97, he is 92% on room air. General description is an elderly male, lying in bed in no distress. RESPIRATORY SYSTEM: Unlabored breathing with decreased breath sounds at the base. HEART: S1, S2. Regular rate and rhythm. ABDOMEN: Soft, no tenderness. LABS: Hemoglobin is 12.1, white count of 8.0, BUN of 15, creatinine 0.97. DIAGNOSTIC IMPRESSION AND PLAN: Patient with Pseudomonas aeruginosa bacteremia secondary to urinary source. Await the ultrasound. Repeat blood cultures. Continue the Fortaz. Plan to finish therapy with oral Cipro. at the bedside, questions were answered. MMODL / IJN: [id number] /
--- NOTE | 2018-09-30 15:40 | US ---
EXAMINATION TYPE: US renals and bladder DATE OF EXAM: 09/30/2018 COMPARISON: NONE CLINICAL HISTORY: recurrent UTI and bacteremia. EXAM MEASUREMENTS: Right Kidney: 13.0 x 5.4 x 5.4 cm Left Kidney: 12.1 x5.7 x 5.6 cm Morbidly obese patient, unable to move for examiner. Right Kidney: No hydronephrosis or masses seen, lobular surface texture, measures large Left Kidney: No hydronephrosis or masses seen, portions of inferior and superior pole obscured by bow el gas, measures large Bladder: not visualized Normal Post Void Residual: There is no evidence for hydronephrosis at this point in time. No nephrolithiasis is seen. No guillermina s are identified. The urinary bladder is poorly visualized. IMPRESSION: No distinct abnormality seen at this time. Limited examination.
--- NOTE | 2018-09-30 21:42 | P.PN ---
Subjective Progress Note Date: 09/30/18 Principal diagnosis: Sepsis secondary to UTI is a 67-year-old patient of follows with Dr. Blancas, with the PMH of osteoarthritis, hypertension, hyperlipidemia, rheumatoid arthritis, obstructive sleep apnea and uses CPAP machine, diabetes. Patient has been worked up by at [facility] and he does not have Parkinson's disease but has some Parkinson-like features. Patient had cervical spine fusion from C2 to C6 at [facility]. Patient does go for physical therapy for both upper and lower extremity. At her baseline able to use his walker to get about the house. Can also do about 4-5 stairs. Patient able to use his right arm and feed himself. He is not able to wipe himself. Prior to surgery is having increasing pain in the right arm which is better now. The patient had a chronic Nielsen catheter. Follows with Dr. Cerda from urology. Patient was admitted for severe sepsis due to UTI. His blood and urine cultures positive for pseudomonas. His is currently on IV Abx. On 09/30/18 - Pt is still in the ICU. He is bed bound for the more part and needs help with his ADLs. He denies having any fevers, chills or rigors. His fatigue is much better. He has a Nielsen' s catheter in place with clear urine. No chest pain or palpitations. No difficulty in breathing. No abdominal pain, nausea or vomiting. Labs and Medication reviewed. Active Medications Acetaminophen (Tylenol Tab) 650 mg PO Q6HR PRN PRN Reason: Fever and/ or Pain Last Admin: 09/30/18 04:50 Dose: 650 mg Documented by: Amlodipine Besylate (Norvasc) 10 mg PO DAILY [facility] Last Admin: 09/30/18 08:26 Dose: 10 mg Documented by: Aspirin (Aspirin) 81 mg PO DAILY [facility] Last Admin: 09/30/18 08:26 Dose: 81 mg Documented by: Atorvastatin Calcium (Lipitor) 20 mg PO DAILY [facility] Last Admin: 09/30/18 08:25 Dose: 20 mg Documented by: Cholecalciferol (Vitamin D3 (25 Mcg = 1000 Iu)) 2,000 unit PO DAILY [facility] Last Admin: 09/30/18 08:25 Dose: 2,000 unit Documented by: Enoxaparin Sodium (Lovenox) 40 mg SQ DAILY [facility] Last Admin: 09/30/18 08:25 Dose: 40 mg Documented by: Lisinopril/HCTZ (Zestoretic 20-12.5) 1 each PO DAILY [facility] Last Admin: 09/30/18 08:26 Dose: 1 each Documented by: Sodium Chloride (Saline 0.9%) 1,000 mls @ 125 mls/hr IV .Q8H [facility] Last Admin: 09/30/18 20:29 Dose: 125 mls/hr Documented by: Ceftazidime 2 gm/ Sodium (Chloride) 100 mls @ 100 mls/hr IVPB Q8HR [facility] Last Admin: 09/30/18 16:37 Dose: 100 mls/hr Documented by: Levothyroxine Sodium (Synthroid) 88 mcg PO DAILY@0630 [facility] Last Admin: 09/30/18 06:32 Dose: 88 mcg Documented by: Melatonin (Melatonin) 3 mg PO HS PRN PRN Reason: Insomnia Last Admin: 09/29/18 22:12 Dose: 3 mg Documented by: Psyllium Hydrophilic Mucilloid (Metamucil) 6 gm PO DAILY [facility] Last Admin: 09/30/18 08:26 Dose: 6 gm Documented by: Senna/Docusate Sodium (Senokot-S) 2 each PO BID [facility] Last Admin: 09/30/18 20:27 Dose: 2 each Documented by: Objective - Vital Signs Vital signs: Vital Signs Temp 97.0 F L 09/30/18 08:00 Pulse 59 L 09/30/18 10:00 Resp 20 09/30/18 10:00 BP 116/70 09/30/18 10:00 Pulse Ox 92 L 09/30/18 10:00 Intake & Output 09/29/18 09/30/18 09/30/18 18:59 06:59 18:59 Intake Total 4480 2685 960 Output Total 8027 7500 1845 Balance -420 -2240 -278 Weight 138.5 kg Intake: IV 2000 1725 600 Sodium Chloride 0.9% 1, 1800 1625 500 000 ml @ 125 mls/hr IV . Q8H [facility] Rx#:[id number] cefTAZidime 2 gm In 200 100 100 Sodium Chloride 0.9% 100 ml @ 100 mls/hr IVPB Q8HR [facility] Rx#:[id number] Oral 2480 960 360 Output: Urine 4900 4925 1600 Other: Voiding Method Indwelling Catheter Indwelling Catheter Indwelling Catheter - Exam GENERAL: lying in bed . EYES: Pupils equal. Conjunctiva normal. HEENT: External appearance of nose and ears normal, oral cavity grossly normal. NECK: JVD not raised, mass not palpable HEART: First and second heart sounds are normal; no edema. LUNGS: Respiratory rate normal; clear to auscultation. ABDOMEN: Soft, nontender, liver spleen not palpable, no masses palpable, Nielsen catheter in place. PSYCH: Alert and oriented x3; mood and affect normal. NEUROLOGICAL: Cranial nerves grossly intact; no facial asymmetry, decreased power lower extremity. - Labs CBC & Chem 7: 09/29/18 04:43 09/28/18 05:16 Labs: Microbiology - Last 24 Hours (Table) 09/26/18 23:43 Blood Culture Gram Stain - Final Blood Blood Culture - Final Pseudomonas aeruginosa Assessment and Plan Assessment: Assessment: -Severe sepsis - due to UTI -Acute UTI from cystitis secondary to Nielsen catheter with pseudomonas aeruginosa -Lactic acidosis from sepsis -Morbid obesity BMI 39.1 -Essential hypertension -Hyperlipidemia -Chronic rheumatoid arthritis -Obstructive sleep apnea uses CPAP machine -Hypothyroid -Hyperlipidemia -Parkinson's-like symptoms with no Parkinson disease -Recent C2 to C6 cervical spine fusion -Gait dysfunction currently using a walker -Chronic bladder dysfunction with urinary retention with a chronic Nielsen catheter Plan: Clinically patient is responding to the antibiotics, his WBC trending down. Repeat blood cultures pending. Continue with the current medication regimen. Further recommendations to follow depending on the progress of the patient. Will have vp digital marketing social media and crm on board for possible [facility] vs NH placement. Plan discussed with him and his at bed side.
[2018-09-30] MEDS: MELATONIN 3 MG TABLET PO PRN (22:01)
[2018-10-01] MEDS: guaiFENesin SYRUP 100MG/5ML 200 MG/10 ML CUP PO PRN ×2 (02:03→20:43)
[2018-10-01] MEDS: LEVOTHYROXINE 88 MCG TAB PO SCH (06:11)
[2018-10-01] MEDS: ACETAMINOPHEN TAB 325 MG TAB PO PRN ×2 (06:11→22:12)
[2018-10-01] MEDS: PSYLLIUM HUSK 100% 6 GM PACKET PO SCH (08:36)
[2018-10-01] MEDS: SODIUM CHLORIDE 0.9% 1,000 ML IV SCH ×2 (08:36→17:17)
[2018-10-01] MEDS: ASPIRIN 81 MG PO SCH (08:37)
[2018-10-01] MEDS: SENNOSIDES-DOCUSATE SODIUM 1 EACH TAB PO SCH ×2 (08:37→20:36)
[2018-10-01] MEDS: ATORVASTATIN 20 MG TAB PO SCH (08:37)
[2018-10-01] MEDS: ENOXAPARIN 40 MG/0.4 ML SYRINGE SQ SCH (08:37)
[2018-10-01] MEDS: amLODIPine 10 MG TAB PO SCH (08:37)
[2018-10-01] MEDS: LISINOPRIL-HCTZ 20-12.5 MG 1 EACH TAB PO SCH (08:38)
[2018-10-01] MEDS: CHOLECALCIFEROL 1,000 UNIT TAB PO SCH (08:38)
--- NOTE | 2018-10-01 20:14 | PN ---
PROGRESS NOTE DATE OF SERVICE: 10/01/2018. REASON FOR FOLLOWUP: Pseudomonas UTI and bacteremia. INTERVAL HISTORY: The patient is currently afebrile. The patient has been breathing comfortably. The patient denies having any chest pain or any cough. No nausea, vomiting, abdominal pain, or any diarrhea. PHYSICAL EXAMINATION: Blood pressure is 140/78 with a pulse of 71, temperature 98. He is 94% on room air. General description is an elderly male, up in the chair in no distress. Respiratory system: Unlabored breathing. Clear to auscultation anteriorly. Heart is S1, S2. Regular rate and rhythm. Abdomen soft, no tenderness. LABS: No new labs have been obtained today. Ultrasound was negative for any structural abnormality. DIAGNOSTIC IMPRESSION AND PLAN: Patient with Pseudomonas urinary tract infection with secondary bacteremia as the patient is going to the custodial for rehab, advised to get a midline and continue with cefepime 2 g q.12h for another 10 days to finish course of therapy. Continue supportive care. MMODL / IJN: [id number] /
[2018-10-02] MEDS: SODIUM CHLORIDE 0.9% 1,000 ML IV SCH ×2 (04:52→08:07)
[2018-10-02] MEDS: LEVOTHYROXINE 88 MCG TAB PO SCH (06:40)
[2018-10-02] MEDS: ATORVASTATIN 20 MG TAB PO SCH (08:06)
[2018-10-02] MEDS: SENNOSIDES-DOCUSATE SODIUM 1 EACH TAB PO SCH (08:06)
[2018-10-02] MEDS: amLODIPine 10 MG TAB PO SCH (08:06)
[2018-10-02] MEDS: ASPIRIN 81 MG PO SCH (08:06)
[2018-10-02] MEDS: LISINOPRIL-HCTZ 20-12.5 MG 1 EACH TAB PO SCH (08:06)
[2018-10-02] MEDS: CHOLECALCIFEROL 1,000 UNIT TAB PO SCH (08:06)
[2018-10-02] MEDS: PSYLLIUM HUSK 100% 6 GM PACKET PO SCH (08:07)
[2018-10-02] MEDS: ENOXAPARIN 40 MG/0.4 ML SYRINGE SQ SCH (08:07)
--- NOTE | 2018-10-02 11:07 | P.PN ---
Subjective This is a pleasant 68 years old male with past medical history of CVA/TIA, hyperlipidemia, hypertension, rheumatoid arthritis, sleep apnea on CPAP/BiPAP, hypothyroidism, slurred speech with possible history of TIA/CVA. Parkinson disease. He presents with altered mental status secondary to UTI related to his indwelling Nielsen catheter with culture growing Pseudomonas. Patient was started on antibiotics Fortaz as per ID recommendation and plan to finish therapy with oral Cipro. Renal ultrasound was negative for structural abnormality. Objective - Vital Signs Vital signs: Vital Signs Temp 98.4 F 10/01/18 08:00 Pulse 76 10/01/18 08:00 Resp 12 10/01/18 12:00 BP 118/69 10/01/18 08:00 Pulse Ox 93 L 10/01/18 08:00 Intake & Output 09/30/18 10/01/18 10/01/18 18:59 06:59 18:59 Intake Total 1560 1600 860 Output Total 3300 2480 1400 Balance -1740 -880 -540 Intake: IV 1100 1600 500 Sodium Chloride 0.9% 1, 1000 1500 400 000 ml @ 125 mls/hr IV . Q8H [facility] Rx#:[id number] cefTAZidime 2 gm In 100 100 100 Sodium Chloride 0.9% 100 ml @ 100 mls/hr IVPB Q8HR [facility] Rx#:[id number] Intake, IV Titration 100 Amount cefTAZidime 2 gm In 100 Sodium Chloride 0.9% 100 ml @ 100 mls/hr IVPB Q8HR [facility] Rx#:[id number] Oral 360 360 Output: Urine 3300 2480 1400 Other: Voiding Method Indwelling Catheter Indwelling Catheter Indwelling Catheter - Exam GENERAL: The patient is alert and oriented x3, not in any acute distress. Obese -HEENT: Pupils are round and equally reacting to light. EOMI. No scleral icterus. No conjunctival pallor. Normocephalic, atraumatic. No pharyngeal erythema. No thyromegaly. Speech is slurred (it looks chronic as per history) CARDIOVASCULAR: S1 and S2 present. No murmurs, rubs, or gallops. PULMONARY: Chest is clear to auscultation, no wheezing or crackles. -ABDOMEN: Soft, nontender, nondistended, normoactive bowel sounds. No palpable organomegaly. Nielsen catheter is in place MUSCULOSKELETAL: No joint swelling or deformity. EXTREMITIES: No cyanosis, clubbing, or pedal edema. NEUROLOGICAL: Gross neurological examination did not reveal any focal deficits. SKIN: No rashes. - Labs CBC & Chem 7: 09/29/18 04:43 09/28/18 05:16 Assessment and Plan Assessment: -Severe sepsis - due to UTI -Acute UTI from cystitis secondary to Nielsen catheter with pseudomonas aeruginosa -Lactic acidosis from sepsis. Back to normal -Chronic slurred speech -Morbid obesity BMI 39.1 -Essential hypertension -Hyperlipidemia -Chronic rheumatoid arthritis -Obstructive sleep apnea uses CPAP machine -Hypothyroid -Hyperlipidemia -Parkinson's-like symptoms with no Parkinson disease -Recent C2 to C6 cervical spine fusion -Gait dysfunction currently using a walker -Chronic bladder dysfunction with urinary retention with a chronic Nielsen catheter Plan: Patient responded to IV antibiotics, doubly BC is back to normal patient is been afebrile for more than 24 hrs. No other new symptoms and patient looks like back to his baseline. He is alert and oriented. Nielsen catheter is in place. ID recommendation for patient to be discharged on parenteral antibiotics , so midline was placed after that Patient looks like medically he is cleared for discharge . Patient will go back to [facility] upon discharge. GI prophylaxis is not indicated. DVT prophylaxis with Lovenox. Discussed with staff
--- NOTE | 2018-10-02 11:13 | P.DS ---
Providers Date of admission: 09/27/18 01:35 Attending physician: Scottie Uriarte Consults: 09/28/18 12:59 Consult Physician Routine Consulting Provider: Janki Ospina Consult Reason/Comments: UTI with sepsis Do you want consulting provider notified?: Yes Primary care physician: [facility] Course: Discharge diagnoses: -Severe sepsis - due to UTI -Acute UTI from cystitis secondary to Nielsne catheter with pseudomonas aeruginosa -Lactic acidosis from sepsis. Back to normal -Chronic slurred speech -Morbid obesity BMI 39.1 -Essential hypertension -Hyperlipidemia -Chronic rheumatoid arthritis -Obstructive sleep apnea uses CPAP machine -Hypothyroid -Hyperlipidemia -Parkinson's-like symptoms with no Parkinson disease -Recent C2 to C6 cervical spine fusion -Gait dysfunction currently using a walker -Chronic bladder dysfunction with urinary retention with a chronic Nielsen catheter Hospital course: This is a pleasant 68 years old male with past medical history of CVA/TIA, hyperlipidemia, hypertension, rheumatoid arthritis, sleep apnea on CPAP/BiPAP, hypothyroidism, slurred speech with possible history of TIA/CVA. Parkinson disease. He presents with altered mental status secondary to UTI related to his indwelling Nielsen catheter with culture growing Pseudomonas. Patient was started on antibiotics Fortaz as per ID recommendation and plan to finish therapy with cefepime 2 g every 12 hours for 10 more days. Patient is back to his basic mental status. Patient is cleared for discharge by ID team. Problems and management plan were discussed with the patient and he verbalized understanding and acceptance Patient was found stable and can be discharged home however he needs follow-up as an outpatient. Patient instructed to follow up with his PCP in one week Gen: patient is a AAOx3, no distress CVS: S1-S2, RRR, no murmur Lungs: B/L CTA, no wheezing Abdomen: soft, no distention, no tenderness, positive bowel sounds. Nielsen catheter is in a Place Extremity: no leg edema or induration Time spent more than 35 minutes Patient Condition at Discharge: Stable Plan - Discharge Summary New Discharge Prescriptions: New Ciprofloxacin HCl [Cipro] 500 mg PO Q12H 10 Days #20 tab Heparin Sodium,Porcine [Heparin Sodium] 5,000 unit SQ Q12HR #1 vial Continue amLODIPine BESYLATE [Norvasc] 10 mg PO DAILY Rosuvastatin Calcium [Crestor] 10 mg PO DAILY Levothyroxine Sodium [Synthroid] 88 mcg PO DAILY Aspirin 81 mg PO DAILY #1 chewable Lisinopril-Hctz 20-12.5 mg [Zestoretic 20-12.5] 1 tab PO DAILY Acetaminophen Tab [Tylenol] 650 mg PO Q6H PRN PRN Reason: Pain Cholecalciferol [Vitamin D3 (25 Mcg = 1000 Iu)] 2,000 unit PO DAILY Psyllium Husk 100% [Metamucil Packet] 6 gm PO DAILY #1 packet Sennosides-Docusate Sodium [Senokot-S] 2 tab PO BID Discharge Medication List amLODIPine BESYLATE [Norvasc] 10 mg PO DAILY 10/28/15 [History] Levothyroxine Sodium [Synthroid] 88 mcg PO DAILY 08/19/17 [History] Rosuvastatin Calcium [Crestor] 10 mg PO DAILY 08/19/17 [History] Aspirin 81 mg PO DAILY #1 chewable 08/23/17 [Rx] Lisinopril-Hctz 20-12.5 mg [Zestoretic 20-12.5] 1 tab PO DAILY 03/26/18 [History] Acetaminophen Tab [Tylenol] 650 mg PO Q6H PRN 06/06/18 [History] Cholecalciferol [Vitamin D3 (25 Mcg = 1000 Iu)] 2,000 unit PO DAILY 08/31/18 [History] Psyllium Husk 100% [Metamucil Packet] 6 gm PO DAILY #1 packet 09/04/18 [Rx] Sennosides-Docusate Sodium [Senokot-S] 2 tab PO BID 09/27/18 [History] Ciprofloxacin HCl [Cipro] 500 mg PO Q12H 10 Days #20 tab 10/01/18 [Rx] Heparin Sodium,Porcine [Heparin Sodium] 5,000 unit SQ Q12HR #1 vial 10/01/18 [Rx] Follow up Appointment(s)/Referral(s): Joaquim Blancas MD [Primary Care Provider] - 1-2 days Activity/Diet/Wound Care/Special Instructions: Patient will be admitted for further management. Discharge Disposition: TRANSFER TO SNF/[facility]
[2018-10-02 14:00] VITALS: BP 144/85; PULSE 80; RESP 16; TEMP 97.8
--- NOTE | 2018-10-02 15:28 | PN ---
PROGRESS NOTE DATE OF SERVICE: 10/02/2018 REASON FOR FOLLOWUP: Pseudomonas aeruginosa UTI and bacteremia. INTERVAL HISTORY: The patient is currently afebrile. Patient has been breathing comfortably. He was seen on rounds this afternoon. No chest pain, shortness of breath or cough. No abdominal pain, no diarrhea. PHYSICAL EXAMINATION: Blood pressure is 144/85 with a pulse of 80, temperature 97.8. He is 95% on room air. General description is an elderly male up in the chair, in no distress. RESPIRATORY SYSTEM: Unlabored breathing, clear to auscultation anteriorly. HEART: S1, S2. Regular rhythm and rhythm. ABDOMEN: Soft, no tenderness. LABS: Hemoglobin 12.2, white count of 8.0, creatinine 0.97. DIAGNOSTIC IMPRESSION AND PLAN: Patient with pseudomonas aeruginosa urinary tract infection with bacteremia, abnormality. Continue with cefepime 2 g for another 10 days to finish a course of therapy, close outpatient followup. Continue supportive care. MMODL / IJN: [id number] /
== END 2018-10-02 13:40 | DRG 698 ==
LOC: EC 23:06 → 3SCARD 09-27 01:35 → 2SICU 09-27 09:09
PROVIDERS: ADMIT Hospitalist; ATTEND Hospitalist
PROC: 05HD33Z Insertion of Infusion Device into Right Cephalic Vein, Percutaneous Approach (ICD-10-PCS; principal; 2018-10-01 15:00)
PROC: B54MZZA Ultrasonography of Right Upper Extremity Veins, Guidance (ICD-10-PCS; principal; 2018-10-01 15:00)
DX: T83.511A Infection and inflammatory reaction due to indwelling urethral catheter, initial encounter (principal); A41.52 Sepsis due to Pseudomonas; R65.20 Severe sepsis without septic shock; E87.2 Acidosis; R47.81 Slurred speech; E66.01 Morbid (severe) obesity due to excess calories; E11.9 Type 2 diabetes mellitus without complications; E78.5 Hyperlipidemia, unspecified; G20 Parkinson's disease; G47.00 Insomnia, unspecified; N30.91 Cystitis, unspecified with hematuria; I10 Essential (primary) hypertension; E03.9 Hypothyroidism, unspecified; G47.33 Obstructive sleep apnea (adult) (pediatric); M19.90 Unspecified osteoarthritis, unspecified site; M06.9 Rheumatoid arthritis, unspecified; R26.9 Unspecified abnormalities of gait and mobility; Z16.24 Resistance to multiple antibiotics; Z74.01 Bed confinement status; Z98.1 Arthrodesis status; Z68.39 Body mass index [BMI] 39.0-39.9, adult; Z79.890 Hormone replacement therapy; Z79.899 Other long term (current) drug therapy; Z79.82 Long term (current) use of aspirin; Z86.73 Personal history of transient ischemic attack (TIA), and cerebral infarction without residual deficits; Z85.828 Personal history of other malignant neoplasm of skin; Z87.01 Personal history of pneumonia (recurrent); Z87.440 Personal history of urinary (tract) infections; Z80.8 Family history of malignant neoplasm of other organs or systems; Z82.49 Family history of ischemic heart disease and other diseases of the circulatory system; Z99.89 Dependence on other enabling machines and devices; Z86.19 Personal history of other infectious and parasitic diseases; Z85.820 Personal history of malignant melanoma of skin; Z90.89 Acquired absence of other organs; Z98.890 Other specified postprocedural states
CPT/HCPCS: 36410; 36415; 71045; 76770; 76937; 80048; 80053; 81001; 83605; 84484; 85025; 85027; 85610; 85730; 87040; 87077; 87086; 87186; 93005; 93306; 96360; 96361; 96365; 96366; 96367; 99285

== ENCOUNTER → 2018-12-31 | Outpatient (CLI) | payer MEDICARE, OTHER ==
--- NOTE | 2018-12-31 21:32 | MR ---
EXAMINATION TYPE: MR cervical spine wo/w con DATE OF EXAM: 12/31/2018 COMPARISON: Outside MRI 02/09/2018 HISTORY: 68-year-old male Radiculopathy, cervical /cervical spine fusion follow up Technique: Multiplanar, multisequence images of the cervical spine were obtained before and after adm inistration of 13 mL intravenous Gadavist gadolinium contrast. FINDINGS: No cranial cervical junction abnormality, predental space widening, or prevertebral soft tissue swell ing. Preserved alignment of the cervical spine with moderate multilevel degenerative disc disease with end plate spondylosis. There is disc desiccation throughout with scattered disc herniations as seen on . However, in the interval, there has been dorsal decompression of the spinal canal with laminectomies extending from C3 through C6 levels. A 2.8 x 0.6 x 0.7 cm fluid collection is interposed along the mi dline laminectomy site from C3 down to C4-C5. Mild smooth peripheral enhancement is demonstrated. Below the laminectomy at C6-C7, there is diffuse disc bulge and ligamentum flavum thickening which re sults in mild narrowing of the spinal canal and abutment of the dorsal cord but no cord flattening or cord compression. Patchy artifact projects over the cervical spinal cord. Allowing for this artifact, no definite myelo pathic cord signal change. No definite abnormal enhancement within the spinal canal, though, again, assessment is limited due to artifacts. There is additional posterior cervical fusion spanning from C2 through the C6 level. At C5-C6, there is uncovertebral joint arthropathy likely contributed to a significant right-sided ne ural foraminal stenosis. No suspicious bone marrow replacement. IMPRESSION: 1. Interval laminectomy extending from C3 through C6 levels along with posterior cervical fusion from C2 through C6 levels. 2. A smoothly marginated 2.8 x 0.6 x 0.7 cm fluid collection is interposed along the midline laminect abigail bed from C3-C5. Clinical correlation recommended. Differential considerations include postsurgica l fluid collection such as seroma or abscess. 3. Moderate multilevel degenerative disc disease. Below the fusion at C6/C7, there is diffuse disc bu lge and ligamentum flavum thickening with mild overall spinal canal stenosis and abutment of the dors al cord but no cord compression. 4. Allowing for metal hardware artifact, no discrete cord signal abnormality or abnormal enhancement within the spinal canal. 5. Neural foraminal assessment is limited due to metal artifact. Suspect a significant right-sided ne ural foraminal stenosis at C5-C6.
== END | disposition home or self-care (01) ==
LOC: RADMRIMAIN 12:43
PROVIDERS: ATTEND Neurological Surgery
DX: M48.02 Spinal stenosis, cervical region (principal); M50.123 Cervical disc disorder at C6-C7 level with radiculopathy; M50.10 Cervical disc disorder with radiculopathy, unspecified cervical region; Z98.1 Arthrodesis status; Z98.890 Other specified postprocedural states
CPT/HCPCS: 72156; A9585

== ENCOUNTER 2019-01-12 13:10 | Emergency (ER) | payer MEDICARE, OTHER ==
[2019-01-12 13:40] LABS: Appearance,Urine Cloudy (Clear); Bilirubin,Urine Negative (Negative); Blood,Urine Small (Negative); Color,Urine Yellow; Glucose,Urine (UA) Negative (Negative); Ketones,Urine Negative (Negative); Leukocyte Esterase,Urine Large (Negative); Mucus,Urine Few /hpf; Nitrite,Urine Negative (Negative); PH, Urine 6.5 (5.0-8.0); Protein,Urine Trace (Negative); RBC,Urine 27 /hpf (0-5)
[2019-01-12] MEDS ORDERED: SODIUM CHLORIDE 0.9% 500 ML 500 ML IV STA (13:46)
--- NOTE | 2019-01-12 14:00 | ED ---
General Adult HPI - General Chief complaint: Urogenital Stated complaint: WEAKNESS Time Seen by Provider: 01/12/19 13:20 Source: patient, RN notes reviewed Mode of arrival: EMS Limitations: no limitations - History of Present Illness Initial comments: This is a 68-year-old male who presents emergency Department with a past medical history significant for TIA and progressive right-sided weakness and slurred speech since 2017. Patient also has a catheter in place because he has urinary retention issues. Patient comes in complaining of generalized weakness since yesterday. Patient states he just feels weak overall and this is often indicative of his urinary tract infections. Patient denies any fever or chills. Patient denies chest pain difficulty breathing shortness of breath. Patient denies any recent cough. Patient denies abdominal pain patient denies nausea vomiting diarrhea. Patient denies any recent injury or trauma. Patient denies any back pain. Patient denies any lightheadedness or dizziness. Patient denies headache. - Related Data Home Medications Medication Instructions Recorded Confirmed amLODIPine BESYLATE [Norvasc] 10 mg PO DAILY 10/28/15 01/12/19 Levothyroxine Sodium [Synthroid] 88 mcg PO DAILY 08/19/17 01/12/19 Rosuvastatin Calcium [Crestor] 10 mg PO DAILY 08/19/17 01/12/19 Lisinopril-Hctz 20-12.5 mg 1 tab PO DAILY 03/26/18 01/12/19 [Zestoretic 20-12.5] Cholecalciferol [Vitamin D3 (25 2,000 unit PO DAILY 08/31/18 01/12/19 Mcg = 1000 Iu)] Sennosides-Docusate Sodium 2 tab PO BID 09/27/18 01/12/19 [Senokot-S] Acetaminophen Tab [Tylenol Tab] 1,000 mg PO BID PRN 01/12/19 01/12/19 Citalopram Hydrobromide [CeleXA] 20 mg PO DAILY 01/12/19 01/12/19 Nystatin 100,000 Unit/gm Powd 1 applic TOPICAL BID PRN 01/12/19 01/12/19 [Mycostatin Powder] Polyethylene Glycol 3350 [Miralax] 17 gm PO DAILY 01/12/19 01/12/19 Zinc Oxide [Desitin] 1 applic TOPICAL DAILY PRN 01/12/19 01/12/19 Previous Rx's Medication Instructions Recorded Aspirin 81 mg PO DAILY #1 chewable 08/23/17 Sulfamethox-Tmp 800-160Mg [Bactrim 1 each PO Q12HR #14 tab 01/12/19 DS 800-160 mg] Allergies Allergy/AdvReac Type Severity Reaction Status Date / Time No Known Allergies Allergy Verified 01/12/19 14:28 Review of Systems ROS Statement: Those systems with pertinent positive or pertinent negative responses have been documented in the HPI. ROS Other: All systems not noted in ROS Statement are negative. Past Medical History Past Medical History: Cancer, CVA/TIA, Hyperlipidemia, Hypertension, Pneumonia, Rheumatoid Arthritis (RA), Sleep Apnea/CPAP/BIPAP, Thyroid Disorder Additional Past Medical History / Comment(s): Slurred speech/possible tia ,uses CPAP at bed,bronchitis, skin ca lt arm, parkinson's disease is being worked up History of Any Multi-Drug Resistant Organisms: C-DIFF Date of last positivie culture/infection: 2017 MDRO Source:: stool Past Surgical History: Tonsillectomy Additional Past Surgical History / Comment(s): Heel spurs removed, colonoscopy, basal call carcinoma: skin cancer removed, Spinal fusion. Past Anesthesia/Blood Transfusion Reactions: Previous Problems w/ Anesthesia Additional Past Anesthesia/Blood Transfusion Reaction / Comment(s): Stopped breathing during colonoscopy yrs. ago before sleep apnea diagnosed per pt. Past Psychological History: No Psychological Hx Reported Smoking Status: Never smoker Past Alcohol Use History: Rare Past Drug Use History: None Reported - Past Family History Father Family Medical History: Cancer, Hypertension Additional Family Medical History / Comment(s): oral cancer Mother Family Medical History: Cancer Additional Family Medical History / Comment(s): "irreg heart rythym" General Exam - General Exam Comments Initial Comments: GENERAL: Patient is well-developed and well-nourished. Patient is nontoxic and well- hydrated and is in mild distress. ENT: Neck is soft and supple. No significant lymphadenopathy is noted. Oropharynx is clear. Moist mucous membranes. Neck has full range of motion without e liciting any pain. EYES: The sclera were anicteric and conjunctiva were pink and moist. Extraocular movements were intact and pupils were equal round and reactive to light. Eyelids were unremarkable. PULMONARY: Unlabored respirations. Good breath sounds bilaterally. No audible rales rhonchi or wheezing was noted. CARDIOVASCULAR: There is a regular rate and rhythm without any murmurs gallops or rubs. ABDOMEN: Soft and nontender with normal bowel sounds. SKIN: Skin is clear with no lesions or rashes and otherwise unremarkable. NEUROLOGIC: Patient is alert and oriented x3. Cranial nerves II through XII are grossly intact. Patient has right sided arm and leg weakness but and patient state this is been ongoing for quite a while. Patient has slurred speech but again patient states his been going on over 1 year and a half MUSCULOSKELETAL: Normal extremities with adequate strength and full range of motion. No lower extremity swelling or edema. No calf tenderness. LYMPHATICS: No significant lymphadenopathy is noted PSYCHIATRIC: Normal psychiatric evaluation. Limitations: no limitations Course Vital Signs 01/12/19 13:22 Temperature 98.1 F Pulse Rate 88 Respiratory 18 Rate Blood Pressure 136/78 O2 Sat by Pulse 95 Oximetry Medical Decision Making - Medical Decision Making EKG shows normal sinus rhythm at 70 bpm ME interval 290 QRS is 84 QT interval 364 QTC is 414. Patient's EKG shows no ST segment elevation or depression is noted. Chest x-ray showed no acute abnormality. Patient is so would appear to be a sterile pyuria but because of past history and the way the patient feels we will be treating the urinary tract infection and he will follow-up in 2 days with his primary medical care doctor or sooner if symptoms worsen. CT of the brain shows no acute abnormality. I spoke to the and she stated that though he felt weak he was not exhibiting any signs of weakness that she noticed and that he was getting around the home normally. She stated that she felt comfortable taking him home to follow-up. - Lab Data Result diagrams: 01/12/19 14:29 01/12/19 14:29 Lab Results 01/12/19 01/12/19 01/12/19 Range/Units 13:20 14:29 14:29 WBC 10.2 (3.8-10.6) k/uL RBC 4.75 (4.30-5.90) m/uL Hgb 14.7 (13.0-17.5) gm/dL Hct 41.9 (39.0-53.0) % MCV 88.2 (80.0-100.0) fL MCH 30.9 (25.0-35.0) pg MCHC 35.1 (31.0-37.0) g/dL RDW 13.6 (11.5-15.5) % Plt Count 287 (150-450) k/uL Neutrophils % 73 % Lymphocytes % 18 % Monocytes % 5 % Eosinophils % 2 % Basophils % 1 % Neutrophils # 7.5 (1.3-7.7) k/uL Lymphocytes # 1.8 (1.0-4.8) k/uL Monocytes # 0.5 (0-1.0) k/uL Eosinophils # 0.2 (0-0.7) k/uL Basophils # 0.1 (0-0.2) k/uL PT (9.0-12.0) sec INR (<1.2) APTT (22.0-30.0) sec Sodium 139 (137-145) mmol/L Potassium 4.2 (3.5-5.1) mmol/L Chloride 104 (98-107) mmol/L Carbon Dioxide 23 (22-30) mmol/L Anion Gap 12 mmol/L BUN 26 H (9-20) mg/dL Creatinine 1.13 (0.66-1.25) mg/dL Est GFR (CKD-EPI)AfAm 77 (>60 ml/min/1.73 sqM) Est GFR (CKD-EPI)NonAf 67 (>60 ml/min/1.73 sqM) Glucose 90 (74-99) mg/dL Plasma Lactic Acid Antonio (0.7-2.0) mmol/L Calcium 9.6 (8.4-10.2) mg/dL Magnesium 2.1 (1.6-2.3) mg/dL Total Bilirubin 0.5 (0.2-1.3) mg/dL AST 21 (17-59) U/L ALT 16 L (21-72) U/L Alkaline Phosphatase 55 (38-126) U/L Troponin I (0.000-0.034) ng/mL Total Protein 7.2 (6.3-8.2) g/dL Albumin 4.4 (3.5-5.0) g/dL Urine Color Yellow Urine Appearance Cloudy (Clear) Urine pH 6.5 (5.0-8.0) Ur Specific [place] 1.020 (1.001-1.035) Urine Protein Trace H (Negative) Urine Glucose (UA) Negative (Negative) Urine Ketones Negative (Negative) Urine Blood Small H (Negative) Urine Nitrite Negative (Negative) Urine Bilirubin Negative (Negative) Urine Urobilinogen 2.0 (<2.0) mg/dL Ur Leukocyte Esterase Large H (Negative) Urine RBC 27 H (0-5) /hpf Urine WBC 50 H (0-5) /hpf Urine Mucus Few H (None) /hpf 01/12/19 01/12/19 01/12/19 Range/Units 14:29 14:29 14:29 WBC (3.8-10.6) k/uL RBC (4.30-5.90) m/uL Hgb (13.0-17.5) gm/dL Hct (39.0-53.0) % MCV (80.0-100.0) fL MCH (25.0-35.0) pg MCHC (31.0-37.0) g/dL RDW (11.5-15.5) % Plt Count (150-450) k/uL Neutrophils % % Lymphocytes % % Monocytes % % Eosinophils % % Basophils % % Neutrophils # (1.3-7.7) k/uL Lymphocytes # (1.0-4.8) k/uL Monocytes # (0-1.0) k/uL Eosinophils # (0-0.7) k/uL Basophils # (0-0.2) k/uL PT 9.7 (9.0-12.0) sec INR 0.9 (<1.2) APTT 25.1 (22.0-30.0) sec Sodium (137-145) mmol/L Potassium (3.5-5.1) mmol/L Chloride (98-107) mmol/L Carbon Dioxide (22-30) mmol/L Anion Gap mmol/L BUN (9-20) mg/dL Creatinine (0.66-1.25) mg/dL Est GFR (CKD-EPI)AfAm (>60 ml/min/1.73 sqM) Est GFR (CKD-EPI)NonAf (>60 ml/min/1.73 sqM) Glucose (74-99) mg/dL Plasma Lactic Acid Antonio 1.2 (0.7-2.0) mmol/L Calcium (8.4-10.2) mg/dL Magnesium (1.6-2.3) mg/dL Total Bilirubin (0.2-1.3) mg/dL AST (17-59) U/L ALT (21-72) U/L Alkaline Phosphatase (38-126) U/L Troponin I <0.012 (0.000-0.034) ng/mL Total Protein (6.3-8.2) g/dL Albumin (3.5-5.0) g/dL Urine Color Urine Appearance (Clear) Urine pH (5.0-8.0) Ur Specific [place] (1.001-1.035) Urine Protein (Negative) Urine Glucose (UA) (Negative) Urine Ketones (Negative) Urine Blood (Negative) Urine Nitrite (Negative) Urine Bilirubin (Negative) Urine Urobilinogen (<2.0) mg/dL Ur Leukocyte Esterase (Negative) Urine RBC (0-5) /hpf Urine WBC (0-5) /hpf Urine Mucus (None) /hpf Disposition Clinical Impression: Generalized weakness, UTI (urinary tract infection) Disposition: ADMITTED IP TO THIS [facility] Instructions (If sedation given, give patient instructions): Urinary Tract Infection in Men (ED) Prescriptions: Sulfamethox-Tmp 800-160Mg [Bactrim DS 800-160 mg] 1 each PO Q12HR #14 tab Is patient prescribed a controlled substance at d/c from ED?: No Referrals: Joaquim Blancas MD [Primary Care Provider] - 1-2 days Time of Disposition: 16:11
[2019-01-12 14:40] LABS: Basophils # (A) 0.1 k/uL (0-0.2); Basophils % (A) 1 %; Eosinophils # (A) 0.2 k/uL (0-0.7); Eosinophils % (A) 2 %; HCT 41.9 % (39.0-53.0); HGB 14.7 gm/dL (13.0-17.5); Lymphocytes # (A) 1.8 k/uL (1.0-4.8); Lymphocytes % (A) 18 %; MCH 30.9 pg (25.0-35.0); MCHC 35.1 g/dL (31.0-37.0); MCV 88.2 fL (80.0-100.0); Mean Platelet Volume 5.7; Monocytes # (A) 0.5 k/uL (0-1.0); Monocytes % (A) 5 %; Neutrophils # (A) 7.5 k/uL (1.3-7.7); Neutrophils % (A) 73 %; Platelet Count 287 k/uL (150-450); RBC 4.75 m/uL (4.30-5.90); RDW 13.6 % (11.5-15.5); WBC 10.2 k/uL (3.8-10.6)
--- NOTE | 2019-01-12 14:44 | XR ---
EXAMINATION TYPE: XR chest 2V DATE OF EXAM: 01/12/2019 COMPARISON: 09/27/2018 HISTORY: Weakness TECHNIQUE: Frontal and lateral views of the chest are obtained. FINDINGS: Heart and mediastinum are normal. Lungs are clear. Diaphragm is normal. Bony thorax is int act. Pulmonary vascularity is normal. IMPRESSION: Normal chest. There is slight improved inspiration compared to last exam.
[2019-01-12 14:45] LABS: Albumin 4.4 g/dL (3.5-5.0); Calcium 9.6 mg/dL (8.4-10.2); Magnesium 2.1 mg/dL (1.6-2.3); Potassium 4.2 mmol/L (3.5-5.1); Total Bilirubin 0.5 mg/dL (0.2-1.3); Total Protein 7.2 g/dL (6.3-8.2)
[2019-01-12 14:46] LABS: INR 0.9 (<1.2); Partial Thromboplastin Time 25.1 sec (22.0-30.0); Prothrombin Time 9.7 sec (9.0-12.0)
--- NOTE | 2019-01-12 15:10 | CT ---
EXAMINATION TYPE: CT brain wo con DATE OF EXAM: 01/12/2019 COMPARISON: 11/29/2016 HISTORY: Weakness CT DLP: 1099.4 mGycm Automated exposure control for dose reduction was used. FINDINGS: There is cerebral cortical atrophy. There is no mass effect nor midline shift. There is no sign of in tracranial hemorrhage. The calvarium is intact. IMPRESSION: CEREBRAL ATROPHY. NO ACUTE INTRACRANIAL ABNORMALITY. There is clearing of the sinusitis compared to o ld exam.
[2019-01-12] MEDS ORDERED: cefTRIAXone IN SWFI 1,000 MG/10 ML SYRINGE IVP STA (16:10)
[2019-01-12 16:27] VITALS: BP 120/72; PULSE 73; RESP 17
[2019-01-12 16:31] VITALS: TEMP 98
== END 2019-01-12 16:36 | disposition other institution (70) ==
LOC: EC 13:10
DX: N39.0 Urinary tract infection, site not specified (principal); R53.1 Weakness; R47.81 Slurred speech; E78.5 Hyperlipidemia, unspecified; I10 Essential (primary) hypertension; M06.9 Rheumatoid arthritis, unspecified; G20 Parkinson's disease; G47.30 Sleep apnea, unspecified; E07.9 Disorder of thyroid, unspecified; Z79.890 Hormone replacement therapy; Z79.82 Long term (current) use of aspirin; Z79.899 Other long term (current) drug therapy; Z85.828 Personal history of other malignant neoplasm of skin; Z99.89 Dependence on other enabling machines and devices; Z86.73 Personal history of transient ischemic attack (TIA), and cerebral infarction without residual deficits
CPT/HCPCS: 36415; 93005; 80053; 83605; 83735; 84484; 85025; 85610; 85730; 81001; 87086; 71046; 70450; 96374; 96361; 99285; J0696; 87077; 87186

== ENCOUNTER 2019-02-07 22:56 | Inpatient (IN) | payer MEDICARE, OTHER ==
--- NOTE | 2019-02-07 23:10 | ED ---
General Adult HPI - General Stated complaint: Fever Time Seen by Provider: 02/07/19 22:57 Source: EMS Mode of arrival: EMS Limitations: physical limitation - History of Present Illness Initial comments: Dictation was produced using [employer] dictation software. please excuse any grammatical, word or spelling errors. Chief Complaint: 68-year-old male with past medical history of rheumatoid arthritis, pneumonia, hypertension, parkinsonism presents with fever. History of Present Illness: Patient 68-year-old male presents with fever. Has been coughing extensively for the last 48 hours. Patient has history of Nielsen catheterization for urinary retention. Patient has had Nielsen is placed chronically since April of this year. His Nielsen was last changed about a week ago. Patient has been coughing. He does have some mild shortness of breath. His cough is productive of sputum. No diarrhea. No abdominal pain. No urinary symptoms. Patient has been having temperatures measuring 10 4F at home. The ROS documented in this emergency department record has been reviewed and confirmed by me. Those systems with pertinent positive or negative responses have been documented in the HPI. All other systems are other negative and/or noncontributory. PHYSICAL EXAM: General Impression: Alert and oriented x3, not in acute distress HEENT: Normocephalic atraumatic, extra-ocular movements intact, pupils equal and reactive to light bilaterally, mucous membranes moist, no oropharyngeal erythema, but membranes clear bilaterally Cardiovascular: Heart regular rate and rhythm, S1&S2 audible, no murmurs, rubs or gallops Chest: Lungs clear to auscultation bilaterally, no rhonchi, no wheeze, no rales Abdomen: Bowel sounds present, abdomen soft, non-tender, non-distended, no organomegaly Musculoskeletal: Pulses present and equal in all extremities, no peripheral edema Motor: no focal deficits noted Neurological: CN II-XII grossly intact, no focal motor or sensory deficits noted Skin: Intact with no visualized rashes Psych: Normal affect and mood ED course:68 y Old male presents with fever, cough.Vital signs upon arrival shows temperature 101.9, heart rate of 106, rest of vital signs within acceptable limits. Patient received Tylenol provided by family member prior to arrival. Laboratory evaluation obtained. Leukocytosis of 16.9. Coag panel is unremarkable. Metabolic panel shows slight elevation of renal markers with a creatinine of 1.29. Glucose 124. Urinalysis is positive for nitrates. 24 white blood cells. Unclear whether this represents urinary tract infection or colonization of his Nielsen catheter. X-ray is unremarkable. Patient continues to feel ill. Given patient's risk factors there is concern that patient may be headed towards early sepsis. Unclear where his source is from. Regardless. Patient started on Zosyn for concerns of pulmonary infection versus urinary tract infection. Blood cultures pending. Patient understandable agreeable with disposition. EKG interpretation: Ventricular rate 100, normal sinus rhythm,. Interval 84, Q 74, QTC 451. No [place] prolongation, no QTC prolongation, no ST or T-wave changes noted. EKG compared to 01/12/2019 showing no changes. Overall, this EKG is unremarkable - Related Data Home Medications Medication Instructions Recorded Confirmed amLODIPine BESYLATE [Norvasc] 10 mg PO DAILY 10/28/15 01/12/19 Levothyroxine Sodium [Synthroid] 88 mcg PO DAILY 08/19/17 01/12/19 Rosuvastatin Calcium [Crestor] 10 mg PO DAILY 08/19/17 01/12/19 Lisinopril-Hctz 20-12.5 mg 1 tab PO DAILY 03/26/18 01/12/19 [Zestoretic 20-12.5] Cholecalciferol [Vitamin D3 (25 2,000 unit PO DAILY 08/31/18 01/12/19 Mcg = 1000 Iu)] Sennosides-Docusate Sodium 2 tab PO BID 09/27/18 01/12/19 [Senokot-S] Acetaminophen Tab [Tylenol Tab] 1,000 mg PO BID PRN 01/12/19 01/12/19 Citalopram Hydrobromide [CeleXA] 20 mg PO DAILY 01/12/19 01/12/19 Nystatin 100,000 Unit/gm Powd 1 applic TOPICAL BID PRN 01/12/19 01/12/19 [Mycostatin Powder] Polyethylene Glycol 3350 [Miralax] 17 gm PO DAILY 01/12/19 01/12/19 Zinc Oxide [Desitin] 1 applic TOPICAL DAILY PRN 01/12/19 01/12/19 Previous Rx's Medication Instructions Recorded Aspirin 81 mg PO DAILY #1 chewable 08/23/17 Sulfamethox-Tmp 800-160Mg [Bactrim 1 each PO Q12HR #14 tab 01/12/19 DS 800-160 mg] Allergies Allergy/AdvReac Type Severity Reaction Status Date / Time No Known Allergies Allergy Verified 02/07/19 23:09 Review of Systems ROS Statement: Those systems with pertinent positive or pertinent negative responses have been documented in the HPI. ROS Other: All systems not noted in ROS Statement are negative. Past Medical History Past Medical History: Cancer, CVA/TIA, Hyperlipidemia, Hypertension, Pneumonia, Rheumatoid Arthritis (RA), Sleep Apnea/CPAP/BIPAP, Thyroid Disorder Additional Past Medical History / Comment(s): Slurred speech/possible tia ,uses CPAP at bed,bronchitis, skin ca lt arm, parkinson's disease is being worked up History of Any Multi-Drug Resistant Organisms: C-DIFF Date of last positivie culture/infection: 2017 MDRO Source:: stool Past Surgical History: Tonsillectomy Additional Past Surgical History / Comment(s): Heel spurs removed, colonoscopy, basal call carcinoma: skin cancer removed, Spinal fusion. Past Anesthesia/Blood Transfusion Reactions: Previous Problems w/ Anesthesia Additional Past Anesthesia/Blood Transfusion Reaction / Comment(s): Stopped breathing during colonoscopy yrs. ago before sleep apnea diagnosed per pt. Past Psychological History: No Psychological Hx Reported Smoking Status: Never smoker Past Alcohol Use History: Rare Past Drug Use History: None Reported - Past Family History Father Family Medical History: Cancer, Hypertension Additional Family Medical History / Comment(s): oral cancer Mother Family Medical History: Cancer Additional Family Medical History / Comment(s): "irreg heart rythym" General Exam Limitations: physical limitation Course Vital Signs 02/07/19 02/07/19 02/07/19 23:02 23:09 23:23 Temperature 101.9 F H 100.9 F H 99.2 F Pulse Rate 106 H 101 H 99 Respiratory 20 20 20 Rate Blood Pressure 135/77 129/91 126/79 O2 Sat by Pulse 97 94 L 94 L Oximetry 02/07/19 02/07/19 23:35 23:42 Temperature 99.6 F 99.2 F Pulse Rate 99 92 Respiratory 20 18 Rate Blood Pressure 140/80 143/80 O2 Sat by Pulse 92 L 92 L Oximetry Medical Decision Making - Lab Data Result diagrams: 02/07/19 23:23 02/07/19 23:23 Lab Results 02/07/19 02/07/19 02/07/19 Range/Units 23:23 23:23 23:23 WBC 16.9 H (3.8-10.6) k/uL RBC 4.69 (4.30-5.90) m/uL Hgb 14.5 (13.0-17.5) gm/dL Hct 41.7 (39.0-53.0) % MCV 88.8 (80.0-100.0) fL MCH 30.9 (25.0-35.0) pg MCHC 34.8 (31.0-37.0) g/dL RDW 13.1 (11.5-15.5) % Plt Count 257 (150-450) k/uL Neutrophils % 84 % Lymphocytes % 8 % Monocytes % 6 % Eosinophils % 1 % Basophils % 0 % Neutrophils # 14.2 H (1.3-7.7) k/uL Lymphocytes # 1.4 (1.0-4.8) k/uL Monocytes # 1.0 (0-1.0) k/uL Eosinophils # 0.1 (0-0.7) k/uL Basophils # 0.0 (0-0.2) k/uL PT (9.0-12.0) sec INR (<1.2) APTT (22.0-30.0) sec Sodium 137 (137-145) mmol/L Potassium 4.1 (3.5-5.1) mmol/L Chloride 101 (98-107) mmol/L Carbon Dioxide 25 (22-30) mmol/L Anion Gap 11 mmol/L BUN 21 H (9-20) mg/dL Creatinine 1.29 H (0.66-1.25) mg/dL Est GFR (CKD-EPI)AfAm 66 (>60 ml/min/1.73 sqM) Est GFR (CKD-EPI)NonAf 57 (>60 ml/min/1.73 sqM) Glucose 124 H (74-99) mg/dL Plasma Lactic Acid Antonio 1.2 (0.7-2.0) mmol/L Calcium 9.6 (8.4-10.2) mg/dL Total Bilirubin 0.6 (0.2-1.3) mg/dL AST 14 L (17-59) U/L ALT 16 L (21-72) U/L Alkaline Phosphatase 54 (38-126) U/L Total Protein 6.7 (6.3-8.2) g/dL Albumin 4.2 (3.5-5.0) g/dL Urine Color Urine Appearance (Clear) Urine pH (5.0-8.0) Ur Specific [place] (1.001-1.035) Urine Protein (Negative) Urine Glucose (UA) (Negative) Urine Ketones (Negative) Urine Blood (Negative) Urine Nitrite (Negative) Urine Bilirubin (Negative) Urine Urobilinogen (<2.0) mg/dL Ur Leukocyte Esterase (Negative) Urine RBC (0-5) /hpf Urine WBC (0-5) /hpf Ur Squamous Epith Cells (0-4) /hpf Urine Bacteria (None) /hpf 02/07/19 02/07/19 Range/Units 23:23 23:30 WBC (3.8-10.6) k/uL RBC (4.30-5.90) m/uL Hgb (13.0-17.5) gm/dL Hct (39.0-53.0) % MCV (80.0-100.0) fL MCH (25.0-35.0) pg MCHC (31.0-37.0) g/dL RDW (11.5-15.5) % Plt Count (150-450) k/uL Neutrophils % % Lymphocytes % % Monocytes % % Eosinophils % % Basophils % % Neutrophils # (1.3-7.7) k/uL Lymphocytes # (1.0-4.8) k/uL Monocytes # (0-1.0) k/uL Eosinophils # (0-0.7) k/uL Basophils # (0-0.2) k/uL PT 9.8 (9.0-12.0) sec INR 0.9 (<1.2) APTT 26.7 (22.0-30.0) sec Sodium (137-145) mmol/L Potassium (3.5-5.1) mmol/L Chloride (98-107) mmol/L Carbon Dioxide (22-30) mmol/L Anion Gap mmol/L BUN (9-20) mg/dL Creatinine (0.66-1.25) mg/dL Est GFR (CKD-EPI)AfAm (>60 ml/min/1.73 sqM) Est GFR (CKD-EPI)NonAf (>60 ml/min/1.73 sqM) Glucose (74-99) mg/dL Plasma Lactic Acid Antonio (0.7-2.0) mmol/L Calcium (8.4-10.2) mg/dL Total Bilirubin (0.2-1.3) mg/dL AST (17-59) U/L ALT (21-72) U/L Alkaline Phosphatase (38-126) U/L Total Protein (6.3-8.2) g/dL Albumin (3.5-5.0) g/dL Urine Color Light Yellow Urine Appearance Cloudy (Clear) Urine pH 6.5 (5.0-8.0) Ur Specific [place] 1.008 (1.001-1.035) Urine Protein Negative (Negative) Urine Glucose (UA) Negative (Negative) Urine Ketones Negative (Negative) Urine Blood Trace H (Negative) Urine Nitrite Positive (Negative) Urine Bilirubin Negative (Negative) Urine Urobilinogen <2.0 (<2.0) mg/dL Ur Leukocyte Esterase Large H (Negative) Urine RBC 3 (0-5) /hpf Urine WBC 24 H (0-5) /hpf Ur Squamous Epith Cells <1 (0-4) /hpf Urine Bacteria Moderate H (None) /hpf Disposition Clinical Impression: SIRS (systemic inflammatory response syndrome) Disposition: ADMITTED IP TO THIS [facility] Condition: Fair Referrals: Joaquim Blancas MD [Primary Care Provider] - 1-2 days Decision Time: 00:32
[2019-02-07] MEDS: SODIUM CHLORIDE 0.9% 500 ML 500 ML IV SCH ×2 (23:24→23:25)
[2019-02-07 23:58] LABS: Basophils % (A) 0 %; Eosinophils # (A) 0.1 k/uL (0-0.7); Eosinophils % (A) 1 %; HCT 41.7 % (39.0-53.0); HGB 14.5 gm/dL (13.0-17.5); Lymphocytes # (A) 1.4 k/uL (1.0-4.8); Lymphocytes % (A) 8 %; MCH 30.9 pg (25.0-35.0); MCHC 34.8 g/dL (31.0-37.0); MCV 88.8 fL (80.0-100.0); Mean Platelet Volume 6.2; Monocytes % (A) 6 %; Neutrophils # (A) 14.2 k/uL (1.3-7.7); Neutrophils % (A) 84 %; Platelet Count 257 k/uL (150-450); RBC 4.69 m/uL (4.30-5.90); RDW 13.1 % (11.5-15.5); WBC 16.9 k/uL (3.8-10.6)
[2019-02-08 00:02] LABS: Appearance,Urine Cloudy (Clear); Bacteria,Urine Moderate /hpf; Bilirubin,Urine Negative (Negative); Blood,Urine Trace (Negative); Color,Urine Light Yellow; Glucose,Urine (UA) Negative (Negative); Ketones,Urine Negative (Negative); Leukocyte Esterase,Urine Large (Negative); Nitrite,Urine Positive (Negative); PH, Urine 6.5 (5.0-8.0); Protein,Urine Negative (Negative); RBC,Urine 3 /hpf (0-5); Specific Gravity,Urine 1.008 (1.001-1.035); Squamous Epithelial Cell,Urine <1 /hpf (0-4); Urobilinogen,Urine <2.0 mg/dL (<2.0)
[2019-02-08] MEDS ORDERED: AMPICILLIN-SULBACTAM 3 GM in SODIUM CHLORIDE 0.9% 100 ML IVPB STA (00:03)
[2019-02-08 00:12] LABS: Albumin 4.2 g/dL (3.5-5.0); Calcium 9.6 mg/dL (8.4-10.2); Potassium 4.1 mmol/L (3.5-5.1); Total Bilirubin 0.6 mg/dL (0.2-1.3); Total Protein 6.7 g/dL (6.3-8.2)
[2019-02-08 00:19] LABS: INR 0.9 (<1.2); Partial Thromboplastin Time 26.7 sec (22.0-30.0); Prothrombin Time 9.8 sec (9.0-12.0)
[2019-02-08] MEDS ORDERED: PIPERACILLIN-TAZOBACTAM 3.375 GM in SODIUM CHLORIDE 0.9% 100 ML IVPB STA (00:26)
--- NOTE | 2019-02-08 00:27 | XR ---
EXAMINATION TYPE: XR chest 2V DATE OF EXAM: 02/07/2019 COMPARISON: 01/12/2019 HISTORY: Chest pain TECHNIQUE: Frontal and lateral views of the chest are obtained. There is no heart failure nor confluent pneumonic infiltrate. There are chest leads. There is spurrin g in the thoracic spine. Costophrenic angles are clear. IMPRESSION: No active cardiopulmonary disease. No change.
[2019-02-08] MEDS: SODIUM CHLORIDE 0.9% 1,000 ML IV SCH ×4 (00:41→23:34)
[2019-02-08] MEDS: LEVOTHYROXINE 88 MCG TAB PO SCH (06:03)
[2019-02-08] MEDS: CITALOPRAM HYDROBROMIDE 20 MG TAB PO SCH (07:28)
[2019-02-08] MEDS: ASPIRIN 81 MG PO SCH (07:29)
[2019-02-08] MEDS: CHOLECALCIFEROL 1,000 UNIT TAB PO SCH (07:29)
[2019-02-08] MEDS: PANTOPRAZOLE 40 MG/10 ML VIAL IV SCH (07:29)
[2019-02-08] MEDS: PIPERACILLIN-TAZOBACTAM 3.375 GM in SODIUM CHLORIDE 0.9% 100 ML IVPB SCH ×2 (07:29→16:41)
[2019-02-08] MEDS: ATORVASTATIN 20 MG TAB PO SCH (07:29)
[2019-02-08] MEDS ORDERED: ZINC OXIDE 20% OINT 28.4 GM TUBE TOPICAL PRN (10:36)
[2019-02-08] MEDS: GABAPENTIN 300 MG CAP PO SCH (12:15)
[2019-02-08] MEDS: LISINOPRIL-HCTZ 20-12.5 MG 1 EACH TAB PO SCH (12:15)
--- NOTE | 2019-02-08 20:31 | P.HPIM ---
History of Present Illness H&P Date: 02/08/19 Chief Complaint: Fever History of presenting complaint: This is a very pleasant 67-year-old patient of follows with Dr. Blancas.. Chronic stable medical conditions include osteoarthritis, hypertension, hyperlipidemia, rheumatoid arthritis, obstructive sleep apnea and uses CPAP machine, diabetes. Patient has been worked up by at [facility] and he does not have Parkinson's disease but has some Parkinson-like features. Patient had cervical spine fusion from C2 to C6 at [facility]. At her baseline patient is able to stand for a few minutes every hour. Able to feed himself. He will follow simple questions. Has a Nielsen catheter. Patient does tend presents after he felt weak and was feeling flushed. Had a slight cough. Slight shortness of breath. to the temperature found to be 104.2. Decided to bring the patient and. No diarrhea. Appetite has been fair. Review of systems: GEN.: Weak and tired. Fever EYES: None HEENT: None NECK: None RESPIRATORY: None CARDIOVASCULAR: None GASTROINTESTINAL: Has a bowel movement every 2 or 3 days] GENITOURINARY: As above MUSCULOSKELETAL: Weakness in the arms and legs LYMPHATICS: None HEMATOLOGICAL: None PSYCHIATRY: None NEUROLOGICAL: Weakness in the arms and legs Past medical history: Diet controlled diabetes, hyperlipidemia, hypertension, rheumatoid arthritis, ob structive sleep apnea, hypothyroid, skin cancer, Parkinson-like symptoms, chronic bladder dysfunction, with chronic Nielsen catheter Social history: Lives with his . Does not smoke. Alcohol rarely. Able to stand for a few minutes. Family history: Cancer, hypertension, oral cancer Physical examination: VITAL SIGNS: 101.9, 106, 20, 135/77, 97% on 2 L GENERAL: BMI 37.4, laying in bed, awake tired. EYES: Pupils equal. Conjunctiva normal. HEENT: External appearance of nose and ears normal, oral cavity grossly normal. NECK: JVD unable to assess, mass not palpable HEART: First and second heart sounds are normal; no edema. LUNGS: Respiratory rate normal; decreased breath sounds. ABDOMEN: Soft, nontender, liver spleen not palpable, no masses palpable, Nielsen catheter in place. LYMPHATICS: No lymph nodes palpable in the axilla and neck. PSYCH: Alert and oriented x3; mood and affect normal. NEUROLOGICAL: Cranial nerves grossly intact; no facial asymmetry, decreased power lower extremity. Investigations reviewed in the clinical context: White count 16.9 hemoglobin 14.5 potassium 4.1 bun creatinine 1.29 Renal function from earlier this month showed a bun of 26 creatinine 1.13 EKG tracing personally reviewed by me shows sinus rhythm, unable baseline Chest x-ray film personally reviewed by me-possible infiltrate Influenza A and B both negative Assessment: -Acute UTI from cystitis secondary to Nielsen catheter causing severe sepsis, POA -Possible pneumonia, suspect gram-negative organism -obesity BMI 37.4 -Essential hypertension -Hyperlipidemia -Chronic rheumatoid arthritis -Obstructive sleep apnea uses CPAP machine -Hypothyroid -Hyperlipidemia -Parkinson's-symptoms with no Parkinson disease -Recent C2 to C6 cervical spine fusion with a neck collar in place -Gait dysfunction currently using a walker -Chronic bladder dysfunction with urinary retention with a chronic Nielsen catheter for further workup at [facility] being followed by by Dr. Cerda Plan: Patient started and IV antibiotics in the ER. Home medications were resumed. Cultures were drawn. IV fluids. Care was discussed the patient and at the bedside. Questions were answered. Repeat labs in the morning. Past Medical History Past Medical History: Cancer, CVA/TIA, Hyperlipidemia, Hypertension, Pneumonia, Rheumatoid Arthritis (RA), Sleep Apnea/CPAP/BIPAP, Thyroid Disorder Additional Past Medical History / Comment(s): Slurred speech/possible tia ,uses CPAP at bed,bronchitis, skin ca lt arm, parkinson's disease is being worked up History of Any Multi-Drug Resistant Organisms: C-DIFF Date of last positivie culture/infection: 2017 MDRO Source:: stool Past Surgical History: Tonsillectomy Additional Past Surgical History / Comment(s): Heel spurs removed, colonoscopy, basal call carcinoma: skin cancer removed, Spinal fusion. Past Anesthesia/Blood Transfusion Reactions: Previous Problems w/ Anesthesia Additional Past Anesthesia/Blood Transfusion Reaction / Comment(s): Stopped breathing during colonoscopy yrs. ago before sleep apnea diagnosed per pt. Past Psychological History: No Psychological Hx Reported Additional Psychological History / Comment(s): Pt. is independent. Lives in single level home that has 4 front porch steps.1 pet dog and . No home care services recieved. Has a cpap machine. Use a claw, and either a cane or walker. Walker has 2 wheels and cane is old fashioned. Uses only walker now. Smoking Status: Never smoker Past Alcohol Use History: Rare Past Drug Use History: None Reported - Past Family History Father Family Medical History: Cancer, Hypertension Additional Family Medical History / Comment(s): oral cancer Mother Family Medical History: Cancer Additional Family Medical History / Comment(s): "irreg heart rythym" Medications and Allergies Home Medications Medication Instructions Recorded Confirmed Type amLODIPine BESYLATE [Norvasc] 10 mg PO DAILY 10/28/15 02/08/19 History Levothyroxine Sodium [Synthroid] 88 mcg PO DAILY 08/19/17 02/08/19 History Rosuvastatin Calcium [Crestor] 10 mg PO DAILY 08/19/17 02/08/19 History Aspirin 81 mg PO DAILY #1 chewable 08/23/17 02/08/19 Rx Lisinopril-Hctz 20-12.5 mg 1 tab PO DAILY 03/26/18 02/08/19 History [Zestoretic 20-12.5] Cholecalciferol [Vitamin D3 (25 2,000 unit PO TID 08/31/18 02/08/19 History Mcg = 1000 Iu)] Citalopram Hydrobromide [CeleXA] 20 mg PO DAILY 01/12/19 02/08/19 History Polyethylene Glycol 3350 [Miralax] 17 gm PO Q48H 01/12/19 02/08/19 History Zinc Oxide [Desitin] 1 applic TOPICAL DAILY PRN 01/12/19 02/08/19 History Cranberry 420mg 420 mg PO BID 02/08/19 02/08/19 History Gabapentin [Neurontin] 300 mg PO DAILY 02/08/19 02/08/19 History Allergies Allergy/AdvReac Type Severity Reaction Status Date / Time No Known Allergies Allergy Verified 02/07/19 23:09 Physical Exam Vitals: Vital Signs Temp Pulse Pulse Resp BP BP Pulse Ox 02/08/19 19:37 99.1 F 84 17 127/68 95 02/08/19 14:34 99.0 F 79 16 109/69 95 02/08/19 08:00 16 02/08/19 07:00 98.3 F 82 16 112/62 96 02/08/19 01:45 92 24 110/66 95 02/08/19 01:34 98.8 F 98 32 H 96/62 93 L 02/08/19 00:40 99.6 F 100 17 127/74 93 L 02/07/19 23:42 99.2 F 92 18 143/80 92 L 02/07/19 23:35 99.6 F 99 20 140/80 92 L 02/07/19 23:23 99.2 F 99 20 126/79 94 L 02/07/19 23:09 100.9 F H 101 H 20 129/91 94 L 02/07/19 23:02 101.9 F H 106 H 20 135/77 97 Intake and Output 02/08/19 02/08/19 02/08/19 06:59 14:59 22:59 Intake Total 480 118 118 Output Total 950 1700 Balance -470 -1582 118 Intake: Intake, IV Titration 480 Amount Sodium Chloride 0.9% 1, 480 000 ml @ 120 mls/hr IV . Q8H20M [facility] Rx#:[id number] Oral 118 118 Output: Urine 950 1700 Uretheral (Nielsen) 600 Other: Voiding Method Indwelling Catheter Indwelling Catheter Weight 121.563 kg Results CBC & Chem 7: 02/07/19 23:23 02/07/19 23:23 Labs: Abnormal Lab Results - Last 24 Hours (Table) 02/07/19 02/07/19 02/07/19 Range/Units 23:23 23:23 23:30 WBC 16.9 H (3.8-10.6) k/uL Neutrophils # 14.2 H (1.3-7.7) k/uL BUN 21 H (9-20) mg/dL Creatinine 1.29 H (0.66-1.25) mg/dL Glucose 124 H (74-99) mg/dL AST 14 L (17-59) U/L ALT 16 L (21-72) U/L Urine Blood Trace H (Negative) Ur Leukocyte Esterase Large H (Negative) Urine WBC 24 H (0-5) /hpf Urine Bacteria Moderate H (None) /hpf Microbiology - Last 24 Hours (Table) 02/07/19 23:30 Urine Culture - Preliminary Urine,Voided Thrombosis Risk Factor Assmnt - Choose All That Apply Any of the Below Risk Factors Present?: Yes Each Factor Represents 1 point: Obesity (BMI >25), Sepsis (< 1month), Swollen legs (current) Each Risk Factor Represents 2 Points: Age 61-74 years Other congenital or acquired thrombophilia - If yes, enter type in comment: No Thrombosis Risk Factor Assessment Total Risk Factor Score: 5 Thrombosis Risk Factor Assessment Level: High Risk
[2019-02-09] MEDS: PIPERACILLIN-TAZOBACTAM 3.375 GM in SODIUM CHLORIDE 0.9% 100 ML IVPB SCH ×3 (01:49→16:41)
[2019-02-09] MEDS: LEVOTHYROXINE 88 MCG TAB PO SCH (05:25)
[2019-02-09] MEDS: GABAPENTIN 300 MG CAP PO SCH (07:09)
[2019-02-09] MEDS: CHOLECALCIFEROL 1,000 UNIT TAB PO SCH (07:09)
[2019-02-09] MEDS: ATORVASTATIN 20 MG TAB PO SCH (07:09)
[2019-02-09] MEDS: ASPIRIN 81 MG PO SCH (07:09)
[2019-02-09] MEDS: CITALOPRAM HYDROBROMIDE 20 MG TAB PO SCH (07:10)
[2019-02-09] MEDS: LISINOPRIL-HCTZ 20-12.5 MG 1 EACH TAB PO SCH (07:11)
[2019-02-09] MEDS: PANTOPRAZOLE 40 MG/10 ML VIAL IV SCH (07:12)
[2019-02-09 07:40] LABS: Basophils # (A) 0.1 k/uL (0-0.2); Basophils % (A) 1 %; Eosinophils # (A) 0.3 k/uL (0-0.7); Eosinophils % (A) 3 %; HCT 38.4 % (39.0-53.0); HGB 13.1 gm/dL (13.0-17.5); Lymphocytes # (A) 1.9 k/uL (1.0-4.8); Lymphocytes % (A) 15 %; MCH 30.8 pg (25.0-35.0); MCHC 34.1 g/dL (31.0-37.0); MCV 90.3 fL (80.0-100.0); Mean Platelet Volume 6.6; Monocytes # (A) 0.7 k/uL (0-1.0); Monocytes % (A) 5 %; Neutrophils # (A) 9.7 k/uL (1.3-7.7); Neutrophils % (A) 75 %; Platelet Count 248 k/uL (150-450); RBC 4.26 m/uL (4.30-5.90); RDW 12.9 % (11.5-15.5); WBC 12.9 k/uL (3.8-10.6)
[2019-02-09 07:50] LABS: Calcium 8.9 mg/dL (8.4-10.2)
[2019-02-09] MEDS ORDERED: POLYETHYLENE GLYCOL 3350 17 GM POWD.PACK PO SCH (09:00)
[2019-02-09] MEDS: SODIUM CHLORIDE 0.9% 1,000 ML IV SCH ×2 (11:25→16:43)
--- NOTE | 2019-02-09 20:52 | P.PN ---
Progress Note - Text Progress Note Date: 02/09/19 Chief Complaint: Fever History of presenting complaint: This is a very pleasant 67-year-old patient of follows with Dr. Blancas.. Chronic stable medical conditions include osteoarthritis, hypertension, hyperlipidemia, rheumatoid arthritis, obstructive sleep apnea and uses CPAP machine, diabetes. Patient has been worked up by at [facility] and he does not have Parkinson's disease but has some Parkinson-like features. Patient had cervical spine fusion from C2 to C6 at [facility]. At her baseline patient is able to stand for a few minutes every hour. Able to feed himself. He will follow simple questions. Has a Nielsen catheter. Patient does tend presents after he felt weak and was feeling flushed. Had a slight cough. Slight shortness of breath. to the temperature found to be 104.2. Decided to bring the patient and. No diarrhea. Appetite has been fair. Admitted with-pneumonia and UTI with sepsis. Today-feeling better. Did tolerate her diet. Slight cough. Previous better. at the bedside. Review of systems: Was done for constitutional, cardiovascular, GI, pulmonary. relevant finding as above Active Medications Aspirin (Aspirin) 81 mg PO DAILY [facility] Last Admin: 02/09/19 07:09 Dose: 81 mg Documented by: Atorvastatin Calcium (Lipitor) 20 mg PO DAILY [facility] Last Admin: 02/09/19 07:09 Dose: 20 mg Documented by: Cholecalciferol (Vitamin D3 (25 Mcg = 1000 Iu)) 2,000 unit PO DAILY [facility] Last Admin: 02/09/19 07:09 Dose: 2,000 unit Documented by: Citalopram Hydrobromide (Celexa) 20 mg PO DAILY [facility] Last Admin: 02/09/19 07:10 Dose: 20 mg Documented by: Gabapentin (Neurontin) 300 mg PO DAILY [facility] Last Admin: 02/09/19 07:09 Dose: 300 mg Documented by: Lisinopril/HCTZ (Zestoretic 20-12.5) 1 each PO DAILY [facility] Last Admin: 02/09/19 07:11 Dose: 1 each Documented by: Sodium Chloride (Saline 0.9%) 1,000 mls @ 120 mls/hr IV .Q8H20M [facility] Last Admin: 02/09/19 16:43 Dose: 120 mls/hr Documented by: Piperacillin Sod/Tazobactam (Sod 3.375 gm/ Sodium Chloride) 100 mls @ 25 mls/hr IVPB Q8HR [facility] Last Admin: 02/09/19 16:41 Dose: 25 mls/hr Documented by: Levothyroxine Sodium (Synthroid) 88 mcg PO DAILY@0630 [facility] Last Admin: 02/09/19 05:25 Dose: 88 mcg Documented by: Multi-Ingredient Ointment (Zinc Oxide 20% Oint) 1 applic TOPICAL DAILY PRN PRN Reason: BEDSORE Pantoprazole Sodium (Protonix) 40 mg PO AC-BRKFST [facility] Polyethylene Glycol (Miralax) 17 gm PO Q48H [facility] Last Admin: 02/09/19 07:13 Dose: 17 gm Documented by: Physical examination: VITAL SIGNS: Afebrile, 77, 16, 117/73, 96% on 2 L GENERAL: Laying in bed, comfortable. EYES: Pupils equal. Conjunctiva normal. HEENT: External appearance of nose and ears normal, oral cavity grossly normal. NECK: JVD unable to assess, mass not palpable HEART: First and second heart sounds are normal; no edema. LUNGS: Respiratory rate normal; decreased breath sounds. ABDOMEN: Soft, nontender, liver spleen not palpable, no masses palpable, Nielsen catheter in place. PSYCH: Alert and oriented x3; mood and affect normal. NEUROLOGICAL: Cranial nerves grossly intact; no facial asymmetry, decreased power lower extremity. Investigations reviewed in the clinical context: White count 12.9 potassium 4 creatinine 1.06 Urine culture-polymicrobial Blood cultures pending Previous testing: White count 16.9 hemoglobin 14.5 potassium 4.1 bun creatinine 1.29 Renal function from earlier this month showed a bun of 26 creatinine 1.13 EKG tracing personally reviewed by me shows sinus rhythm, unable baseline Chest x-ray film personally reviewed by me-possible infiltrate Influenza A and B both negative Assessment: -Acute UTI from cystitis secondary to Nielsen catheter causing severe sepsis, POA, improving, -Possible pneumonia, suspect gram-negative organism, improving -obesity BMI 37.4 -Essential hypertension -Hyperlipidemia -Chronic rheumatoid arthritis -Obstructive sleep apnea uses CPAP machine -Hypothyroid -Hyperlipidemia -Parkinson's-symptoms with no Parkinson disease -Recent C2 to C6 cervical spine fusion with a neck collar in place -Gait dysfunction currently using a walker -Chronic bladder dysfunction with urinary retention with a chronic Nielsen catheter for further workup at [facility] being followed by by Dr. Cerda Plan: Continue with IV Zosyn. Patient clinically improving. Possibly another 24 hours.
[2019-02-09] MEDS: LACTATED RINGERS 1,000 ML IV SCH (21:40)
[2019-02-10] MEDS: PIPERACILLIN-TAZOBACTAM 3.375 GM in SODIUM CHLORIDE 0.9% 100 ML IVPB SCH ×2 (01:01→09:08)
[2019-02-10] MEDS: LEVOTHYROXINE 88 MCG TAB PO SCH (05:38)
[2019-02-10 06:54] LABS: Basophils # (A) 0.1 k/uL (0-0.2); Basophils % (A) 1 %; Eosinophils # (A) 0.5 k/uL (0-0.7); Eosinophils % (A) 5 %; HCT 38.5 % (39.0-53.0); HGB 13.3 gm/dL (13.0-17.5); Lymphocytes # (A) 1.9 k/uL (1.0-4.8); Lymphocytes % (A) 20 %; MCHC 34.5 g/dL (31.0-37.0); MCV 89.8 fL (80.0-100.0); Mean Platelet Volume 6.4; Monocytes # (A) 0.5 k/uL (0-1.0); Monocytes % (A) 5 %; Neutrophils # (A) 6.5 k/uL (1.3-7.7); Neutrophils % (A) 68 %; Platelet Count 265 k/uL (150-450); RBC 4.29 m/uL (4.30-5.90); RDW 12.7 % (11.5-15.5); WBC 9.6 k/uL (3.8-10.6)
[2019-02-10] MEDS ORDERED: PANTOPRAZOLE 40 MG TABLET PO SCH (07:30)
[2019-02-10 08:12] VITALS: RESP 12
[2019-02-10] MEDS: CHOLECALCIFEROL 1,000 UNIT TAB PO SCH (09:10)
[2019-02-10] MEDS: GABAPENTIN 300 MG CAP PO SCH (09:10)
[2019-02-10] MEDS: ATORVASTATIN 20 MG TAB PO SCH (09:11)
[2019-02-10] MEDS: LISINOPRIL-HCTZ 20-12.5 MG 1 EACH TAB PO SCH (09:11)
[2019-02-10] MEDS: ASPIRIN 81 MG PO SCH (09:11)
[2019-02-10] MEDS: CITALOPRAM HYDROBROMIDE 20 MG TAB PO SCH (09:11)
[2019-02-10] MEDS: LACTATED RINGERS 1,000 ML IV SCH (11:42)
[2019-02-10 16:09] VITALS: BP 120/73; PULSE 77; TEMP 98.2
--- NOTE | 2019-02-14 15:47 | P.DS ---
Providers Date of admission: 02/09/19 13:16 Expected date of discharge: 02/10/19 Attending physician: Scottie Uriarte Primary care physician: [facility] Course: Chief Complaint: Fever Hospital course: This is a very pleasant 67-year-old patient of follows with Dr. Blancas.. Chronic stable medical conditions include osteoarthritis, hypertension, hyperlipidemia, rheumatoid arthritis, obstructive sleep apnea and uses CPAP machine, diabetes. Patient has been worked up by at [facility] and he does not have Parkinson's disease but has some Parkinson-like features. Patient had cervical spine fusion from C2 to C6 at [facility]. At baseline patient is able to stand for a few minutes every hour. Able to feed himself. He will follow simple questions. Has a Nielsen catheter. presents after he felt weak and was feeling flushed. Had a slight cough. Slight shortness of breath. 0352 temperature found to be 104.2. No diarrhea. Appetite has been fair. Admitted with-pneumonia and UTI with sepsis. Treated with IV Zosyn. Responded well.Symptoms improved. Eating well. keen to go home Physical examination: VITAL SIGNS: 98.2, 77, 12, 120/73, 92% room air GENERAL: Laying in bed, comfortable. EYES: Pupils equal. Conjunctiva normal. HEENT: External appearance of nose and ears normal, oral cavity grossly normal. NECK: JVD unable to assess, mass not palpable HEART: First and second heart sounds are normal; no edema. LUNGS: Respiratory rate normal; decreased breath sounds. ABDOMEN: Soft, nontender, liver spleen not palpable, no masses palpable, Nielsen catheter in place. PSYCH: Alert and oriented x3; mood and affect normal. NEUROLOGICAL: Cranial nerves grossly intact; no facial asymmetry, decreased power lower extremity. Investigations reviewed in the clinical context: White count 9.6 hemoglobin 13.3 Urine and blood culture both negative Previous testing: White count 16.9 hemoglobin 14.5 potassium 4.1 bun creatinine 1.29 Renal function from earlier this month showed a bun of 26 creatinine 1.13 EKG tracing personally reviewed by me shows sinus rhythm, unable baseline Chest x-ray film personally reviewed by me-possible infiltrate Influenza A and B both negative Assessment: -Acute UTI from cystitis secondary to Nielsen catheter causing severe sepsis, POA, -Possible pneumonia, suspect gram-negative organism, POA -obesity BMI 37.4 -Essential hypertension -Hyperlipidemia -Chronic rheumatoid arthritis -Obstructive sleep apnea uses CPAP machine -Hypothyroid -Hyperlipidemia -Parkinson's-symptoms with no Parkinson disease -Recent C2 to C6 cervical spine fusion with a neck collar in place -Gait dysfunction currently using a walker -Chronic bladder dysfunction with urinary retention with a chronic Nielsen catheter for further workup at [facility] being followed by by Dr. Cerda Disposition: Home Patient Condition at Discharge: Fair Plan - Discharge Summary Discharge Rx Participant: Yes New Discharge Prescriptions: New Amoxicillin/Potassium Clav [Augmentin 875-125 Tablet] 1 tab PO Q12HR #10 tab Continue Rosuvastatin Calcium [Crestor] 10 mg PO DAILY Levothyroxine Sodium [Synthroid] 88 mcg PO DAILY Aspirin 81 mg PO DAILY #1 chewable Lisinopril-Hctz 20-12.5 mg [Zestoretic 20-12.5] 1 tab PO DAILY Cholecalciferol [Vitamin D3 (25 Mcg = 1000 Iu)] 2,000 unit PO TID Zinc Oxide [Desitin] 1 applic TOPICAL DAILY PRN PRN Reason: BEDSORE Polyethylene Glycol 3350 [Miralax] 17 gm PO Q48H Citalopram Hydrobromide [CeleXA] 20 mg PO DAILY Cranberry 420mg 420 mg PO BID Gabapentin [Neurontin] 300 mg PO DAILY Discontinued amLODIPine BESYLATE [Norvasc] 10 mg PO DAILY Discharge Medication List Levothyroxine Sodium [Synthroid] 88 mcg PO DAILY 08/19/17 [History] Rosuvastatin Calcium [Crestor] 10 mg PO DAILY 08/19/17 [History] Aspirin 81 mg PO DAILY #1 chewable 08/23/17 [Rx] Lisinopril-Hctz 20-12.5 mg [Zestoretic 20-12.5] 1 tab PO DAILY 03/26/18 [History] Cholecalciferol [Vitamin D3 (25 Mcg = 1000 Iu)] 2,000 unit PO TID 08/31/18 [History] Citalopram Hydrobromide [CeleXA] 20 mg PO DAILY 01/12/19 [History] Polyethylene Glycol 3350 [Miralax] 17 gm PO Q48H 01/12/19 [History] Zinc Oxide [Desitin] 1 applic TOPICAL DAILY PRN 01/12/19 [History] Cranberry 420mg 420 mg PO BID 02/08/19 [History] Gabapentin [Neurontin] 300 mg PO DAILY 02/08/19 [History] Amoxicillin/Potassium Clav [Augmentin 875-125 Tablet] 1 tab PO Q12HR #10 tab 02/10/19 [Rx] Follow up Appointment(s)/Referral(s): Joaquim Blancas MD [Primary Care Provider] - 02/17/19 11:00 am [facility] [NON-STAFF] - As Needed Patient Instructions/Handouts: Nielsen Catheter Placement and Care (DC)
== END 2019-02-10 15:55 | disposition home or self-care (01) | DRG 698 ==
LOC: EC 22:56 → 4SSUR 02-08 00:32 → OBSVTOIN 02-09 13:16
PROVIDERS: ADMIT Hospitalist; ATTEND Hospitalist
DX: T83.511A Infection and inflammatory reaction due to indwelling urethral catheter, initial encounter (principal); J15.6 Pneumonia due to other Gram-negative bacteria; A41.9 Sepsis, unspecified organism; R65.20 Severe sepsis without septic shock; E03.9 Hypothyroidism, unspecified; E11.9 Type 2 diabetes mellitus without complications; E66.9 Obesity, unspecified; E78.5 Hyperlipidemia, unspecified; G20 Parkinson's disease; G47.33 Obstructive sleep apnea (adult) (pediatric); I10 Essential (primary) hypertension; M06.9 Rheumatoid arthritis, unspecified; M19.90 Unspecified osteoarthritis, unspecified site; N30.90 Cystitis, unspecified without hematuria; Z68.37 Body mass index [BMI] 37.0-37.9, adult; Z79.82 Long term (current) use of aspirin; Z79.890 Hormone replacement therapy; Z79.899 Other long term (current) drug therapy; Z80.8 Family history of malignant neoplasm of other organs or systems; Z82.49 Family history of ischemic heart disease and other diseases of the circulatory system; Z85.828 Personal history of other malignant neoplasm of skin; Z86.73 Personal history of transient ischemic attack (TIA), and cerebral infarction without residual deficits; Z98.1 Arthrodesis status; Y84.6 Urinary catheterization as the cause of abnormal reaction of the patient, or of later complication, without mention of misadventure at the time of the procedure
CPT/HCPCS: 36415; 71046; 80048; 80053; 81001; 83605; 85025; 85610; 85730; 87040; 87086; 87502; 93005; 94760; 96360; 99285

== ENCOUNTER 2019-03-23 18:24 | Emergency (ER) | payer MEDICARE, OTHER ==
--- NOTE | 2019-03-23 19:04 | CT ---
EXAMINATION TYPE: CT brain jet sue con DATE OF EXAM: 03/23/2019 COMPARISON: CT brain 11/29/2016 HISTORY: Fall injury, recent cervical fusion Neck pain. Headache. CT DLP: 1125 mGycm Automated exposure control for dose reduction was used. There is cerebral cortical atrophy. There is no mass effect nor midline shift. There is no sign of in tracranial hemorrhage. The calvarium is intact. There is no evidence of cerebral edema. Cervical vertebra have normal alignment. There is hypertrophic moderate anterior spur formation from C3 to T1 vertebra. There is posterior multilevel fusion surgery in the mid and upper cervical spine. There is no compression fracture. There is no subluxation. The skull base is intact. There is multile anette laminectomy. IMPRESSION: No fracture. Multilevel cervical spine surgery. Cerebral atrophy. No acute intracranial abnormality. Brain unchanged compared to old exam.
--- NOTE | 2019-03-23 19:10 | CT ---
EXAMINATION TYPE: CT orbits wo con DATE OF EXAM: 03/23/2019 COMPARISON: None HISTORY: Fall injury, orbital laceration, recent cervical fusion CT DLP: 1125 mGycm Automated exposure control for dose reduction was used. Multiple axial sections were obtained from the bottom of the maxilla to the top of the frontal sinuse s without contrast. There is fairly normal aeration of the paranasal sinuses. There is bilateral patency of the ostium mi ddle complex. There is no evidence of a blowout fracture. Orbital margins are intact. There is no colton dence of retro-orbital mass. The globes are symmetric. The zygomatic arches appear normal. The maxilla is intact. Nasal bone appears intact. There is no colton dence of soft tissue mass. There is subcutaneous mild density anterior to the right maxilla. IMPRESSION: Mild soft tissue swelling. No fracture.
[2019-03-23 19:21] VITALS: RESP 15
--- NOTE | 2019-03-23 19:44 | XR ---
EXAMINATION TYPE: XR shoulder complete RT DATE OF EXAM: 03/23/2019 COMPARISON: NONE HISTORY: Shoulder pain TECHNIQUE: 3 views FINDINGS: There is severe narrowing of the subacromial joint space. I see no fracture nor dislocation . There are no pathologic calcifications. IMPRESSION: Osteoarthritis at the glenohumeral joint. Severe subacromial impingement consistent with chronic rotator cuff tear. No fracture.
--- NOTE | 2019-03-23 20:09 | ED ---
General Adult HPI - General Chief complaint: Fall Stated complaint: Fall Time Seen by Provider: 03/23/19 18:26 Source: patient, EMS, RN notes reviewed, old records reviewed Mode of arrival: EMS Limitations: physical limitation - History of Present Illness Initial comments: 68-year-old male patient past history of Parkinson's with baseline gait instability walking with walker presents ED for chief complaint of fall. Patient reports that he lost his balance fell forward hitting his head on a china cabinet. Glass reportedly break. Patient and felt ground. Patient did have a cervical fusion in May 2018. Denies use of blood thinners.. No loss of consciousness. Patient's chief complaint is laceration on head. Also a small abrasion to right shoulder. Denies any pain with exception of lacerations. Tetanus is up-to-date. Denies any other complaints. Systemic: Pt denies fatigue, fever/chills, rash. Pt denies weakness, night sweats, weight loss. Neuro: Pt denies headache, visual disturbances, syncope or pre-syncope. HEENT: Pt denies ocular discharge or irritation, otalgia, rhinorrhea, pharyngitis or notable lymphadenopathy. Cardiopulmonary: Pt denies chest pain, SOB, heart palpitations, dyspnea on exertion. Abdominal/GI: Pt denies abdominal pain, n/v/d. : Pt denies dysuria, burning w/ urination, frequency/urgency. Denies new onset urinary or bowel incontinence. MSK: Pt denies myalgia, loss of strength or function in extremities. Neuro: Pt denies new onset weakness, paresthesias. - Related Data Home Medications Medication Instructions Recorded Confirmed Levothyroxine Sodium [Synthroid] 88 mcg PO DAILY 08/19/17 02/08/19 Rosuvastatin Calcium [Crestor] 10 mg PO DAILY 08/19/17 02/08/19 Lisinopril-Hctz 20-12.5 mg 1 tab PO DAILY 03/26/18 02/08/19 [Zestoretic 20-12.5] Cholecalciferol [Vitamin D3 (25 2,000 unit PO TID 08/31/18 02/08/19 Mcg = 1000 Iu)] Citalopram Hydrobromide [CeleXA] 20 mg PO DAILY 01/12/19 02/08/19 Polyethylene Glycol 3350 [Miralax] 17 gm PO Q48H 01/12/19 02/08/19 Zinc Oxide [Desitin] 1 applic TOPICAL DAILY PRN 01/12/19 02/08/19 Cranberry 420mg 420 mg PO BID 02/08/19 02/08/19 Gabapentin [Neurontin] 300 mg PO DAILY 02/08/19 02/08/19 Previous Rx's Medication Instructions Recorded Aspirin 81 mg PO DAILY #1 chewable 08/23/17 Amoxicillin/Potassium Clav 1 tab PO Q12HR #10 tab 02/10/19 [Augmentin 875-125 Tablet] Allergies Allergy/AdvReac Type Severity Reaction Status Date / Time No Known Allergies Allergy Verified 02/07/19 23:09 Review of Systems ROS Statement: Those systems with pertinent positive or pertinent negative responses have been documented in the HPI. ROS Other: All systems not noted in ROS Statement are negative. Past Medical History Past Medical History: Cancer, CVA/TIA, Hyperlipidemia, Hypertension, Pneumonia, Rheumatoid Arthritis (RA), Sleep Apnea/CPAP/BIPAP, Thyroid Disorder Additional Past Medical History / Comment(s): Slurred speech/possible tia ,uses CPAP at bed,bronchitis, skin ca lt arm, parkinson's disease is being worked up History of Any Multi-Drug Resistant Organisms: C-DIFF Date of last positivie culture/infection: 2017 MDRO Source:: stool Past Surgical History: Tonsillectomy Additional Past Surgical History / Comment(s): Heel spurs removed, colonoscopy, basal call carcinoma: skin cancer removed, Spinal fusion. Past Anesthesia/Blood Transfusion Reactions: Previous Problems w/ Anesthesia Additional Past Anesthesia/Blood Transfusion Reaction / Comment(s): Stopped breathing during colonoscopy yrs. ago before sleep apnea diagnosed per pt. Past Psychological History: No Psychological Hx Reported Smoking Status: Never smoker Past Alcohol Use History: Rare Past Drug Use History: None Reported - Past Family History Father Family Medical History: Cancer, Hypertension Additional Family Medical History / Comment(s): oral cancer Mother Family Medical History: Cancer Additional Family Medical History / Comment(s): "irreg heart rythym" General Exam - General Exam Comments Initial Comments: Constitutional: NAD, AOX3, Pt has pleasant affect. HEENT: NC/AT, trachea midline, neck supple, no lymphadenopathy. Posterior pharynx non erythematous, without exudates. External ears appear normal, without discharge. Mucous membranes moist. Eyes PERRLA, EOM intact. There is no scleral icterus. No pallor noted. Cardiopulmonary: RRR, no murmurs, rubs or gallops, no JVD noted. Lungs CTAB in anterior and posterior saavedra. No peripheral edema. Abdominal exam: Abdomen soft and non-distended. Abdomen non-tender to palpation in all 4 quadrants. Bowel sounds active in LLQ. No hepatosplenomegaly. No ecchymosis Neuro: CN II-XII intact. No nuchal rigidity. No raccon eyes, no humphreys sign, no hemotympanum. No cervical spinal tenderness. Repeat neuro exam wnl. MSK: 2 cm laceration apex of skull, irrigated, approximated with 2 mony. All abrasion to right eyelid. Nonopiate does not require closure. Small abrasion to right shoulder. Not open does not require closure. No other areas of tenderness upper or lower extremities. No posterior calf tenderness bilaterally, homans sign negative bilaterally. Posterior tibialis and radial pulse +2 bilaterally. Sensation intact in upper and lower extremities. Full active ROM in upper and lower extremities, 5/5 stregnth. Limitations: physical limitation Course Vital Signs 03/23/19 03/23/19 18:26 19:20 Temperature 98.0 F Pulse Rate 78 Respiratory 18 15 Rate Blood Pressure 165/83 O2 Sat by Pulse 96 Oximetry Procedures - Laceration Laceration #1 Consent Obtained: verbal consent Site: scalp Size (cm): 2 Description: linear Depth: simple, single layer Pre-repair: wound explored, irrigated extensively Type of Sutures: other (staple) Size of Sutures: other (staple) Number of Sutures: 2 Patient Tolerated Procedure: well, no complications Medical Decision Making - Medical Decision Making 68-year-old male patient past history of Parkinson's with baseline gait instability walking with walker presents ED for chief complaint of fall. Patient reports that he lost his balance fell forward hitting his head on a china cabinet. Glass reportedly break. Patient and felt ground. Patient did have a cervical fusion in May 2018. His not any blood denies. No loss of consciousness. Patient's chief complaint is laceration on head. Also a small abrasion to right shoulder. Denies any pain with exception of lacerations. Tetanus is up-to-date. Denies any other complaints. Patient vital signs are stable, afebrile. Physical exam displayed: CN II-XII intact. No nuchal rigidity. No raccon eyes, no humphreys sign, no hemotympanum. No cervical spinal tenderness. Repeat neuro exam wnl. 2 cm laceration apex of skull, irrigated, approximated with 2 mony. All abrasion to right eyelid. Nonopiate does not require closure. Small abrasion to right shoulder. Not open does not require closure. Patient denies any pain in eyes or any changes in vision. Examination of sclera was unremarkable. CT brain C-spine did not display any acute process. CT orbits displayed mild soft tissue swelling no fracture. Plain films shoulder displayed severe subacromial impingement consistent chronic rotator cuff. Patient has had pain in her shoulder for some time per patient which was believes it was from cervical impingement. The patient orthopedic follow-up, patient would prefer to follow up with Hernando werner orthopedist who operated on neck. Patient will be discharged to follow-up with primary care provider, return precautions discussed. Case discussed with Dr. Lindsey. Disposition Clinical Impression: Fall, Laceration Disposition: HOME SELF-CARE Condition: Stable Instructions (If sedation given, give patient instructions): Fall Prevention (ED), Staple Care (ED) Additional Instructions: Patient to adhere to previously discussed treatment plan and will take medication(s) as directed. Patient to follow up with PCP in 1-2 days. Patient to return to ED if symptoms do not improve. Please return for staple removal: Hand: 7-10 days Face: 5 days Chest/abdomen: 12-14 days Extremities: 7-10 days Scalp: 7 days Eyebrow: 5-7 days Foot/sole: 12-14 days Please monitor for signs and symptoms of infection including: redness, warmth, drainage, discharge. Please return to ED if these signs or symptoms occur, new signs or symptoms develop or if condition worsens in anyway. Is patient prescribed a controlled substance at d/c from ED?: No Referrals: Joaquim Blancas MD [Primary Care Provider] - 1-2 days
[2019-03-23 20:10] VITALS: BP 158/84; PULSE 76; TEMP 98.6
== END 2019-03-23 20:14 | disposition home or self-care (01) ==
LOC: EC 18:24
DX: S01.01XA Laceration without foreign body of scalp, initial encounter (principal); S40.211A Abrasion of right shoulder, initial encounter; I10 Essential (primary) hypertension; E78.5 Hyperlipidemia, unspecified; G47.30 Sleep apnea, unspecified; E07.9 Disorder of thyroid, unspecified; G20 Parkinson's disease; Z79.890 Hormone replacement therapy; Z79.899 Other long term (current) drug therapy; Z98.1 Arthrodesis status; Z99.89 Dependence on other enabling machines and devices; Z86.73 Personal history of transient ischemic attack (TIA), and cerebral infarction without residual deficits; W18.09XA Striking against other object with subsequent fall, initial encounter
CPT/HCPCS: 12001; 70450; 70480; 72125; 99284

== ENCOUNTER 2019-05-25 | Emergency (ER) | payer MEDICARE, OTHER | END 2019-05-25 16:58 | disposition home or self-care (01) | CPT/HCPCS: 36415; 80053; 83605; 85025; 81001; 87040; 87324; 87086; 99284; 96374; 96361; J0696; 87077; 87186 ==

== ENCOUNTER 2019-08-07 17:24 | Emergency (ER) | payer MEDICARE, OTHER ==
--- NOTE | 2019-08-07 18:12 | ED ---
General Adult HPI - General Chief complaint: Urogenital Stated complaint: Catheter issues Time Seen by Provider: 08/07/19 17:43 Source: patient, family, RN notes reviewed, old records reviewed Mode of arrival: wheelchair Limitations: no limitations - History of Present Illness Initial comments: This Patient is a 60-year-old male with a history of Parkinson's that the current indwelling Nielsen catheter. He presents today with abdominal distention, bladder distention and no output from his Nielsen catheter. He has a visiting nurse that comes and attempted to replace this today however the Nielsen was not draining after she replace the Nielsen twice. Patient was then sent to the ER for further evaluation. He does complain of some lower abdominal tenderness and fullness. They do note some purulent drainage coming from the Nielsen catheter site. He reportedly has a history of some chronic urinary tract infections but no recent antibiotics in the past 2 months. His urologist is Dr. Cerda. - Related Data Home Medications Medication Instructions Recorded Confirmed Levothyroxine Sodium [Synthroid] 88 mcg PO DAILY 08/19/17 02/08/19 Rosuvastatin Calcium [Crestor] 10 mg PO DAILY 08/19/17 02/08/19 Lisinopril-Hctz 20-12.5 mg 1 tab PO DAILY 03/26/18 02/08/19 [Zestoretic 20-12.5] Cholecalciferol [Vitamin D3 (25 2,000 unit PO TID 08/31/18 02/08/19 Mcg = 1000 Iu)] Citalopram Hydrobromide [CeleXA] 20 mg PO DAILY 01/12/19 02/08/19 Polyethylene Glycol 3350 [Miralax] 17 gm PO Q48H 01/12/19 02/08/19 Zinc Oxide [Desitin] 1 applic TOPICAL DAILY PRN 01/12/19 02/08/19 Cranberry 420mg 420 mg PO BID 02/08/19 02/08/19 Gabapentin [Neurontin] 300 mg PO DAILY 02/08/19 02/08/19 Previous Rx's Medication Instructions Recorded Aspirin 81 mg PO DAILY #1 chewable 08/23/17 Amoxicillin/Potassium Clav 1 tab PO Q12HR #10 tab 02/10/19 [Augmentin 875-125 Tablet] Cephalexin [Keflex] 500 mg PO Q6HR 7 Days #28 cap 05/25/19 Vancomycin HCl [Vancocin HCl] 125 mg PO Q6H 10 Days #40 capsule 05/25/19 Levofloxacin [Levaquin] 500 mg PO DAILY 7 Days #7 tab 08/07/19 Allergies Allergy/AdvReac Type Severity Reaction Status Date / Time No Known Allergies Allergy Verified 08/07/19 17:33 Review of Systems ROS Statement: Those systems with pertinent positive or pertinent negative responses have been documented in the HPI. ROS Other: All systems not noted in ROS Statement are negative. Past Medical History Past Medical History: Cancer, CVA/TIA, Hyperlipidemia, Hypertension, Pneumonia, Rheumatoid Arthritis (RA), Sleep Apnea/CPAP/BIPAP, Thyroid Disorder Additional Past Medical History / Comment(s): Slurred speech/possible tia ,uses CPAP at bed,bronchitis, skin ca lt arm, parkinson's disease is being worked up History of Any Multi-Drug Resistant Organisms: C-DIFF Date of last positivie culture/infection: 2017 MDRO Source:: stool Past Surgical History: Tonsillectomy Additional Past Surgical History / Comment(s): Heel spurs removed, colonoscopy, basal call carcinoma: skin cancer removed, Spinal fusion. Past Anesthesia/Blood Transfusion Reactions: Previous Problems w/ Anesthesia Additional Past Anesthesia/Blood Transfusion Reaction / Comment(s): Stopped breathing during colonoscopy yrs. ago before sleep apnea diagnosed per pt. Past Psychological History: No Psychological Hx Reported Smoking Status: Never smoker Past Alcohol Use History: Rare Past Drug Use History: None Reported - Past Family History Father Family Medical History: Cancer, Hypertension Additional Family Medical History / Comment(s): oral cancer Mother Family Medical History: Cancer Additional Family Medical History / Comment(s): "irreg heart rythym" General Exam - General Exam Comments Initial Comments: 68-year-old male. Alert and oriented 3. Patient appears in no significant distress. Limitations: no limitations General appearance: alert, in no apparent distress Head exam: Present: atraumatic, normocephalic, normal inspection Eye exam: Present: normal appearance, PERRL, EOMI. Absent: scleral icterus, conjunctival injection, periorbital swelling ENT exam: Present: normal exam, mucous membranes moist Neck exam: Present: normal inspection. Absent: tenderness, meningismus, ly mphadenopathy Respiratory exam: Present: normal lung sounds bilaterally. Absent: respiratory distress, wheezes, rales, rhonchi, stridor Cardiovascular Exam: Present: regular rate, normal rhythm, normal heart sounds. Absent: systolic murmur, diastolic murmur, rubs, gallop, clicks GI/Abdominal exam: Present: soft, normal bowel sounds. Absent: distended, tenderness, guarding, rebound, rigid exam: Present: normal inspection, other (Patient has indwelling Nielsen catheter. He does have a suprapubic distention at this time.) Extremities exam: Present: normal inspection, full ROM, normal capillary refill. Absent: tenderness, pedal edema, joint swelling, calf tenderness Back exam: Present: normal inspection Neurological exam: Present: alert, oriented X3, CN II-XII intact Psychiatric exam: Present: normal affect, normal mood Skin exam: Present: warm, dry, intact, normal color. Absent: rash Course Vital Signs 08/07/19 17:32 Temperature 99.1 F Pulse Rate 109 H Respiratory 18 Rate Blood Pressure 129/80 O2 Sat by Pulse 95 Oximetry - Reevaluation(s) Reevaluation #1: 08/07/19 19:43 I discussed the case with Dr. Gibson who discussed the case with Dr. Cerad. He recommended giving the Patient a dose of Levaquin which seemed to be susceptible to previous Citrobacter and indeterminate for previous pseudomonas on his last urine culture. He requested a second urine culture to be completed at this time and Patient can follow-up with him in the office. Medical Decision Making - Medical Decision Making Patient is a 68-year-old male who presents today with obstructed Nielsen catheter was replaced by a visiting nurse today. He does have suprapubic distention. Patient had a new Nielsen catheter placed at this time and approximately 1200 mL of urine was removed. Patient had urine sample today which did show evidence of urinary tract infection. With a history of sepsis and temperature 99.2 blood work was obtained. White blood cell count of 16,000. Patient case was discussed with Dr. Gibson who discussed the patient's urologist Dr. Cerda. Recommended having the Patient for started on oral antibiotics at this time to follow-up with him in the office this week. Patient's family and Patient are agreeable to this plan. - Lab Data Result diagrams: 08/07/19 18:29 08/07/19 18:29 Lab Results 0508/07/19 08/07/19 Range/Units 18:29 18:29 18:29 WBC 16.8 H (3.8-10.6) k/uL RBC 5.26 (4.30-5.90) m/uL Hgb 15.5 (13.0-17.5) gm/dL Hct 46.7 (39.0-53.0) % MCV 88.8 (80.0-100.0) fL MCH 29.5 (25.0-35.0) pg MCHC 33.3 (31.0-37.0) g/dL RDW 13.1 (11.5-15.5) % Plt Count 247 (150-450) k/uL Neutrophils % 86 % Lymphocytes % 7 % Monocytes % 5 % Eosinophils % 1 % Basophils % 0 % Neutrophils # 14.4 H (1.3-7.7) k/uL Lymphocytes # 1.2 (1.0-4.8) k/uL Monocytes # 0.9 (0-1.0) k/uL Eosinophils # 0.2 (0-0.7) k/uL Basophils # 0.1 (0-0.2) k/uL Sodium 133 L (137-145) mmol/L Potassium 4.3 (3.5-5.1) mmol/L Chloride 101 (98-107) mmol/L Carbon Dioxide 24 (22-30) mmol/L Anion Gap 8 mmol/L BUN 16 (9-20) mg/dL Creatinine 0.89 (0.66-1.25) mg/dL Est GFR (CKD-EPI)AfAm >90 (>60 ml/min/1.73 sqM) Est GFR (CKD-EPI)NonAf 88 (>60 ml/min/1.73 sqM) Glucose 104 H (74-99) mg/dL Plasma Lactic Acid Antonio (0.7-2.0) mmol/L Calcium 9.4 (8.4-10.2) mg/dL Urine Color Yellow Urine Appearance Turbid (Clear) Urine pH 6.0 (5.0-8.0) Ur Specific [place] 1.009 (1.001-1.035) Urine Protein 2+ H (Negative) Urine Glucose (UA) Negative (Negative) Urine Ketones Negative (Negative) Urine Blood Moderate H (Negative) Urine Nitrite Positive (Negative) Urine Bilirubin Negative (Negative) Urine Urobilinogen <2.0 (<2.0) mg/dL Ur Leukocyte Esterase Large H (Negative) Urine RBC 11 H (0-5) /hpf Urine WBC >182 H (0-5) /hpf Urine WBC Clumps Many H (None) /hpf Urine Bacteria Many H (None) /hpf 08/07/19 Range/Units 19:05 WBC (3.8-10.6) k/uL RBC (4.30-5.90) m/uL Hgb (13.0-17.5) gm/dL Hct (39.0-53.0) % MCV (80.0-100.0) fL MCH (25.0-35.0) pg MCHC (31.0-37.0) g/dL RDW (11.5-15.5) % Plt Count (150-450) k/uL Neutrophils % % Lymphocytes % % Monocytes % % Eosinophils % % Basophils % % Neutrophils # (1.3-7.7) k/uL Lymphocytes # (1.0-4.8) k/uL Monocytes # (0-1.0) k/uL Eosinophils # (0-0.7) k/uL Basophils # (0-0.2) k/uL Sodium (137-145) mmol/L Potassium (3.5-5.1) mmol/L Chloride (98-107) mmol/L Carbon Dioxide (22-30) mmol/L Anion Gap mmol/L BUN (9-20) mg/dL Creatinine (0.66-1.25) mg/dL Est GFR (CKD-EPI)AfAm (>60 ml/min/1.73 sqM) Est GFR (CKD-EPI)NonAf (>60 ml/min/1.73 sqM) Glucose (74-99) mg/dL Plasma Lactic Acid Antonio 1.5 (0.7-2.0) mmol/L Calcium (8.4-10.2) mg/dL Urine Color Urine Appearance (Clear) Urine pH (5.0-8.0) Ur Specific [place] (1.001-1.035) Urine Protein (Negative) Urine Glucose (UA) (Negative) Urine Ketones (Negative) Urine Blood (Negative) Urine Nitrite (Negative) Urine Bilirubin (Negative) Urine Urobilinogen (<2.0) mg/dL Ur Leukocyte Esterase (Negative) Urine RBC (0-5) /hpf Urine WBC (0-5) /hpf Urine WBC Clumps (None) /hpf Urine Bacteria (None) /hpf Disposition Clinical Impression: UTI (urinary tract infection), Leukocytosis, Nielsen catheter problem Disposition: HOME SELF-CARE Condition: Stable Instructions (If sedation given, give patient instructions): Urinary Tract Infection in Men (ED) Additional Instructions: Patient advised to follow-up with Dr. Cerda in the office this week. Taking the antibiotic as prescribed. Prescriptions: Levofloxacin [Levaquin] 500 mg PO DAILY 7 Days #7 tab Is patient prescribed a controlled substance at d/c from ED?: No Referrals: Joaquim Blancas MD [Primary Care Provider] - 1-2 days Time of Disposition: 19:47
[2019-08-07 18:48] LABS: Basophils # (A) 0.1 k/uL (0-0.2); Basophils % (A) 0 %; Eosinophils # (A) 0.2 k/uL (0-0.7); Eosinophils % (A) 1 %; HCT 46.7 % (39.0-53.0); HGB 15.5 gm/dL (13.0-17.5); Lymphocytes # (A) 1.2 k/uL (1.0-4.8); Lymphocytes % (A) 7 %; MCH 29.5 pg (25.0-35.0); MCHC 33.3 g/dL (31.0-37.0); MCV 88.8 fL (80.0-100.0); Mean Platelet Volume 7.1; Monocytes # (A) 0.9 k/uL (0-1.0); Monocytes % (A) 5 %; Neutrophils # (A) 14.4 k/uL (1.3-7.7); Neutrophils % (A) 86 %; Platelet Count 247 k/uL (150-450); RBC 5.26 m/uL (4.30-5.90); RDW 13.1 % (11.5-15.5); WBC 16.8 k/uL (3.8-10.6)
[2019-08-07 18:56] LABS: African American GFR (CKD) >90 (>60 ml/min/1.73 sqM); Anion Gap 8 mmol/L; Blood Urea Nitrogen 16 mg/dL (9-20); Calcium 9.4 mg/dL (8.4-10.2); Carbon Dioxide 24 mmol/L (22-30); Chloride 101 mmol/L (98-107); Glucose 104 mg/dL (74-99); Non-African American GFR(CKD) 88 (>60 ml/min/1.73 sqM); Potassium 4.3 mmol/L (3.5-5.1); Sodium 133 mmol/L (137-145)
[2019-08-07 19:00] LABS: Appearance,Urine Turbid (Clear); Bacteria,Urine Many /hpf; Bilirubin,Urine Negative (Negative); Blood,Urine Moderate (Negative); Color,Urine Yellow; Glucose,Urine (UA) Negative (Negative); Ketones,Urine Negative (Negative); Leukocyte Esterase,Urine Large (Negative); Nitrite,Urine Positive (Negative); Protein,Urine 2+ (Negative); RBC,Urine 11 /hpf (0-5); Urobilinogen,Urine <2.0 mg/dL (<2.0); WBC,Urine >182 /hpf (0-5)
[2019-08-07 19:03] LABS: Specific Gravity,Urine 1.009 (1.001-1.035)
[2019-08-07] MEDS ORDERED: PIPERACILLIN-TAZOBACTAM 3.375 GM in SODIUM CHLORIDE 0.9% 100 ML IVPB STA (19:15)
[2019-08-07] MEDS ORDERED: LEVOFLOXACIN 750 MG TAB PO STA (19:41)
[2019-08-07 20:09] VITALS: BP 120/78; PULSE 93; RESP 17; TEMP 98.5
[2019-08-08] MEDS ORDERED: PIPERACILLIN-TAZOBACTAM 3.375 GM in SODIUM CHLORIDE 0.9% 100 ML IVPB SCH ×2
== END 2019-08-07 20:20 | disposition home or self-care (01) ==
LOC: EC 17:24
DX: T83.9XXA Unspecified complication of genitourinary prosthetic device, implant and graft, initial encounter (principal); N39.0 Urinary tract infection, site not specified; D72.828 Other elevated white blood cell count; E07.9 Disorder of thyroid, unspecified; E78.5 Hyperlipidemia, unspecified; I10 Essential (primary) hypertension; G47.30 Sleep apnea, unspecified; Z79.890 Hormone replacement therapy; Z79.899 Other long term (current) drug therapy; Z99.89 Dependence on other enabling machines and devices; Z86.73 Personal history of transient ischemic attack (TIA), and cerebral infarction without residual deficits; Z98.1 Arthrodesis status; Z85.828 Personal history of other malignant neoplasm of skin
CPT/HCPCS: 36415; 51702; 80048; 81001; 83605; 85025; 87086; 99284

== ENCOUNTER → 2019-08-20 | Outpatient (CLI) | payer MEDICARE, OTHER ==
[2019-08-20 12:21] LABS: Basophils # (A) 0.1 k/uL (0-0.2); Basophils % (A) 1 %; Eosinophils # (A) 0.2 k/uL (0-0.7); Eosinophils % (A) 2 %; HCT 44.8 % (39.0-53.0); HGB 15.3 gm/dL (13.0-17.5); Lymphocytes # (A) 1.5 k/uL (1.0-4.8); Lymphocytes % (A) 16 %; MCH 30.7 pg (25.0-35.0); MCHC 34.1 g/dL (31.0-37.0); MCV 90.1 fL (80.0-100.0); Mean Platelet Volume 6.7; Monocytes # (A) 0.5 k/uL (0-1.0); Monocytes % (A) 5 %; Neutrophils # (A) 7.1 k/uL (1.3-7.7); Neutrophils % (A) 75 %; Platelet Count 280 k/uL (150-450); RBC 4.98 m/uL (4.30-5.90); WBC 9.4 k/uL (3.8-10.6)
[2019-08-20 12:23] LABS: African American GFR (CKD) >90 (>60 ml/min/1.73 sqM); Anion Gap 10 mmol/L; Blood Urea Nitrogen 16 mg/dL (9-20); Calcium 9.7 mg/dL (8.4-10.2); Carbon Dioxide 27 mmol/L (22-30); Chloride 100 mmol/L (98-107); Glucose 89 mg/dL (74-99); Non-African American GFR(CKD) 82 (>60 ml/min/1.73 sqM); Potassium 4.4 mmol/L (3.5-5.1); Sodium 137 mmol/L (137-145)
[2019-08-20 14:33] LABS: Amorphous Sediment,Urine Rare /hpf; Appearance,Urine Clear (Clear); Bacteria,Urine Rare /hpf; Bilirubin,Urine Negative (Negative); Blood,Urine Small (Negative); Color,Urine Light Yellow; Glucose,Urine (UA) Negative (Negative); Ketones,Urine Negative (Negative); Leukocyte Esterase,Urine Moderate (Negative); Mucus,Urine Rare /hpf; Nitrite,Urine Negative (Negative); PH, Urine 6.5 (5.0-8.0); Protein,Urine Negative (Negative); RBC,Urine 1 /hpf (0-5); Specific Gravity,Urine 1.007 (1.001-1.035); Urobilinogen,Urine <2.0 mg/dL (<2.0); WBC,Urine 16 /hpf (0-5)
== END | disposition home or self-care (01) ==
LOC: LABPAT 09:58
PROVIDERS: ATTEND Urology
DX: Z01.818 Encounter for other preprocedural examination (principal); R33.9 Retention of urine, unspecified; N31.9 Neuromuscular dysfunction of bladder, unspecified
CPT/HCPCS: 36415; 80048; 81001; 85025; 87077; 87086; 87186

== ENCOUNTER → 2019-08-27 | Day surgery (SDC) | payer MEDICARE, OTHER ==
--- NOTE | 2019-08-26 09:49 | P.GSHP ---
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 He has urine retention. This is chronic. He is uncomfortable with the urethral catheter. The visitning nurses have a hard time changing it. We will therefore place a sp tube which should be easier to manage He comes for this procedure. - Constitutional Constitutional: Reports weakness, Reports weight gain - Genitourinary (Male) Genitourinary: Reports as per HPI - Musculoskeletal Musculoskeletal: Reports frequent falls, Reports limitation of motion - Neurological Neurological: Reports balance difficulties, Reports lack of coordination, Reports motor disturbance Past Medical History Past Medical History: Cancer, CVA/TIA, Hyperlipidemia, Hypertension, Pneumonia, Rheumatoid Arthritis (RA), Sleep Apnea/CPAP/BIPAP, Thyroid Disorder Additional Past Medical History / Comment(s): Slurred speech/possible tia ,uses CPAP at bed,bronchitis, skin ca lt arm, parkinson's disease is being worked up History of Any Multi-Drug Resistant Organisms: C-DIFF Date of last positivie culture/infection: 2017 MDRO Source:: stool Past Surgical History: Tonsillectomy Additional Past Surgical History / Comment(s): Heel spurs removed, colonoscopy, basal call carcinoma: skin cancer removed, Spinal fusion. Past Anesthesia/Blood Transfusion Reactions: Previous Problems w/ Anesthesia Additional Past Anesthesia/Blood Transfusion Reaction / Comment(s): Stopped breathing during colonoscopy yrs. ago before sleep apnea diagnosed per pt. Past Psychological History: No Psychological Hx Reported Smoking Status: Never smoker Past Alcohol Use History: Rare Past Drug Use History: None Reported - Past Family History Father Family Medical History: Cancer, Hypertension Additional Family Medical History / Comment(s): oral cancer Mother Family Medical History: Cancer Additional Family Medical History / Comment(s): "irreg heart rythym" Medications and Allergies Home Medications Medication Instructions Recorded Confirmed Type Levothyroxine Sodium [Synthroid] 88 mcg PO DAILY 08/19/17 02/08/19 History Rosuvastatin Calcium [Crestor] 10 mg PO DAILY 08/19/17 02/08/19 History Aspirin 81 mg PO DAILY #1 chewable 08/23/17 02/08/19 Rx Lisinopril-Hctz 20-12.5 mg 1 tab PO DAILY 03/26/18 02/08/19 History [Zestoretic 20-12.5] Cholecalciferol [Vitamin D3 (25 2,000 unit PO TID 08/31/18 02/08/19 History Mcg = 1000 Iu)] Citalopram Hydrobromide [CeleXA] 20 mg PO DAILY 01/12/19 02/08/19 History Polyethylene Glycol 3350 [Miralax] 17 gm PO Q48H 01/12/19 02/08/19 History Zinc Oxide [Desitin] 1 applic TOPICAL DAILY PRN 01/12/19 02/08/19 History Cranberry 420mg 420 mg PO BID 02/08/19 02/08/19 History Gabapentin [Neurontin] 300 mg PO DAILY 02/08/19 02/08/19 History Amoxicillin/Potassium Clav 1 tab PO Q12HR #10 tab 02/10/19 Rx [Augmentin 875-125 Tablet] Cephalexin [Keflex] 500 mg PO Q6HR 7 Days #28 cap 05/25/19 Rx Vancomycin HCl [Vancocin HCl] 125 mg PO Q6H 10 Days #40 capsule 05/25/19 Rx Levofloxacin [Levaquin] 500 mg PO DAILY 7 Days #7 tab 08/07/19 Rx Levofloxacin [Levaquin] 500 mg PO DAILY 7 Days #7 tab 08/07/19 Rx Allergies Allergy/AdvReac Type Severity Reaction Status Date / Time No Known Allergies Allergy Verified 08/07/19 17:33 Surgical - Exam - General well developed, no distress, obese - Eyes PERRL - ENT no hearing loss - Neck trachea midline - Respiratory normal expansion, normal respiratory effort - Cardiovascular Rhythm: regular - Abdomen Abdomen: soft, non tender - Genitourinary indwelling catheter. normal penis with no external lesions - Integumentary no rash, no growths - Neurologic loss of balance and coordination flat affect - Musculoskeletal weakness, shuffling gait.wheelchair - Psychiatric oriented to time, oriented to person, oriented to place, speech is normal, memory intact Assessment and Plan Assessment: Impression: Multisystem Atrophy, neurogenic bladder with urine retention Plan: Cysto with placement of suprapubic cystostomy tube
[2019-08-26 10:17] VITALS: BMI 42.0
[~2019-08-27] MED LIST: AMPICILLIN 1,000 MG in SODIUM CHLORIDE 0.9% 50 ML IVPB ONE; GENTAMICIN 140 MG in SODIUM CHLORIDE 0.9% 100 ML IVPB ONE; HYDROmorphone 0.5 MG/0.5 ML SYRINGE IVP PRN; LACTATED RINGERS 1,000 ML IV SCH; MIDAZOLAM 2 MG/2 ML VIAL ONE; ePHEDrine SULFATE/0.9% NACL/PF 50 MG/5 ML SYRINGE IV ONE; fentaNYL (PF) 50 MCG/ML 2 ML AMP IV PRN; fentaNYL (PF) 50 MCG/ML 2 ML AMP ONE
[2019-08-27 09:41] VITALS: RESP 16
--- NOTE | 2019-08-27 11:10 | P.OP ---
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 He has chronic urine retention due to a hypotonic neurogenic bladder. He has an indwelling urethral catheter that is difficult to exchange due to his obesity . A suprapubic tube will be placed to facilitate comfort and exchange. Description of Procedure: The patient is brought to the operating suite. He is given a spinal anesthetic. He's placed lithotomy position with sterile prep and drape. Cystoscopy Foroblique lens and 22-[place]oc[place] sheath identifies normal urethra. The prostates minimally obstructing. The bladder elmore chronically inflamed. The bladder elmore irrigated thoroughly multiple times. I then pass an 18-[place] curved notch [place] sound into the bladder. I attended to the anterior bladder wall. I then make a suprapubic incision and tediously dissect down through his large pannus into the suprapubic region. I make a cystotomy and then popped the suprapubic tube back through the cystotomy. I then place a 2-0 silk through an 18-[place]oc[place] Nielsen catheter into the eye the notched sound. I then pull the Nielsen and sound back through the bladder and into the urethra. I cut the stitch and slowly followed the catheter back into the bladder and then insufflate the catheter balloon and the bladder. I then secured the catheter suprapubically with 2 2-0 silk's. I closed the skin of the suprapubic incision for Vicryl. The catheter irrigated freely. The patient returned recovery room good condition Impression successful placement of suprapubic tube for a hypotonic neurogenic bladder due to multisystem atrophy.
[2019-08-27 11:17] VITALS: TEMP 97.1
[2019-08-27 12:33] VITALS: BP 98/68; PULSE 92
== END | disposition home or self-care (01) ==
LOC: OR 08:57
PROVIDERS: ATTEND Urology
DX: N31.9 Neuromuscular dysfunction of bladder, unspecified (principal); R33.9 Retention of urine, unspecified; G20 Parkinson's disease; G90.3 Multi-system degeneration of the autonomic nervous system; E66.9 Obesity, unspecified; I10 Essential (primary) hypertension; E78.5 Hyperlipidemia, unspecified; G47.33 Obstructive sleep apnea (adult) (pediatric); E07.9 Disorder of thyroid, unspecified; M06.9 Rheumatoid arthritis, unspecified; Z79.82 Long term (current) use of aspirin; Z79.890 Hormone replacement therapy; Z79.899 Other long term (current) drug therapy; Z99.89 Dependence on other enabling machines and devices; Z87.01 Personal history of pneumonia (recurrent); Z86.73 Personal history of transient ischemic attack (TIA), and cerebral infarction without residual deficits; Z85.828 Personal history of other malignant neoplasm of skin; Z90.89 Acquired absence of other organs; Z98.1 Arthrodesis status; Z86.19 Personal history of other infectious and parasitic diseases; Z82.49 Family history of ischemic heart disease and other diseases of the circulatory system; Z80.0 Family history of malignant neoplasm of digestive organs; Z80.9 Family history of malignant neoplasm, unspecified; Z68.41 Body mass index [BMI] 40.0-44.9, adult
CPT/HCPCS: 51040; C2627; J2250; J3010; J1580; J0290; J1170

== ENCOUNTER 2019-11-20 16:24 | Emergency (ER) | payer MEDICARE, OTHER ==
[2019-11-20 16:34] VITALS: BP 145/83; PULSE 87; RESP 18; TEMP 98.2
--- NOTE | 2019-11-20 16:34 | ED ---
Fall HPI - General Stated Complaint: Fall Time Seen by Provider: 11/20/19 16:27 Source: RN notes reviewed, old records reviewed - History of Present Illness Initial Comments: This is a 69-year-old male DF patient presents today status post a trip and fall, no symptoms prior to fall no headache chest pain shortness breath or abdo cristian pain. Patient is complaining from some pain from the fall began today to fall no traumatic injury. Patient takes no blood thinners. No loss of consciousness MD Complaint: fall -: days(s) Fall From: standing When Fall Occurred: 1 hour TARE WEIGHER Fall Witnessed: yes, by family Place Fall Occurred: home Loss of Consciousness: none Prolonged Down Time?: no Symptoms Prior to Fall: none Location: face Location - Extremities: Left: Shoulder Severity: moderate Severity scale (1-10): 4 Quality: aching Context: tripped/slipped Associated Symptoms: denies - Related Data Home Medications Medication Instructions Recorded Confirmed Levothyroxine Sodium [Synthroid] 88 mcg PO DAILY 08/19/17 08/26/19 Rosuvastatin Calcium [Crestor] 10 mg PO DAILY 08/19/17 08/26/19 Lisinopril-Hctz 20-12.5 mg 1 tab PO DAILY 03/26/18 08/26/19 [Zestoretic 20-12.5] Cholecalciferol [Vitamin D3 (25 6,000 unit PO DAILY 08/31/18 08/26/19 Mcg = 1000 Iu)] Citalopram Hydrobromide [CeleXA] 20 mg PO DAILY 01/12/19 08/26/19 Polyethylene Glycol 3350 [Miralax] 17 gm PO Q48H PRN 01/12/19 08/26/19 Zinc Oxide [Desitin] 1 applic TOPICAL DAILY PRN 01/12/19 08/26/19 Cranberry 420mg 420 mg PO DAILY 02/08/19 08/26/19 Gabapentin [Neurontin] 300 mg PO HS 02/08/19 08/26/19 Acetaminophen Tab [Tylenol] 650 mg PO HS 08/26/19 08/26/19 Loratadine [Claritin] 10 mg PO DAILY 08/26/19 08/26/19 Previous Rx's Medication Instructions Recorded Aspirin 81 mg PO DAILY #1 chewable 08/23/17 HYDROcodone/APAP 5-325MG [[place] 1 tab PO Q4HR PRN #10 tab 08/27/19 5-325] Allergies Allergy/AdvReac Type Severity Reaction Status Date / Time No Known Allergies Allergy Verified 08/27/19 09:35 Review of Systems ROS Statement: Those systems with pertinent positive or pertinent negative responses have been documented in the HPI. ROS Other: All systems not noted in ROS Statement are negative. Past Medical History Past Medical History: Cancer, CVA/TIA, Hyperlipidemia, Hypertension, Pneumonia, Rheumatoid Arthritis (RA), Sleep Apnea/CPAP/BIPAP, Thyroid Disorder Additional Past Medical History / Comment(s): Slurred speech/possible tia ,uses CPAP at bed,bronchitis, skin ca lt arm, parkinson's disease is being worked up History of Any Multi-Drug Resistant Organisms: C-DIFF Date of last positivie culture/infection: 2017 MDRO Source:: stool Past Surgical History: Tonsillectomy Additional Past Surgical History / Comment(s): Heel spurs removed, colonoscopy, basal call carcinoma: skin cancer removed, Spinal fusion. Past Anesthesia/Blood Transfusion Reactions: Previous Problems w/ Anesthesia Additional Past Anesthesia/Blood Transfusion Reaction / Comment(s): Stopped breathing during colonoscopy yrs. ago before sleep apnea diagnosed per pt. Additional Psychological History / Comment(s): Pt. is independent. Lives in single level home that has 4 front porch steps.1 pet dog and . No home care services recieved. Has a cpap machine. Use a claw, and either a cane or walker. Walker has 2 wheels and cane is old fashioned. Uses only walker now. - Past Family History Father Family Medical History: Cancer, Hypertension Additional Family Medical History / Comment(s): oral cancer Mother Family Medical History: Cancer Additional Family Medical History / Comment(s): "irreg heart rythym" General Exam General appearance: alert, in no apparent distress Head exam: Present: atraumatic, normocephalic, normal inspection Eye exam: Present: normal appearance, PERRL, EOMI. Absent: scleral icterus, conjunctival injection, periorbital swelling ENT exam: Present: normal exam, mucous membranes moist Neck exam: Present: normal inspection. Absent: tenderness, meningismus, lymphadenopathy Respiratory exam: Present: normal lung sounds bilaterally. Absent: respiratory distress, wheezes, rales, rhonchi, stridor Cardiovascular Exam: Present: regular rate, normal rhythm, normal heart sounds. Absent: systolic murmur, diastolic murmur, rubs, gallop, clicks GI/Abdominal exam: Present: soft, normal bowel sounds. Absent: distended, tende rness, guarding, rebound, rigid Extremities exam: Present: normal inspection, full ROM, normal capillary refill. Absent: tenderness, pedal edema, joint swelling, calf tenderness Back exam: Present: normal inspection Neurological exam: Present: alert, oriented X3, CN II-XII intact Psychiatric exam: Present: normal affect, normal mood Skin exam: Present: warm, dry, intact, normal color. Absent: rash Course Vital Signs 11/20/19 16:26 Temperature 98.2 F Pulse Rate 87 Respiratory 18 Rate Blood Pressure 145/83 O2 Sat by Pulse 96 Oximetry - Reevaluation(s) Reevaluation #1: Medical record is reviewed Patient reevaluated, symptoms are significantly improved Patient informed of results and questions are answered Medical Decision Making - Medical Decision Making 69 male DF status post slip and fall. No triadic injury noted from event. Patient can be discharged home - Lab Data Result diagrams: 11/20/19 16:55 11/20/19 16:55 Lab Results 11/20/19 11/20/19 11/20/19 Range/Units 16:55 16:55 16:55 WBC 11.1 H (3.8-10.6) k/uL RBC 5.18 (4.30-5.90) m/uL Hgb 15.5 (13.0-17.5) gm/dL Hct 45.8 (39.0-53.0) % MCV 88.3 (80.0-100.0) fL MCH 29.9 (25.0-35.0) pg MCHC 33.9 (31.0-37.0) g/dL RDW 13.4 (11.5-15.5) % Plt Count 271 (150-450) k/uL Neutrophils % 77 % Lymphocytes % 16 % Monocytes % 5 % Eosinophils % 1 % Basophils % 1 % Neutrophils # 8.5 H (1.3-7.7) k/uL Lymphocytes # 1.7 (1.0-4.8) k/uL Monocytes # 0.5 (0-1.0) k/uL Eosinophils # 0.1 (0-0.7) k/uL Basophils # 0.1 (0-0.2) k/uL PT 10.2 (9.0-12.0) sec INR 1.0 (<1.2) APTT 25.1 (22.0-30.0) sec Sodium (137-145) mmol/L Potassium (3.5-5.1) mmol/L Chloride (98-107) mmol/L Carbon Dioxide (22-30) mmol/L Anion Gap mmol/L BUN (9-20) mg/dL Creatinine (0.66-1.25) mg/dL Est GFR (CKD-EPI)AfAm (>60 ml/min/1.73 sqM) Est GFR (CKD-EPI)NonAf (>60 ml/min/1.73 sqM) Glucose (74-99) mg/dL Calcium (8.4-10.2) mg/dL Phosphorus (2.5-4.5) mg/dL Magnesium (1.6-2.3) mg/dL Total Bilirubin (0.2-1.3) mg/dL AST (17-59) U/L ALT (4-49) U/L Alkaline Phosphatase (38-126) U/L Creatine Kinase (55-170) U/L Troponin I (0.000-0.034) ng/mL NT-Pro-B Natriuret Pep pg/mL Total Protein (6.3-8.2) g/dL Albumin (3.5-5.0) g/dL Urine Color Yellow Urine Appearance Cloudy (Clear) Urine pH 7.0 (5.0-8.0) Ur Specific [place] 1.015 (1.001-1.035) Urine Protein Trace H (Negative) Urine Glucose (UA) Negative (Negative) Urine Ketones Negative (Negative) Urine Blood Negative (Negative) Urine Nitrite Positive (Negative) Urine Bilirubin Negative (Negative) Urine Urobilinogen <2.0 (<2.0) mg/dL Ur Leukocyte Esterase Large H (Negative) Urine RBC 5 (0-5) /hpf Urine WBC 47 H (0-5) /hpf Amorphous Sediment Occasional H (None) /hpf Urine Bacteria Rare H (None) /hpf Urine Mucus Rare H (None) /hpf 11/20/19 11/20/19 11/20/19 Range/Units 16:55 16:55 16:55 WBC (3.8-10.6) k/uL RBC (4.30-5.90) m/uL Hgb (13.0-17.5) gm/dL Hct (39.0-53.0) % MCV (80.0-100.0) fL MCH (25.0-35.0) pg MCHC (31.0-37.0) g/dL RDW (11.5-15.5) % Plt Count (150-450) k/uL Neutrophils % % Lymphocytes % % Monocytes % % Eosinophils % % Basophils % % Neutrophils # (1.3-7.7) k/uL Lymphocytes # (1.0-4.8) k/uL Monocytes # (0-1.0) k/uL Eosinophils # (0-0.7) k/uL Basophils # (0-0.2) k/uL PT (9.0-12.0) sec INR (<1.2) APTT (22.0-30.0) sec Sodium 134 L (137-145) mmol/L Potassium 4.1 (3.5-5.1) mmol/L Chloride 98 (98-107) mmol/L Carbon Dioxide 26 (22-30) mmol/L Anion Gap 10 mmol/L BUN 17 (9-20) mg/dL Creatinine 1.05 (0.66-1.25) mg/dL Est GFR (CKD-EPI)AfAm 84 (>60 ml/min/1.73 sqM) Est GFR (CKD-EPI)NonAf 73 (>60 ml/min/1.73 sqM) Glucose 92 (74-99) mg/dL Calcium 9.4 (8.4-10.2) mg/dL Phosphorus 3.2 (2.5-4.5) mg/dL Magnesium 2.1 (1.6-2.3) mg/dL Total Bilirubin 0.6 (0.2-1.3) mg/dL AST 20 (17-59) U/L ALT 13 (4-49) U/L Alkaline Phosphatase 56 (38-126) U/L Creatine Kinase 71 (55-170) U/L Troponin I <0.012 (0.000-0.034) ng/mL NT-Pro-B Natriuret Pep 81 pg/mL Total Protein 6.8 (6.3-8.2) g/dL Albumin 4.4 (3.5-5.0) g/dL Urine Color Urine Appearance (Clear) Urine pH (5.0-8.0) Ur Specific [place] (1.001-1.035) Urine Protein (Negative) Urine Glucose (UA) (Negative) Urine Ketones (Negative) Urine Blood (Negative) Urine Nitrite (Negative) Urine Bilirubin (Negative) Urine Urobilinogen (<2.0) mg/dL Ur Leukocyte Esterase (Negative) Urine RBC (0-5) /hpf Urine WBC (0-5) /hpf Amorphous Sediment (None) /hpf Urine Bacteria (None) /hpf Urine Mucus (None) /hpf - Radiology Data Radiology results: report reviewed (CT of brain and C-spine as well as chest pelvis and shoulder x-ray are all negative), image reviewed Disposition Clinical Impression: Fall Disposition: HOME SELF-CARE Condition: Good Instructions (If sedation given, give patient instructions): Fall Prevention for Older Adults (ED) Is patient prescribed a controlled substance at d/c from ED?: No Referrals: None,Stated [REFERRING] - 1-2 days
[2019-11-20] MEDS ORDERED: SODIUM CHLORIDE 0.9% 1,000 ML IV STA (16:43)
--- NOTE | 2019-11-20 17:14 | XR ---
EXAMINATION TYPE: XR shoulder complete LT DATE OF EXAM: 11/20/2019 COMPARISON: NONE HISTORY: Pain TECHNIQUE: 3 views FINDINGS: There is no evidence of fracture nor dislocation. There is minor spurring at the glenohumer al joint. IMPRESSION: Minimal arthritic changes. No fracture seen.
--- NOTE | 2019-11-20 17:15 | XR ---
EXAMINATION TYPE: XR pelvis AP view DATE OF EXAM: 11/20/2019 COMPARISON: NONE HISTORY: Pain. TECHNIQUE: Single view FINDINGS: Pelvic ring is intact. There is mild symmetric acetabular spurring. Sacroiliac joints are i ntact. There is no evidence of a hip fracture. IMPRESSION: Mild hip joint osteoarthritis. No fracture.
--- NOTE | 2019-11-20 17:17 | XR ---
EXAMINATION TYPE: XR chest 1V DATE OF EXAM: 11/20/2019 COMPARISON: 02/07/2019 HISTORY: Fall. Pain. TECHNIQUE: FINDINGS: Portable upright view shows no heart failure nor confluent pneumonic infiltrate. Costophren ic angles are clear. There is mild elevation of the right diaphragm. There is spurring in the thoraci c spine. There is cervical spine fusion surgery. IMPRESSION: No active cardiopulmonary disease. Mild chronic elevation of right diaphragm.
[2019-11-20 17:18] LABS: Basophils # (A) 0.1 k/uL (0-0.2); Basophils % (A) 1 %; Eosinophils # (A) 0.1 k/uL (0-0.7); Eosinophils % (A) 1 %; HCT 45.8 % (39.0-53.0); HGB 15.5 gm/dL (13.0-17.5); Lymphocytes # (A) 1.7 k/uL (1.0-4.8); Lymphocytes % (A) 16 %; MCH 29.9 pg (25.0-35.0); MCHC 33.9 g/dL (31.0-37.0); MCV 88.3 fL (80.0-100.0); Mean Platelet Volume 6.9; Monocytes # (A) 0.5 k/uL (0-1.0); Monocytes % (A) 5 %; Neutrophils # (A) 8.5 k/uL (1.3-7.7); Neutrophils % (A) 77 %; Platelet Count 271 k/uL (150-450); RBC 5.18 m/uL (4.30-5.90); RDW 13.4 % (11.5-15.5); WBC 11.1 k/uL (3.8-10.6)
[2019-11-20 17:25] LABS: Potassium 4.1 mmol/L (3.5-5.1)
[2019-11-20 17:27] LABS: Albumin 4.4 g/dL (3.5-5.0); Calcium 9.4 mg/dL (8.4-10.2); Magnesium 2.1 mg/dL (1.6-2.3); Phosphorus 3.2 mg/dL (2.5-4.5); Total Bilirubin 0.6 mg/dL (0.2-1.3); Total Protein 6.8 g/dL (6.3-8.2)
--- NOTE | 2019-11-20 17:37 | CT ---
EXAMINATION TYPE: CT brain cspine wo con DATE OF EXAM: 11/20/2019 COMPARISON: 03/23/2019 HISTORY: Fall today with injury CT DLP: 1785.8 mGycm Automated exposure control for dose reduction was used. There is cerebral cortical atrophy. There is no mass effect nor midline shift. There is no sign of in tracranial hemorrhage. Calvarium is intact. Skull base is intact. There is normal aeration of the tem poral bones. Cervical vertebra have normal alignment. There is posterior fusion surgery with rods and screws from C2 to C6 level. There is hypertrophic anterior bridging osteophyte formation from C3 to T1. I see no compression fracture. There is multilevel cervical laminectomy. IMPRESSION: Cerebral atrophy and no acute intracranial abnormality. Brain unchanged compared to old exam. Previous cervical spine fusion surgery. Multilevel spondylotic changes. No fracture. No change compar ed to old exam.
[2019-11-20 17:41] LABS: Amorphous Sediment,Urine Occasional /hpf; Appearance,Urine Cloudy (Clear); Bacteria,Urine Rare /hpf; Bilirubin,Urine Negative (Negative); Blood,Urine Negative (Negative); Color,Urine Yellow; Glucose,Urine (UA) Negative (Negative); Ketones,Urine Negative (Negative); Leukocyte Esterase,Urine Large (Negative); Mucus,Urine Rare /hpf; Nitrite,Urine Positive (Negative); Protein,Urine Trace (Negative); RBC,Urine 5 /hpf (0-5); Specific Gravity,Urine 1.015 (1.001-1.035); Urobilinogen,Urine <2.0 mg/dL (<2.0); WBC,Urine 47 /hpf (0-5)
[2019-11-20 18:02] LABS: Partial Thromboplastin Time 25.1 sec (22.0-30.0)
[2019-11-20 18:03] LABS: Prothrombin Time 10.2 sec (9.0-12.0)
[2019-11-20] MEDS ORDERED: cefTRIAXone IN SWFI 1,000 MG/10 ML SYRINGE IVP STA (18:11)
== END 2019-11-20 19:28 | disposition home or self-care (01) ==
LOC: EC 16:24
DX: M25.512 Pain in left shoulder (principal); E78.5 Hyperlipidemia, unspecified; I10 Essential (primary) hypertension; G47.33 Obstructive sleep apnea (adult) (pediatric); E07.9 Disorder of thyroid, unspecified; Z79.890 Hormone replacement therapy; Z79.899 Other long term (current) drug therapy; Z99.89 Dependence on other enabling machines and devices; Z86.73 Personal history of transient ischemic attack (TIA), and cerebral infarction without residual deficits; Z98.1 Arthrodesis status; Z85.828 Personal history of other malignant neoplasm of skin; Z80.8 Family history of malignant neoplasm of other organs or systems; W01.0XXA Fall on same level from slipping, tripping and stumbling without subsequent striking against object, initial encounter; Y93.89 Activity, other specified; Y92.89 Other specified places as the place of occurrence of the external cause
CPT/HCPCS: 36415; 70450; 71045; 72125; 72170; 80053; 81001; 82550; 83735; 83880; 84100; 84484; 85025; 85610; 85730; 87077; 87086; 87186; 93005; 99284

== ENCOUNTER 2019-11-28 17:05 | Emergency (ER) | payer MEDICARE, OTHER ==
[2019-11-28 17:31] VITALS: RESP 18
--- NOTE | 2019-11-28 17:46 | ED ---
General Adult HPI - General Chief complaint: Urogenital Stated complaint: Cath problems Time Seen by Provider: 11/28/19 17:30 Source: patient, EMS Mode of arrival: EMS Limitations: language barrier, physical limitation - History of Present Illness Initial comments: Dictation was produced using [employer]kick dictation software. please excuse any grammatical, word or spelling errors. This patient was cared for during a federal and state declared state of emergency secondary to Covid 19 Chief Complaint: 69-year-old male past medical history of CVA, multisystem atrophy, rheumatoid arthritis presents with urinary retention. History of Present Illness: She is 69-year-old male he has multiple comorbidities. Patient has history of chronic urinary retention. He several years ago received a urostomy tube placement by Dr. Rao. Patient was reevaluated by home health care nurse. She was not able to replace the urostomy tube per she was sent to the emergency department instead. Patient has not had passage of any urinary approximately 7 hours. He has history of chronic slurred speech Parkinson's disease. The ROS documented in this emergency department record has been reviewed and confirmed by me. Those systems with pertinent positive or negative responses have been documented in the HPI. All other systems are other negative and/or noncontributory. PHYSICAL EXAM: General Impression: Alert, responsive, no acute distress HEENT: Normocephalic atraumatic, extra-ocular movements intact, pupils equal and reactive to light bilaterally, mucous membranes moist. Cardiovascular: Heart regular rate and rhythm Chest: Able to complete full sentences, no retractions, no tachypnea Abdomen: abdomen soft, non-tender, non-distended, no organomegaly Musculoskeletal: Pulses present and equal in all extremities, no peripheral edema Motor: no focal deficits noted Neurological: CN II-XII grossly intact, no focal motor or sensory deficits noted Pelvis: Urostomy tube with bleeding around the urostomy tube site Skin: Intact with no visualized rashes Psych: Normal affect and mood ED course: 69-year-old male presents with urostomy tube malfunction. Signs upon arrival are within acceptable limits. Attempt was made to replace the urostomy tube with Nielsen catheter through the stoma the suprapubic site. There was no drainage of urine. Case is discussed with on-call for urology who asked us to try and irrigate with 40 mL of fluid. When attempting this fluid comes out from around the urostomy site. Dr. Guadarrama was contacted again and recommends placing Nielsen catheter through the penis. Laboratory evaluation obtained. Metabolic panel is normal. Nielsen catheter through the penis was inserted with significant amount of drainage removed. Dr. Guadarrama was contacted again for recommendations. He recommends that patient be discharged with outpatient follow-up with Dr. Rao for outpatient management of urostomy tube site. - Related Data Home Medications Medication Instructions Recorded Confirmed Levothyroxine Sodium [Synthroid] 88 mcg PO DAILY 08/19/17 08/26/19 Rosuvastatin Calcium [Crestor] 10 mg PO DAILY 08/19/17 08/26/19 Lisinopril-Hctz 20-12.5 mg 1 tab PO DAILY 03/26/18 08/26/19 [Zestoretic 20-12.5] Cholecalciferol [Vitamin D3 (25 6,000 unit PO DAILY 08/31/18 08/26/19 Mcg = 1000 Iu)] Citalopram Hydrobromide [CeleXA] 20 mg PO DAILY 01/12/19 08/26/19 Polyethylene Glycol 3350 [Miralax] 17 gm PO Q48H PRN 01/12/19 08/26/19 Zinc Oxide [Desitin] 1 applic TOPICAL DAILY PRN 01/12/19 08/26/19 Cranberry 420mg 420 mg PO DAILY 02/08/19 08/26/19 Gabapentin [Neurontin] 300 mg PO HS 02/08/19 08/26/19 Acetaminophen Tab [Tylenol] 650 mg PO HS 08/26/19 08/26/19 Loratadine [Claritin] 10 mg PO DAILY 08/26/19 08/26/19 Previous Rx's Medication Instructions Recorded Aspirin 81 mg PO DAILY #1 chewable 08/23/17 HYDROcodone/APAP 5-325MG [[place] 1 tab PO Q4HR PRN #10 tab 08/27/19 5-325] Allergies Allergy/AdvReac Type Severity Reaction Status Date / Time No Known Allergies Allergy Verified 08/27/19 09:35 Review of Systems ROS Statement: Those systems with pertinent positive or pertinent negative responses have been documented in the HPI. ROS Other: All systems not noted in ROS Statement are negative. Past Medical History Past Medical History: Cancer, CVA/TIA, Hyperlipidemia, Hypertension, Pneumonia, Rheumatoid Arthritis (RA), Sleep Apnea/CPAP/BIPAP, Thyroid Disorder Additional Past Medical History / Comment(s): Slurred speech/possible tia ,uses CPAP at bed,bronchitis, skin ca lt arm, parkinson's disease is being worked up History of Any Multi-Drug Resistant Organisms: C-DIFF Date of last positivie culture/infection: 2017 MDRO Source:: stool Past Surgical History: Tonsillectomy Additional Past Surgical History / Comment(s): Heel spurs removed, colonoscopy, basal call carcinoma: skin cancer removed, Spinal fusion. Past Anesthesia/Blood Transfusion Reactions: Previous Problems w/ Anesthesia Additional Past Anesthesia/Blood Transfusion Reaction / Comment(s): Stopped breathing during colonoscopy yrs. ago before sleep apnea diagnosed per pt. Past Psychological History: No Psychological Hx Reported Past Alcohol Use History: Rare Past Drug Use History: None Reported - Past Family History Father Family Medical History: Cancer, Hypertension Additional Family Medical History / Comment(s): oral cancer Mother Family Medical History: Cancer Additional Family Medical History / Comment(s): "irreg heart rythym" General Exam Limitations: language barrier, physical limitation Course Vital Signs 11/28/19 11/28/19 11/28/19 17:23 18:34 19:20 Temperature 98.6 F Pulse Rate 88 93 96 Respiratory 18 18 18 Rate Blood Pressure 133/97 116/65 129/72 O2 Sat by Pulse 95 94 L 93 L Oximetry Medical Decision Making - Lab Data Result diagrams: 11/28/19 18:10 Lab Results 11/28/19 Range/Units 18:10 Sodium 134 L (137-145) mmol/L Potassium 4.1 (3.5-5.1) mmol/L Chloride 102 (98-107) mmol/L Carbon Dioxide 24 (22-30) mmol/L Anion Gap 8 mmol/L BUN 20 (9-20) mg/dL Creatinine 0.94 (0.66-1.25) mg/dL Est GFR (CKD-EPI)AfAm >90 (>60 ml/min/1.73 sqM) Est GFR (CKD-EPI)NonAf 83 (>60 ml/min/1.73 sqM) Glucose 101 H (74-99) mg/dL Calcium 9.7 (8.4-10.2) mg/dL Disposition Clinical Impression: Urinary retention Disposition: HOME SELF-CARE Condition: Good Instructions (If sedation given, give patient instructions): Urinary Retention in Men (ED) Is patient prescribed a controlled substance at d/c from ED?: No Referrals: Yogesh Rao MD [STAFF PHYSICIAN] - 1-2 days Time of Disposition: 19:29
[2019-11-28 18:49] LABS: African American GFR (CKD) >90 (>60 ml/min/1.73 sqM); Anion Gap 8 mmol/L; Blood Urea Nitrogen 20 mg/dL (9-20); Calcium 9.7 mg/dL (8.4-10.2); Carbon Dioxide 24 mmol/L (22-30); Chloride 102 mmol/L (98-107); Glucose 101 mg/dL (74-99); Non-African American GFR(CKD) 83 (>60 ml/min/1.73 sqM); Potassium 4.1 mmol/L (3.5-5.1); Sodium 134 mmol/L (137-145)
[2019-11-28 20:02] VITALS: BP 114/70; PULSE 95; TEMP 98.8
[2019-11-28 20:04] LABS: Appearance,Urine Clear (Clear); Bacteria,Urine Rare /hpf; Bilirubin,Urine Negative (Negative); Blood,Urine Moderate (Negative); Color,Urine Light Yellow; Glucose,Urine (UA) Negative (Negative); Ketones,Urine Negative (Negative); Leukocyte Esterase,Urine Small (Negative); Nitrite,Urine Negative (Negative); Protein,Urine Negative (Negative); RBC,Urine 22 /hpf (0-5); Specific Gravity,Urine 1.007 (1.001-1.035); Urobilinogen,Urine <2.0 mg/dL (<2.0); WBC,Urine 7 /hpf (0-5)
== END 2019-11-28 20:31 | disposition home or self-care (01) ==
LOC: EC 17:05
DX: R33.9 Retention of urine, unspecified (principal); E07.9 Disorder of thyroid, unspecified; I10 Essential (primary) hypertension; G47.30 Sleep apnea, unspecified; E78.5 Hyperlipidemia, unspecified; Z79.890 Hormone replacement therapy; Z79.899 Other long term (current) drug therapy; Z86.73 Personal history of transient ischemic attack (TIA), and cerebral infarction without residual deficits; Z99.89 Dependence on other enabling machines and devices
CPT/HCPCS: 36415; 51701; 80048; 81001; 99284

== ENCOUNTER 2019-12-24 08:19 | Day surgery (SDC) | payer MEDICARE, OTHER ==
[2019-12-22 15:38] VITALS: BMI 37.2
--- NOTE | 2019-12-22 19:22 | P.GSHP ---
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 He is wheel chair bound. He had a sp tube that was inadvertently misplaced. By the time he saw me I was unable to replace. He comes for replacement of the sp tube. - Constitutional Constitutional: Reports weakness, Reports weight gain - EENT Ears, nose, mouth and throat: Reports dysphagia - Musculoskeletal Musculoskeletal: Reports frequent falls, Reports gait dysfunction, Reports muscle weakness Past Medical History Past Medical History: Cancer, CVA/TIA, Hyperlipidemia, Hypertension, Musculoskeletal Disorder, Pneumonia, Rheumatoid Arthritis (RA), Sleep Apnea/CPAP/BIPAP, Thyroid Disorder Additional Past Medical History / Comment(s): Slurred speech/possible lTIA 2016 , uses CPAP at bed, bronchitis, Melanoma skin ca lt arm, has sx of Parkinson's disease - has MSA. Neurogenic bladder, has suprapubic tube placed. History of Any Multi-Drug Resistant Organisms: C-DIFF Date of last positivie culture/infection: 09/03/19 MDRO Source:: stool Past Surgical History: Back Surgery, Orthopedic Surgery, Tonsillectomy Additional Past Surgical History / Comment(s): Heel spurs removed, colonoscopy, basal call carcinoma: skin cancer removed, Spinal fusion. Cystoscopy w/ suprapubic SP catheter 08/27/19. Past Anesthesia/Blood Transfusion Reactions: Previous Problems w/ Anesthesia Additional Past Anesthesia/Blood Transfusion Reaction / Comment(s): Stopped breathing during colonoscopy yrs. ago before sleep apnea diagnosed per pt. Smoking Status: Never smoker - Past Family History Father Family Medical History: Cancer, Hypertension Additional Family Medical History / Comment(s): oral cancer Mother Family Medical History: Cancer Additional Family Medical History / Comment(s): "irreg heart rythym" Medications and Allergies Home Medications Medication Instructions Recorded Confirmed Type Levothyroxine Sodium [Synthroid] 88 mcg PO DAILY 08/19/17 12/22/19 History Rosuvastatin Calcium [Crestor] 10 mg PO DAILY 08/19/17 12/22/19 History Aspirin 81 mg PO DAILY #1 chewable 08/23/17 12/22/19 Rx Lisinopril-Hctz 20-12.5 mg 1 tab PO DAILY 03/26/18 12/22/19 History [Zestoretic 20-12.5] Citalopram Hydrobromide [CeleXA] 40 mg PO DAILY 01/12/19 12/22/19 History Polyethylene Glycol 3350 [Miralax] 17 gm PO Q48H PRN 01/12/19 12/22/19 History Zinc Oxide [Desitin] 1 applic TOPICAL DAILY PRN 01/12/19 12/22/19 History Cranberry 420mg 420 mg PO DAILY 02/08/19 12/22/19 History Gabapentin [Neurontin] 300 mg PO HS 02/08/19 12/22/19 History Acetaminophen Tab [Tylenol] 650 mg PO HS 08/26/19 12/22/19 History Loratadine [Claritin] 10 mg PO DAILY 08/26/19 12/22/19 History Allergies Allergy/AdvReac Type Severity Reaction Status Date / Time No Known Allergies Allergy Verified 12/22/19 15:15 Surgical - Exam - General well developed, well nourished, no distress - Eyes PERRL - ENT no hearing loss - Neck trachea midline - Respiratory normal expansion, normal respiratory effort - Cardiovascular Rhythm: regular - Abdomen Abdomen: soft, distended - Genitourinary normal penis with no external lesions, testicles present - Integumentary no rash, no growths - Musculoskeletal wheelchair bound - Psychiatric oriented to time, oriented to person, oriented to place, memory intact Assessment and Plan Assessment: Impression: NGB with urine retention, multisystem atrophy Plan: cysto with suprapubic cystostomy
[~2019-12-24 08:19] MED LIST changes: +DEXAMETHASONE SOD PHOSPHATE 10 MG/ML 1 ML VIAL IV ONE; -HYDROmorphone 0.5 MG/0.5 ML SYRINGE IVP PRN; +LIDOCAINE 1% (10MG/ML) FOR IV START INTRADERMA PRN; -MIDAZOLAM 2 MG/2 ML VIAL ONE; +ONDANSETRON 4 MG/2 ML VIAL IVP ONE; -ePHEDrine SULFATE/0.9% NACL/PF 50 MG/5 ML SYRINGE IV ONE; -fentaNYL (PF) 50 MCG/ML 2 ML AMP IV PRN; -fentaNYL (PF) 50 MCG/ML 2 ML AMP ONE
[2019-12-24] MEDS ORDERED: ETOMIDATE 2 MG/ML 10 ML VIAL ONE (09:32)
[2019-12-24] MEDS ORDERED: LIDOCAINE 1% INJ 10MG/ML (20 ML MDV) ONE (09:32)
[2019-12-24] MEDS ORDERED: fentaNYL (PF) 50 MCG/ML 2 ML AMP ONE (09:32)
[2019-12-24] MEDS ORDERED: SUCCINYLCHOLINE CHLORIDE 100 MG/5 ML SYR IV ONE (09:32)
[2019-12-24] MEDS: HYDROmorphone 0.5 MG/0.5 ML SYRINGE IVP PRN ×2 (10:40→10:50)
--- NOTE | 2019-12-24 10:45 | P.OP ---
Date of Procedure: 12/24/19 Preoperative Diagnosis: Urinary retention Postoperative Diagnosis: Same Procedure(s) Performed: Cystoscopy with cystostomy Anesthesia: ROBER Surgeon: Yogesh Rao Pathology: none sent Condition: stable Disposition: PACU Indications for Procedure: The patient is 69. He has progressive multisystem atrophy diagnosed at the [facility]. He has a neurogenic bladder and urine retention. He had a suprapubic tube placed only to have a fall out recently. By the time I saw him the tract had sealed. He comes for replacement of the suprapubic tube. Description of Procedure: The patient is brought to the operating suite. He is given a general anesthetic. He's placed lithotomy position with a sterile prep and drape. The Nielsen catheter had been previously removed. I passed a curved notch sound into the bladder and tented up to the anterior bladder wall. A make an incision through the pre-pubic fat. I dissect down to the sound. With electrocautery I open the bladder and pass a curved notched sound through the bladder. I place a 2-0 silk stitch through the notched sound and then through the eye of a 20- Prydeinig Nielsen. I then pulled the Nielsen back through the urethra. I then slowly pull the suprapubic tube back into the bladder and insufflate the balloon under direct vision with the 17-Prydeinig cystoscope. There is no other abnormality of the bladder other than severe trabeculation and a large prostate. The catheter irrigates freely. The suprapubic tube is secured with 2 2-0 silk's. The patient is awakened and returned recovery room good condition.
[2019-12-24 10:49] VITALS: TEMP 97.6
[2019-12-24 10:50] VITALS: RESP 16
[2019-12-24 12:40] VITALS: BP 131/70; PULSE 96
== END 2019-12-24 12:46 | disposition home or self-care (01) ==
LOC: OR 08:19
PROVIDERS: ATTEND Urology
DX: N31.9 Neuromuscular dysfunction of bladder, unspecified (principal); R33.9 Retention of urine, unspecified; M62.81 Muscle weakness (generalized); R26.89 Other abnormalities of gait and mobility; R29.6 Repeated falls; E78.5 Hyperlipidemia, unspecified; G90.3 Multi-system degeneration of the autonomic nervous system; I10 Essential (primary) hypertension; Z87.01 Personal history of pneumonia (recurrent); M06.9 Rheumatoid arthritis, unspecified; G47.30 Sleep apnea, unspecified; Z99.89 Dependence on other enabling machines and devices; E07.9 Disorder of thyroid, unspecified; I69.328 Other speech and language deficits following cerebral infarction; Z85.820 Personal history of malignant melanoma of skin; G20 Parkinson's disease; Z86.19 Personal history of other infectious and parasitic diseases; Z98.1 Arthrodesis status; Z96.0 Presence of urogenital implants; Z82.49 Family history of ischemic heart disease and other diseases of the circulatory system; Z80.8 Family history of malignant neoplasm of other organs or systems; Z79.82 Long term (current) use of aspirin; Z79.890 Hormone replacement therapy; Z79.899 Other long term (current) drug therapy
CPT/HCPCS: 51040; C2627; J1100; J2405; J2001; J3010; J1580; J0290; J0330; J1170

== ENCOUNTER 2020-03-16 19:55 | Inpatient (IN) | payer MEDICARE, OTHER ==
[2020-03-16] MEDS ORDERED: SODIUM CHLORIDE 0.9% 1,000 ML IV STA ×2 (20:19)
[2020-03-16] MEDS ORDERED: cefTRIAXone IN SWFI 1,000 MG/10 ML SYRINGE IVP STA (20:20)
--- NOTE | 2020-03-16 20:23 | ED ---
Fever HPI - General Source: family, EMS, RN notes reviewed Mode of arrival: EMS Limitations: physical limitation - History of Present Illness MD Complaint: fever <Edgardo Silver - Last Filed: 03/16/20 20:38> <Gilbert Terrell - Last Filed: 03/16/20 22:29> - General Chief Complaint: Fever Stated Complaint: ANIBAL Time Seen by Provider: 03/16/20 20:00 - History of Present Illness Initial Comments: This is a 68-year-old male with history of multiple medical issues including a chronic indwelling Nielsen catheter CVA Parkinson's disease and rheumatoid arthritis diabetes among other issues who was brought in today by EMS at the behest of his . The patient did start having a fever yesterday was 100.1 C and get better until about 2 PM today what was 99.9 and then EMS was called was 104 under initial contact. There is slight cough no chills no sweats he has had his flu shot. No known exposure to SARS Covid 19 no nausea no vomiting he is apparently he had good fluid intake but not food intake. No other complaints or modifying factors at this time (Edgardo Silver) - Related Data Home Medications Medication Instructions Recorded Confirmed Levothyroxine Sodium [Synthroid] 88 mcg PO DAILY 08/19/17 03/16/20 Rosuvastatin Calcium [Crestor] 10 mg PO HS 08/19/17 03/16/20 Lisinopril-Hctz 20-12.5 mg 1 tab PO DAILY 03/26/18 03/16/20 [Zestoretic 20-12.5] Citalopram Hydrobromide [CeleXA] 40 mg PO DAILY 01/12/19 03/16/20 Polyethylene Glycol 3350 [Miralax] 17 gm PO DAILY PRN 01/12/19 03/16/20 Zinc Oxide [Desitin] 1 applic TOPICAL DAILY PRN 01/12/19 03/16/20 Acetaminophen Tab [Tylenol] 650 mg PO HS 08/26/19 03/16/20 Loratadine [Claritin] 10 mg PO HS 08/26/19 03/16/20 Arnica Pain Relief Gel 1 applic TOPICAL DAILY PRN 03/16/20 03/16/20 Cholecalciferol [Vitamin D3 (25 2,000 unit PO DAILY 03/16/20 03/16/20 Mcg = 1000 Iu)] Cranberry 4200mg 1 tab PO DAILY 03/16/20 03/16/20 L.acidoph,Paracasei, B.lactis 1 cap PO DAILY 03/16/20 03/16/20 [Probiotic] Psyllium Husk (with Sugar) 6 gm PO DAILY PRN 03/16/20 03/16/20 [Metamucil Powder] Previous Rx's Medication Instructions Recorded Aspirin 81 mg PO DAILY #1 chewable 08/23/17 Allergies Allergy/AdvReac Type Severity Reaction Status Date / Time No Known Allergies Allergy Verified 03/16/20 20:06 Review of Systems ROS Other: All systems not noted in ROS Statement are negative. <Edgardo Silver - Last Filed: 03/16/20 20:38> ROS Other: All systems not noted in ROS Statement are negative. <Gilbert Terrell - Last Filed: 03/16/20 22:29> ROS Statement: Those systems with pertinent positive or pertinent negative responses have been documented in the HPI. Past Medical History Past Medical History: Cancer, CVA/TIA, Hyperlipidemia, Hypertension, Musculoskeletal Disorder, Pneumonia, Rheumatoid Arthritis (RA), Sleep Apnea/CPAP/BIPAP, Thyroid Disorder Additional Past Medical History / Comment(s): Slurred speech/possible lTIA 2017 , uses CPAP at bed, bronchitis, Melanoma skin ca lt arm, has sx of Parkinson's disease - has MSA. Neurogenic bladder, has suprapubic tube placed. History of Any Multi-Drug Resistant Organisms: C-DIFF Date of last positivie culture/infection: 09/03/19 MDRO Source:: stool Past Surgical History: Back Surgery, Orthopedic Surgery, Tonsillectomy Additional Past Surgical History / Comment(s): Heel spurs removed, colonoscopy, basal call carcinoma: skin cancer removed, Spinal fusion. Cystoscopy w/ suprapubic SP catheter 08/27/19. Past Anesthesia/Blood Transfusion Reactions: Previous Problems w/ Anesthesia Additional Past Anesthesia/Blood Transfusion Reaction / Comment(s): Stopped br eathing during colonoscopy yrs. ago before sleep apnea diagnosed per pt. Past Psychological History: Depression Smoking Status: Never smoker Past Alcohol Use History: None Reported Past Drug Use History: None Reported - Past Family History Father Family Medical History: Cancer, Hypertension Additional Family Medical History / Comment(s): oral cancer Mother Family Medical History: Cancer Additional Family Medical History / Comment(s): "irreg heart rythym" <Edgardo Silver - Last Filed: 03/16/20 20:38> General Exam Limitations: physical limitation General appearance: alert, anxious Head exam: Present: atraumatic, normocephalic, normal inspection Eye exam: Present: normal appearance, PERRL, EOMI. Absent: scleral icterus, conjunctival injection, periorbital swelling ENT exam: Present: mucous membranes dry Neck exam: Present: normal inspection. Absent: tenderness, meningismus, lymphadenopathy Respiratory exam: Present: other (Family decreased breath sounds no definitive rales or rhonchi). Absent: respiratory distress, wheezes, rales, rhonchi, stridor Cardiovascular Exam: Present: normal rhythm, tachycardia, normal heart sounds. Absent: systolic murmur, diastolic murmur, rubs, gallop, clicks GI/Abdominal exam: Present: soft, normal bowel sounds. Absent: distended, tenderness, guarding, rebound, rigid Extremities exam: Present: normal inspection, full ROM, normal capillary refill. Absent: tenderness, pedal edema, joint swelling, calf tenderness Back exam: Present: normal inspection Neurological exam: Present: alert, oriented X3, CN II-XII intact Psychiatric exam: Present: normal affect, normal mood Skin exam: Present: warm, dry, intact, normal color. Absent: rash <Edgardo Silver - Last Filed: 03/16/20 20:38> - General Exam Comments Initial Comments: This is a well-developed well-nourished awake alert but poorly conversant male (Edgardo Silver) Course <Edgardo Silver - Last Filed: 03/16/20 20:38> <Gilbert Terrell - Last Filed: 03/16/20 22:29> Vital Signs 03/16/20 03/16/20 19:57 21:53 Temperature 104.5 F H 102.5 F H Pulse Rate 116 H 110 H Respiratory 22 20 Rate Blood Pressure 144/71 134/77 O2 Sat by Pulse 96 96 Oximetry - Reevaluation(s) Reevaluation #1: 03/16/20 20:38 The patient's care will be endorsed to Dr. Terrell at our shift change. (Edgardo Silver) 03/16/20 22:28 Patient does meet sepsis criteria diagnosed at 2225. Blood culture and lactic acid were ordered. IV antibiotics were ordered. (Gilbert Terrell) Medical Decision Making - EKG Data -: EKG Interpreted by Me <Edgardo Silver - Last Filed: 03/16/20 20:38> - Lab Data Result diagrams: 03/16/20 20:29 03/16/20 20:29 - Radiology Data Radiology results: image reviewed (Chest x-ray shows no acute process) <Gilbert Terrell - Last Filed: 03/16/20 22:29> - Medical Decision Making Patient reevaluated by myself, Dr. Terrell. Patient resting comfortably in bed. Patient does have some fever still on recheck. Motrin be added. Patient and family updated on results and plan. Case was discussed with Dr. Uriarte, who will admit covering for Dr. Rae (Gilbert Terrell) - Lab Data Lab Results 03/16/20 03/16/20 03/16/20 Range/Units 20:29 20:29 20:29 WBC 10.1 (3.8-10.6) k/uL RBC 4.72 (4.30-5.90) m/uL Hgb 14.5 (13.0-17.5) gm/dL Hct 42.0 (39.0-53.0) % MCV 88.8 (80.0-100.0) fL MCH 30.8 (25.0-35.0) pg MCHC 34.7 (31.0-37.0) g/dL RDW 12.4 (11.5-15.5) % Plt Count 197 (150-450) k/uL MPV 6.4 Neutrophils % 83 % Lymphocytes % 9 % Monocytes % 6 % Eosinophils % 1 % Basophils % 0 % Neutrophils # 8.3 H (1.3-7.7) k/uL Lymphocytes # 0.9 L (1.0-4.8) k/uL Monocytes # 0.6 (0-1.0) k/uL Eosinophils # 0.1 (0-0.7) k/uL Basophils # 0.0 (0-0.2) k/uL Sodium 137 (137-145) mmol/L Potassium 3.5 (3.5-5.1) mmol/L Chloride 99 (98-107) mmol/L Carbon Dioxide 30 (22-30) mmol/L Anion Gap 8 mmol/L BUN 17 (9-20) mg/dL Creatinine 1.07 (0.66-1.25) mg/dL Est GFR (CKD-EPI)AfAm 82 (>60 ml/min/1.73 sqM) Est GFR (CKD-EPI)NonAf 71 (>60 ml/min/1.73 sqM) Glucose 103 H (74-99) mg/dL Plasma Lactic Acid Antonio (0.7-2.0) mmol/L Calcium 8.7 (8.4-10.2) mg/dL Magnesium 1.9 (1.6-2.3) mg/dL Total Bilirubin 0.8 (0.2-1.3) mg/dL AST 20 (17-59) U/L ALT 18 (4-49) U/L Alkaline Phosphatase 76 (38-126) U/L Creatine Kinase 32 L (55-170) U/L Total Protein 6.6 (6.3-8.2) g/dL Albumin 3.8 (3.5-5.0) g/dL Urine Color Light Yellow Urine Appearance Clear (Clear) Urine pH 6.5 (5.0-8.0) Ur Specific [place] 1.008 (1.001-1.035) Urine Protein Trace H (Negative) Urine Glucose (UA) Negative (Negative) Urine Ketones Negative (Negative) Urine Blood Negative (Negative) Urine Nitrite Positive (Negative) Urine Bilirubin Negative (Negative) Urine Urobilinogen <2.0 (<2.0) mg/dL Ur Leukocyte Esterase Large H (Negative) Urine RBC 1 (0-5) /hpf Urine WBC 51 H (0-5) /hpf Ur Squamous Epith Cells <1 (0-4) /hpf Urine Bacteria Occasional H (None) /hpf Urine Mucus Rare H (None) /hpf Influenza Type A (PCR) (Not Detectd) Influenza Type B (PCR) (Not Detectd) RSV (PCR) (Not Detectd) SARS-CoV-2 (PCR) (Not Detectd) 03/16/20 03/16/20 Range/Units 20:29 20:29 WBC (3.8-10.6) k/uL RBC (4.30-5.90) m/uL Hgb (13.0-17.5) gm/dL Hct (39.0-53.0) % MCV (80.0-100.0) fL MCH (25.0-35.0) pg MCHC (31.0-37.0) g/dL RDW (11.5-15.5) % Plt Count (150-450) k/uL MPV Neutrophils % % Lymphocytes % % Monocytes % % Eosinophils % % Basophils % % Neutrophils # (1.3-7.7) k/uL Lymphocytes # (1.0-4.8) k/uL Monocytes # (0-1.0) k/uL Eosinophils # (0-0.7) k/uL Basophils # (0-0.2) k/uL Sodium (137-145) mmol/L Potassium (3.5-5.1) mmol/L Chloride (98-107) mmol/L Carbon Dioxide (22-30) mmol/L Anion Gap mmol/L BUN (9-20) mg/dL Creatinine (0.66-1.25) mg/dL Est GFR (CKD-EPI)AfAm (>60 ml/min/1.73 sqM) Est GFR (CKD-EPI)NonAf (>60 ml/min/1.73 sqM) Glucose (74-99) mg/dL Plasma Lactic Acid Antonio 1.3 (0.7-2.0) mmol/L Calcium (8.4-10.2) mg/dL Magnesium (1.6-2.3) mg/dL Total Bilirubin (0.2-1.3) mg/dL AST (17-59) U/L ALT (4-49) U/L Alkaline Phosphatase (38-126) U/L Creatine Kinase (55-170) U/L Total Protein (6.3-8.2) g/dL Albumin (3.5-5.0) g/dL Urine Color Urine Appearance (Clear) Urine pH (5.0-8.0) Ur Specific [place] (1.001-1.035) Urine Protein (Negative) Urine Glucose (UA) (Negative) Urine Ketones (Negative) Urine Blood (Negative) Urine Nitrite (Negative) Urine Bilirubin (Negative) Urine Urobilinogen (<2.0) mg/dL Ur Leukocyte Esterase (Negative) Urine RBC (0-5) /hpf Urine WBC (0-5) /hpf Ur Squamous Epith Cells (0-4) /hpf Urine Bacteria (None) /hpf Urine Mucus (None) /hpf Influenza Type A (PCR) Not Detected (Not Detectd) Influenza Type B (PCR) Not Detected (Not Detectd) RSV (PCR) Not Detected (Not Detectd) SARS-CoV-2 (PCR) Not Detected (Not Detectd) - EKG Data EKG Comments: Sinus tachycardia 110. Interval 194 QRS duration 60 QT since QTC 386/5.2 that exodeviation low-voltage artifact is present. (Edgardo Silver) Critical Care Time Critical Care Time: Yes Total Critical Care Time: 33 <Gilbert Terrell - Last Filed: 03/16/20 22:29> Disposition <Edgardo Silver - Last Filed: 03/16/20 20:38> Is patient prescribed a controlled substance at d/c from ED?: No Decision Time: 22:29 <Gilbert Terrell - Last Filed: 03/16/20 22:29> Clinical Impression: Fever, Urinary tract infection, Sepsis Disposition: ADMITTED IP TO THIS HOSP Referrals: Sarabjit Dickson MD [Primary Care Provider] - 1-2 days
[2020-03-16] MEDS ORDERED: ACETAMINOPHEN TAB 500 MG TAB PO STA (20:32)
[2020-03-16 20:47] LABS: Basophils % (A) 0 %; Eosinophils # (A) 0.1 k/uL (0-0.7); Eosinophils % (A) 1 %; HGB 14.5 gm/dL (13.0-17.5); Lymphocytes # (A) 0.9 k/uL (1.0-4.8); Lymphocytes % (A) 9 %; MCH 30.8 pg (25.0-35.0); MCHC 34.7 g/dL (31.0-37.0); MCV 88.8 fL (80.0-100.0); Mean Platelet Volume 6.4; Monocytes # (A) 0.6 k/uL (0-1.0); Monocytes % (A) 6 %; Neutrophils # (A) 8.3 k/uL (1.3-7.7); Neutrophils % (A) 83 %; Platelet Count 197 k/uL (150-450); RBC 4.72 m/uL (4.30-5.90); RDW 12.4 % (11.5-15.5); WBC 10.1 k/uL (3.8-10.6)
[2020-03-16 20:49] LABS: Appearance,Urine Clear (Clear); Bacteria,Urine Occasional /hpf; Bilirubin,Urine Negative (Negative); Blood,Urine Negative (Negative); Color,Urine Light Yellow; Glucose,Urine (UA) Negative (Negative); Ketones,Urine Negative (Negative); Leukocyte Esterase,Urine Large (Negative); Mucus,Urine Rare /hpf; Nitrite,Urine Positive (Negative); PH, Urine 6.5 (5.0-8.0); Protein,Urine Trace (Negative); RBC,Urine 1 /hpf (0-5); Specific Gravity,Urine 1.008 (1.001-1.035); Squamous Epithelial Cell,Urine <1 /hpf (0-4); Urobilinogen,Urine <2.0 mg/dL (<2.0); WBC,Urine 51 /hpf (0-5)
[2020-03-16 20:57] LABS: Albumin 3.8 g/dL (3.5-5.0); Calcium 8.7 mg/dL (8.4-10.2); Magnesium 1.9 mg/dL (1.6-2.3); Potassium 3.5 mmol/L (3.5-5.1); Total Bilirubin 0.8 mg/dL (0.2-1.3); Total Protein 6.6 g/dL (6.3-8.2)
--- NOTE | 2020-03-16 21:52 | XR ---
EXAMINATION TYPE: XR chest 2V DATE OF EXAM: 03/16/2020 COMPARISON: 11/20/2019 HISTORY: Fever. Cough. Short of breath. TECHNIQUE: 2 views FINDINGS: Heart and mediastinum are normal. Lungs are clear of consolidation. There are no hilar mass es. There are chest leads. Bony thorax is intact. There is no pleural effusion. IMPRESSION: No active cardiopulmonary disease. No change.
[2020-03-16] MEDS ORDERED: IBUPROFEN 600 MG TAB PO STA (22:10)
[2020-03-16] MEDS ORDERED: NALOXONE 0.4 MG/ML 1 ML VIAL IV PRN (22:30)
[2020-03-16] MEDS ORDERED: IBUPROFEN 400 MG TAB PO PRN (22:30)
[2020-03-17] MEDS: ACETAMINOPHEN TAB 325 MG TAB PO PRN (01:49)
[2020-03-17 06:59] LABS: Basophils # (A) 0.1 k/uL (0-0.2); Basophils % (A) 1 %; Eosinophils # (A) 0.1 k/uL (0-0.7); Eosinophils % (A) 1 %; HCT 38.6 % (39.0-53.0); HGB 13.5 gm/dL (13.0-17.5); Lymphocytes # (A) 1.6 k/uL (1.0-4.8); Lymphocytes % (A) 14 %; MCH 31.4 pg (25.0-35.0); MCHC 35.1 g/dL (31.0-37.0); MCV 89.5 fL (80.0-100.0); Mean Platelet Volume 6.7; Monocytes # (A) 0.7 k/uL (0-1.0); Monocytes % (A) 6 %; Neutrophils % (A) 77 %; Platelet Count 209 k/uL (150-450); RBC 4.31 m/uL (4.30-5.90); RDW 12.5 % (11.5-15.5); WBC 11.6 k/uL (3.8-10.6)
[2020-03-17 07:08] LABS: ALT 15 U/L (4-49); AST 19 U/L (17-59); African American GFR (CKD) >90 (>60 ml/min/1.73 sqM); Albumin 3.2 g/dL (3.5-5.0); Alkaline Phosphatase 64 U/L (38-126); Anion Gap 6 mmol/L; Blood Urea Nitrogen 14 mg/dL (9-20); Calcium 8.3 mg/dL (8.4-10.2); Carbon Dioxide 27 mmol/L (22-30); Chloride 104 mmol/L (98-107); Glucose 96 mg/dL (74-99); Non-African American GFR(CKD) 81 (>60 ml/min/1.73 sqM); Potassium 3.6 mmol/L (3.5-5.1); Sodium 137 mmol/L (137-145); Total Bilirubin 0.7 mg/dL (0.2-1.3); Total Protein 5.8 g/dL (6.3-8.2)
[2020-03-17] MEDS ORDERED: polyethylene glycoL 3350 17 GM POWD.PACK PO PRN (10:18)
[2020-03-17] MEDS ORDERED: PSYLLIUM HUSK 100% 6 GM PACKET PO PRN (10:18)
[2020-03-17] MEDS ORDERED: ZINC OXIDE 20% OINT 28.4 GM TUBE TOPICAL PRN (10:18)
[2020-03-17] MEDS ORDERED: CRANBERRY 4200 MG PO SCH (10:30)
[2020-03-17] MEDS: CITALOPRAM HYDROBROMIDE 20 MG TAB PO SCH (10:52)
[2020-03-17] MEDS: LEVOTHYROXINE 88 MCG TAB PO SCH (10:52)
[2020-03-17] MEDS: LISINOPRIL-HCTZ 20-12.5 MG 1 EACH TAB PO SCH (10:52)
[2020-03-17] MEDS: CHOLECALCIFEROL 1,000 UNIT TAB PO SCH (10:52)
[2020-03-17] MEDS: LACTOBACILLUS ACIDOPH & BULGAR 1 EACH PACKET PO SCH (10:52)
[2020-03-17] MEDS: ASPIRIN 81 MG PO SCH (10:52)
[2020-03-17 13:28] LABS: Appearance,Urine Cloudy (Clear); Bacteria,Urine Rare /hpf; Bilirubin,Urine Negative (Negative); Blood,Urine Moderate (Negative); Color,Urine Light Yellow; Glucose,Urine (UA) Negative (Negative); Ketones,Urine Negative (Negative); Leukocyte Esterase,Urine Large (Negative); Mucus,Urine Rare /hpf; Nitrite,Urine Negative (Negative); Protein,Urine Negative (Negative); RBC,Urine 47 /hpf (0-5); Specific Gravity,Urine 1.011 (1.001-1.035); Squamous Epithelial Cell,Urine <1 /hpf (0-4); Urobilinogen,Urine <2.0 mg/dL (<2.0); WBC,Urine 160 /hpf (0-5)
[2020-03-17 13:47] VITALS: BMI 36.4
[2020-03-17] MEDS: ATORVASTATIN 20 MG TAB PO SCH (21:49)
[2020-03-17] MEDS: LORATADINE 10 MG TAB PO SCH (21:49)
[2020-03-17] MEDS: CEFEPIME 2 GM in SODIUM CHLORIDE 0.9% 100 ML IVPB SCH (21:49)
[2020-03-17] MEDS: ACETAMINOPHEN TAB 325 MG TAB PO SCH (21:54)
--- NOTE | 2020-03-17 22:50 | P.HPIM ---
History of Present Illness H&P Date: 03/17/20 Chief Complaint: fever History of presenting complaint: This is a very pleasant 69-year-old patient of follows with Dr. Blancas.. Chronic stable medical conditions include osteoarthritis, hypertension, hyperlipidemia,neurogenic bladder, rheumatoid arthritis, obstructive sleep apnea and uses CPAP machine, diabetes. Patient has been worked up by at [facility] and he does not have Parkinson's disease but has some Parkinson-like features. Patient had cervical spine fusion from C2 to C6 at [facility]. patient is able to feed himself. Patient has chronic dysarthria.has a chronic Nielsen catheter. Patient noted to have a fever at home by his and having was brought in. Review of systems: GEN.: fever EYES: None HEENT: None NECK: None RESPIRATORY: None CARDIOVASCULAR: None GASTROINTESTINAL: Has a bowel movement every 2 or 3 days] GENITOURINARY: chronic Nielsen catheter MUSCULOSKELETAL: Weakness in the arms and legs LYMPHATICS: None HEMATOLOGICAL: None PSYCHIATRY: None NEUROLOGICAL: Weakness in the arms and legs Past medical history: Diet controlled diabetes, hyperlipidemia, hypertension, rheumatoid arthritis, ob structive sleep apnea, hypothyroid, skin cancer, Parkinson-like symptoms, chronic bladder dysfunction, with chronic Nielsen catheter, neurogenic bladder Social history: Lives with his . Does not smoke. Alcohol rarely. Family history: Cancer, hypertension, oral cancer Physical examination: VITAL SIGNS: 102.5, 110, 20, 134/77, 96% on 3 Chung GENERAL: BMI 36.5, laying in bed, awake tired. EYES: Pupils equal. Conjunctiva normal. HEENT: External appearance of nose and ears normal, oral cavity grossly normal. NECK: JVD unable to assess, mass not palpable HEART: First and second heart sounds are normal; no edema. LUNGS: Respiratory rate normal; decreased breath sounds. ABDOMEN: Soft, nontender, liver spleen not palpable, no masses palpable, Nielsen catheter in place. LYMPHATICS: No lymph nodes palpable in the axilla and neck. PSYCH: Alert and oriented x3; mood and affect normal. NEUROLOGICAL: slurred speech. Weakness of the arms and legs. hand deformity. Investigations reviewed in the clinical context: white count 10.1 hemoglobin 14.5 potassium 3.5 creatinine 1.07 UA positive for leukoesterase WBC Influenza type A type B RSV PCR, coronavirus PCR-all negative Assessment: -Acute UTI from cystitis secondary to Nielsen catheter causing severe sepsis, POA -obesity BMI 36.5 -Essential hypertension -Hyperlipidemia -Chronic rheumatoid arthritis -Obstructive sleep apnea uses CPAP machine -Hypothyroid -Hyperlipidemia -Parkinson's-likesymptoms with no Parkinson disease -chronicGait dysfunction currently using a walker -Chronic bladder dysfunction with urinary retention with a chronic Nielsen catheter Plan: home medications resumed. IV fluids. IV cefepime. Care discussed with the patient. Patient will need more than 2 nights overnight stay. Past Medical History Past Medical History: Cancer, CVA/TIA, Hyperlipidemia, Hypertension, Musculoskeletal Disorder, Pneumonia, Rheumatoid Arthritis (RA), Sleep Apnea/CPAP/BIPAP, Thyroid Disorder Additional Past Medical History / Comment(s): Slurred speech/possible lTIA 2016 , uses CPAP at bed, bronchitis, Melanoma skin ca lt arm, has sx of Parkinson's disease - has MSA. Neurogenic bladder, has suprapubic tube placed - d/c 03/02/20 History of Any Multi-Drug Resistant Organisms: C-DIFF Date of last positivie culture/infection: 09/03/19 MDRO Source:: stool Past Surgical History: Back Surgery, Orthopedic Surgery, Tonsillectomy Additional Past Surgical History / Comment(s): Heel spurs removed, colonoscopy, basal call carcinoma: skin cancer removed, Spinal fusion. Cystoscopy w/ suprapubic SP catheter 08/27/19. Past Anesthesia/Blood Transfusion Reactions: Previous Problems w/ Anesthesia Additional Past Anesthesia/Blood Transfusion Reaction / Comment(s): Stopped breathing during colonoscopy yrs. ago before sleep apnea diagnosed per pt. Past Psychological History: No Psychological Hx Reported Additional Psychological History / Comment(s): pt denied depression Smoking Status: Never smoker Past Alcohol Use History: None Reported Past Drug Use History: None Reported - Past Family History Father Family Medical History: Cancer, Hypertension Additional Family Medical History / Comment(s): oral cancer Mother Family Medical History: Cancer Additional Family Medical History / Comment(s): "irreg heart rythym" Medications and Allergies Home Medications Medication Instructions Recorded Confirmed Type Levothyroxine Sodium [Synthroid] 88 mcg PO DAILY 08/19/17 03/16/20 History Rosuvastatin Calcium [Crestor] 10 mg PO HS 08/19/17 03/16/20 History Aspirin 81 mg PO DAILY #1 chewable 08/23/17 03/16/20 Rx Lisinopril-Hctz 20-12.5 mg 1 tab PO DAILY 03/26/18 03/16/20 History [Zestoretic 20-12.5] Citalopram Hydrobromide [CeleXA] 40 mg PO DAILY 01/12/19 03/16/20 History Polyethylene Glycol 3350 [Miralax] 17 gm PO DAILY PRN 01/12/19 03/16/20 History Zinc Oxide [Desitin] 1 applic TOPICAL DAILY PRN 01/12/19 03/16/20 History Acetaminophen Tab [Tylenol] 650 mg PO HS 08/26/19 03/16/20 History Loratadine [Claritin] 10 mg PO HS 08/26/19 03/16/20 History Arnica Pain Relief Gel 1 applic TOPICAL DAILY PRN 03/16/20 03/16/20 History Cholecalciferol [Vitamin D3 (25 2,000 unit PO DAILY 03/16/20 03/16/20 History Mcg = 1000 Iu)] Cranberry 4200mg 1 tab PO DAILY 03/16/20 03/16/20 History L.acidoph,Paracasei, B.lactis 1 cap PO DAILY 03/16/20 03/16/20 History [Probiotic] Psyllium Husk (with Sugar) 6 gm PO DAILY PRN 03/16/20 03/16/20 History [Metamucil Powder] Allergies Allergy/AdvReac Type Severity Reaction Status Date / Time No Known Allergies Allergy Verified 03/16/20 20:06 Physical Exam Vitals: Vital Signs Temp Pulse Pulse Resp BP BP Pulse Ox 03/17/20 08:55 65 18 03/17/20 08:00 97.4 F L 65 18 102/64 97 03/17/20 03:42 98.5 F 03/17/20 02:00 82 110/67 96 03/17/20 01:46 100.0 F H 03/16/20 22:52 102 H 03/16/20 21:53 102.5 F H 110 H 20 134/77 96 03/16/20 20:50 101.8 F H 98 20 110/64 93 L 03/16/20 19:57 104.5 F H 116 H 22 144/71 96 Intake and Output 03/16/20 03/17/20 03/17/20 22:59 06:59 14:59 Intake Total 320 Output Total 250 Balance -250 320 Intake: Oral 320 Output: Urine 250 Other: Voiding Method Indwelling Catheter Indwelling Catheter Weight 122.016 kg 122.016 kg Results CBC & Chem 7: 03/17/20 06:28 03/17/20 06:28 Labs: Abnormal Lab Results - Last 24 Hours (Table) 03/16/20 03/16/20 03/16/20 Range/Units 20:29 20:29 20:29 WBC (3.8-10.6) k/uL Hct (39.0-53.0) % Neutrophils # 8.3 H (1.3-7.7) k/uL Lymphocytes # 0.9 L (1.0-4.8) k/uL Glucose 103 H (74-99) mg/dL Calcium (8.4-10.2) mg/dL Creatine Kinase 32 L (55-170) U/L Total Protein (6.3-8.2) g/dL Albumin (3.5-5.0) g/dL Urine Protein Trace H (Negative) Ur Leukocyte Esterase Large H (Negative) Urine WBC 51 H (0-5) /hpf Urine Bacteria Occasional H (None) /hpf Urine Mucus Rare H (None) /hpf 03/17/20 03/17/20 Range/Units 06:28 06:28 WBC 11.6 H (3.8-10.6) k/uL Hct 38.6 L (39.0-53.0) % Neutrophils # 9.0 H (1.3-7.7) k/uL Lymphocytes # (1.0-4.8) k/uL Glucose (74-99) mg/dL Calcium 8.3 L (8.4-10.2) mg/dL Creatine Kinase (55-170) U/L Total Protein 5.8 L (6.3-8.2) g/dL Albumin 3.2 L (3.5-5.0) g/dL Urine Protein (Negative) Ur Leukocyte Esterase (Negative) Urine WBC (0-5) /hpf Urine Bacteria (None) /hpf Urine Mucus (None) /hpf Microbiology - Last 24 Hours (Table) 03/16/20 20:29 Urine Culture - Preliminary Urine,Voided Thrombosis Risk Factor Assmnt - Choose All That Apply Any of the Below Risk Factors Present?: Yes Each Factor Represents 1 point: Obesity (BMI >25) Other Risk Factors: Yes Each Risk Factor Represents 2 Points: Age 61-74 years Other congenital or acquired thrombophilia - If yes, enter type in comment: No Thrombosis Risk Factor Assessment Total Risk Factor Score: 3 Thrombosis Risk Factor Assessment Level: Moderate Risk
[2020-03-18] MEDS: LACTATED RINGERS 1,000 ML IV SCH ×3 (01:32→13:08)
--- NOTE | 2020-03-18 04:34 | CONS ---
CONSULTATION DATE OF SERVICE: 03/17/2020 REASON FOR CONSULTATION: Fever, UTI. HISTORY OF PRESENT ILLNESS: The patient is a 69-year-old male. Patient has been sent to the ER at [facility] for evaluation of fever in this patient who did have multiple comorbidities including CVA, Parkinson's disease and did have a chronic indwelling Nielsen catheter for urinary retention. The patient apparently noticed to have a fever of 100.1-99.1 at home for which the EMS was called. On arrival of EMS, the patient did have a fever 104 Fahrenheit. The patient did have slight cough, but no other symptoms. The patient denies having any chest pain or shortness of breath, cough, no nausea no abdominal pain. No diarrhea. On presentation to hospital, the patient did have fever of 104.5 degrees Fahrenheit and temperature 97.4. The patient sating 97 percent on 3 L nasal cannula. The patient did have a normal white count on presentation. Did have slight left shift with white count 11.6 today, kidney function has been normal. Liver enzymes are normal. The patient did have a positive UA. Influenza and Covid PCR has been negative. Chest x-ray was negative for any acute infiltrate. The patient was started on Rocephin and admitted to the hospital. Infectious Disease was consulted for further management of antibiotic therapy. Most of the information has been obtained from review of the chart as the patient himself is not a very good historian. REVIEW OF SYSTEMS: Positive points have been mentioned in HPI. Rest of the systems are negative. PAST MEDICAL HISTORY: Hypertension, hyperlipidemia, CVA, TIA, rheumatoid arthritis, hypothyroidism, neurogenic bladder and suprapubic catheter placed. PAST SURGICAL HISTORY: Suprapubic catheter, back surgery, tonsillectomy, colonoscopy, SOCIAL HISTORY: No history of smoking, drinking or drug use. FAMILY HISTORY: Father history of oral cancer. Mother history of irregular heart rhythm. ALLERGIES: No known drug allergies. MEDICATIONS: Include the patient is currently on Tylenol, aspirin, Lipitor, Rocephin 1 g daily, vitamin D3, Celexa, Zestoretic, Motrin, Lactinex Synthroid, Claritin, Miralax and Metamucil. PHYSICAL EXAMINATION: Blood pressure is 130/82 with a pulse of 95, temperature 101.5. He is 100% on 3 L nasal cannula. General description is an elderly male lying in bed in no distress with no tachypnea or accessory muscles of respiration use. HEENT: Examination no pallor or scleral icterus. Oral mucous membranes dry. Neck: Trachea central. No thyromegaly. Lungs: Unlabored breathing. Clear to auscultation anteriorly. Heart S1, S2. Regular rate and rhythm. ABDOMEN: Soft, no tenderness. No guarding. No rigidity. Extremities are no edema of the feet. Skin examination: No rash or mass palpable. Neurological: Patient is awake, alert, oriented times three. Mood and affect normal. LABS: Hemoglobin 13.5, white count 11.6, BUN of 14, creatinine 0.96. Urine was positive. Nielsen change, urine is positive. Last culture positive for Pseudomonas and Citrobacter species. DIAGNOSTIC IMPRESSION/PLAN: Admit patient to hospital with sepsis in this patient who did have a fever, tachycardia, elevated white count source is likely catheter associated urinary tract infection. This patient has did grow Pseudomonas in his urine to be likely the pathogen. PLAN: 1. Nielsen catheter has been changed. New culture has been drawn from the new Nielsen. 2. Discontinue Rocephin. 3. Start with cefepime 2 g IV. 4. We will follow on clinical condition and culture to further adjust medication if needed. Thank you for this consultation. Will follow this patient along with you. MMODL / IJN: [id number] /
[2020-03-18] MEDS: ACETAMINOPHEN TAB 325 MG TAB PO PRN (04:51)
[2020-03-18 06:11] LABS: HCT 36.4 % (39.0-53.0); HGB 12.6 gm/dL (13.0-17.5); MCH 30.9 pg (25.0-35.0); MCHC 34.7 g/dL (31.0-37.0); MCV 89.1 fL (80.0-100.0); Mean Platelet Volume 6.7; Platelet Count 225 k/uL (150-450); RBC 4.08 m/uL (4.30-5.90); RDW 12.5 % (11.5-15.5); WBC 8.1 k/uL (3.8-10.6)
[2020-03-18 06:52] LABS: African American GFR (CKD) >90 (>60 ml/min/1.73 sqM); Anion Gap 4 mmol/L; Blood Urea Nitrogen 12 mg/dL (9-20); Calcium 8.7 mg/dL (8.4-10.2); Carbon Dioxide 27 mmol/L (22-30); Chloride 105 mmol/L (98-107); Glucose 114 mg/dL (74-99); Non-African American GFR(CKD) >90 (>60 ml/min/1.73 sqM); Potassium 3.6 mmol/L (3.5-5.1); Sodium 136 mmol/L (137-145)
[2020-03-18] MEDS: ASPIRIN 81 MG PO SCH (08:48)
[2020-03-18] MEDS: CHOLECALCIFEROL 1,000 UNIT TAB PO SCH (08:48)
[2020-03-18] MEDS: CITALOPRAM HYDROBROMIDE 20 MG TAB PO SCH (08:48)
[2020-03-18] MEDS: LACTOBACILLUS ACIDOPH & BULGAR 1 EACH PACKET PO SCH (08:49)
[2020-03-18] MEDS: LISINOPRIL-HCTZ 20-12.5 MG 1 EACH TAB PO SCH (08:49)
[2020-03-18] MEDS: CEFEPIME 2 GM in SODIUM CHLORIDE 0.9% 100 ML IVPB SCH ×2 (09:00→20:50)
[2020-03-18] MEDS: ATORVASTATIN 20 MG TAB PO SCH (20:50)
[2020-03-18] MEDS: LORATADINE 10 MG TAB PO SCH (20:50)
[2020-03-18] MEDS: ACETAMINOPHEN TAB 325 MG TAB PO SCH (20:50)
--- NOTE | 2020-03-18 22:08 | P.PN ---
Progress Note - Text Progress Note Date: 03/18/20 Chief Complaint: fever History of presenting complaint: This is a very pleasant 69-year-old patient of follows with Dr. Blancas.. Chronic stable medical conditions include osteoarthritis, hypertension, hyperlipidemia,neurogenic bladder, rheumatoid arthritis, obstructive sleep apnea and uses CPAP machine, diabetes. Patient has been worked up by at [facility] and he does not have Parkinson's disease but has some Parkinson-like features. Patient had cervical spine fusion from C2 to C6 at [facility]. patient is able to feed himself. Patient has chronic dysarthria.has a chronic Nielsen catheter. Patient noted to have a f ever at home by his and having was brought in. Admitted with acute severe UTI from cystitis secondary to Nielsen catheter causing sepsis. On IV cefepime. Today-feeling better. Oral intake better. Fevers coming down. Review of systems: Was done for constitutional, cardiovascular, GI, pulmonary. relevant finding as above Active Medications Acetaminophen (Acetaminophen Tab 325 Mg Tab) 650 mg PO Q6HR PRN PRN Reason: Mild Pain or Fever > 100.5 Last Admin: 03/18/20 04:51 Dose: 650 mg Documented by: Acetaminophen (Acetaminophen Tab 325 Mg Tab) 650 mg PO [facility] Last Admin: 03/18/20 20:50 Dose: 650 mg Documented by: Aspirin (Aspirin 81 Mg) 81 mg PO DAILY [facility] Last Admin: 03/18/20 08:48 Dose: 81 mg Documented by: Atorvastatin Calcium (Atorvastatin 20 Mg Tab) 20 mg PO [facility] Last Admin: 03/18/20 20:50 Dose: 20 mg Documented by: Cholecalciferol (Cholecalciferol 1,000 Unit Tab) 2,000 unit PO DAILY [facility] Last Admin: 03/18/20 08:48 Dose: 2,000 unit Documented by: Citalopram Hydrobromide (Citalopram Hydrobromide 20 Mg Tab) 40 mg PO DAILY [facility] Last Admin: 03/18/20 08:48 Dose: 40 mg Documented by: Lisinopril/HCTZ (Lisinopril-Hctz 20-12.5 Mg 1 Each Tab) 1 each PO DAILY [facility] Last Admin: 03/18/20 08:49 Dose: 1 each Documented by: Cefepime HCl 2 gm/ Sodium (Chloride) 100 mls @ 25 mls/hr IVPB Q12H [facility] Last Admin: 03/18/20 20:50 Dose: 25 mls/hr Documented by: Lactated Ringer's (Lactated Ringers) 1,000 mls @ 125 mls/hr IV .Q8H [facility] Last Admin: 03/18/20 13:08 Dose: Not Given Documented by: Ibuprofen (Ibuprofen 400 Mg Tab) 400 mg PO Q6HR PRN PRN Reason: Mild Pain or Fever > 100.5 Lactobacillus Acidoph/Bulgaricus (Lactobacillus Acidoph & Bulgar 1 Each Packet) 1 each PO DAILY [facility] Last Admin: 03/18/20 08:49 Dose: 1 each Documented by: Levothyroxine Sodium (Levothyroxine 88 Mcg Tab) 88 mcg PO DAILY@0630 [facility] Last Admin: 03/17/20 10:52 Dose: 88 mcg Documented by: Loratadine (Loratadine 10 Mg Tab) 10 mg PO HS [facility] Last Admin: 03/18/20 20:50 Dose: 10 mg Documented by: Multi-Ingredient Ointment (Zinc Oxide 20% Oint 28.4 Gm Tube) 1 applic TOPICAL DAILY PRN PRN Reason: BEDSORE Naloxone HCl (Naloxone 0.4 Mg/Ml 1 Ml Vial) 0.2 mg IV Q2M PRN PRN Reason: Opioid Reversal Polyethylene Glycol (Polyethylene Glycol 3350 17 Gm Powd.Pack) 17 gm PO DAILY PRN PRN Reason: Constipation Psyllium Hydrophilic Mucilloid (Psyllium Husk 100% 6 Gm Packet) 6 gm PO DAILY PRN PRN Reason: Constipation Past medical history: Diet controlled diabetes, hyperlipidemia, hypertension, rheumatoid arthritis, obstructive sleep apnea, hypothyroid, skin cancer, Parkinson-like symptoms, chronic bladder dysfunction, with chronic Nielsen catheter, neurogenic bladder Social history: Lives with his . Does not smoke. Alcohol rarely. Family history: Cancer, hypertension, oral cancer Physical examination: VITAL SIGNS: T-max 101.2-last night, 69, 22, 131/77, 95% on 3 L GENERAL: BMI 36.5, laying in bed, awake EYES: Pupils equal. Conjunctiva normal. HEENT: External appearance of nose and ears normal, oral cavity grossly normal. NECK: JVD unable to assess, mass not palpable HEART: First and second heart sounds are normal; no edema. LUNGS: Respiratory rate normal; decreased breath sounds. ABDOMEN: Soft, nontender, liver spleen not palpable, no masses palpable, Nielsen catheter in place. NEUROLOGICAL: slurred speech. Weakness of the arms and legs. hand deformity. Investigations reviewed in the clinical context: March 18: White count 8.1 hemoglobin 12.6 potassium 3.6 creatinine 0.80 white count 10.1 hemoglobin 14.5 potassium 3.5 creatinine 1.07 UA positive for leukoesterase WBC Influenza type A type B RSV PCR, coronavirus PCR-all negative Urine culture positive for Klebsiella Pneumoniae, Pseudomonas Aeruginosa Assessment: -Acute UTI from cystitis secondary to Nielsen catheter causing severe sepsis, with cultures positive forKlebsiella Pneumoniae, Pseudomonas Aeruginosa POA -obesity BMI 36.5 -Essential hypertension -Hyperlipidemia -Chronic rheumatoid arthritis -Obstructive sleep apnea uses CPAP machine -Hypothyroid -Hyperlipidemia -Parkinson's-likesymptoms with no Parkinson disease -chronicGait dysfunction currently using a walker -Chronic bladder dysfunction with urinary retention with a chronic Nielsen catheter Plan: Continue IV fluids. IV cefepime. Antibiotics to be coronary by Dr. Yanes. Other medications to continue.
--- NOTE | 2020-03-18 22:27 | PN ---
PROGRESS NOTE DATE OF SERVICE: 03/18/2020 REASON FOR FOLLOWUP: Urinary tract infection, catheter associated Pseudomonas. INTERVAL HISTORY: The patient overall fever pattern has improved. The last temperature was 101.2. No fever since then. The patient is hemodynamically stable. The patient is more awake, alert, breathing comfortably. Denies any chest pain, cough. No abdominal pain. No diarrhea has been reported. PHYSICAL EXAMINATION: Blood pressure 144/83 with a pulse of 71, temperature 98.3. He is 98% on 3 L nasal cannula. General description is an elderly male up in the chair in no distress. Respiratory system: Unlabored breathing, clear to auscultation anteriorly. Heart S1, S2. Regular rate and rhythm. ABDOMEN: Soft, no tenderness. LABS: Hemoglobin is 12.2, white count 8.9, BUN of 12, creatinine 0.80. Urine showing Klebsiella and Pseudomonas. DIAGNOSTIC IMPRESSION AND PLAN: Patient admitted to hospital with abscess, source catheter associated urinary tract infection. Patient's Nielsen has been changed. Covered with cefepime to continue and monitor clinical course closely. MMODL / IJN: [id number] /
[2020-03-19] MEDS: LACTATED RINGERS 1,000 ML IV SCH ×3 (03:05→16:39)
[2020-03-19] MEDS: LEVOTHYROXINE 88 MCG TAB PO SCH (05:49)
[2020-03-19] MEDS: LISINOPRIL-HCTZ 20-12.5 MG 1 EACH TAB PO SCH (08:28)
[2020-03-19] MEDS: CHOLECALCIFEROL 1,000 UNIT TAB PO SCH (08:28)
[2020-03-19] MEDS: CITALOPRAM HYDROBROMIDE 20 MG TAB PO SCH (08:28)
[2020-03-19] MEDS: CEFEPIME 2 GM in SODIUM CHLORIDE 0.9% 100 ML IVPB SCH ×2 (08:28→21:57)
[2020-03-19] MEDS: LACTOBACILLUS ACIDOPH & BULGAR 1 EACH PACKET PO SCH (08:28)
[2020-03-19] MEDS: ASPIRIN 81 MG PO SCH (08:28)
--- NOTE | 2020-03-19 18:09 | PN ---
PROGRESS NOTE DATE OF SERVICE: 03/19/2020 REASON FOR FOLLOW UP: Catheter-associated urinary tract infection. INTERVAL HISTORY: The patient is currently afebrile. The patient is breathing comfortably. Denies having any chest pain, cough. No abdominal pain or diarrhea. PHYSICAL EXAMINATION: Blood pressure 134/84 with a pulse of 66. Temperature is 97.5, 95% on 3 L nasal cannula. General description is an elderly male lying in bed in no distress. Respiratory system: Unlabored breathing, clear to auscultation anteriorly. Heart S1, S2. Regular rate and rhythm. Abdomen soft, no tenderness. LABS: Hemoglobin is 12.1, white count 8.1. BUN of 12, creatinine 0.80. DIAGNOSTIC IMPRESSION AND PLAN: Patient with Pseudomonas Klebsiella urinary tract infection. ( ) has been changed. We are waiting for the repeat urine culture to finalize to determine discharge antibiotics, more likely med line IV antibiotic on discharge. global compensation manager has been alerted to arrange for outpatient antibiotic. MMODL / IJN: [id number] /
[2020-03-19] MEDS: ATORVASTATIN 20 MG TAB PO SCH (20:14)
[2020-03-19] MEDS: LORATADINE 10 MG TAB PO SCH (20:14)
[2020-03-19] MEDS: ACETAMINOPHEN TAB 325 MG TAB PO SCH (20:14)
--- NOTE | 2020-03-19 23:01 | P.PN ---
Progress Note - Text Progress Note Date: 03/19/20 Chief Complaint: fever History of presenting complaint: This is a very pleasant 69-year-old patient of follows with Dr. Blancas.. Chronic stable medical conditions include osteoarthritis, hypertension, hyperlipidemia,neurogenic bladder, rheumatoid arthritis, obstructive sleep apnea and uses CPAP machine, diabetes. Patient has been worked up by at [facility] and he does not have Parkinson's disease but has some Parkinson-like features. Patient had cervical spine fusion from C2 to C6 at [facility]. patient is able to feed himself. Patient has chronic dysarthria.has a chronic Nielsen catheter. Patient noted to have a f ever at home by his and having was brought in. Admitted with acute severe UTI from cystitis secondary to Nielsen catheter causing sepsis. On IV cefepime. Today-Feeling better. Oral intake fair. Repeat UA culture has been ordered by ID.. Review of systems: Was done for constitutional, cardiovascular, GI, pulmonary. relevant finding as above Active Medications Acetaminophen (Acetaminophen Tab 325 Mg Tab) 650 mg PO Q6HR PRN PRN Reason: Mild Pain or Fever > 100.5 Last Admin: 03/18/20 04:51 Dose: 650 mg Documented by: Acetaminophen (Acetaminophen Tab 325 Mg Tab) 650 mg PO [facility] Last Admin: 03/19/20 20:14 Dose: 650 mg Documented by: Aspirin (Aspirin 81 Mg) 81 mg PO DAILY [facility] Last Admin: 03/19/20 08:28 Dose: 81 mg Documented by: Atorvastatin Calcium (Atorvastatin 20 Mg Tab) 20 mg PO [facility] Last Admin: 03/19/20 20:14 Dose: 20 mg Documented by: Cholecalciferol (Cholecalciferol 1,000 Unit Tab) 2,000 unit PO DAILY [facility] Last Admin: 03/19/20 08:28 Dose: 2,000 unit Documented by: Citalopram Hydrobromide (Citalopram Hydrobromide 20 Mg Tab) 40 mg PO DAILY [facility] Last Admin: 03/19/20 08:28 Dose: 40 mg Documented by: Lisinopril/HCTZ (Lisinopril-Hctz 20-12.5 Mg 1 Each Tab) 1 each PO DAILY [facility] Last Admin: 03/19/20 08:28 Dose: 1 each Documented by: Cefepime HCl 2 gm/ Sodium (Chloride) 100 mls @ 25 mls/hr IVPB Q12H [facility] Last Admin: 03/19/20 21:57 Dose: 25 mls/hr Documented by: Lactated Ringer's (Lactated Ringers) 1,000 mls @ 125 mls/hr IV .Q8H [facility] Last Admin: 03/19/20 16:39 Dose: Not Given Documented by: Ibuprofen (Ibuprofen 400 Mg Tab) 400 mg PO Q6HR PRN PRN Reason: Mild Pain or Fever > 100.5 Lactobacillus Acidoph/Bulgaricus (Lactobacillus Acidoph & Bulgar 1 Each Packet) 1 each PO DAILY [facility] Last Admin: 03/19/20 08:28 Dose: 1 each Documented by: Levothyroxine Sodium (Levothyroxine 88 Mcg Tab) 88 mcg PO DAILY@0630 [facility] Last Admin: 03/19/20 05:49 Dose: 88 mcg Documented by: Loratadine (Loratadine 10 Mg Tab) 10 mg PO HS [facility] Last Admin: 03/19/20 20:14 Dose: 10 mg Documented by: Multi-Ingredient Ointment (Zinc Oxide 20% Oint 28.4 Gm Tube) 1 applic TOPICAL DAILY PRN PRN Reason: BEDSORE Naloxone HCl (Naloxone 0.4 Mg/Ml 1 Ml Vial) 0.2 mg IV Q2M PRN PRN Reason: Opioid Reversal Polyethylene Glycol (Polyethylene Glycol 3350 17 Gm Powd.Pack) 17 gm PO DAILY PRN PRN Reason: Constipation Psyllium Hydrophilic Mucilloid (Psyllium Husk 100% 6 Gm Packet) 6 gm PO DAILY PRN PRN Reason: Constipation Past medical history: Diet controlled diabetes, hyperlipidemia, hypertension, rheumatoid arthritis, obstructive sleep apnea, hypothyroid, skin cancer, Parkinson-like symptoms, chronic bladder dysfunction, with chronic Nielsen catheter, neurogenic bladder Social history: Lives with his . Does not smoke. Alcohol rarely. Family history: Cancer, hypertension, oral cancer Physical examination: VITAL SIGNS: Afebrile, 66, 18, 134/84, 95% on 3 L GENERAL: BMI 36.5, up in a chair awake EYES: Pupils equal. Conjunctiva normal. HEENT: External appearance of nose and ears normal, oral cavity grossly normal. NECK: JVD unable to assess, mass not palpable HEART: First and second heart sounds are normal; no edema. LUNGS: Respiratory rate normal; decreased breath sounds. ABDOMEN: Soft, nontender, liver spleen not palpable, no masses palpable, Nielsen catheter in place. NEUROLOGICAL: slurred speech. Weakness of the arms and legs. hand deformity. Investigations reviewed in the clinical context: March 19: White count 8.1 hemoglobin 12.6 potassium 3.6 creatinine 0.80 March 18: White count 8.1 hemoglobin 12.6 potassium 3.6 creatinine 0.80 white count 10.1 hemoglobin 14.5 potassium 3.5 creatinine 1.07 UA positive for leukoesterase WBC Influenza type A type B RSV PCR, coronavirus PCR-all negative Urine culture positive for Klebsiella Pneumoniae, Pseudomonas Aeruginosa Assessment: -Acute UTI from cystitis secondary to Nielsen catheter causing severe sepsis, with cultures positive for Klebsiella Pneumoniae, Pseudomonas Aeruginosa POA. Repeat culture since pending -obesity BMI 36.5 -Essential hypertension -Hyperlipidemia -Chronic rheumatoid arthritis -Obstructive sleep apnea uses CPAP machine -Hypothyroid -Hyperlipidemia -Parkinson's-likesymptoms with no Parkinson disease -chronicGait dysfunction currently using a walker -Chronic bladder dysfunction with urinary retention with a chronic Nielsen catheter Plan: Continue IV fluids. IV cefepime. Await results of repeat culture as requested by ID. Discussed with patient.
[2020-03-20] MEDS: LACTATED RINGERS 1,000 ML IV SCH ×3 (04:51→15:52)
[2020-03-20] MEDS: CHOLECALCIFEROL 1,000 UNIT TAB PO SCH (07:59)
[2020-03-20] MEDS: ASPIRIN 81 MG PO SCH (07:59)
[2020-03-20] MEDS: LISINOPRIL-HCTZ 20-12.5 MG 1 EACH TAB PO SCH (08:00)
[2020-03-20] MEDS: CITALOPRAM HYDROBROMIDE 20 MG TAB PO SCH (08:00)
[2020-03-20] MEDS: LACTOBACILLUS ACIDOPH & BULGAR 1 EACH PACKET PO SCH (08:00)
[2020-03-20] MEDS: LEVOTHYROXINE 88 MCG TAB PO SCH (08:00)
[2020-03-20] MEDS: CEFEPIME 2 GM in SODIUM CHLORIDE 0.9% 100 ML IVPB SCH ×2 (10:31→21:31)
--- NOTE | 2020-03-20 18:01 | PN ---
PROGRESS NOTE DATE OF SERVICE: 03/20/2020 REASON FOR FOLLOWUP: Pseudomonas catheter-associated UTI. INTERVAL HISTORY: The patient is currently afebrile. The patient is breathing comfortably. The patient denies having any chest pain or shortness of breath or cough. No abdominal pain or diarrhea. PHYSICAL EXAMINATION: Blood pressure 121/80 with a pulse of 71, temperature 98.2. He is 94% on 2 L nasal cannula. General description is an elderly male lying in bed in no distress. RESPIRATORY SYSTEM: Unlabored breathing. Clear to auscultation anteriorly. HEART: S1, S2. Regular rate and rhythm. ABDOMEN: Soft. No tenderness. LABS: Hemoglobin is 12.6, white count 8.1 was repeated. Culture currently pending. DIAGNOSTIC IMPRESSION AND PLAN: Patient with catheter-associated urinary tract infection. Urine showing Pseudomonas, Klebsiella, covered with cefepime. Waiting for the repeat culture to finalize changing the Nielsen to determine his discharge antibiotics. Continue with supportive care. MMODL / IJN: [id number] /
[2020-03-20] MEDS: ACETAMINOPHEN TAB 325 MG TAB PO SCH (21:32)
[2020-03-20] MEDS: LORATADINE 10 MG TAB PO SCH (21:33)
[2020-03-20] MEDS: ATORVASTATIN 20 MG TAB PO SCH (21:33)
--- NOTE | 2020-03-20 23:27 | P.PN ---
Progress Note - Text Progress Note Date: 03/20/20 Chief Complaint: fever History of presenting complaint: This is a very pleasant 69-year-old patient of follows with Dr. Blancas.. Chronic stable medical conditions include osteoarthritis, hypertension, hyperlipidemia,neurogenic bladder, rheumatoid arthritis, obstructive sleep apnea and uses CPAP machine, diabetes. Patient has been worked up by at [facility] and he does not have Parkinson's disease but has some Parkinson-like features. Patient had cervical spine fusion from C2 to C6 at [facility]. Patient needs assistance with feeding . Patient has chronic dysarthria.has a chronic Nielsen catheter. Patient noted to h ave a fever at home by his and having was brought in. Admitted with acute severe UTI from cystitis secondary to Nielsen catheter causing sepsis. On IV cefepime. Today-Feeling better. Oral intake fair. Repeat culture pending. Review of systems: Was done for constitutional, cardiovascular, GI, pulmonary. relevant finding as above Active Medications Acetaminophen (Acetaminophen Tab 325 Mg Tab) 650 mg PO Q6HR PRN PRN Reason: Mild Pain or Fever > 100.5 Last Admin: 03/18/20 04:51 Dose: 650 mg Documented by: Acetaminophen (Acetaminophen Tab 325 Mg Tab) 650 mg PO HS [facility] Last Admin: 03/20/20 21:32 Dose: 650 mg Documented by: Aspirin (Aspirin 81 Mg) 81 mg PO DAILY [facility] Last Admin: 03/20/20 07:59 Dose: 81 mg Documented by: Atorvastatin Calcium (Atorvastatin 20 Mg Tab) 20 mg PO [facility] Last Admin: 03/20/20 21:33 Dose: 20 mg Documented by: Cholecalciferol (Cholecalciferol 1,000 Unit Tab) 2,000 unit PO DAILY [facility] Last Admin: 03/20/20 07:59 Dose: 2,000 unit Documented by: Citalopram Hydrobromide (Citalopram Hydrobromide 20 Mg Tab) 40 mg PO DAILY [facility] Last Admin: 03/20/20 08:00 Dose: 40 mg Documented by: Lisinopril/HCTZ (Lisinopril-Hctz 20-12.5 Mg 1 Each Tab) 1 each PO DAILY [facility] Last Admin: 03/20/20 08:00 Dose: 1 each Documented by: Cefepime HCl 2 gm/ Sodium (Chloride) 100 mls @ 25 mls/hr IVPB Q12H [facility] Last Admin: 03/20/20 21:31 Dose: 25 mls/hr Documented by: Lactated Ringer's (Lactated Ringers) 1,000 mls @ 125 mls/hr IV .Q8H [facility] Last Admin: 03/20/20 15:52 Dose: 125 mls/hr Documented by: Ibuprofen (Ibuprofen 400 Mg Tab) 400 mg PO Q6HR PRN PRN Reason: Mild Pain or Fever > 100.5 Last Admin: 03/19/20 23:58 Dose: 400 mg Documented by: Lactobacillus Acidoph/Bulgaricus (Lactobacillus Acidoph & Bulgar 1 Each Packet) 1 each PO DAILY [facility] Last Admin: 03/20/20 08:00 Dose: 1 each Documented by: Levothyroxine Sodium (Levothyroxine 88 Mcg Tab) 88 mcg PO DAILY@0630 [facility] Last Admin: 03/20/20 08:00 Dose: 88 mcg Documented by: Loratadine (Loratadine 10 Mg Tab) 10 mg PO HS [facility] Last Admin: 03/20/20 21:33 Dose: 10 mg Documented by: Multi-Ingredient Ointment (Zinc Oxide 20% Oint 28.4 Gm Tube) 1 applic TOPICAL DAILY PRN PRN Reason: BEDSORE Naloxone HCl (Naloxone 0.4 Mg/Ml 1 Ml Vial) 0.2 mg IV Q2M PRN PRN Reason: Opioid Reversal Polyethylene Glycol (Polyethylene Glycol 3350 17 Gm Powd.Pack) 17 gm PO DAILY PRN PRN Reason: Constipation Psyllium Hydrophilic Mucilloid (Psyllium Husk 100% 6 Gm Packet) 6 gm PO DAILY PRN PRN Reason: Constipation Past medical history: Diet controlled diabetes, hyperlipidemia, hypertension, rheumatoid arthritis, obstructive sleep apnea, hypothyroid, skin cancer, Parkinson-like symptoms, chronic bladder dysfunction, with chronic Nielsen catheter, neurogenic bladder Social history: Lives with his . Does not smoke. Alcohol rarely. Family history: Cancer, hypertension, oral cancer Physical examination: VITAL SIGNS: 98.2, 71, 20, 121/80, 94% on 2 L GENERAL: BMI 36.5, sitting up in bed, being fed EYES: Pupils equal. Conjunctiva normal. HEENT: External appearance of nose and ears normal, oral cavity grossly normal. NECK: JVD unable to assess, mass not palpable HEART: First and second heart sounds are normal; no edema. LUNGS: Respiratory rate normal; decreased breath sounds. ABDOMEN: Soft, nontender, liver spleen not palpable, no masses palpable, Nielsen catheter in place. NEUROLOGICAL: slurred speech. Weakness of the arms and legs. hand deformity. Investigations reviewed in the clinical context: March 20: Repeat urine culture negative March 19: White count 8.1 hemoglobin 12.6 potassium 3.6 creatinine 0.80 March 18: White count 8.1 hemoglobin 12.6 potassium 3.6 creatinine 0.80 white count 10.1 hemoglobin 14.5 potassium 3.5 creatinine 1.07 UA positive for leukoesterase WBC Influenza type A type B RSV PCR, coronavirus PCR-all negative Urine culture positive for Klebsiella Pneumoniae, Pseudomonas Aeruginosa Assessment: -Acute UTI from cystitis secondary to Nielsen catheter causing severe sepsis, with cultures positive for Klebsiella Pneumoniae, Pseudomonas Aeruginosa POA. Repeat culture negative -obesity BMI 36.5 -Essential hypertension -Hyperlipidemia -Chronic rheumatoid arthritis -Obstructive sleep apnea uses CPAP machine -Hypothyroid -Hyperlipidemia -Parkinson's-likesymptoms with no Parkinson disease -chronicGait dysfunction currently using a walker -Chronic bladder dysfunction with urinary retention with a chronic Nielsen catheter Plan: Continue IV fluids. IV cefepime. Other medications to continue. Antibiotic decision as per ID..
[2020-03-21] MEDS: LACTATED RINGERS 1,000 ML IV SCH ×4 (03:22→20:02)
[2020-03-21] MEDS: LISINOPRIL-HCTZ 20-12.5 MG 1 EACH TAB PO SCH (08:01)
[2020-03-21] MEDS: ASPIRIN 81 MG PO SCH (08:01)
[2020-03-21] MEDS: CITALOPRAM HYDROBROMIDE 20 MG TAB PO SCH (08:01)
[2020-03-21] MEDS: LEVOTHYROXINE 88 MCG TAB PO SCH (08:01)
[2020-03-21] MEDS: LACTOBACILLUS ACIDOPH & BULGAR 1 EACH PACKET PO SCH (08:02)
[2020-03-21] MEDS: CHOLECALCIFEROL 1,000 UNIT TAB PO SCH (08:02)
[2020-03-21] MEDS: CEFEPIME 2 GM in SODIUM CHLORIDE 0.9% 100 ML IVPB SCH ×2 (08:32→21:08)
[2020-03-21] MEDS: ACETAMINOPHEN TAB 325 MG TAB PO SCH (20:03)
[2020-03-21] MEDS: ATORVASTATIN 20 MG TAB PO SCH (20:04)
[2020-03-21] MEDS: LORATADINE 10 MG TAB PO SCH (20:04)
--- NOTE | 2020-03-21 21:11 | P.PN ---
Progress Note - Text Progress Note Date: 03/21/20 Chief Complaint: fever History of presenting complaint: This is a very pleasant 69-year-old patient of follows with Dr. Blancas.. Chronic stable medical conditions include osteoarthritis, hypertension, hyperlipidemia,neurogenic bladder, rheumatoid arthritis, obstructive sleep apnea and uses CPAP machine, diabetes. Patient has been worked up by at [facility] and he does not have Parkinson's disease but has some Parkinson-like features. Patient had cervical spine fusion from C2 to C6 at [facility]. Patient needs assistance with feeding . Patient has chronic dysarthria.has a chronic Nielsen catheter. Patient noted to h ave a fever at home by his and having was brought in. Admitted with acute severe UTI from cystitis secondary to Nielsen catheter causing sepsis. On IV cefepime. Today-Feeling better. Oral intake fair. Repeat culture negative Review of systems: Was done for constitutional, cardiovascular, GI, pulmonary. relevant finding as above Active Medications Acetaminophen (Acetaminophen Tab 325 Mg Tab) 650 mg PO Q6HR PRN PRN Reason: Mild Pain or Fever > 100.5 Last Admin: 03/18/20 04:51 Dose: 650 mg Documented by: Acetaminophen (Acetaminophen Tab 325 Mg Tab) 650 mg PO [facility] Last Admin: 03/21/20 20:03 Dose: 650 mg Documented by: Aspirin (Aspirin 81 Mg) 81 mg PO DAILY [facility] TO [facility] Last Admin: 03/21/20 08:01 Dose: 81 mg Documented by: Atorvastatin Calcium (Atorvastatin 20 Mg Tab) 20 mg PO [facility] Last Admin: 03/21/20 20:04 Dose: 20 mg Documented by: Cholecalciferol (Cholecalciferol 1,000 Unit Tab) 2,000 unit PO DAILY [facility] Last Admin: 03/21/20 08:02 Dose: 2,000 unit Documented by: Citalopram Hydrobromide (Citalopram Hydrobromide 20 Mg Tab) 40 mg PO DAILY [facility] Last Admin: 03/21/20 08:01 Dose: 40 mg Documented by: Lisinopril/HCTZ (Lisinopril-Hctz 20-12.5 Mg 1 Each Tab) 1 each PO DAILY [facility] Last Admin: 03/21/20 08:01 Dose: 1 each Documented by: Cefepime HCl 2 gm/ Sodium (Chloride) 100 mls @ 25 mls/hr IVPB Q12H [facility] Last Admin: 03/21/20 08:32 Dose: 25 mls/hr Documented by: Lactated Ringer's (Lactated Ringers) 1,000 mls @ 125 mls/hr IV .Q8H [facility] Last Admin: 03/21/20 20:02 Dose: 125 mls/hr Documented by: Ibuprofen (Ibuprofen 400 Mg Tab) 400 mg PO Q6HR PRN PRN Reason: Mild Pain or Fever > 100.5 Last Admin: 03/19/20 23:58 Dose: 400 mg Documented by: Lactobacillus Acidoph/Bulgaricus (Lactobacillus Acidoph & Bulgar 1 Each Packet) 1 each PO DAILY [facility] Last Admin: 03/21/20 08:02 Dose: 1 each Documented by: Levothyroxine Sodium (Levothyroxine 88 Mcg Tab) 88 mcg PO DAILY@0630 [facility] Last Admin: 03/21/20 08:01 Dose: 88 mcg Documented by: Loratadine (Loratadine 10 Mg Tab) 10 mg PO HS [facility] Last Admin: 03/21/20 20:04 Dose: 10 mg Documented by: Multi-Ingredient Ointment (Zinc Oxide 20% Oint 28.4 Gm Tube) 1 applic TOPICAL DAILY PRN PRN Reason: BEDSORE Naloxone HCl (Naloxone 0.4 Mg/Ml 1 Ml Vial) 0.2 mg IV Q2M PRN PRN Reason: Opioid Reversal Polyethylene Glycol (Polyethylene Glycol 3350 17 Gm Powd.Pack) 17 gm PO DAILY PRN PRN Reason: Constipation Psyllium Hydrophilic Mucilloid (Psyllium Husk 100% 6 Gm Packet) 6 gm PO DAILY PRN PRN Reason: Constipation Past medical history: Diet controlled diabetes, hyperlipidemia, hypertension, rheumatoid arthritis, obstructive sleep apnea, hypothyroid, skin cancer, Parkinson-like symptoms, chronic bladder dysfunction, with chronic Nielsen catheter, neurogenic bladder Social history: Lives with his . Does not smoke. Alcohol rarely. Family history: Cancer, hypertension, oral cancer Physical examination: VITAL SIGNS: 98.1, 61, 20, 148/88, 92% room air GENERAL: BMI 36.5, sitting up in bed, comfortable EYES: Pupils equal. Conjunctiva normal. HEENT: External appearance of nose and ears normal, oral cavity grossly normal. NECK: JVD unable to assess, mass not palpable HEART: First and second heart sounds are normal; no edema. LUNGS: Respiratory rate normal; decreased breath sounds. ABDOMEN: Soft, nontender, liver spleen not palpable, no masses palpable, Nielsen catheter in place. NEUROLOGICAL: slurred speech. Weakness of the arms and legs. hand deformity. Investigations reviewed in the clinical context: Repeat urine culture-negative March 18: White count 8.1 hemoglobin 12.6 potassium 3.6 creatinine 0.80 white count 10.1 hemoglobin 14.5 potassium 3.5 creatinine 1.07 UA positive for leukoesterase WBC Influenza type A type B RSV PCR, coronavirus PCR-all negative Urine culture positive for Klebsiella Pneumoniae, Pseudomonas Aeruginosa Assessment: -Acute UTI from cystitis secondary to Nielsen catheter causing severe sepsis, with cultures positive for Klebsiella Pneumoniae, Pseudomonas Aeruginosa POA. Repeat culture negative -obesity BMI 36.5 -Essential hypertension -Hyperlipidemia -Chronic rheumatoid arthritis -Obstructive sleep apnea uses CPAP machine -Hypothyroid -Hyperlipidemia -Parkinson's-likesymptoms with no Parkinson disease -chronicGait dysfunction currently using a walker -Chronic bladder dysfunction with urinary retention with a chronic Nielsen catheter Plan: IV cefepime. Discussed with Dr. Yanes from ID. Need a PICC line. Complete course of antibiotic. DC tomorrow.
--- NOTE | 2020-03-21 22:01 | PN ---
PROGRESS NOTE DATE OF SERVICE: 03/21/2020 REASON FOR FOLLOWUP: Pseudomonas catheter-associated urinary tract infection. INTERVAL HISTORY: The patient is currently afebrile, has been breathing comfortably. The patient denies having any chest pain or cough. No abdominal pain or diarrhea. PHYSICAL EXAMINATION: Blood pressure 115/70 with a pulse of 77, temperature 98.8. He is 94% on 2 L nasal cannula. General description is an elderly male lying in bed in no distress. RESPIRATORY SYSTEM: Unlabored breathing. Clear to auscultation anteriorly. HEART: S1, S2. Regular rate and rhythm. ABDOMEN: Soft. No tenderness. LABS: Hemoglobin is 12.6, white count 8.1, BUN of 12, creatinine 0.80. DIAGNOSTIC IMPRESSION AND PLAN: Patient with Pseudomonas aeruginosa catheter-associated urinary tract infection in this patient admitted to hospital with will get a midline to continue with IV cefepime for another week in the outpatient setting. Continue supportive care. MMODL / IJN: [id number] /
[2020-03-22] MEDS: ACETAMINOPHEN TAB 325 MG TAB PO PRN (03:10)
[2020-03-22] MEDS: LEVOTHYROXINE 88 MCG TAB PO SCH (05:43)
[2020-03-22 07:42] VITALS: RESP 19
[2020-03-22] MEDS: ASPIRIN 81 MG PO SCH (08:37)
[2020-03-22] MEDS: CHOLECALCIFEROL 1,000 UNIT TAB PO SCH (08:37)
[2020-03-22] MEDS: LISINOPRIL-HCTZ 20-12.5 MG 1 EACH TAB PO SCH (08:37)
[2020-03-22] MEDS: CITALOPRAM HYDROBROMIDE 20 MG TAB PO SCH (08:37)
[2020-03-22] MEDS: LACTOBACILLUS ACIDOPH & BULGAR 1 EACH PACKET PO SCH (08:37)
[2020-03-22] MEDS: CEFEPIME 2 GM in SODIUM CHLORIDE 0.9% 100 ML IVPB SCH (09:58)
--- NOTE | 2020-03-22 13:36 | P.PN ---
Subjective Progress Note Date: 03/22/20 HISTORY OF PRESENT ILLNESS Male patient treated for Pseudomonas catheter associated urinary tract infectio n. Patient is currently on cefepime and midline has been placed. Plan is for continue cefepime at home for one week. Patient has been afebrile, heart rate 70, blood pressure 04/04/1971, pulse ox 95% on 2 L nasal cannula. WBC 8.1, hemoglobin 12.6. Creatinine 0.8. Patient is scheduled for discharge home today. PHYSICAL EXAMINATION Gen: This is a 69-year-old obese male. He sitting up in a chair and appears to be comfortable. No acute distress. HEENT: Head is atraumatic, normocephalic. Pupils equal, round. Sclerae is anicteric. NECK: Supple. No JVD. No lymphadenopathy. LUNGS: Clear to auscultation. No wheezes or rhonchi. No intercostal retractions. HEART: Regular rate and rhythm. No murmur. ABDOMEN: Soft. Bowel sounds are present. No masses. No abdominal tenderness. EXTREMITIES: No pedal edema. No calf tenderness. NEUROLOGICAL: Patient is awake, alert and oriented x3. ASSESSMENT Pseudomonas catheter associated urinary tract infection PLAN Cefepime for 7 day course.] The above dictated assessment and findings were discussed with Dr. Ospina. The impression and plan of care have been directed as dictated. Tianna Jean-Baptiste nurse practitioner acting as scribe for Dr. Ospina. Objective - Vital Signs Vital signs: Vital Signs Temp 98 F 03/22/20 07:17 Pulse 70 03/22/20 07:17 Resp 19 03/22/20 07:17 BP 124/72 03/22/20 07:17 Pulse Ox 95 03/22/20 07:17 Intake & Output 03/21/20 03/22/20 03/22/20 18:59 06:59 18:59 Intake Total 1200 1000 Output Total 3800 2550 Balance -2600 -1550 Intake: Intake, IV Titration 1000 Amount Lactated Ringers 1,000 ml 1000 @ 125 mls/hr IV .Q8H MAC Rx#:[id number] Oral 1200 Output: Urine 3800 2550 Other: Voiding Method Indwelling Catheter Indwelling Catheter # Voids 2 1 # Bowel Movements 1 - Labs CBC & Chem 7: 03/18/20 05:38 01/07/21 05:38 Labs: Microbiology - Last 24 Hours (Table) 03/17/20 21:47 Blood Culture - Preliminary Blood No Growth after 96 hours 03/16/20 20:29 Blood Culture - Preliminary Blood No Growth after 120 hours
[2020-03-22 14:14] VITALS: BP 136/78; PULSE 77; TEMP 97.7
--- NOTE | 2020-03-23 19:03 | P.DS ---
Providers Date of admission: 03/17/20 22:50 Expected date of discharge: 03/22/20 Attending physician: Scottie Uriarte Consults: 03/16/20 22:31 Consult Physician Urgent Consulting Provider: Janki Buck Consult Reason/Comments: fever, sepsis critera Do you want consulting provider notified?: Yes Primary care physician: [facility] Course: Chief Complaint: fever History of presenting complaint: This is a very pleasant 69-year-old patient of follows with Dr. Blancas.. Chronic stable medical conditions include osteoarthritis, hypertension, hyperlipidemia,neurogenic bladder, rheumatoid arthritis, obstructive sleep apnea and uses CPAP machine, diabetes. Patient has been worked up by at [facility] and he does not have Parkinson's disease but has some Parkinson-like features. Patient had cervical spine fusion from C2 to C6 at [facility]. Patient needs assistance with feeding . Patient has chronic dysarthria.has a chronic Nielsen catheter. Patient noted to have a fever at home by his and having was brought in. Admitted with acute severe UTI from cystitis secondary to Nielsen catheter causing sepsis. On IV cefepime. Today-patient doing well. Another 7 days of IV cefepime. Midline place. Discussion and discharge planning more than 35 minutes Consultation: Dr. Yanes from ID Past medical history: Diet controlled diabetes, hyperlipidemia, hypertension, rheumatoid arthritis, obstructive sleep apnea, hypothyroid, skin cancer, Parkinson-like symptoms, chronic bladder dysfunction, with chronic Nielsen catheter, neurogenic bladder Social history: Lives with his . Does not smoke. Alcohol rarely. Family history: Cancer, hypertension, oral cancer Physical examination: VITAL SIGNS: 97.7, 77, 19, 136.78, 93% on 2 L GENERAL: comfortable EYES: Pupils equal. Conjunctiva normal. HEENT: External appearance of nose and ears normal, oral cavity grossly normal. NECK: JVD unable to assess, mass not palpable HEART: First and second heart sounds are normal; no edema. LUNGS: Respiratory rate normal; decreased breath sounds. ABDOMEN: Soft, nontender, liver spleen not palpable, no masses palpable, Nielsen catheter in place. NEUROLOGICAL: slurred speech. Weakness of the arms and legs. hand deformity. Investigations reviewed in the clinical context: Repeat urine culture-negative March 18: White count 8.1 hemoglobin 12.6 potassium 3.6 creatinine 0.80 white count 10.1 hemoglobin 14.5 potassium 3.5 creatinine 1.07 UA positive for leukoesterase WBC Influenza type A type B RSV PCR, coronavirus PCR-all negative Urine culture positive for Klebsiella Pneumoniae, Pseudomonas Aeruginosa Assessment: -Acute UTI from cystitis secondary to Nielsen catheter causing severe sepsis, with cultures positive for Klebsiella Pneumoniae, Pseudomonas Aeruginosa POA. Repeat culture negative -obesity BMI 36.5 -Essential hypertension -Hyperlipidemia -Chronic rheumatoid arthritis -Obstructive sleep apnea uses CPAP machine -Hypothyroid -Hyperlipidemia -Parkinson's-likesymptoms with no Parkinson disease -chronicGait dysfunction currently using a walker -Chronic bladder dysfunction with urinary retention with a chronic Nielsen catheter disposition: Home Patient Condition at Discharge: Stable Plan - Discharge Summary New Discharge Prescriptions: Continue Rosuvastatin Calcium [Crestor] 10 mg PO HS Levothyroxine Sodium [Synthroid] 88 mcg PO DAILY Aspirin 81 mg PO DAILY #1 chewable Lisinopril-Hctz 20-12.5 mg [Zestoretic 20-12.5] 1 tab PO DAILY Zinc Oxide [Desitin] 1 applic TOPICAL DAILY PRN PRN Reason: BEDSORE Polyethylene Glycol 3350 [Miralax] 17 gm PO DAILY PRN PRN Reason: Constipation Citalopram Hydrobromide [CeleXA] 40 mg PO DAILY Acetaminophen Tab [Tylenol] 650 mg PO HS Loratadine [Claritin] 10 mg PO HS Cranberry 4200mg 1 tab PO DAILY Psyllium Husk (with Sugar) [Metamucil Powder] 6 gm PO DAILY PRN PRN Reason: Constipation L.acidoph,Paracasei, B.lactis [Probiotic] 1 cap PO DAILY Cholecalciferol [Vitamin D3 (25 Mcg = 1000 Iu)] 2,000 unit PO DAILY Arnica Pain Relief Gel 1 applic TOPICAL DAILY PRN PRN Reason: Pain Discharge Medication List Levothyroxine Sodium [Synthroid] 88 mcg PO DAILY 08/19/17 [History] Rosuvastatin Calcium [Crestor] 10 mg PO HS 08/19/17 [History] Aspirin 81 mg PO DAILY #1 chewable 08/23/17 [Rx] Lisinopril-Hctz 20-12.5 mg [Zestoretic 20-12.5] 1 tab PO DAILY 03/26/18 [History] Citalopram Hydrobromide [CeleXA] 40 mg PO DAILY 01/12/19 [History] Polyethylene Glycol 3350 [Miralax] 17 gm PO DAILY PRN 01/12/19 [History] Zinc Oxide [Desitin] 1 applic TOPICAL DAILY PRN 01/12/19 [History] Acetaminophen Tab [Tylenol] 650 mg PO HS 08/26/19 [History] Loratadine [Claritin] 10 mg PO HS 08/26/19 [History] Arnica Pain Relief Gel 1 applic TOPICAL DAILY PRN 03/16/20 [History] Cholecalciferol [Vitamin D3 (25 Mcg = 1000 Iu)] 2,000 unit PO DAILY 03/16/20 [History] Cranberry 4200mg 1 tab PO DAILY 03/16/20 [History] L.acidoph,Paracasei, B.lactis [Probiotic] 1 cap PO DAILY 03/16/20 [History] Psyllium Husk (with Sugar) [Metamucil Powder] 6 gm PO DAILY PRN 03/16/20 [History] Follow up Appointment(s)/Referral(s): [facility] [NON-STAFF] - 03/23/20 [facility] [NON-STAFF] - 03/23/20 Sarabjit Dickson MD [Primary Care Provider] - 1-2 days Patient Instructions/Handouts: Urinary Tract Infection in Men (DC), Sepsis (GEN) Activity/Diet/Wound Care/Special Instructions: home abx as per dr buck cbc/bmp - 1 week Discharge Disposition: HOME WITH HOME HEALTH SERVICES
== END 2020-03-22 16:58 | disposition home health service (06) | DRG 698 ==
LOC: SUPCPDRO 19:55 → EC 19:55 → 5NMEDONC 22:30 → OBSVTOIN 03-17 22:50
PROVIDERS: ADMIT Hospitalist; ATTEND Hospitalist
PROC: 05HD33Z Insertion of Infusion Device into Right Cephalic Vein, Percutaneous Approach (ICD-10-PCS; principal; 2020-03-22 13:55)
DX: T83.511A Infection and inflammatory reaction due to indwelling urethral catheter, initial encounter (principal); A41.52 Sepsis due to Pseudomonas; Y84.6 Urinary catheterization as the cause of abnormal reaction of the patient, or of later complication, without mention of misadventure at the time of the procedure; E03.9 Hypothyroidism, unspecified; E11.9 Type 2 diabetes mellitus without complications; E66.9 Obesity, unspecified; Z20.822 Contact with and (suspected) exposure to COVID-19; E78.5 Hyperlipidemia, unspecified; G20 Parkinson's disease; R47.81 Slurred speech; G47.33 Obstructive sleep apnea (adult) (pediatric); N31.9 Neuromuscular dysfunction of bladder, unspecified; I10 Essential (primary) hypertension; M19.90 Unspecified osteoarthritis, unspecified site; N30.90 Cystitis, unspecified without hematuria; M06.9 Rheumatoid arthritis, unspecified; Z68.36 Body mass index [BMI] 36.0-36.9, adult; Z79.82 Long term (current) use of aspirin; Z79.890 Hormone replacement therapy; Z79.899 Other long term (current) drug therapy; Z98.1 Arthrodesis status; Z86.73 Personal history of transient ischemic attack (TIA), and cerebral infarction without residual deficits; Z85.828 Personal history of other malignant neoplasm of skin; Z82.49 Family history of ischemic heart disease and other diseases of the circulatory system; Z80.8 Family history of malignant neoplasm of other organs or systems
CPT/HCPCS: 36410; 36415; 71046; 76937; 80048; 80053; 81001; 82550; 83605; 83735; 85025; 85027; 87040; 87077; 87086; 87186; 87636; 93005; 96361; 96374; 99291

== ENCOUNTER 2021-04-06 19:49 | Emergency (ER) | payer MEDICARE, OTHER ==
--- NOTE | 2021-04-06 19:57 | ED ---
Male Urogenital HPI - General Stated complaint: catheter replacement Time Seen by Provider: 04/06/21 19:50 Source: patient, RN notes reviewed - History of Present Illness Initial comments: Patient presenting via EMS for Nielsen catheter replacement. Patient under the care of his who inadvertently tripped over a catheter pulled out. Patient himself has no significant complaints. Catheter was replaced by the ED when necessary. 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 Under total care with his . There was no history of fever, shortness of breath, chest pain, or any other complaints. No urinary complaints. No changes in balance. Patient is not indicating that he is in a pain this time. New Nielsen catheter has been placed. - Related Data Home Medications Medication Instructions Recorded Confirmed Levothyroxine Sodium [Synthroid] 88 mcg PO DAILY 08/19/17 03/16/20 Rosuvastatin Calcium [Crestor] 10 mg PO HS 08/19/17 03/16/20 Lisinopril-Hctz 20-12.5 mg 1 tab PO DAILY 03/26/18 03/16/20 [Zestoretic 20-12.5] Citalopram Hydrobromide [CeleXA] 40 mg PO DAILY 01/12/19 03/16/20 Polyethylene Glycol 3350 [Miralax] 17 gm PO DAILY PRN 01/12/19 03/16/20 Zinc Oxide [Desitin] 1 applic TOPICAL DAILY PRN 01/12/19 03/16/20 Acetaminophen Tab [Tylenol] 650 mg PO HS 08/26/19 03/16/20 Loratadine [Claritin] 10 mg PO HS 08/26/19 03/16/20 Arnica Pain Relief Gel 1 applic TOPICAL DAILY PRN 03/16/20 03/16/20 Cholecalciferol [Vitamin D3 (25 2,000 unit PO DAILY 03/16/20 03/16/20 Mcg = 1000 Iu)] Cranberry 4200mg 1 tab PO DAILY 03/16/20 03/16/20 L.acidoph,Paracasei, B.lactis 1 cap PO DAILY 03/16/20 03/16/20 [Probiotic] Psyllium Husk (with Sugar) 6 gm PO DAILY PRN 03/16/20 03/16/20 [Metamucil Powder] Previous Rx's Medication Instructions Recorded Aspirin 81 mg PO DAILY #1 chewable 08/23/17 Allergies Allergy/AdvReac Type Severity Reaction Status Date / Time No Known Allergies Allergy Verified 04/06/21 19:58 Review of Systems ROS Statement: Those systems with pertinent positive or pertinent negative responses have been documented in the HPI. ROS Other: All systems not noted in ROS Statement are negative. Past Medical History Past Medical History: Cancer, CVA/TIA, Hyperlipidemia, Hypertension, Musculoskeletal Disorder, Pneumonia, Rheumatoid Arthritis (RA), Sleep Apnea/CPAP/BIPAP, Thyroid Disorder Additional Past Medical History / Comment(s): Slurred speech/possible lTIA 2016 , uses CPAP at bed, bronchitis, Melanoma skin ca lt arm, has sx of Parkinson's disease - has MSA. Neurogenic bladder, has suprapubic tube placed - d/c 03/02/20 History of Any Multi-Drug Resistant Organisms: C-DIFF Date of last positivie culture/infection: 09/03/19 MDRO Source:: stool Past Surgical History: Back Surgery, Orthopedic Surgery, Tonsillectomy Additional Past Surgical History / Comment(s): Heel spurs removed, colonoscopy, basal call carcinoma: skin cancer removed, Spinal fusion. Cystoscopy w/ suprapubic SP catheter 08/27/19. Past Anesthesia/Blood Transfusion Reactions: Previous Problems w/ Anesthesia Additional Past Anesthesia/Blood Transfusion Reaction / Comment(s): Stopped breathing during colonoscopy yrs. ago before sleep apnea diagnosed per pt. Past Psychological History: No Psychological Hx Reported Additional Psychological History / Comment(s): pt denied depression Smoking Status: Never smoker Past Alcohol Use History: None Reported Past Drug Use History: None Reported - Past Family History Father Family Medical History: Cancer, Hypertension Additional Family Medical History / Comment(s): oral cancer Mother Family Medical History: Cancer Additional Family Medical History / Comment(s): "irreg heart rythym" General Exam - General Exam Comments Initial Comments: Nontoxic-appearing 70-year-old male no distress at the time I'm seeing him General appearance: alert, in no apparent distress Head exam: Present: atraumatic, normocephalic, normal inspection Eye exam: Present: normal appearance, EOMI. Absent: PERRL ENT exam: Present: normal exam, mucous membranes moist Neck exam: Present: normal inspection. Absent: tenderness, meningismus, lymphadenopathy Respiratory exam: Present: normal lung sounds bilaterally. Absent: respiratory distress, wheezes, rales, rhonchi, stridor Cardiovascular Exam: Present: regular rate, normal rhythm, normal heart sounds. Absent: systolic murmur, diastolic murmur, rubs, gallop, clicks GI/Abdominal exam: Present: soft. Absent: distended, tenderness, guarding Neurological exam: Present: alert, other (Nonverbal secondary to CVA) Psychiatric exam: Present: normal mood Skin exam: Present: warm, dry, intact. Absent: normal color, rash Course Vital Signs 04/06/21 19:55 Temperature 98.8 F Pulse Rate 73 Respiratory 16 Rate Blood Pressure 117/71 O2 Sat by Pulse 94 L Oximetry Medical Decision Making - Medical Decision Making Patient presented for Nielsen catheter replacement. No evidence of infectious process. No evidence of other acute pathology. This was inadvertently pulled out by his . Follow-up with your regular physician as directed. Return to the ER immediately if any symptoms worsen, new symptoms arise, or any other problems develop. Disposition Clinical Impression: Dislodged Nielsen catheter Disposition: HOME SELF-CARE Condition: Good Instructions (If sedation given, give patient instructions): Nielsen Catheter Placement and Care (ED) Additional Instructions: Follow-up with your regular physician as directed. Return to the ER immediately if any symptoms worsen, new symptoms arise, or any other problems develop. Is patient prescribed a controlled substance at d/c from ED?: No Referrals: Sarabjit Dickson MD [Primary Care Provider] - 1-2 days Time of Disposition: 19:56
[2021-04-06 19:58] VITALS: BP 117/71; PULSE 73; RESP 16; TEMP 98.8
== END 2021-04-06 20:09 | disposition home or self-care (01) ==
LOC: EC 19:49
DX: T83.021A Displacement of indwelling urethral catheter, initial encounter (principal); I10 Essential (primary) hypertension; E78.5 Hyperlipidemia, unspecified; M06.9 Rheumatoid arthritis, unspecified; G20 Parkinson's disease; Z79.890 Hormone replacement therapy; Z79.899 Other long term (current) drug therapy
CPT/HCPCS: 99283

== ENCOUNTER 2021-05-15 05:56 | Emergency (ER) | payer MEDICARE, OTHER ==
[2021-05-15 06:06] VITALS: RESP 18; TEMP 97.6
[2021-05-15] MEDS ORDERED: SODIUM CHLORIDE 0.9% 500 ML 500 ML IV STA (06:21)
--- NOTE | 2021-05-15 06:36 | ED ---
General Adult HPI - General Chief complaint: Altered Mental Status Stated complaint: ANIBAL Time Seen by Provider: 05/15/21 06:03 Source: EMS, RN notes reviewed Mode of arrival: EMS Limitations: language barrier, altered mental status, physical limitation - History of Present Illness Initial comments: 70-year-old male presents emergency Department with via EMS chief complaint of difficulty breathing. Patient woke up this morning and was struggling to breathe noticed that he sounded gurgly. Patient information is very limited as patient is essentially nonverbal states that he normally responds with yes. Patient had prior CVA. Patient has no history of CHF. Patient's urine has been very cloudy, noticed some blood in his urine states that he's had some issues with sepsis from urinary tract infections. No recent vomiting or Roceph in diarrhea no leg swelling no sores noted. - Related Data Home Medications Medication Instructions Recorded Confirmed Levothyroxine Sodium [Synthroid] 88 mcg PO DAILY 08/19/17 03/16/20 Rosuvastatin Calcium [Crestor] 10 mg PO HS 08/19/17 03/16/20 Lisinopril-Hctz 20-12.5 mg 1 tab PO DAILY 03/26/18 03/16/20 [Zestoretic 20-12.5] Citalopram Hydrobromide [CeleXA] 40 mg PO DAILY 01/12/19 03/16/20 Polyethylene Glycol 3350 [Miralax] 17 gm PO DAILY PRN 01/12/19 03/16/20 Zinc Oxide [Desitin] 1 applic TOPICAL DAILY PRN 01/12/19 03/16/20 Acetaminophen Tab [Tylenol] 650 mg PO HS 08/26/19 03/16/20 Loratadine [Claritin] 10 mg PO HS 08/26/19 03/16/20 Arnica Pain Relief Gel 1 applic TOPICAL DAILY PRN 03/16/20 03/16/20 Cholecalciferol [Vitamin D3 (25 2,000 unit PO DAILY 03/16/20 03/16/20 Mcg = 1000 Iu)] Cranberry 4200mg 1 tab PO DAILY 03/16/20 03/16/20 L.acidoph,Paracasei, B.lactis 1 cap PO DAILY 03/16/20 03/16/20 [Probiotic] Psyllium Husk (with Sugar) 6 gm PO DAILY PRN 03/16/20 03/16/20 [Metamucil Powder] Previous Rx's Medication Instructions Recorded Aspirin 81 mg PO DAILY #1 chewable 08/23/17 Ciprofloxacin HCl [Cipro] 500 mg PO Q12HR #20 tablet 05/15/21 Allergies Allergy/AdvReac Type Severity Reaction Status Date / Time No Known Allergies Allergy Verified 05/15/21 06:06 Review of Systems ROS Statement: Those systems with pertinent positive or pertinent negative responses have been documented in the HPI. ROS Other: All systems not noted in ROS Statement are negative. Past Medical History Past Medical History: Cancer, CVA/TIA, Hyperlipidemia, Hypertension, Musculoskeletal Disorder, Pneumonia, Rheumatoid Arthritis (RA), Sleep Apne a/CPAP/BIPAP, Thyroid Disorder Additional Past Medical History / Comment(s): Slurred speech/possible lTIA 2016 , uses CPAP at bed, bronchitis, Melanoma skin ca lt arm, has sx of Parkinson's disease - has MSA. Neurogenic bladder, has suprapubic tube placed - d/c 03/02/20 History of Any Multi-Drug Resistant Organisms: C-DIFF Date of last positivie culture/infection: 09/03/19 MDRO Source:: stool Past Surgical History: Back Surgery, Orthopedic Surgery, Tonsillectomy Additional Past Surgical History / Comment(s): Heel spurs removed, colonoscopy, basal call carcinoma: skin cancer removed, Spinal fusion. Cystoscopy w/ suprapubic SP catheter 08/27/19. Past Anesthesia/Blood Transfusion Reactions: Previous Problems w/ Anesthesia Additional Past Anesthesia/Blood Transfusion Reaction / Comment(s): Stopped breathing during colonoscopy yrs. ago before sleep apnea diagnosed per pt. Past Psychological History: No Psychological Hx Reported Smoking Status: Never smoker Past Alcohol Use History: None Reported Past Drug Use History: None Reported - Past Family History Father Family Medical History: Cancer, Hypertension Additional Family Medical History / Comment(s): oral cancer Mother Family Medical History: Cancer Additional Family Medical History / Comment(s): "irreg heart rythym" General Exam Limitations: language barrier, altered mental status, physical limitation General appearance: alert, in no apparent distress Head exam: Present: atraumatic, normocephalic, normal inspection Eye exam: Present: normal appearance, PERRL, EOMI. Absent: scleral icterus, conjunctival injection, periorbital swelling ENT exam: Present: normal exam, normal oropharynx, mucous membranes moist Neck exam: Present: normal inspection, full ROM. Absent: tenderness, meningismus, lymphadenopathy Respiratory exam: Present: rhonchi. Absent: normal lung sounds bilaterally, respiratory distress, wheezes, rales, stridor Cardiovascular Exam: Present: regular rate, normal rhythm, normal heart sounds. Absent: systolic murmur, diastolic murmur, rubs, gallop, clicks GI/Abdominal exam: Present: soft, normal bowel sounds. Absent: distended, tenderness, guarding, rebound, rigid Neurological exam: Present: alert Skin exam: Present: warm, dry, intact, normal color. Absent: rash Course Vital Signs 05/15/21 05/15/21 05:57 06:07 Temperature 97.6 F Pulse Rate 92 Respiratory 18 18 Rate Blood Pressure 93/66 O2 Sat by Pulse 94 L Oximetry Medical Decision Making - Medical Decision Making 70-year-old male presented from for possible infection episode shortness of [place] ath patient's had no recurrent issues patient's x-ray is read as possible atelectasis versus early infiltrate. Patient does have a very tract infection. Labs reveal mild leukocytosis I discussed results with in the room who prefers patient go home on oral antibiotics after a dose of IV antibiotics she does understand risk she was offered admission. Return parameters were discussed. - Lab Data Result diagrams: 05/15/21 06:26 05/15/21 06:26 Lab Results 05/15/21 05/15/21 05/15/21 Range/Units 06:26 06:26 06:26 WBC 11.7 H (3.8-10.6) k/uL RBC 4.89 (4.30-5.90) m/uL Hgb 15.4 (13.0-17.5) gm/dL Hct 45.8 (39.0-53.0) % MCV 93.5 (80.0-100.0) fL MCH 31.6 (25.0-35.0) pg MCHC 33.8 (31.0-37.0) g/dL RDW 12.9 (11.5-15.5) % Plt Count 263 (150-450) k/uL MPV 7.4 Neutrophils % 78 % Lymphocytes % 14 % Monocytes % 3 % Eosinophils % 3 % Basophils % 1 % Neutrophils # 9.1 H (1.3-7.7) k/uL Lymphocytes # 1.6 (1.0-4.8) k/uL Monocytes # 0.4 (0-1.0) k/uL Eosinophils # 0.4 (0-0.7) k/uL Basophils # 0.1 (0-0.2) k/uL PT 10.4 (9.0-12.0) sec INR 0.9 (<1.2) APTT 22.6 (22.0-30.0) sec Sodium (137-145) mmol/L Potassium (3.5-5.1) mmol/L Chloride (98-107) mmol/L Carbon Dioxide (22-30) mmol/L Anion Gap mmol/L BUN (9-20) mg/dL Creatinine (0.66-1.25) mg/dL Est GFR (CKD-EPI)AfAm (>60 ml/min/1.73 sqM) Est GFR (CKD-EPI)NonAf (>60 ml/min/1.73 sqM) Glucose (74-99) mg/dL Plasma Lactic Acid Antonio (0.7-2.0) mmol/L Calcium (8.4-10.2) mg/dL Magnesium (1.6-2.3) mg/dL Total Bilirubin (0.2-1.3) mg/dL AST (17-59) U/L ALT (4-49) U/L Alkaline Phosphatase (38-126) U/L Troponin I (0.000-0.034) ng/mL NT-Pro-B Natriuret Pep pg/mL Total Protein (6.3-8.2) g/dL Albumin (3.5-5.0) g/dL Urine Color Yellow Urine Appearance Turbid (Clear) Urine pH 5.0 (5.0-8.0) Ur Specific [place] 1.029 (1.001-1.035) Urine Protein 1+ H (Negative) Urine Glucose (UA) Negative (Negative) Urine Ketones Negative (Negative) Urine Blood Large H (Negative) Urine Nitrite Positive (Negative) Urine Bilirubin Negative (Negative) Urine Urobilinogen <2.0 (<2.0) mg/dL Ur Leukocyte Esterase Large H (Negative) Urine RBC 181 H (0-5) /hpf Urine WBC 163 H (0-5) /hpf Urine WBC Clumps Many H (None) /hpf Calcium Oxalate Crystal Occasional H (None) /hpf Amorphous Sediment Rare H (None) /hpf Urine Bacteria Occasional H (None) /hpf Hyaline Casts 70 H (0-2) /lpf Urine Mucus Many H (None) /hpf 05/15/21 05/15/21 05/15/21 Range/Units 06:26 06:26 06:26 WBC (3.8-10.6) k/uL RBC (4.30-5.90) m/uL Hgb (13.0-17.5) gm/dL Hct (39.0-53.0) % MCV (80.0-100.0) fL MCH (25.0-35.0) pg MCHC (31.0-37.0) g/dL RDW (11.5-15.5) % Plt Count (150-450) k/uL MPV Neutrophils % % Lymphocytes % % Monocytes % % Eosinophils % % Basophils % % Neutrophils # (1.3-7.7) k/uL Lymphocytes # (1.0-4.8) k/uL Monocytes # (0-1.0) k/uL Eosinophils # (0-0.7) k/uL Basophils # (0-0.2) k/uL PT (9.0-12.0) sec INR (<1.2) APTT (22.0-30.0) sec Sodium 135 L (137-145) mmol/L Potassium 4.2 (3.5-5.1) mmol/L Chloride 101 (98-107) mmol/L Carbon Dioxide 27 (22-30) mmol/L Anion Gap 7 mmol/L BUN 18 (9-20) mg/dL Creatinine 0.77 (0.66-1.25) mg/dL Est GFR (CKD-EPI)AfAm >90 (>60 ml/min/1.73 sqM) Est GFR (CKD-EPI)NonAf >90 (>60 ml/min/1.73 sqM) Glucose 111 H (74-99) mg/dL Plasma Lactic Acid Antonio 1.7 (0.7-2.0) mmol/L Calcium 9.0 (8.4-10.2) mg/dL Magnesium 1.9 (1.6-2.3) mg/dL Total Bilirubin 0.5 (0.2-1.3) mg/dL AST 22 (17-59) U/L ALT 7 (4-49) U/L Alkaline Phosphatase 68 (38-126) U/L Troponin I 0.030 (0.000-0.034) ng/mL NT-Pro-B Natriuret Pep pg/mL Total Protein 7.0 (6.3-8.2) g/dL Albumin 4.1 (3.5-5.0) g/dL Urine Color Urine Appearance (Clear) Urine pH (5.0-8.0) Ur Specific [place] (1.001-1.035) Urine Protein (Negative) Urine Glucose (UA) (Negative) Urine Ketones (Negative) Urine Blood (Negative) Urine Nitrite (Negative) Urine Bilirubin (Negative) Urine Urobilinogen (<2.0) mg/dL Ur Leukocyte Esterase (Negative) Urine RBC (0-5) /hpf Urine WBC (0-5) /hpf Urine WBC Clumps (None) /hpf Calcium Oxalate Crystal (None) /hpf Amorphous Sediment (None) /hpf Urine Bacteria (None) /hpf Hyaline Casts (0-2) /lpf Urine Mucus (None) /hpf 05/15/21 Range/Units 06:26 WBC (3.8-10.6) k/uL RBC (4.30-5.90) m/uL Hgb (13.0-17.5) gm/dL Hct (39.0-53.0) % MCV (80.0-100.0) fL MCH (25.0-35.0) pg MCHC (31.0-37.0) g/dL RDW (11.5-15.5) % Plt Count (150-450) k/uL MPV Neutrophils % % Lymphocytes % % Monocytes % % Eosinophils % % Basophils % % Neutrophils # (1.3-7.7) k/uL Lymphocytes # (1.0-4.8) k/uL Monocytes # (0-1.0) k/uL Eosinophils # (0-0.7) k/uL Basophils # (0-0.2) k/uL PT (9.0-12.0) sec INR (<1.2) APTT (22.0-30.0) sec Sodium (137-145) mmol/L Potassium (3.5-5.1) mmol/L Chloride (98-107) mmol/L Carbon Dioxide (22-30) mmol/L Anion Gap mmol/L BUN (9-20) mg/dL Creatinine (0.66-1.25) mg/dL Est GFR (CKD-EPI)AfAm (>60 ml/min/1.73 sqM) Est GFR (CKD-EPI)NonAf (>60 ml/min/1.73 sqM) Glucose (74-99) mg/dL Plasma Lactic Acid Antonio (0.7-2.0) mmol/L Calcium (8.4-10.2) mg/dL Magnesium (1.6-2.3) mg/dL Total Bilirubin (0.2-1.3) mg/dL AST (17-59) U/L ALT (4-49) U/L Alkaline Phosphatase (38-126) U/L Troponin I (0.000-0.034) ng/mL NT-Pro-B Natriuret Pep 104 pg/mL Total Protein (6.3-8.2) g/dL Albumin (3.5-5.0) g/dL Urine Color Urine Appearance (Clear) Urine pH (5.0-8.0) Ur Specific [place] (1.001-1.035) Urine Protein (Negative) Urine Glucose (UA) (Negative) Urine Ketones (Negative) Urine Blood (Negative) Urine Nitrite (Negative) Urine Bilirubin (Negative) Urine Urobilinogen (<2.0) mg/dL Ur Leukocyte Esterase (Negative) Urine RBC (0-5) /hpf Urine WBC (0-5) /hpf Urine WBC Clumps (None) /hpf Calcium Oxalate Crystal (None) /hpf Amorphous Sediment (None) /hpf Urine Bacteria (None) /hpf Hyaline Casts (0-2) /lpf Urine Mucus (None) /hpf Disposition Clinical Impression: Urinary tract infection Disposition: HOME SELF-CARE Condition: Stable Instructions (If sedation given, give patient instructions): Urinary Tract Infection in Men (ED) Additional Instructions: Please return to the Emergency Department if symptoms worsen or any other concerns. Prescriptions: Ciprofloxacin HCl [Cipro] 500 mg PO Q12HR #20 tablet Is patient prescribed a controlled substance at d/c from ED?: No Referrals: Sarabjit Dickson MD [Primary Care Provider] - 1-2 days Time of Disposition: 08:32
[2021-05-15 06:44] LABS: Basophils # (A) 0.1 k/uL (0-0.2); Basophils % (A) 1 %; Eosinophils # (A) 0.4 k/uL (0-0.7); Eosinophils % (A) 3 %; HCT 45.8 % (39.0-53.0); HGB 15.4 gm/dL (13.0-17.5); Lymphocytes # (A) 1.6 k/uL (1.0-4.8); Lymphocytes % (A) 14 %; MCH 31.6 pg (25.0-35.0); MCHC 33.8 g/dL (31.0-37.0); MCV 93.5 fL (80.0-100.0); Mean Platelet Volume 7.4; Monocytes # (A) 0.4 k/uL (0-1.0); Monocytes % (A) 3 %; Neutrophils # (A) 9.1 k/uL (1.3-7.7); Neutrophils % (A) 78 %; Platelet Count 263 k/uL (150-450); RBC 4.89 m/uL (4.30-5.90); RDW 12.9 % (11.5-15.5); WBC 11.7 k/uL (3.8-10.6)
[2021-05-15 06:58] LABS: INR 0.9 (<1.2); Partial Thromboplastin Time 22.6 sec (22.0-30.0); Prothrombin Time 10.4 sec (9.0-12.0)
[2021-05-15 07:06] LABS: ALT 7 U/L (4-49); AST 22 U/L (17-59); African American GFR (CKD) >90 (>60 ml/min/1.73 sqM); Albumin 4.1 g/dL (3.5-5.0); Alkaline Phosphatase 68 U/L (38-126); Anion Gap 7 mmol/L; Blood Urea Nitrogen 18 mg/dL (9-20); Carbon Dioxide 27 mmol/L (22-30); Chloride 101 mmol/L (98-107); Glucose 111 mg/dL (74-99); Magnesium 1.9 mg/dL (1.6-2.3); Non-African American GFR(CKD) >90 (>60 ml/min/1.73 sqM); Potassium 4.2 mmol/L (3.5-5.1); Sodium 135 mmol/L (137-145); Total Bilirubin 0.5 mg/dL (0.2-1.3)
[2021-05-15 07:15] LABS: Amorphous Sediment,Urine Rare /hpf; Appearance,Urine Turbid (Clear); Bacteria,Urine Occasional /hpf; Bilirubin,Urine Negative (Negative); Blood,Urine Large (Negative); Calcium Oxalate Crystals,Urine Occasional /hpf; Color,Urine Yellow; Glucose,Urine (UA) Negative (Negative); Hyaline Casts,Urine 70 /lpf (0-2); Ketones,Urine Negative (Negative); Leukocyte Esterase,Urine Large (Negative); Mucus,Urine Many /hpf; Nitrite,Urine Positive (Negative); Protein,Urine 1+ (Negative); RBC,Urine 181 /hpf (0-5); Specific Gravity,Urine 1.029 (1.001-1.035); Urobilinogen,Urine <2.0 mg/dL (<2.0); WBC,Urine 163 /hpf (0-5)
--- NOTE | 2021-05-15 08:26 | XR ---
EXAMINATION TYPE: XR chest 1V portable DATE OF EXAM: 05/15/2021 HISTORY: Shortness of breath. COMPARISON: 03/16/2020 TECHNIQUE: Single view of the chest is submitted. FINDINGS: Demonstrated are scattered senescent parenchymal change. Basilar atelectasis and/or infiltrates. The heart is stable. Hilar and mediastinal structures are within normal limits. Degenerative changes are seen of the dorsal spine. IMPRESSION: 1. Basilar atelectasis and/or infiltrates.
[2021-05-15 08:44] VITALS: BP 124/85; PULSE 98
== END 2021-05-15 09:13 | disposition home or self-care (01) ==
LOC: EC 05:56
DX: N39.0 Urinary tract infection, site not specified (principal); R06.02 Shortness of breath; I10 Essential (primary) hypertension; E07.9 Disorder of thyroid, unspecified; E78.5 Hyperlipidemia, unspecified; Z86.73 Personal history of transient ischemic attack (TIA), and cerebral infarction without residual deficits; Z79.899 Other long term (current) drug therapy; Z79.890 Hormone replacement therapy
CPT/HCPCS: 36415; 93005; 83880; 80053; 83605; 83735; 84484; 85025; 85610; 85730; 81001; 87086; 71045; 99285; 96365; J0696; 87077; 87186

== ENCOUNTER 2021-05-16 14:23 | Inpatient (IN) | payer MEDICARE, OTHER ==
[2021-05-16] MEDS ORDERED: ACETAMINOPHEN TAB 500 MG TAB PO STA (15:03)
[2021-05-16] MEDS ORDERED: IBUPROFEN IV 600 MG in SODIUM CHLORIDE 0.9% 250 ML IV ONE (15:20)
[2021-05-16 16:28] LABS: Basophils % (A) 0 %; Eosinophils # (A) 0.2 k/uL (0-0.7); Eosinophils % (A) 1 %; HCT 44.3 % (39.0-53.0); HGB 15.4 gm/dL (13.0-17.5); Lymphocytes # (A) 0.6 k/uL (1.0-4.8); Lymphocytes % (A) 3 %; MCH 32.3 pg (25.0-35.0); MCHC 34.7 g/dL (31.0-37.0); MCV 92.9 fL (80.0-100.0); Mean Platelet Volume 6.7; Monocytes # (A) 0.8 k/uL (0-1.0); Monocytes % (A) 3 %; Neutrophils # (A) 23.6 k/uL (1.3-7.7); Neutrophils % (A) 93 %; Platelet Count 246 k/uL (150-450); RBC 4.77 m/uL (4.30-5.90); RDW 13.3 % (11.5-15.5); WBC 25.3 k/uL (3.8-10.6)
[2021-05-16] MEDS: SODIUM CHLORIDE 0.9% 500 ML 500 ML IV SCH ×3 (16:34→19:21)
[2021-05-16 16:36] LABS: Partial Thromboplastin Time 22.2 sec (22.0-30.0); Prothrombin Time 10.6 sec (9.0-12.0)
[2021-05-16 16:39] LABS: ALT 14 U/L (4-49); AST 22 U/L (17-59); African American GFR (CKD) >90 (>60 ml/min/1.73 sqM); Albumin 4.1 g/dL (3.5-5.0); Alkaline Phosphatase 71 U/L (38-126); Anion Gap 8 mmol/L; Blood Urea Nitrogen 17 mg/dL (9-20); Calcium 8.8 mg/dL (8.4-10.2); Carbon Dioxide 24 mmol/L (22-30); Chloride 101 mmol/L (98-107); Glucose 99 mg/dL (74-99); Non-African American GFR(CKD) >90 (>60 ml/min/1.73 sqM); Potassium 3.8 mmol/L (3.5-5.1); Sodium 133 mmol/L (137-145); Total Bilirubin 0.7 mg/dL (0.2-1.3); Total Protein 6.9 g/dL (6.3-8.2)
--- NOTE | 2021-05-16 16:42 | ED ---
General Adult HPI - General Chief complaint: Fever Stated complaint: Fever Time Seen by Provider: 05/16/21 14:35 Source: patient, RN notes reviewed, old records reviewed Mode of arrival: EMS Limitations: language barrier, physical limitation - History of Present Illness Initial comments: This is a 70-year-old male who presents emergency Department with a fever. Patient was seen in emergency department yesterday and was diagnosed with urinary tract infection and early pneumonia. Patient went home and the fever got worse so the brought the patient in. Today the patient's coughing a lot more and is diaphoretic when he has a fever. Patient has a history of diabetes and Parkinson-like syndrome. Patient is not able to speak. gave all of the history. She states that the patient's had no vomiting or diarrhea. There's been no areas of redness or rashes or lesions of concern. - Related Data Home Medications Medication Instructions Recorded Confirmed Levothyroxine Sodium [Synthroid] 88 mcg PO HS 08/19/17 05/16/21 Rosuvastatin Calcium [Crestor] 10 mg PO HS 08/19/17 05/16/21 Lisinopril-Hctz 20-12.5 mg 1 tab PO DAILY 03/26/18 05/16/21 [Zestoretic 20-12.5] Zinc Oxide [Desitin] 1 applic TOPICAL DAILY PRN 01/12/19 05/16/21 Cranberry 4200mg 1 tab PO DAILY 03/16/20 05/16/21 L.acidoph,Paracasei, B.lactis 1 cap PO DAILY 03/16/20 05/16/21 [Probiotic] Psyllium Husk (with Sugar) 6 gm PO DAILY PRN 03/16/20 05/16/21 [Metamucil Powder] Acetaminophen [Tylenol] 1,000 mg PO DAILY 05/16/21 05/16/21 Albuterol Nebulized [Ventolin 2.5 mg INHALATION RT-BID 05/16/21 05/16/21 Nebulized] Carbidopa/Levodopa 1 tab PO TID 05/16/21 05/16/21 [Carbidopa-Levodopa 25-100 Tab] Ciprofloxacin HCl [Cipro] 500 mg PO BID 05/16/21 05/16/21 Citalopram Hydrobromide [CeleXA] 40 mg PO DAILY 05/16/21 05/16/21 Previous Rx's Medication Instructions Recorded Aspirin 81 mg PO DAILY #1 chewable 08/23/17 Allergies Allergy/AdvReac Type Severity Reaction Status Date / Time No Known Allergies Allergy Verified 05/16/21 14:47 Review of Systems ROS Statement: Those systems with pertinent positive or pertinent negative responses have been documented in the HPI. ROS Other: All systems not noted in ROS Statement are negative. Past Medical History Past Medical History: Cancer, CVA/TIA, Hyperlipidemia, Hypertension, Musculoskeletal Disorder, Pneumonia, Rheumatoid Arthritis (RA), Sleep Apnea/CPAP/BIPAP, Thyroid Disorder Additional Past Medical History / Comment(s): Slurred speech/possible lTIA 2016 , uses CPAP at bed, bronchitis, Melanoma skin ca lt arm, has sx of Parkinson's disease - has MSA. Neurogenic bladder, has suprapubic tube placed - d/c 03/02/20 History of Any Multi-Drug Resistant Organisms: C-DIFF Date of last positivie culture/infection: 09/03/19 MDRO Source:: stool Past Surgical History: Back Surgery, Orthopedic Surgery, Tonsillectomy Additional Past Surgical History / Comment(s): Heel spurs removed, colonoscopy, basal call carcinoma: skin cancer removed, Spinal fusion. Cystoscopy w/ suprapubic SP catheter 08/27/19. Past Anesthesia/Blood Transfusion Reactions: Previous Problems w/ Anesthesia Additional Past Anesthesia/Blood Transfusion Reaction / Comment(s): Stopped breathing during colonoscopy yrs. ago before sleep apnea diagnosed per pt. Past Psychological History: No Psychological Hx Reported Smoking Status: Never smoker Past Alcohol Use History: None Reported Past Drug Use History: None Reported - Past Family History Father Family Medical History: Cancer, Hypertension Additional Family Medical History / Comment(s): oral cancer Mother Family Medical History: Cancer Additional Family Medical History / Comment(s): "irreg heart rythym" General Exam - General Exam Comments Initial Comments: GENERAL: Patient is well-developed and well-nourished. Patient is nontoxic and well- hydrated and is in mild distress. ENT: Neck is soft and supple. No significant lymphadenopathy is noted. Oropharynx is clear. Moist mucous membranes. Neck has full range of motion without eliciting any pain. EYES: The sclera were anicteric and conjunctiva were pink and moist. Extraocular movements were intact and pupils were equal round and reactive to light. Eyelids were unremarkable. PULMONARY: Patient was unable to sit up in bed anteriorly I did not hear any crackles or wheezing. CARDIOVASCULAR: Patient is tachycardic ABDOMEN: Soft and nontender with normal bowel sounds. SKIN: Skin is clear with no lesions or rashes and otherwise unremarkable. NEUROLOGIC: Patient is alert and oriented unable to assess. Patient does not follow commands unable to complete a neuro exam MUSCULOSKELETAL: No lower extremity swelling or edema. No calf tenderness. LYMPHATICS: No significant lymphadenopathy is noted PSYCHIATRIC: Unable to assess secondary to the fact I cannot understand the patient Limitations: language barrier, physical limitation Course Vital Signs 05/16/21 05/16/21 05/16/21 14:33 16:17 18:17 Temperature 103.1 F H 102.5 F H 99.5 F Pulse Rate 121 H 110 H Respiratory 20 20 Rate Blood Pressure 128/79 103/67 O2 Sat by Pulse 95 93 L Oximetry Medical Decision Making - Medical Decision Making Patient is given 2 g of Rocephin. Patient was assumed to have a urinary tract infection 6:10 PM even though we have not yet got a urine today urine yesterday did show an infection. And I awaited the x-ray result before I determined it was probably the urinary tract infection. I spoke with sound physician's he agreed to admit the patient admitted the patient wrote admitting orders. - Lab Data Result diagrams: 05/16/21 16:11 05/16/21 16:11 Lab Results 05/16/21 05/16/21 05/16/21 Range/Units 16:10 16:10 16:11 WBC 25.3 H (3.8-10.6) k/uL RBC 4.77 (4.30-5.90) m/uL Hgb 15.4 (13.0-17.5) gm/dL Hct 44.3 (39.0-53.0) % MCV 92.9 (80.0-100.0) fL MCH 32.3 (25.0-35.0) pg MCHC 34.7 (31.0-37.0) g/dL RDW 13.3 (11.5-15.5) % Plt Count 246 (150-450) k/uL MPV 6.7 Neutrophils % 93 % Lymphocytes % 3 % Monocytes % 3 % Eosinophils % 1 % Basophils % 0 % Neutrophils # 23.6 H (1.3-7.7) k/uL Lymphocytes # 0.6 L (1.0-4.8) k/uL Monocytes # 0.8 (0-1.0) k/uL Eosinophils # 0.2 (0-0.7) k/uL Basophils # 0.0 (0-0.2) k/uL PT (9.0-12.0) sec INR (<1.2) APTT (22.0-30.0) sec Sodium (137-145) mmol/L Potassium (3.5-5.1) mmol/L Chloride (98-107) mmol/L Carbon Dioxide (22-30) mmol/L Anion Gap mmol/L BUN (9-20) mg/dL Creatinine (0.66-1.25) mg/dL Est GFR (CKD-EPI)AfAm (>60 ml/min/1.73 sqM) Est GFR (CKD-EPI)NonAf (>60 ml/min/1.73 sqM) Glucose (74-99) mg/dL Plasma Lactic Acid Antonio (0.7-2.0) mmol/L Calcium (8.4-10.2) mg/dL Total Bilirubin (0.2-1.3) mg/dL AST (17-59) U/L ALT (4-49) U/L Alkaline Phosphatase (38-126) U/L Total Protein (6.3-8.2) g/dL Albumin (3.5-5.0) g/dL Urine Color Urine Appearance (Clear) Urine pH (5.0-8.0) Ur Specific [place] (1.001-1.035) Urine Protein (Negative) Urine Glucose (UA) (Negative) Urine Ketones (Negative) Urine Blood (Negative) Urine Nitrite (Negative) Urine Bilirubin (Negative) Urine Urobilinogen (<2.0) mg/dL Ur Leukocyte Esterase (Negative) Urine RBC (0-5) /hpf Urine WBC (0-5) /hpf Urine WBC Clumps (None) /hpf Ur Squamous Epith Cells (0-4) /hpf Urine Bacteria (None) /hpf Urine Mucus (None) /hpf Coronavirus (PCR) Not Detected (Not Detectd) Influenza Type A RNA Not Detected (Not Detectd) Influenza Type B (PCR) Not Detected (Not Detectd) 05/16/21 05/16/21 05/16/21 Range/Units 16:11 16:11 16:11 WBC (3.8-10.6) k/uL RBC (4.30-5.90) m/uL Hgb (13.0-17.5) gm/dL Hct (39.0-53.0) % MCV (80.0-100.0) fL MCH (25.0-35.0) pg MCHC (31.0-37.0) g/dL RDW (11.5-15.5) % Plt Count (150-450) k/uL MPV Neutrophils % % Lymphocytes % % Monocytes % % Eosinophils % % Basophils % % Neutrophils # (1.3-7.7) k/uL Lymphocytes # (1.0-4.8) k/uL Monocytes # (0-1.0) k/uL Eosinophils # (0-0.7) k/uL Basophils # (0-0.2) k/uL PT 10.6 (9.0-12.0) sec INR 1.0 (<1.2) APTT 22.2 (22.0-30.0) sec Sodium 133 L (137-145) mmol/L Potassium 3.8 (3.5-5.1) mmol/L Chloride 101 (98-107) mmol/L Carbon Dioxide 24 (22-30) mmol/L Anion Gap 8 mmol/L BUN 17 (9-20) mg/dL Creatinine 0.75 (0.66-1.25) mg/dL Est GFR (CKD-EPI)AfAm >90 (>60 ml/min/1.73 sqM) Est GFR (CKD-EPI)NonAf >90 (>60 ml/min/1.73 sqM) Glucose 99 (74-99) mg/dL Plasma Lactic Acid Antonio 1.1 (0.7-2.0) mmol/L Calcium 8.8 (8.4-10.2) mg/dL Total Bilirubin 0.7 (0.2-1.3) mg/dL AST 22 (17-59) U/L ALT 14 (4-49) U/L Alkaline Phosphatase 71 (38-126) U/L Total Protein 6.9 (6.3-8.2) g/dL Albumin 4.1 (3.5-5.0) g/dL Urine Color Urine Appearance (Clear) Urine pH (5.0-8.0) Ur Specific [place] (1.001-1.035) Urine Protein (Negative) Urine Glucose (UA) (Negative) Urine Ketones (Negative) Urine Blood (Negative) Urine Nitrite (Negative) Urine Bilirubin (Negative) Urine Urobilinogen (<2.0) mg/dL Ur Leukocyte Esterase (Negative) Urine RBC (0-5) /hpf Urine WBC (0-5) /hpf Urine WBC Clumps (None) /hpf Ur Squamous Epith Cells (0-4) /hpf Urine Bacteria (None) /hpf Urine Mucus (None) /hpf Coronavirus (PCR) (Not Detectd) Influenza Type A RNA (Not Detectd) Influenza Type B (PCR) (Not Detectd) 05/16/21 Range/Units 18:16 WBC (3.8-10.6) k/uL RBC (4.30-5.90) m/uL Hgb (13.0-17.5) gm/dL Hct (39.0-53.0) % MCV (80.0-100.0) fL MCH (25.0-35.0) pg MCHC (31.0-37.0) g/dL RDW (11.5-15.5) % Plt Count (150-450) k/uL MPV Neutrophils % % Lymphocytes % % Monocytes % % Eosinophils % % Basophils % % Neutrophils # (1.3-7.7) k/uL Lymphocytes # (1.0-4.8) k/uL Monocytes # (0-1.0) k/uL Eosinophils # (0-0.7) k/uL Basophils # (0-0.2) k/uL PT (9.0-12.0) sec INR (<1.2) APTT (22.0-30.0) sec Sodium (137-145) mmol/L Potassium (3.5-5.1) mmol/L Chloride (98-107) mmol/L Carbon Dioxide (22-30) mmol/L Anion Gap mmol/L BUN (9-20) mg/dL Creatinine (0.66-1.25) mg/dL Est GFR (CKD-EPI)AfAm (>60 ml/min/1.73 sqM) Est GFR (CKD-EPI)NonAf (>60 ml/min/1.73 sqM) Glucose (74-99) mg/dL Plasma Lactic Acid Antonio (0.7-2.0) mmol/L Calcium (8.4-10.2) mg/dL Total Bilirubin (0.2-1.3) mg/dL AST (17-59) U/L ALT (4-49) U/L Alkaline Phosphatase (38-126) U/L Total Protein (6.3-8.2) g/dL Albumin (3.5-5.0) g/dL Urine Color Yellow Urine Appearance Cloudy (Clear) Urine pH 6.0 (5.0-8.0) Ur Specific [place] 1.023 (1.001-1.035) Urine Protein Trace H (Negative) Urine Glucose (UA) Negative (Negative) Urine Ketones Trace H (Negative) Urine Blood Trace H (Negative) Urine Nitrite Positive (Negative) Urine Bilirubin Negative (Negative) Urine Urobilinogen <2.0 (<2.0) mg/dL Ur Leukocyte Esterase Large H (Negative) Urine RBC 6 H (0-5) /hpf Urine WBC 60 H (0-5) /hpf Urine WBC Clumps Few H (None) /hpf Ur Squamous Epith Cells <1 (0-4) /hpf Urine Bacteria Occasional H (None) /hpf Urine Mucus Moderate H (None) /hpf Coronavirus (PCR) (Not Detectd) Influenza Type A RNA (Not Detectd) Influenza Type B (PCR) (Not Detectd) Disposition Clinical Impression: Urinary tract infection, Sepsis Disposition: ADMITTED IP TO THIS HOSP Referrals: None,Stated [Primary Care Provider] - 1-2 days Time of Disposition: 18:11
[2021-05-16 18:36] LABS: Appearance,Urine Cloudy (Clear); Bacteria,Urine Occasional /hpf; Bilirubin,Urine Negative (Negative); Blood,Urine Trace (Negative); Color,Urine Yellow; Glucose,Urine (UA) Negative (Negative); Ketones,Urine Trace (Negative); Leukocyte Esterase,Urine Large (Negative); Mucus,Urine Moderate /hpf; Nitrite,Urine Positive (Negative); Protein,Urine Trace (Negative); RBC,Urine 6 /hpf (0-5); Specific Gravity,Urine 1.023 (1.001-1.035); Squamous Epithelial Cell,Urine <1 /hpf (0-4); Urobilinogen,Urine <2.0 mg/dL (<2.0); WBC,Urine 60 /hpf (0-5)
--- NOTE | 2021-05-16 18:36 | XR ---
EXAMINATION TYPE: XR chest 2V DATE OF EXAM: 05/16/2021 6:12 PM COMPARISON:Chest radiographs from 05/15/2021 TECHNIQUE: XR chest 2V Frontal and lateral views of the chest. CLINICAL INDICATION:Male, 70 years old with history of Fever; FINDINGS: Lung parenchyma: Similar bibasilar atelectasis and/or infiltrate. There are low lung volumes. No pneu mothorax. No large pleural effusion. Pulmonary vascularity: Unremarkable. Heart/mediastinum: Cardiomediastinal silhouette is enlarged and stable. Musculoskeletal: No acute osseous pathology. There is fixation hardware in the lower cervical spine. IMPRESSION: Unchanged basilar atelectasis and/or airspace disease.
[2021-05-16] MEDS ORDERED: SODIUM CHLORIDE 0.9% 1,000 ML IV ONE (19:28)
[2021-05-16] MEDS ORDERED: ACETAMINOPHEN TAB 500 MG TAB PO PRN (21:25)
[2021-05-16] MEDS ORDERED: IBUPROFEN 400 MG TAB PO PRN (21:25)
--- NOTE | 2021-05-16 21:37 | P.HPIM ---
History of Present Illness H&P Date: 05/16/21 Chief Complaint: Fever 70 year old male with history of parkinson, multiple sclerosis patient comes in due to fevers, which is getting worse. brought the patient for evaluation yesterday, diagnosed with UTI and discharged, she comes in again , due to worsening fevers. patient does not talk , and history obtained from the , she denies any mental status changes, he has been bedridden for many years since he had a TIA and MS . he is confined to bed or chair. she reports that he has one small wound over his buttock he otherwise, not showing in changes in his mentation compared to baseline, no nausea or vomiting, he is having some cough, non productive, no SOB or chest pain. no report of abd pain patient does have chronic hopkins , which the has noticed some blood clots in there and possible hematuria occasionally over past couple days patient diagnosed with UTI and started on antibiotics in the ED he met sepsis criteria with tachycardia, fever, and leukoytosis CXR showed bilateral basal atelacetesis Review of Systems Unable to obtain patient doesn't talk Past Medical History Past Medical History: Cancer, CVA/TIA, Hyperlipidemia, Hypertension, Musculoskeletal Disorder, Pneumonia, Rheumatoid Arthritis (RA), Sleep Apnea/CPAP/BIPAP, Thyroid Disorder Additional Past Medical History / Comment(s): Slurred speech/possible lTIA 2016 , uses CPAP at bed, bronchitis, Melanoma skin ca lt arm, has sx of Parkinson's disease - has MSA. Neurogenic bladder, has suprapubic tube placed - d/c 03/02/20 History of Any Multi-Drug Resistant Organisms: C-DIFF Date of last positivie culture/infection: 09/03/19 MDRO Source:: stool Past Surgical History: Back Surgery, Orthopedic Surgery, Tonsillectomy Additional Past Surgical History / Comment(s): Heel spurs removed, colonoscopy, basal call carcinoma: skin cancer removed, Spinal fusion. Cystoscopy w/ suprapubic SP catheter 08/27/19. Past Anesthesia/Blood Transfusion Reactions: Previous Problems w/ Anesthesia Additional Past Anesthesia/Blood Transfusion Reaction / Comment(s): Stopped breathing during colonoscopy yrs. ago before sleep apnea diagnosed per pt. Past Psychological History: No Psychological Hx Reported Smoking Status: Never smoker Past Alcohol Use History: None Reported Past Drug Use History: None Reported - Past Family History Father Family Medical History: Cancer, Hypertension Additional Family Medical History / Comment(s): oral cancer Mother Family Medical History: Cancer Additional Family Medical History / Comment(s): "irreg heart rythym" Medications and Allergies Home Medications Medication Instructions Recorded Confirmed Type Levothyroxine Sodium [Synthroid] 88 mcg PO HS 08/19/17 05/16/21 History Rosuvastatin Calcium [Crestor] 10 mg PO HS 08/19/17 05/16/21 History Aspirin 81 mg PO DAILY #1 chewable 08/23/17 05/16/21 Rx Lisinopril-Hctz 20-12.5 mg 1 tab PO DAILY 03/26/18 05/16/21 History [Zestoretic 20-12.5] Zinc Oxide [Desitin] 1 applic TOPICAL DAILY PRN 01/12/19 05/16/21 History Cranberry 4200mg 1 tab PO DAILY 03/16/20 05/16/21 History L.acidoph,Paracasei, B.lactis 1 cap PO DAILY 03/16/20 05/16/21 History [Probiotic] Psyllium Husk (with Sugar) 6 gm PO DAILY PRN 03/16/20 05/16/21 History [Metamucil Powder] Acetaminophen [Tylenol] 1,000 mg PO DAILY 05/16/21 05/16/21 History Albuterol Nebulized [Ventolin 2.5 mg INHALATION RT-BID 05/16/21 05/16/21 History Nebulized] Carbidopa/Levodopa 1 tab PO TID 05/16/21 05/16/21 History [Carbidopa-Levodopa 25-100 Tab] Ciprofloxacin HCl [Cipro] 500 mg PO BID 05/16/21 05/16/21 History Citalopram Hydrobromide [CeleXA] 40 mg PO DAILY 05/16/21 05/16/21 History Allergies Allergy/AdvReac Type Severity Reaction Status Date / Time No Known Allergies Allergy Verified 05/16/21 14:47 Physical Exam Vitals: Vital Signs Temp Pulse Resp BP Pulse Ox 05/16/21 18:17 99.5 F 110 H 20 103/67 93 L 05/16/21 16:17 102.5 F H 05/16/21 14:33 103.1 F H 121 H 20 128/79 95 Intake and Output 03/09/3005/16/21 05/16/21 06:59 14:59 22:59 Other: Weight 120.202 kg Constitutional: No acute distress, cooperative, pleasant Eyes: Anicteric sclerae, moist conjunctiva, Pupils equal round reactive to light ENMT: NC/AT Oropharynx clear, no erythema, or exudates Neck: Supple, no masses, or JVD No carotid bruits No thyromegaly Lungs: Clear to auscultation Clear to percussion Normal respiratory effort, no accessory muscle use Cardiovascular: Heart regular in rate and rhythm, No murmurs, gallops, or rubs No peripheral edema Abdominal: Soft Nontender, no guarding, rebound or rigidity Abdomen moving with respiration Normoactive bowel sounds No hepatomegaly, No splenomegaly No palpable mass No abdominal wall hernia noted chronic hopkins inplace Skin: reports small wound over the patient buttock, otherwise, Normal temperature, tone, texture, turgor Extremities: contractures in left upper extremity , No digital cyanosis No clubbing Pedal pulses intact and symmetrical Radial pulses intact and symmetrical No calf tenderness Psychiatric: Alert and does not talk Neuro Muscles Strength 3/5 in all 4 extremities with spasticity Sensation to light touch grossly present throughout Cranial nerves II-XII grossly intact Lymphatics: no palpable cervical or supraclavicular , or inguinal lymph nodes Results CBC & Chem 7: 05/16/21 16:11 05/16/21 16:11 Labs: Abnormal Lab Results - Last 24 Hours (Table) 05/16/21 05/16/21 05/16/21 Range/Units 16:11 16:11 18:16 WBC 25.3 H (3.8-10.6) k/uL Neutrophils # 23.6 H (1.3-7.7) k/uL Lymphocytes # 0.6 L (1.0-4.8) k/uL Sodium 133 L (137-145) mmol/L Urine Protein Trace H (Negative) Urine Ketones Trace H (Negative) Urine Blood Trace H (Negative) Ur Leukocyte Esterase Large H (Negative) Urine RBC 6 H (0-5) /hpf Urine WBC 60 H (0-5) /hpf Urine WBC Clumps Few H (None) /hpf Urine Bacteria Occasional H (None) /hpf Urine Mucus Moderate H (None) /hpf Assessment and Plan Assessment: sepsis 2/2 complicated UTI chronic hopkins cath present plan follow up cultures IVF hydration with normal saline rocephine 2 gm daily tylenol for fever / pain monitor vital signs supportive care fall lprecautions chronic conditions hypertension , resume home meds parkinson , resume home meds MS hypothyroid , resume levothyroxine no code heparin sc tid for dvt ppx anticipated length of stay > 2 midnights 70 year old male , presented due to worsening fever, and report of hematuria , patient with chronic hopkins , found to have sepsis 2/2 complicated UTI. admitted for supportive care and IV antibiotics
[2021-05-16] MEDS: ATORVASTATIN 20 MG TAB PO SCH (22:50)
[2021-05-16] MEDS: CARBIDOPA-LEVODOPA 25-100 MG 1 EACH TAB PO SCH (22:50)
[2021-05-16] MEDS: HEPARIN SODIUM,PORCINE/PF 5,000 UNIT/0.5 ML SYRINGE SQ SCH (22:52)
[2021-05-17] MEDS: SODIUM CHLORIDE 0.9% 1,000 ML IV SCH ×4 (01:34→20:16)
[2021-05-17] MEDS: CITALOPRAM HYDROBROMIDE 20 MG TAB PO SCH (07:34)
[2021-05-17] MEDS: ASPIRIN 81 MG PO SCH (07:34)
[2021-05-17] MEDS: CARBIDOPA-LEVODOPA 25-100 MG 1 EACH TAB PO SCH ×3 (07:35→20:16)
[2021-05-17] MEDS: LISINOPRIL-HCTZ 20-12.5 MG 1 EACH TAB PO SCH (07:36)
[2021-05-17] MEDS: HEPARIN SODIUM,PORCINE/PF 5,000 UNIT/0.5 ML SYRINGE SQ SCH ×3 (07:36→23:40)
[2021-05-17] MEDS: ALBUTEROL NEBULIZED 2.5 MG/3 ML INHALATION SCH ×2 (09:06→20:28)
[2021-05-17] MEDS: CEFEPIME 1 GM in SODIUM CHLORIDE 0.9% 50 ML IVPB SCH ×2 (12:52→23:40)
--- NOTE | 2021-05-17 15:59 | P.PN ---
Subjective Progress Note Date: 05/17/21 History of present as per H&P: 70 year old male with history of parkinson, multiple sclerosis patient comes in due to fevers, which is getting worse. brought the patient for evaluation yesterday, diagnosed with UTI and discharged, she comes in again , due to worsening fevers. patient does not talk , and history obtained from the , she denies any mental status changes, he has been bedridden for many years since he had a TIA and MS . he is confined to bed or chair. she reports that he has one small wound over his buttock he otherwise, not showing in changes in his mentation compared to baseline, no nausea or vomiting, he is having some cough, non productive, no SOB or chest pain. no report of abd pain patient does have chronic hopkins , which the has noticed some blood clots in there and possible hematuria occasionally over past couple days patient diagnosed with UTI and started on antibiotics in the ED he met sepsis criteria with tachycardia, fever, and leukoytosis CXR showed bilateral basal atelacetesis Interval history: Patient seen and examined with that. He is alert oriented 3. He denies any chest pain or shortness of breath. No acute changes overnight. Objective - Vital Signs Vital signs: Vital Signs Temp 98.5 F 05/17/21 14:20 Pulse 65 05/17/21 14:20 Resp 20 05/17/21 02:19 BP 97/61 05/17/21 14:20 Pulse Ox 100 05/17/21 14:20 Intake & Output 05/16/21 05/17/21 05/17/21 18:59 06:59 18:59 Output Total 500 Balance -500 Weight 120.202 kg 120.202 kg Output: Urine 500 Other: Voiding Method Indwelling Catheter Indwelling Catheter - Exam General: non toxic, no distress, appears at stated age Derm: warm, dry Head: atraumatic, normocephalic, symmetric Eyes: EOMI, no lid lag, anicteric sclera Mouth: no lip lesion, mucus membranes moist Cardiovascular: S1S2 reg, no murmur, positive posterior tibial pulse bilateral, Lungs: CTA bilateral, no rhonchi, no rales , no accessory muscle use Abdominal: soft, nontender to palpation, no guarding, no appreciable organom egaly Ext: no gross muscle atrophy, no edema, no contractures Neuro: 3/5 in all 4 extremities. Cranial nerve examination from second to 12 grossly intact. Monotonous speech - Labs CBC & Chem 7: 05/16/21 16:11 05/16/21 16:11 Labs: Abnormal Lab Results - Last 24 Hours (Table) 05/16/21 05/16/21 05/16/21 Range/Units 16:11 16:11 18:16 WBC 25.3 H (3.8-10.6) k/uL Neutrophils # 23.6 H (1.3-7.7) k/uL Lymphocytes # 0.6 L (1.0-4.8) k/uL Sodium 133 L (137-145) mmol/L Urine Protein Trace H (Negative) Urine Ketones Trace H (Negative) Urine Blood Trace H (Negative) Ur Leukocyte Esterase Large H (Negative) Urine RBC 6 H (0-5) /hpf Urine WBC 60 H (0-5) /hpf Urine WBC Clumps Few H (None) /hpf Urine Bacteria Occasional H (None) /hpf Urine Mucus Moderate H (None) /hpf Microbiology - Last 24 Hours (Table) 05/16/21 18:16 Urine Culture - Preliminary Urine,Voided Assessment and Plan Assessment: Assessment and plan: #Recurrent urinary tract infection with sepsis secondary to chronic indwelling Hopkins catheter -Sepsis present on admission -History of Pseudomonas infection in the past -Hydrate the patient -Start IV cefepime and consult infectious disease -Await for urine final culture and sensitivity results #Parkinson's disease -Resume carbidopa/levodopa #Multiple sclerosis #Severe debility and deconditioning secondary to above. -PT/OT evaluation #Depression -Resume Celexa #Hypertension -Resume lisinopril hydrochlorothiazide #Hypothyroidism #No code #DVT prophylaxis with subcutaneous heparin
--- NOTE | 2021-05-17 16:13 | CDI ---
Documentation Clarification Form Date: 05/17/2021 03:59:44 PM From: Dylan Helton Admit Date: 05/16/2021 07:28:00 PM Patient Name: Alan Chun Visit Number: [id number] Discharge Date: ATTENTION: The Clinical Documentation Specialists (CDI) and [facility] Coding Staff appreciate your assistance in clarifying documentation. Please respond to the clarification below the line at the bottom and electronically sign. The CDI & [facility] Coding staff will review the response and follow-up if needed. Please note: Queries are made part of the Legal Health Record. If you have any questions, please contact the author of this message via ITS. Dr. Reed Leroy MD Per the H&P dated 05/16/21 the patient has been bedridden for many years since he had a TIA and MS. Based on this information and the findings below, is there an additional diagnosis that is clinically appropriate for this patient? History/Risk Factors: h/o TIA, MS, bed ridden Clinical Indicators: Per case management assessment on 05/17 patient requires total care. sponge bathes patient. At home patient utilizes Cristina lift, hospital bed Per H&P contractures in left upper extremity, muscle strength 3/5 in all 4 extremities with spasticity Treatment: Fall precautions Nursing staff turning/positions patient Q2H Is there an additional diagnosis that is clinically appropriate for this patient? [ ] Complete Immobility due to frailty/severe debility [ ] Functional Quadriplegia [ ] Other (please specify) [ ] Unable to determine Complete immobility due to frailty and severe debility MTDD
--- NOTE | 2021-05-17 16:25 | CDI ---
Documentation Clarification Form Date: 05/17/2021 04:15:17 PM From: Dylan Helton Admit Date: 05/16/2021 07:28:00 PM Patient Name: Alan Chun Visit Number: [id number] Discharge Date: ATTENTION: The Clinical Documentation Specialists (CDI) and [facility] Coding Staff appreciate your assistance in clarifying documentation. Please respond to the clarification below the line at the bottom and electronically sign. The CDI & [facility] Coding staff will review the response and follow-up if needed. Please note: Queries are made part of the Legal Health Record. If you have any questions, please contact the author of this message via ITS. Dr. Reed Leroy MD Per the H&P dated 05/16/21 the patient has a small wound over his buttock:. Additional clarification regarding the wound is requested. History/Risk Factors: bedridden, MS, contractures Clinical Indicators: per nursing admission assessment pressure injury coccyx Treatment: nursing staff are turning patient q2H Please clarify if you are in agreement with the diagnosis of pressure injury as indicated by the nursing assessment and the stage of pressure injury if applicable: [ ] Deep tissue injury coccyx [ ] Stage 1 Pressure Injury coccyx [ ] Stage 2 Pressure Injury coccyx [ ] Stage 3 Pressure Injury coccyx [ ] Stage 4 Pressure Injury coccyx [ ] Unstageable Pressure injury coccyx [ ] Non pressure injury wound [ ] Other condition, please specify [ ] Unable to determine Clinical Definitions: Stage 1 Pressure Injury: intact skin, non-blanching redness of local area Stage 2 Pressure Injury: Partial thickness, loss of dermis, pink wound bed Stage 3 Pressure Injury: Full thickness tissue loss Stage 4 Pressure Injury: Full thickness tissue loss with exposed bone, tendon, or muscle. Unstageable pressure injury: Full thickness tissue loss in which the base of the injury is covered by slough (yellow, fisher, merino, green or brown) and/or eschar (fisher, brown or black) in the wound bed. Stage II pressure coccygeal ulcer MTDD
[2021-05-17] MEDS: LEVOTHYROXINE 88 MCG TAB PO SCH (20:16)
[2021-05-17] MEDS: ATORVASTATIN 20 MG TAB PO SCH (20:16)
[2021-05-17] MEDS ORDERED: CEFEPIME 1 GM VIAL IM SCH (21:00)
--- NOTE | 2021-05-17 23:56 | P.CONS ---
History of Present Illness - Reason for Consult Consult date: 05/17/21 Urinary tract infection Requesting physician: Reed Leroy - Chief Complaint Fever x 2 days - History of Present Illness Patient is a 70-year-old male with a past medical history difficult for hypertension hyperlipidemia did have history of CVA the/TIA apparently the patient was evaluated at [facility] with a fever and the patient was diagnosed with a UTI and possible pneumonia he was discharged home on oral antibiotic however the patient was brought back to the hospital yesterday afternoon with concern for worsening fever and apparently patient was coughing more and was diaphoretic with the symptoms the patient was reevaluated by ER ph ysician on arrival to the ER patient did have a fever of 103.1 F patient did have mild hypoxemia O2 sats of 93% on room air, patient did have a chest x-ray basilar atelectasis or airspace disease patient received a dose of Rocephin and subsequently has been switched over to cefepime infectious disease was consulted for further management of antibiotic therapy patient did have a white count of 25.3 with a creatinine 0.74 liver exam has been normal did have a positive UA hernadez PCR was negative as well as influenza Review of Systems Positive point has been mentioned in the HPI rest of the systems are negative Past Medical History Past Medical History: Cancer, CVA/TIA, Hyperlipidemia, Hypertension, Musculoskeletal Disorder, Pneumonia, Rheumatoid Arthritis (RA), Sleep Apnea/CPAP/BIPAP, Thyroid Disorder Additional Past Medical History / Comment(s): Slurred speech/possible lTIA 2016 , uses CPAP at bed, bronchitis, Melanoma skin ca lt arm, has sx of Parkinson's disease - has MSA. Neurogenic bladder, has suprapubic tube placed - d/c 03/02/20 History of Any Multi-Drug Resistant Organisms: C-DIFF Year Discovered:: 09/03/19 MDRO Source:: stool Past Surgical History: Back Surgery, Orthopedic Surgery, Tonsillectomy Additional Past Surgical History / Comment(s): Heel spurs removed, colonoscopy, basal call carcinoma: skin cancer removed, Spinal fusion. Cystoscopy w/ supr apubic SP catheter 08/27/19. Past Anesthesia/Blood Transfusion Reactions: Previous Problems w/ Anesthesia Additional Past Anesthesia/Blood Transfusion Reaction / Comm: Stopped breathing during colonoscopy yrs. ago before sleep apnea diagnosed per pt. Past Psychological History: No Psychological Hx Reported Additional Psychological History / Comment(s): pt denied depression Smoking Status: Never smoker Past Alcohol Use History: None Reported Past Drug Use History: None Reported - Past Family History Father Family Medical History: Cancer, Hypertension Additional Family Medical History / Comment(s): oral cancer Mother Family Medical History: Cancer Additional Family Medical History / Comment(s): "irreg heart rythym" Medications and Allergies Home Medications Medication Instructions Recorded Confirmed Type Levothyroxine Sodium [Synthroid] 88 mcg PO HS 08/19/17 05/16/21 History Rosuvastatin Calcium [Crestor] 10 mg PO HS 08/19/17 05/16/21 History Aspirin 81 mg PO DAILY #1 chewable 08/23/17 05/16/21 Rx Lisinopril-Hctz 20-12.5 mg 1 tab PO DAILY 03/26/18 05/16/21 History [Zestoretic 20-12.5] Zinc Oxide [Desitin] 1 applic TOPICAL DAILY PRN 01/12/19 05/16/21 History Cranberry 4200mg 1 tab PO DAILY 03/16/20 05/16/21 History L.acidoph,Paracasei, B.lactis 1 cap PO DAILY 03/16/20 05/16/21 History [Probiotic] Psyllium Husk (with Sugar) 6 gm PO DAILY PRN 03/16/20 05/16/21 History [Metamucil Powder] Acetaminophen [Tylenol] 1,000 mg PO DAILY 05/16/21 05/16/21 History Albuterol Nebulized [Ventolin 2.5 mg INHALATION RT-BID 05/16/21 05/16/21 History Nebulized] Carbidopa/Levodopa 1 tab PO TID 05/16/21 05/16/21 History [Carbidopa-Levodopa 25-100 Tab] Ciprofloxacin HCl [Cipro] 500 mg PO BID 05/16/21 05/16/21 History Citalopram Hydrobromide [CeleXA] 40 mg PO DAILY 05/16/21 05/16/21 History Allergies Allergy/AdvReac Type Severity Reaction Status Date / Time No Known Allergies Allergy Verified 05/16/21 14:47 Physical Exam Vitals: Vital Signs Temp Pulse Pulse Resp BP BP Pulse Ox 05/17/21 07:14 98.3 F 67 110/54 97 05/17/21 02:19 97.7 F 73 20 100/64 95 05/16/21 22:57 97.8 F 85 19 95/56 96 05/16/21 21:33 88 20 109/67 94 L 05/16/21 18:17 99.5 F 110 H 20 103/67 93 L 05/16/21 16:17 102.5 F H 05/16/21 14:33 103.1 F H 121 H 20 128/79 95 Intake and Output 05/16/21 05/17/21 05/17/21 22:59 06:59 14:59 Output Total 500 Balance -500 Output: Urine 500 Other: Voiding Method Indwelling Catheter Indwelling Catheter Weight 120.202 kg GENERAL DESCRIPTION: An elderly male lying in bed, no distress. No tachypnea or accessory muscle of respiration use. HEENT: Shows Pallor , no scleral icterus. Oral mucous membrane is dry. No pharyngeal erythema or thrush NECK: Trachea central, no thyromegaly. LUNGS: Unlabored breathing. Decreased breath sounds at the base. No wheeze or crackle. HEART: S1, S2, regular rate and rhythm. No loud murmur ABDOMEN: Soft, no tenderness , guarding or rigidity, no organomegaly EXTREMITIES: No edema of feet. SKIN: No rash, no masses palpable. NEUROLOGICAL: The patient is awake, alert, oriented x3, mood and affect normal. Results CBC & Chem 7: 05/16/21 16:11 05/16/21 16:11 Labs: Abnormal Lab Results - Last 24 Hours (Table) 05/16/21 05/16/21 05/16/21 Range/Units 16:11 16:11 18:16 WBC 25.3 H (3.8-10.6) k/uL Neutrophils # 23.6 H (1.3-7.7) k/uL Lymphocytes # 0.6 L (1.0-4.8) k/uL Sodium 133 L (137-145) mmol/L Urine Protein Trace H (Negative) Urine Ketones Trace H (Negative) Urine Blood Trace H (Negative) Ur Leukocyte Esterase Large H (Negative) Urine RBC 6 H (0-5) /hpf Urine WBC 60 H (0-5) /hpf Urine WBC Clumps Few H (None) /hpf Urine Bacteria Occasional H (None) /hpf Urine Mucus Moderate H (None) /hpf Microbiology - Last 24 Hours (Table) 05/16/21 18:16 Urine Culture - Preliminary Urine,Voided Assessment and Plan (1) Sepsis Current Visit: Yes Status: Acute Code(s): A41.9 - SEPSIS, UNSPECIFIED ORGANISM SNOMED Code(s): 96441241 (2) Urinary tract infection Current Visit: Yes Status: Acute Code(s): N39.0 - URINARY TRACT INFECTION, SITE NOT SPECIFIED SNOMED Code(s): 47584603 Plan: 1patient presented to hospital with sepsis anticipated have fever tachycardia elevated white count source is likely urinary in this we did have a positive UA with urine culture done on 05/15/2021 has been finalized with Pseudomonas aeruginosa and VRE which is penicillin sensitive, possible component of pneumonia not entirely excluded. 2discontinue cefepime. 3start the patient on Zosyn 3.375 g every 8 hour. We will follow on clinical condition and cultures to further adjust medication if needed Thank you for this consultation will follow this patient along with you Time with Patient: Greater than 30
[2021-05-18] MEDS: PIPERACILLIN-TAZOBACTAM 3.375 GM in SODIUM CHLORIDE 0.9% 100 ML IVPB SCH ×4 (00:27→23:57)
[2021-05-18] MEDS: SODIUM CHLORIDE 0.9% 1,000 ML IV SCH (03:59)
[2021-05-18] MEDS: HEPARIN SODIUM,PORCINE/PF 5,000 UNIT/0.5 ML SYRINGE SQ SCH ×3 (07:58→23:57)
[2021-05-18] MEDS: LISINOPRIL-HCTZ 20-12.5 MG 1 EACH TAB PO SCH (07:59)
[2021-05-18] MEDS: ASPIRIN 81 MG PO SCH (07:59)
[2021-05-18] MEDS: CITALOPRAM HYDROBROMIDE 20 MG TAB PO SCH (07:59)
[2021-05-18] MEDS: CARBIDOPA-LEVODOPA 25-100 MG 1 EACH TAB PO SCH ×3 (07:59→21:02)
[2021-05-18] MEDS: ALBUTEROL NEBULIZED 2.5 MG/3 ML INHALATION SCH ×2 (08:22→21:32)
--- NOTE | 2021-05-18 08:35 | CDI ---
Documentation Clarification Form Date: 05/18/2021 07:44:00 AM From: Dylan Figueroa, JOLYNN, RN, CCDS, CDIP Admit Date: 05/16/2021 07:28:00 PM Patient Name: Alan Chun Visit Number: [id number] Discharge Date: ATTENTION: The Clinical Documentation Specialists (CDI) and [facility] Coding Staff appreciate your assistance in clarifying documentation. Please respond to the clarification below the line at the bottom and electronically sign. The CDI & [facility] Coding staff will review the response and follow-up if needed. Please note: Queries are made part of the Legal Health Record. If you have any questions, please contact the author of this message via ITS. Dr. Ospina The Infectious Disease consult dated 05/17 stated "sepsis source is likely urinary in this we did have a positive UA with urine culture done on 05/15/2021 has been finalized with Pseudomonas aeruginosa and VRE." Additional clarification regarding the etiology of the UTI is requested. History/Risk Factors: PMH TIA MS bedridden Clinical Indicators: Complicated UTI; chronic Nielsen cath present is documented in the H&P dated 05/16/21. Urine Culture report 05/16/21 : Group D Enterococcus and VRE Treatment Patient was initially started on ceftriaxone 2gm IVPB q24h on admission then changed to cefepime 1 gm IVPB q12H on 05/17. This was dcd on 05/17 and Zosyn IVPB 3.375 g every 8 hour was initiated Please clarify if there is a cause and effect relationship between the Nielsen catheter and the UTI: [ x ] UTI due to Nielsen Catheter [ ] UTI unrelated to Nielsen Catheter [ ] Other, please specify [ ] Unable to determine MTDD
[2021-05-18 08:51] LABS: Basophils # (A) 0.09 X 10*3/uL (0.00-0.10); Basophils % (A) 0.5 %; Eosinophils % (A) 0.6 %; HCT 38.2 % (39.6-50.0); HGB 12.7 g/dL (13.0-17.0); Immature Grans, Automated 0.3 %; Lymphocytes % (A) 10.9 %; MCHC 33.2 g/dL (32.0-37.0); MCV 93.2 fL (80.0-97.0); Mean Platelet Volume 9.3 fL (9.5-12.2); Monocytes # (A) 0.99 X 10*3/uL (0.20-1.00); NRBC Per 100 WBC 0 /100 WBCS (0.0-0.0); Neutrophils # (A) 13.51 X 10*3/uL (1.80-7.70); Neutrophils % (A) 81.7 %; Platelet Count 216 X 10*3/uL (140-440); RDW 13.1 % (11.5-14.5); WBC 16.54 X 10*3/uL (4.50-10.00)
[2021-05-18 09:00] LABS: African American GFR (CKD) 110.8 (60.0-200.0); Albumin 3.5 g/dL (3.8-4.9); Albumin/Globulin Ratio 1.84 (1.60-3.17); Anion Gap 10.9 mmol/L (10.00-18.00); BUN/Creat Ratio 14.14 Ratio (12.00-20.00); Blood Urea Nitrogen 9.9 mg/dL (9.0-27.0); Calcium 8.5 mg/dL (8.7-10.3); Carbon Dioxide 22.1 mmol/L (20.0-27.5); Globulin 1.9 g/dL (1.6-3.3); Non-African American GFR(CKD) 95.6 (60.0-200.0); Potassium 4.1 mmol/L (3.5-5.5); Total Bilirubin 0.3 mg/dL (0.30-1.20); Total Protein 5.4 g/dL (6.2-8.2)
--- NOTE | 2021-05-18 13:45 | P.PN ---
Subjective Progress Note Date: 05/18/21 History of present as per H&P: 70 year old male with history of parkinson, multiple sclerosis patient comes in due to fevers, which is getting worse. brought the patient for evaluation yesterday, diagnosed with UTI and discharged, she comes in again , due to worsening fevers. patient does not talk , and history obtained from the , she denies any mental status changes, he has been bedridden for many years since he had a TIA and MS . he is confined to bed or chair. she reports that he has one small wound over his buttock he otherwise, not showing in changes in his mentation compared to baseline, no nausea or vomiting, he is having some cough, non productive, no SOB or chest pain. no report of abd pain patient does have chronic hopkins , which the has noticed some blood clots in there and possible hematuria occasionally over past couple days patient diagnosed with UTI and started on antibiotics in the ED he met sepsis criteria with tachycardia, fever, and leukoytosis CXR showed bilateral basal atelacetesis Interval history: Patient seen and examined with that. He is alert oriented 3. He denies any chest pain or shortness of breath. Urine culture grew VRE and pseudomonas sensitive to Zosyn. No acute changes overnight. Objective - Vital Signs Vital signs: Vital Signs Temp 98.5 F 05/18/21 07:10 Pulse 70 05/18/21 08:31 Resp 16 05/18/21 08:31 BP 122/74 05/18/21 07:10 Pulse Ox 99 05/18/21 08:23 Intake & Output 05/17/21 05/18/21 05/18/21 18:59 06:59 18:59 Output Total 1999 Balance -1999 Output: Urine 1999 Other: Voiding Method Indwelling Catheter Indwelling Catheter Indwelling Catheter # Bowel Movements 2 - Exam General: non toxic, no distress, appears at stated age Derm: warm, dry Head: atraumatic, normocephalic, symmetric Eyes: EOMI, no lid lag, anicteric sclera Mouth: no lip lesion, mucus membranes moist Cardiovascular: S1S2 reg, no murmur, positive posterior tibial pulse bilateral, Lungs: CTA bilateral, no rhonchi, no rales , no accessory muscle use Abdominal: soft, nontender to palpation, no guarding, no appreciable organomegaly Ext: no gross muscle atrophy, no edema, no contractures Neuro: 3/5 in all 4 extremities. Cranial nerve examination from second to 12 grossly intact. Monotonous speech - Labs CBC & Chem 7: 05/18/21 04:41 05/18/21 04:41 Labs: Abnormal Lab Results - Last 24 Hours (Table) 05/18/21 05/18/21 Range/Units 04:41 04:41 WBC 16.54 H (4.50-10.00) X 10*3/uL RBC 4.10 L (4.40-5.60) X 10*6/uL Hgb 12.7 L (13.0-17.0) g/dL Hct 38.2 L (39.6-50.0) % MPV 9.3 L (9.5-12.2) fL Immature Gran # 0.05 H (0.00-0.04) X 10*3/uL Neutrophils # 13.51 H (1.80-7.70) X 10*3/uL Calcium 8.5 L (8.7-10.3) mg/dL ALT 5 L (10-49) U/L Total Protein 5.4 L (6.2-8.2) g/dL Albumin 3.5 L (3.8-4.9) g/dL Microbiology - Last 24 Hours (Table) 05/16/21 18:16 Urine Culture - Preliminary Urine,Voided Gram Neg Bacilli Group D Enterococcus 05/16/21 16:24 Blood Culture - Preliminary Blood No Growth after 24 hours 05/16/21 16:11 Blood Culture - Preliminary Blood No Growth after 24 hours Assessment and Plan Assessment: Assessment and plan: #Recurrent urinary tract infection with sepsis secondary to chronic indwelling Hopkins catheter #Pseudomonas and VRE UTI with sepsis -Sepsis present on admission -History of Pseudomonas infection in the past -Hydrate the patient -Resume IV Zosyn. Infectious disease -Per ID the patient will require IV antibiotic on discharge. #Parkinson's disease -Resume carbidopa/levodopa #Multiple sclerosis #Severe debility and deconditioning secondary to above. -PT/OT evaluation #Depression -Resume Celexa #Hypertension -Resume lisinopril hydrochlorothiazide #Hypothyroidism #No code #DVT prophylaxis with subcutaneous heparin
[2021-05-18] MEDS: LEVOTHYROXINE 88 MCG TAB PO SCH (21:02)
[2021-05-18] MEDS: ATORVASTATIN 20 MG TAB PO SCH (21:02)
[2021-05-19] MEDS: SODIUM CHLORIDE 0.9% 1,000 ML IV SCH ×3 (00:01→08:42)
[2021-05-19 08:38] LABS: Basophils # (A) 0.05 X 10*3/uL (0.00-0.10); Basophils % (A) 0.4 %; Eosinophils # (A) 0.16 X 10*3/uL (0.04-0.35); Eosinophils % (A) 1.4 %; HGB 12.6 g/dL (13.0-17.0); Immature Grans, Automated 0.3 %; Lymphocytes # (A) 2.02 X 10*3/uL (0.90-5.00); Lymphocytes % (A) 18.1 %; MCH 31.3 pg (27.0-32.0); MCHC 34.1 g/dL (32.0-37.0); MCV 91.8 fL (80.0-97.0); Mean Platelet Volume 9.1 fL (9.5-12.2); Monocytes # (A) 0.84 X 10*3/uL (0.20-1.00); Monocytes % (A) 7.5 %; NRBC Per 100 WBC 0 /100 WBCS (0.0-0.0); Neutrophils # (A) 8.04 X 10*3/uL (1.80-7.70); Neutrophils % (A) 72.3 %; Platelet Count 214 X 10*3/uL (140-440); RBC 4.03 X 10*6/uL (4.40-5.60); RDW 13.1 % (11.5-14.5); WBC 11.14 X 10*3/uL (4.50-10.00)
[2021-05-19 08:58] LABS: African American GFR (CKD) 112.6 (60.0-200.0); Albumin 3.5 g/dL (3.8-4.9); Albumin/Globulin Ratio 1.83 (1.60-3.17); Anion Gap 10.7 mmol/L (10.00-18.00); BUN/Creat Ratio 8.74 Ratio (12.00-20.00); Blood Urea Nitrogen 5.9 mg/dL (9.0-27.0); Calcium 8.5 mg/dL (8.7-10.3); Carbon Dioxide 24.6 mmol/L (20.0-27.5); Globulin 1.9 g/dL (1.6-3.3); Non-African American GFR(CKD) 97.1 (60.0-200.0); Potassium 3.6 mmol/L (3.5-5.5); Total Bilirubin 0.4 mg/dL (0.30-1.20); Total Protein 5.5 g/dL (6.2-8.2)
[2021-05-19] MEDS: LISINOPRIL-HCTZ 20-12.5 MG 1 EACH TAB PO SCH (09:00)
[2021-05-19] MEDS: CITALOPRAM HYDROBROMIDE 20 MG TAB PO SCH (09:00)
[2021-05-19] MEDS: CARBIDOPA-LEVODOPA 25-100 MG 1 EACH TAB PO SCH ×3 (09:00→20:41)
[2021-05-19] MEDS: HEPARIN SODIUM,PORCINE/PF 5,000 UNIT/0.5 ML SYRINGE SQ SCH ×2 (09:00→15:55)
[2021-05-19] MEDS: ASPIRIN 81 MG PO SCH (09:00)
[2021-05-19] MEDS: PIPERACILLIN-TAZOBACTAM 3.375 GM in SODIUM CHLORIDE 0.9% 100 ML IVPB SCH ×2 (09:00→15:53)
[2021-05-19] MEDS: ALBUTEROL NEBULIZED 2.5 MG/3 ML INHALATION SCH ×2 (09:16→19:35)
--- NOTE | 2021-05-19 15:21 | P.PN ---
Subjective Progress Note Date: 05/19/21 History of present as per H&P: 70 year old male with history of parkinson, multiple sclerosis patient comes in due to fevers, which is getting worse. brought the patient for evaluation yesterday, diagnosed with UTI and discharged, she comes in again , due to worsening fevers. patient does not talk , and history obtained from the , she denies any mental status changes, he has been bedridden for many years since he had a TIA and MS . he is confined to bed or chair. she reports that he has one small wound over his buttock he otherwise, not showing in changes in his mentation compared to baseline, no nausea or vomiting, he is having some cough, non productive, no SOB or chest pain. no report of abd pain patient does have chronic hopkins , which the has noticed some blood clots in there and possible hematuria occasionally over past couple days patient diagnosed with UTI and started on antibiotics in the ED he met sepsis criteria with tachycardia, fever, and leukoytosis CXR showed bilateral basal atelacetesis Interval history: Patient seen and examined with that. He is alert oriented 3. He denies any chest pain or shortness of breath. Urine culture grew VRE and pseudomonas sensitive to Zosyn. No acute changes overnight. Objective - Vital Signs Vital signs: Vital Signs Temp 98.2 F 05/19/21 08:00 Pulse 74 05/19/21 09:24 Resp 18 05/19/21 08:00 BP 131/78 05/19/21 08:00 Pulse Ox 94 L 05/19/21 08:00 Intake & Output 05/18/21 05/19/21 05/19/21 18:59 06:59 18:59 Intake Total 1100 Output Total 400 3000 1000 Balance 700 -3000 -1000 Intake: Intake, IV Titration 750 Amount Cefepime 1 gm In Sodium 100 Chloride 0.9% 50 ml @ 12. 5 mls/hr IVPB Q12H [facility] Rx #:[id number] Sodium Chloride 0.9% 1, 650 000 ml @ 130 mls/hr IV . Q7H42M [facility] Rx#:[id number] Oral 350 Output: Urine 400 3000 1000 Uretheral (Hopkins) 400 1000 Other: Voiding Method Indwelling Catheter Indwelling Catheter Indwelling Catheter - Exam General: non toxic, no distress, appears at stated age Derm: warm, dry Head: atraumatic, normocephalic, symmetric Eyes: EOMI, no lid lag, anicteric sclera Mouth: no lip lesion, mucus membranes moist Cardiovascular: S1S2 reg, no murmur, positive posterior tibial pulse bilateral, Lungs: CTA bilateral, no rhonchi, no rales , no accessory muscle use Abdominal: soft, nontender to palpation, no guarding, no appreciable organomegaly Ext: no gross muscle atrophy, no edema, no contractures Neuro: 3/5 in all 4 extremities. Cranial nerve examination from second to 12 grossly intact. Monotonous speech - Labs CBC & Chem 7: 05/19/21 05:43 05/19/21 05:43 Labs: Abnormal Lab Results - Last 24 Hours (Table) 05/19/21 05/19/21 Range/Units 05:43 05:43 WBC 11.14 H (4.50-10.00) X 10*3/uL RBC 4.03 L (4.40-5.60) X 10*6/uL Hgb 12.6 L (13.0-17.0) g/dL Hct 37.0 L (39.6-50.0) % MPV 9.1 L (9.5-12.2) fL Neutrophils # 8.04 H (1.80-7.70) X 10*3/uL BUN 5.9 L (9.0-27.0) mg/dL BUN/Creatinine Ratio 8.74 L (12.00-20.00) Ratio Calcium 8.5 L (8.7-10.3) mg/dL AST 12 L (14-35) U/L ALT 5 L (10-49) U/L Total Protein 5.5 L (6.2-8.2) g/dL Albumin 3.5 L (3.8-4.9) g/dL Microbiology - Last 24 Hours (Table) 05/16/21 18:16 Urine Culture - Final Urine,Voided Pseudomonas aeruginosa Enterococcus faecalis VRE 05/16/21 16:24 Blood Culture - Preliminary Blood No Growth after 48 hours 05/16/21 16:11 Blood Culture - Preliminary Blood No Growth after 48 hours Assessment and Plan Assessment: Assessment and plan: #Recurrent urinary tract infection with sepsis secondary to chronic indwelling Hopkins catheter #Pseudomonas and VRE UTI with sepsis -Sepsis present on admission -History of Pseudomonas infection in the past -Hydrate the patient -Resume IV Zosyn. Infectious disease -Per ID the patient will require IV Zosyn on discharge -Midline ordered by infectious disease #Parkinson's disease -Resume carbidopa/levodopa #Stage II coccygeal ulcer -Resume wound care #Multiple sclerosis #Severe debility and deconditioning secondary multiple sclerosis and Parkinson's disease -Patient down to the bed -PT/OT evaluation #Depression -Resume Celexa #Hypertension -Resume lisinopril hydrochlorothiazide #Hypothyroidism #No code #DVT prophylaxis with subcutaneous heparin
[2021-05-19] MEDS: ATORVASTATIN 20 MG TAB PO SCH (20:41)
[2021-05-19] MEDS: LEVOTHYROXINE 88 MCG TAB PO SCH (20:41)
--- NOTE | 2021-05-19 23:59 | P.PN ---
Subjective Progress Note Date: 05/18/21 Principal diagnosis: Catheter associated UTI Patient is a 70 year male with multiple comorbidity did have a chronic indwelling Nielsen catheter presented to hospital with fever concerning for catheter associated UTI and a question of pneumonia with recent culture positive for VRE and pseudomonas. On today's evaluation that is 05/18/2021, the patient fever pattern has im proved, with T-max of 99.5F, the patient is breathing comfortably denies any chest pain or cough no abdominal pain no diarrhea Objective - Vital Signs Vital signs: Vital Signs Temp 98.5 F 05/18/21 07:10 Pulse 70 05/18/21 08:31 Resp 16 05/18/21 08:31 BP 122/74 05/18/21 07:10 Pulse Ox 99 05/18/21 08:23 Intake & Output 05/17/21 05/18/21 05/18/21 18:59 06:59 18:59 Output Total 1999 Balance -1999 Output: Urine 1999 Other: Voiding Method Indwelling Catheter Indwelling Catheter Indwelling Catheter # Bowel Movements 2 - Exam GENERAL DESCRIPTION: An elderly male lying in bed in no distress RESPIRATORY SYSTEM: Unlabored breathing , decreased breath sounds at bases HEART: S1 S2 regular rate and rhythm , ABDOMEN: Soft , no tenderness EXTREMITIES: No edema feet - Labs CBC & Chem 7: 05/19/21 05:43 05/19/21 05:43 Labs: Abnormal Lab Results - Last 24 Hours (Table) 05/18/21 05/18/21 Range/Units 04:41 04:41 WBC 16.54 H (4.50-10.00) X 10*3/uL RBC 4.10 L (4.40-5.60) X 10*6/uL Hgb 12.7 L (13.0-17.0) g/dL Hct 38.2 L (39.6-50.0) % MPV 9.3 L (9.5-12.2) fL Immature Gran # 0.05 H (0.00-0.04) X 10*3/uL Neutrophils # 13.51 H (1.80-7.70) X 10*3/uL Calcium 8.5 L (8.7-10.3) mg/dL ALT 5 L (10-49) U/L Total Protein 5.4 L (6.2-8.2) g/dL Albumin 3.5 L (3.8-4.9) g/dL Microbiology - Last 24 Hours (Table) 05/16/21 18:16 Urine Culture - Preliminary Urine,Voided Gram Neg Bacilli Group D Enterococcus 05/16/21 16:24 Blood Culture - Preliminary Blood No Growth after 24 hours 05/16/21 16:11 Blood Culture - Preliminary Blood No Growth after 24 hours Assessment and Plan (1) Sepsis Current Visit: Yes Status: Acute Code(s): A41.9 - SEPSIS, UNSPECIFIED ORGANISM SNOMED Code(s): 43198740 (2) Urinary tract infection Current Visit: Yes Status: Acute Code(s): N39.0 - URINARY TRACT INFECTION, SITE NOT SPECIFIED SNOMED Code(s): 35016161 Plan: 1patient presented to hospital with sepsis anticipated have fever tachycardia elevated white count source is likely urinary in this we did have a positive UA with urine culture done on 05/15/2021 has been finalized with Pseudomonas aeruginosa and VRE which is penicillin sensitive, possible component of pneumonia not entirely excluded. 2patient to continue with Zosyn 3.375 g every 8 hour that would cover both pa thogen. Time with Patient: Less than 30
--- NOTE | 2021-05-20 | P.PN ---
Subjective Progress Note Date: 05/19/21 Principal diagnosis: Catheter associated UTI Patient is a 70 year male with multiple comorbidity did have a chronic indwelling Nielsen catheter presented to hospital with fever concerning for catheter associated UTI and a question of pneumonia with recent culture positive for VRE and pseudomonas. On today's evaluation that is 05/19/2021, the patient is afebrile, the patient is breathing comfortably on nasal cannula oxygen, the patient denies any chest pain or cough no abdominal pain no diarrhea Objective - Vital Signs Vital signs: Vital Signs Temp 98.2 F 05/19/21 08:00 Pulse 74 05/19/21 09:24 Resp 18 05/19/21 08:00 BP 131/78 05/19/21 08:00 Pulse Ox 94 L 05/19/21 08:00 Intake & Output 05/18/21 05/19/21 05/19/21 18:59 06:59 18:59 Intake Total 1100 Output Total 400 3000 Balance 700 -3000 Intake: Intake, IV Titration 750 Amount Cefepime 1 gm In Sodium 100 Chloride 0.9% 50 ml @ 12. 5 mls/hr IVPB Q12H [facility] Rx #:[id number] Sodium Chloride 0.9% 1, 650 000 ml @ 130 mls/hr IV . Q7H42M [facility] Rx#:[id number] Oral 350 Output: Urine 400 3000 Uretheral (Nielsen) 400 Other: Voiding Method Indwelling Catheter Indwelling Catheter Indwelling Catheter - Exam GENERAL DESCRIPTION: An elderly male lying in bed in no distress RESPIRATORY SYSTEM: Unlabored breathing , decreased breath sounds at bases HEART: S1 S2 regular rate and rhythm , ABDOMEN: Soft , no tenderness EXTREMITIES: No edema feet - Labs CBC & Chem 7: 05/19/21 05:43 05/19/21 05:43 Labs: Abnormal Lab Results - Last 24 Hours (Table) 05/19/21 05/19/21 Range/Units 05:43 05:43 WBC 11.14 H (4.50-10.00) X 10*3/uL RBC 4.03 L (4.40-5.60) X 10*6/uL Hgb 12.6 L (13.0-17.0) g/dL Hct 37.0 L (39.6-50.0) % MPV 9.1 L (9.5-12.2) fL Neutrophils # 8.04 H (1.80-7.70) X 10*3/uL BUN 5.9 L (9.0-27.0) mg/dL BUN/Creatinine Ratio 8.74 L (12.00-20.00) Ratio Calcium 8.5 L (8.7-10.3) mg/dL AST 12 L (14-35) U/L ALT 5 L (10-49) U/L Total Protein 5.5 L (6.2-8.2) g/dL Albumin 3.5 L (3.8-4.9) g/dL Microbiology - Last 24 Hours (Table) 05/16/21 18:16 Urine Culture - Final Urine,Voided Pseudomonas aeruginosa Enterococcus faecalis VRE 05/16/21 16:24 Blood Culture - Preliminary Blood No Growth after 48 hours 05/16/21 16:11 Blood Culture - Preliminary Blood No Growth after 48 hours Assessment and Plan (1) Sepsis Current Visit: Yes Status: Acute Code(s): A41.9 - SEPSIS, UNSPECIFIED ORGANISM SNOMED Code(s): 64563545 (2) Urinary tract infection Current Visit: Yes Status: Acute Code(s): N39.0 - URINARY TRACT INFECTION, SITE NOT SPECIFIED SNOMED Code(s): 07085068 Plan: 1patient presented to hospital with sepsis anticipated have fever tachycardia elevated white count source is likely urinary in this we did have a positive UA with urine culture done on 05/15/2021 has been finalized with Pseudomonas aeruginosa and VRE which is penicillin sensitive, possible component of pneumonia not entirely excluded. 2patient to continue with Zosyn 3.375 g every 8 hour that would cover both p athogen. 3-patient will get a midline and plan is for 10 day course of Zosyn in outpatient setting to finish his course of therapy, discussed with the admitting team and showcase maker Time with Patient: Less than 30
[2021-05-20] MEDS: PIPERACILLIN-TAZOBACTAM 3.375 GM in SODIUM CHLORIDE 0.9% 100 ML IVPB SCH ×2 (00:57→08:27)
[2021-05-20] MEDS: HEPARIN SODIUM,PORCINE/PF 5,000 UNIT/0.5 ML SYRINGE SQ SCH ×2 (00:57→08:27)
[2021-05-20] MEDS: SODIUM CHLORIDE 0.9% 1,000 ML IV SCH ×4 (01:15→09:46)
[2021-05-20 07:16] VITALS: BP 145/89; RESP 20; TEMP 97
--- NOTE | 2021-05-20 08:11 | P.DS ---
Providers Date of admission: 05/16/21 19:28 Expected date of discharge: 05/20/21 Attending physician: Carlos Alberto Kerr MD Consults: 05/17/21 10:54 Consult Physician Routine Consulting Provider: Janki Ospina Consult Reason/Comments: UTI Do you want consulting provider notified?: Yes Primary care physician: Stated None Hospital Course: History of present as per H&P: 70 year old male with history of parkinson, multiple sclerosis patient comes in due to fevers, which is getting worse. brought the patient for evaluation yesterday, diagnosed with UTI and discharged, she comes in again , due to worsening fevers. patient does not talk , and history obtained from the , she denies any mental status changes, he has been bedridden for many years since he had a TIA and MS . he is confined to bed or chair. she reports that he has one small wound over his buttock he otherwise, not showing in changes in his mentation compared to baseline, no nausea or vomiting, he is having some cough, non productive, no SOB or chest pain. no report of abd pain patient does have chronic hopkins , which the has noticed some blood clots in there and possible hematuria occasionally over past couple days patient diagnosed with UTI and started on antibiotics in the ED he met sepsis criteria with tachycardia, fever, and leukoytosis CXR showed bilateral basal atelacetes Hospital course into to the problem list: #Recurrent urinary tract infection with sepsis secondary to chronic indwelling Hopkins catheter #Pseudomonas and VRE UTI with sepsis -Sepsis present on admission -History of Pseudomonas infection in the past -Hydrate the patient -Resume IV Zosyn for 10 days after discharge per infectious disease. -Midline placed -Patient cleared for discharge per ID #Parkinson's disease -Resume carbidopa/levodopa #Stage II coccygeal ulcer -Resume wound care #Multiple sclerosis #Severe debility and deconditioning secondary multiple sclerosis and Parkinson's disease -Patient down to the bed -PT/OT evaluation #Depression -Resume Celexa #Hypertension -Resume lisinopril hydrochlorothiazide #Hypothyroidism #No code Patient will be discharged home with home health care. Time spent in the discharge process 35 minutes. Physical examination on discharge: General: non toxic, no distress, appears at stated age Derm: warm, dry Head: atraumatic, normocephalic, symmetric Eyes: EOMI, no lid lag, anicteric sclera Mouth: no lip lesion, mucus membranes moist Cardiovascular: S1S2 reg, no murmur, positive posterior tibial pulse bilateral, Lungs: CTA bilateral, no rhonchi, no rales , no accessory muscle use Abdominal: soft, nontender to palpation, no guarding, no appreciable organomegaly Ext: no gross muscle atrophy, no edema, no contractures Neuro: 3/5 in all 4 extremities. Cranial nerve examination from second to 12 grossly intact. Monotonous speech Patient Condition at Discharge: Stable Plan - Discharge Summary New Discharge Prescriptions: New Carbidopa-Levodopa 25-100 mg [Sinemet 25-100 mg] 1 each PO TID tab Piperacillin-Tazobactam [Zosyn] 3.375 gm IVPB Q8HR 10 Days #30 each Lisinopril-Hctz 20-12.5 mg [Zestoretic 20-12.5] 1 each PO DAILY tab Continue Rosuvastatin Calcium [Crestor] 10 mg PO HS Levothyroxine Sodium [Synthroid] 88 mcg PO HS Aspirin 81 mg PO DAILY #1 chewable Lisinopril-Hctz 20-12.5 mg [Zestoretic 20-12.5] 1 tab PO DAILY Zinc Oxide [Desitin] 1 applic TOPICAL DAILY PRN PRN Reason: BEDSORE Cranberry 4200mg 1 tab PO DAILY Psyllium Husk (with Sugar) [Metamucil Powder] 6 gm PO DAILY PRN PRN Reason: Constipation L.acidoph,Paracasei, B.lactis [Probiotic] 1 cap PO DAILY Citalopram Hydrobromide [CeleXA] 40 mg PO DAILY Albuterol Nebulized [Ventolin Nebulized] 2.5 mg INHALATION RT-BID Carbidopa/Levodopa [Carbidopa-Levodopa 25-100 Tab] 1 tab PO TID Acetaminophen [Tylenol] 1,000 mg PO DAILY Discontinued Ciprofloxacin HCl [Cipro] 500 mg PO BID Discharge Medication List Levothyroxine Sodium [Synthroid] 88 mcg PO HS 08/19/17 [History] Rosuvastatin Calcium [Crestor] 10 mg PO HS 08/19/17 [History] Aspirin 81 mg PO DAILY #1 chewable 08/23/17 [Rx] Lisinopril-Hctz 20-12.5 mg [Zestoretic 20-12.5] 1 tab PO DAILY 03/26/18 [History] Zinc Oxide [Desitin] 1 applic TOPICAL DAILY PRN 01/12/19 [History] Cranberry 4200mg 1 tab PO DAILY 03/16/20 [History] L.acidoph,Paracasei, B.lactis [Probiotic] 1 cap PO DAILY 03/16/20 [History] Psyllium Husk (with Sugar) [Metamucil Powder] 6 gm PO DAILY PRN 03/16/20 [History] Acetaminophen [Tylenol] 1,000 mg PO DAILY 05/16/21 [History] Albuterol Nebulized [Ventolin Nebulized] 2.5 mg INHALATION RT-BID 05/16/21 [History] Carbidopa/Levodopa [Carbidopa-Levodopa 25-100 Tab] 1 tab PO TID 05/16/21 [History] Citalopram Hydrobromide [CeleXA] 40 mg PO DAILY 05/16/21 [History] Carbidopa-Levodopa 25-100 mg [Sinemet 25-100 mg] 1 each PO TID tab 05/20/21 [Rx] Lisinopril-Hctz 20-12.5 mg [Zestoretic 20-12.5] 1 each PO DAILY tab 05/20/21 [Rx] Piperacillin-Tazobactam [Zosyn] 3.375 gm IVPB Q8HR 10 Days #30 each 05/20/21 [Rx] Follow up Appointment(s)/Referral(s): [facility] [NON-STAFF] - As Needed Sarabjit Dickson MD [REFERRING] - As Needed Activity/Diet/Wound Care/Special Instructions: Call 's office ([phone]) to notify of d/c in order for them to arrange a same day visit Discharge Disposition: HOME WITH HOME HEALTH SERVICES
[2021-05-20] MEDS: LISINOPRIL-HCTZ 20-12.5 MG 1 EACH TAB PO SCH (08:27)
[2021-05-20] MEDS: ASPIRIN 81 MG PO SCH (08:27)
[2021-05-20] MEDS: CARBIDOPA-LEVODOPA 25-100 MG 1 EACH TAB PO SCH (08:27)
[2021-05-20] MEDS: CITALOPRAM HYDROBROMIDE 20 MG TAB PO SCH (08:27)
[2021-05-20] MEDS: ALBUTEROL NEBULIZED 2.5 MG/3 ML INHALATION SCH (09:02)
[2021-05-20 09:05] VITALS: PULSE 72
[2021-05-20 09:32] LABS: Basophils # (A) 0.07 X 10*3/uL (0.00-0.10); Basophils % (A) 0.8 %; Eosinophils # (A) 0.29 X 10*3/uL (0.04-0.35); Eosinophils % (A) 3.1 %; HCT 37.7 % (39.6-50.0); HGB 12.7 g/dL (13.0-17.0); Immature Grans, Automated 0.4 %; Lymphocytes # (A) 1.98 X 10*3/uL (0.90-5.00); Lymphocytes % (A) 21.3 %; MCH 31.3 pg (27.0-32.0); MCHC 33.7 g/dL (32.0-37.0); MCV 92.9 fL (80.0-97.0); Mean Platelet Volume 9.1 fL (9.5-12.2); Monocytes # (A) 0.69 X 10*3/uL (0.20-1.00); Monocytes % (A) 7.4 %; NRBC Per 100 WBC 0 /100 WBCS (0.0-0.0); Neutrophils # (A) 6.24 X 10*3/uL (1.80-7.70); Platelet Count 226 X 10*3/uL (140-440); RBC 4.06 X 10*6/uL (4.40-5.60); RDW 12.9 % (11.5-14.5); WBC 9.31 X 10*3/uL (4.50-10.00)
[2021-05-20 10:08] LABS: African American GFR (CKD) 119.1 (60.0-200.0); Albumin 3.5 g/dL (3.8-4.9); Albumin/Globulin Ratio 1.87 (1.60-3.17); Anion Gap 11.7 mmol/L (10.00-18.00); BUN/Creat Ratio 9.56 Ratio (12.00-20.00); Blood Urea Nitrogen 5.6 mg/dL (9.0-27.0); Calcium 8.7 mg/dL (8.7-10.3); Carbon Dioxide 25.8 mmol/L (20.0-27.5); Globulin 1.9 g/dL (1.6-3.3); Non-African American GFR(CKD) 102.8 (60.0-200.0); Total Bilirubin 0.4 mg/dL (0.30-1.20); Total Protein 5.4 g/dL (6.2-8.2)
[2021-05-20] MEDS ORDERED: LIDOCAINE 1% INJ 10MG/ML (20 ML MDV) SQ ONE (11:15)
--- NOTE | 2021-05-20 13:32 | IR ---
EXAMINATION TYPE: IR cvc insert >=5 years DATE OF EXAM: 05/20/2021 COMPARISON: NONE CLINICAL HISTORY: Infection Needs long-term intravenous access for antibiotics. PROCEDURE: Hand hygiene obtained with soap and water and alcohol-based hand rub. After informed consent, the skin overlying the right basilic vein was localized with ultrasound and n oted to be compressible and patent. An ultrasound image was obtained and submitted on the patient's chart. The overlying skin was prepped and draped and Lidocaine was used for local anesthesia. A ski n shilpa was made with a scalpel. Access was gained to the vein under ultrasound guidance with a 21 ga uge needle and a 0.018 inch wire was advanced. Access site was dilated with Peel-Away sheath and cat heter tailored to the appropriate length and advanced such that the distal tip is at the cavoatrial j unction. Spot image was obtained verifying placement. Catheter was fixed to the skin and a sterile dressing was placed following hemostasis. Catheter was aspirated and flushed with saline. Patient w as discharged in stable condition without complication.Maximal barrier technique is utilized. Ultras ound image is documented on the chart. Ultrasound used with sterile technique. Fluoro time and fluoroscopic images submitted to document procedure: 37 intraoperative C-arm images, 0.4 minutes fluoroscopy time IMPRESSION: STATUS POST ULTRASOUND AND FLUOROSCOPIC GUIDED PICC LINE PLACEMENT, READY FOR USE. THIS PROCEDURE WAS PERFORMED BY THE UNDERSIGNED.
== END 2021-05-20 14:34 | disposition home health service (06) | DRG 698 ==
LOC: EC 14:23 → 4SSUR 19:28
PROVIDERS: ADMIT Internal Medicine; ATTEND Internal Medicine
PROC: 02HV33Z Insertion of Infusion Device into Superior Vena Cava, Percutaneous Approach (ICD-10-PCS; principal; 2021-05-20 11:35)
DX: T83.518A Infection and inflammatory reaction due to other urinary catheter, initial encounter (principal); R53.2 Functional quadriplegia; A41.52 Sepsis due to Pseudomonas; A41.81 Sepsis due to Enterococcus; N39.0 Urinary tract infection, site not specified; J98.11 Atelectasis; Z16.21 Resistance to vancomycin; E11.9 Type 2 diabetes mellitus without complications; L89.152 Pressure ulcer of sacral region, stage 2; G20 Parkinson's disease; G35 Multiple sclerosis; M06.9 Rheumatoid arthritis, unspecified; Z20.822 Contact with and (suspected) exposure to COVID-19; E78.5 Hyperlipidemia, unspecified; I10 Essential (primary) hypertension; N31.9 Neuromuscular dysfunction of bladder, unspecified; E03.9 Hypothyroidism, unspecified; F32.A Depression, unspecified; R31.9 Hematuria, unspecified; R09.02 Hypoxemia; G47.30 Sleep apnea, unspecified; Z79.82 Long term (current) use of aspirin; Z79.890 Hormone replacement therapy; Z79.899 Other long term (current) drug therapy; Z86.73 Personal history of transient ischemic attack (TIA), and cerebral infarction without residual deficits; Z87.01 Personal history of pneumonia (recurrent); Z85.820 Personal history of malignant melanoma of skin; Z86.19 Personal history of other infectious and parasitic diseases; Z90.89 Acquired absence of other organs; Z87.39 Personal history of other diseases of the musculoskeletal system and connective tissue; Z87.440 Personal history of urinary (tract) infections; Z98.1 Arthrodesis status; Z74.01 Bed confinement status; Z98.890 Other specified postprocedural states; Y84.6 Urinary catheterization as the cause of abnormal reaction of the patient, or of later complication, without mention of misadventure at the time of the procedure; Z82.49 Family history of ischemic heart disease and other diseases of the circulatory system; Z80.8 Family history of malignant neoplasm of other organs or systems
CPT/HCPCS: 36415; 36573; 71045; 71046; 80053; 81001; 83605; 83735; 83880; 84484; 85025; 85610; 85730; 87040; 87077; 87086; 87186; 87502; 87635; 93005; 94640; 94760; 96361; 96365; 96367; 99284; 99285

== ENCOUNTER 2021-07-06 21:38 | Inpatient (IN) | payer MEDICARE, OTHER ==
[2021-07-06] MEDS: SODIUM CHLORIDE 0.9% 500 ML 500 ML IV SCH ×2 (21:56→23:16)
[2021-07-06 22:01] LABS: Basophils # (A) 0.1 k/uL (0-0.2); Basophils % (A) 1 %; Eosinophils # (A) 0.4 k/uL (0-0.7); Eosinophils % (A) 2 %; HGB 14.3 gm/dL (13.0-17.5); Lymphocytes # (A) 1.5 k/uL (1.0-4.8); Lymphocytes % (A) 9 %; MCH 30.7 pg (25.0-35.0); MCHC 33.2 g/dL (31.0-37.0); MCV 92.5 fL (80.0-100.0); Mean Platelet Volume 6.5; Monocytes # (A) 0.6 k/uL (0-1.0); Monocytes % (A) 4 %; Neutrophils # (A) 13.3 k/uL (1.3-7.7); Neutrophils % (A) 83 %; Platelet Count 300 k/uL (150-450); RBC 4.65 m/uL (4.30-5.90); RDW 12.6 % (11.5-15.5)
[2021-07-06 22:10] LABS: Partial Thromboplastin Time 24.2 sec (22.0-30.0); Prothrombin Time 10.5 sec (9.0-12.0)
[2021-07-06 22:13] LABS: ALT 7 U/L (4-49); AST 22 U/L (17-59); African American GFR (CKD) >90 (>60 ml/min/1.73 sqM); Albumin 4.1 g/dL (3.5-5.0); Alkaline Phosphatase 79 U/L (38-126); Anion Gap 9 mmol/L; Blood Urea Nitrogen 17 mg/dL (9-20); Calcium 8.7 mg/dL (8.4-10.2); Carbon Dioxide 28 mmol/L (22-30); Chloride 90 mmol/L (98-107); Glucose 119 mg/dL (74-99); Non-African American GFR(CKD) 87 (>60 ml/min/1.73 sqM); Potassium 4.2 mmol/L (3.5-5.1); Sodium 127 mmol/L (137-145); Total Bilirubin 0.6 mg/dL (0.2-1.3); Total Protein 6.9 g/dL (6.3-8.2)
--- NOTE | 2021-07-06 22:26 | XR ---
EXAMINATION TYPE: XR chest 1V portable DATE OF EXAM: 07/06/2021 COMPARISON: 05/16/2021 HISTORY: Fever TECHNIQUE: Single view FINDINGS: There is poor inspiration with some atelectasis at the lung bases. No obvious heart failure . There is coarse lung markings. There is some left perihilar pulmonary infiltrate. IMPRESSION: There is atelectasis at the lung bases similar to the old exam. There is some new left-si ded perihilar infiltrate. No heart failure seen.
[2021-07-06] MEDS ORDERED: cefTRIAXone IN SWFI 1,000 MG/10 ML SYRINGE IVP STA (22:40)
--- NOTE | 2021-07-06 22:40 | ED ---
General Adult HPI - General Chief complaint: Altered Mental Status Stated complaint: ANIBAL Time Seen by Provider: 07/06/21 21:47 Source: EMS Mode of arrival: EMS - History of Present Illness Initial comments: Alan is a 70yo M with complicated PMH most significant for are consistent disease, chronic indwelling Nielsen catheter, recurrent urinary tract infections with previous cultures growing Pseudomonas and VRE. Patient presents to ER today via EMS for altered mental status. EMS was called with report that the patient seemed to have some labored breathing, on their arrival he was tachycardic tachypneic and hypoxic. He is placed on nasal cannula. They did note that he seemed to be clenching his jaw he attempted to assist in suctioning. He was given some Valium in route to the hospital due to the jaw clenching. - Related Data Home Medications Medication Instructions Recorded Confirmed Levothyroxine Sodium [Synthroid] 88 mcg PO HS 08/19/17 07/06/21 Rosuvastatin Calcium [Crestor] 10 mg PO HS 08/19/17 07/06/21 Lisinopril-Hctz 20-12.5 mg 1 tab PO DAILY 03/26/18 07/06/21 [Zestoretic 20-12.5] Zinc Oxide [Desitin] 1 applic TOPICAL DAILY PRN 01/12/19 07/06/21 Cranberry 4200mg 1 tab PO DAILY 03/16/20 07/06/21 L.acidoph,Paracasei, B.lactis 1 cap PO DAILY 03/16/20 07/06/21 [Probiotic] Acetaminophen [Tylenol] 1,000 mg PO BID 05/16/21 07/06/21 Albuterol Nebulized [Ventolin 2.5 mg INHALATION RT-BID 05/16/21 07/06/21 Nebulized] Carbidopa/Levodopa 1 tab PO TID 05/16/21 07/06/21 [Carbidopa-Levodopa 25-100 Tab] Citalopram Hydrobromide [CeleXA] 40 mg PO DAILY 05/16/21 07/06/21 Wheat Dextrin [Benefiber] 1 packet PO DAILY PRN 07/06/21 07/06/21 Previous Rx's Medication Instructions Recorded Aspirin 81 mg PO DAILY #1 chewable 08/23/17 Allergies Allergy/AdvReac Type Severity Reaction Status Date / Time No Known Allergies Allergy Verified 07/06/21 22:42 Review of Systems ROS Statement: Those systems with pertinent positive or pertinent negative responses have been documented in the HPI. ROS Other: All systems not noted in ROS Statement are negative. Past Medical History Past Medical History: Cancer, CVA/TIA, Hyperlipidemia, Hypertension, Musculoskeletal Disorder, Pneumonia, Rheumatoid Arthritis (RA), Sleep Apne a/CPAP/BIPAP, Thyroid Disorder Additional Past Medical History / Comment(s): Slurred speech/possible lTIA 2017 , uses CPAP at bed, bronchitis, Melanoma skin ca lt arm, has sx of Parkinson's disease - has MSA. Neurogenic bladder, has suprapubic tube placed - d/c 03/02/20 History of Any Multi-Drug Resistant Organisms: VRE Date of last positivie culture/infection: 05/16/21 MDRO Source:: urine Past Surgical History: Back Surgery, Orthopedic Surgery, Tonsillectomy Additional Past Surgical History / Comment(s): Heel spurs removed, colonoscopy, basal call carcinoma: skin cancer removed, Spinal fusion. Cystoscopy w/ suprapubic SP catheter 08/27/19. Past Anesthesia/Blood Transfusion Reactions: Previous Problems w/ Anesthesia Additional Past Anesthesia/Blood Transfusion Reaction / Comment(s): Stopped breathing during colonoscopy yrs. ago before sleep apnea diagnosed per pt. Past Psychological History: No Psychological Hx Reported Smoking Status: Never smoker Past Alcohol Use History: None Reported Past Drug Use History: None Reported - Past Family History Father Family Medical History: Cancer, Hypertension Additional Family Medical History / Comment(s): oral cancer Mother Family Medical History: Cancer Additional Family Medical History / Comment(s): "irreg heart rythym" General Exam - General Exam Comments Initial Comments: Physical Exam GENERAL: Chronically ill appearing HENT: Normocephalic, Atraumatic. EYES: PERRL, EOMI PULMONARY: Crackles throughout CARDIOVASCULAR: Tachycardic regular ABDOMEN: Soft and nontender with normal bowel sounds. SKIN: Pale, no injuries noted : Nielsen cath in place NEUROLOGIC: Follows commands, moves all extremities, mumbles responses MUSCULOSKELETAL: No apparent injury PSYCHIATRIC: Unable to assess due to mental status change Course Vital Signs 07/06/21 07/06/21 07/06/21 21:38 21:45 23:00 Temperature 98.9 F Pulse Rate 106 H 105 H 101 H Respiratory 20 14 18 Rate Blood Pressure 105/69 105/71 99/66 O2 Sat by Pulse 98 97 99 Oximetry EKG Findings - EKG Comments: EKG Findings:: EKG was obtained sepsis workup, EKG was obtained 2140 rate is 106 rhythm sinus tach, normal axis, normal intervals, NH 190, QRS 12 [address]Tc [address] acute ST elevations or depressions or evidence of ischemia or infarction. Procedures - Sepsis Sepsis Focused Exam #1 Sepsis Focused Exam Date: 07/07/21 Sepsis Focused Exam Time: 00:14 Sepsis Focused Exam Complete: Yes Vital Signs & RN Notes Reviewed: Yes Capillary Refill: < 2 Seconds: Fingers, > 2 Seconds: Toes Peripheral Pulses: Normal: Radial (R), Radial (L) Skin Color: Normal for Patient Respiratory Exam: decreased breath sounds Cardiovascular Exam: regular rate Medical Decision Making - Medical Decision Making Sepsis workup initiated immediately Lab with leukocytosis CXR with pneumonia - rocephin and azithromycin ordered UA with UTI, previous micro with pseudomonas and VRE - zosyn ordered Patient care discussed with Dr Martinez who accepts admission for sepsis due to pneumonia and uti - Lab Data Result diagrams: 07/06/21 21:52 07/06/21 21:52 Lab Results 07/06/21 07/06/21 07/06/21 Range/Units 21:52 21:52 21:52 WBC 16.0 H (3.8-10.6) k/uL RBC 4.65 (4.30-5.90) m/uL Hgb 14.3 (13.0-17.5) gm/dL Hct 43.0 (39.0-53.0) % MCV 92.5 (80.0-100.0) fL MCH 30.7 (25.0-35.0) pg MCHC 33.2 (31.0-37.0) g/dL RDW 12.6 (11.5-15.5) % Plt Count 300 (150-450) k/uL MPV 6.5 Neutrophils % 83 % Lymphocytes % 9 % Monocytes % 4 % Eosinophils % 2 % Basophils % 1 % Neutrophils # 13.3 H (1.3-7.7) k/uL Lymphocytes # 1.5 (1.0-4.8) k/uL Monocytes # 0.6 (0-1.0) k/uL Eosinophils # 0.4 (0-0.7) k/uL Basophils # 0.1 (0-0.2) k/uL PT 10.5 (9.0-12.0) sec INR 1.0 (<1.2) APTT 24.2 (22.0-30.0) sec Sodium 127 L (137-145) mmol/L Potassium 4.2 (3.5-5.1) mmol/L Chloride 90 L (98-107) mmol/L Carbon Dioxide 28 (22-30) mmol/L Anion Gap 9 mmol/L BUN 17 (9-20) mg/dL Creatinine 0.89 (0.66-1.25) mg/dL Est GFR (CKD-EPI)AfAm >90 (>60 ml/min/1.73 sqM) Est GFR (CKD-EPI)NonAf 87 (>60 ml/min/1.73 sqM) Glucose 119 H (74-99) mg/dL Plasma Lactic Acid Antonio (0.7-2.0) mmol/L Calcium 8.7 (8.4-10.2) mg/dL Total Bilirubin 0.6 (0.2-1.3) mg/dL AST 22 (17-59) U/L ALT 7 (4-49) U/L Alkaline Phosphatase 79 (38-126) U/L Total Protein 6.9 (6.3-8.2) g/dL Albumin 4.1 (3.5-5.0) g/dL Urine Color Urine Appearance (Clear) Urine pH (5.0-8.0) Ur Specific [place] (1.001-1.035) Urine Protein (Negative) Urine Glucose (UA) (Negative) Urine Ketones (Negative) Urine Blood (Negative) Urine Nitrite (Negative) Urine Bilirubin (Negative) Urine Urobilinogen (<2.0) mg/dL Ur Leukocyte Esterase (Negative) Urine RBC (0-5) /hpf Urine WBC (0-5) /hpf Urine Bacteria (None) /hpf Hyaline Casts (0-2) /lpf Urine Mucus (None) /hpf 07/06/21 07/06/21 Range/Units 21:52 23:20 WBC (3.8-10.6) k/uL RBC (4.30-5.90) m/uL Hgb (13.0-17.5) gm/dL Hct (39.0-53.0) % MCV (80.0-100.0) fL MCH (25.0-35.0) pg MCHC (31.0-37.0) g/dL RDW (11.5-15.5) % Plt Count (150-450) k/uL MPV Neutrophils % % Lymphocytes % % Monocytes % % Eosinophils % % Basophils % % Neutrophils # (1.3-7.7) k/uL Lymphocytes # (1.0-4.8) k/uL Monocytes # (0-1.0) k/uL Eosinophils # (0-0.7) k/uL Basophils # (0-0.2) k/uL PT (9.0-12.0) sec INR (<1.2) APTT (22.0-30.0) sec Sodium (137-145) mmol/L Potassium (3.5-5.1) mmol/L Chloride (98-107) mmol/L Carbon Dioxide (22-30) mmol/L Anion Gap mmol/L BUN (9-20) mg/dL Creatinine (0.66-1.25) mg/dL Est GFR (CKD-EPI)AfAm (>60 ml/min/1.73 sqM) Est GFR (CKD-EPI)NonAf (>60 ml/min/1.73 sqM) Glucose (74-99) mg/dL Plasma Lactic Acid Antonio 1.5 (0.7-2.0) mmol/L Calcium (8.4-10.2) mg/dL Total Bilirubin (0.2-1.3) mg/dL AST (17-59) U/L ALT (4-49) U/L Alkaline Phosphatase (38-126) U/L Total Protein (6.3-8.2) g/dL Albumin (3.5-5.0) g/dL Urine Color Yellow Urine Appearance Cloudy (Clear) Urine pH 5.5 (5.0-8.0) Ur Specific [place] 1.018 (1.001-1.035) Urine Protein 1+ H (Negative) Urine Glucose (UA) Negative (Negative) Urine Ketones Negative (Negative) Urine Blood Moderate H (Negative) Urine Nitrite Negative (Negative) Urine Bilirubin Negative (Negative) Urine Urobilinogen <2.0 (<2.0) mg/dL Ur Leukocyte Esterase Large H (Negative) Urine RBC 41 H (0-5) /hpf Urine WBC 180 H (0-5) /hpf Urine Bacteria Rare H (None) /hpf Hyaline Casts 1 (0-2) /lpf Urine Mucus Rare H (None) /hpf Critical Care Time Critical Care Time: Yes Total Critical Care Time: 30 Disposition Clinical Impression: Sepsis, Pneumonia, Hyponatremia, Indwelling Nielsen catheter present Disposition: ADMITTED IP TO THIS [facility] Condition: Serious Is patient prescribed a controlled substance at d/c from ED?: No Referrals: None,Stated [Primary Care Provider] - 1-2 days
[2021-07-06] MEDS ORDERED: AZITHROMYCIN 500 MG in SODIUM CHLORIDE 0.9% 250 ML IVPB ONE (23:00)
[2021-07-06 23:50] LABS: Appearance,Urine Cloudy (Clear); Bacteria,Urine Rare /hpf; Bilirubin,Urine Negative (Negative); Blood,Urine Moderate (Negative); Color,Urine Yellow; Glucose,Urine (UA) Negative (Negative); Hyaline Casts,Urine 1 /lpf (0-2); Ketones,Urine Negative (Negative); Leukocyte Esterase,Urine Large (Negative); Mucus,Urine Rare /hpf; Nitrite,Urine Negative (Negative); PH, Urine 5.5 (5.0-8.0); Protein,Urine 1+ (Negative); RBC,Urine 41 /hpf (0-5); Specific Gravity,Urine 1.018 (1.001-1.035); Urobilinogen,Urine <2.0 mg/dL (<2.0); WBC,Urine 180 /hpf (0-5)
[2021-07-07] MEDS ORDERED: PIPERACILLIN-TAZOBACTAM 3.375 GM in SODIUM CHLORIDE 0.9% 100 ML IVPB ONE (00:15)
[2021-07-07] MEDS ORDERED: NALOXONE 0.4 MG/ML 1 ML VIAL IV PRN (00:35)
--- NOTE | 2021-07-07 02:57 | P.HPIM ---
History of Present Illness H&P Date: 07/07/21 Patient is a 70-year-old male with a PMH of advanced Parkinson's, multiple sclerosis, chronic indwelling Nielsen catheter with recurrent UTIs who was brought into the emergency room due to shortness of breath and cough. The history supplemented by the patient's as the patient himself was not answering most questions due to his advanced Parkinson's. She reports that over the past few days, he appeared to be short of breath and had a nonproductive cough. As per the , at baseline, the patient is only able to answer yes or no questions and is able to track with his eyes. He was reportedly hypoxic by EMS although was noted to have some jaw clenching when they attempted to suction his mouth for secretions, for which he was given Valium en-route to the hospital. Of note, the patient was recently admitted to the hospital from 05/16 to 05/19 for UTI, growing VRE and pseudomonas. The patient completed a prolonged course of Zosyn. The patient is bedbound at baseline, with the reporting noted change with his Nielsen catheter. She reports that the patient normally is able to eat a chopped and pureed diet. In the emergency room, chest x-ray revealed new left sided perihilar infiltrates with bibasilar atelectasis. EKG revealed sinus tachycardia 106 bpm with poor R- wave progression. Laboratory evaluation was remarkable for leukocytosis of 16.0, UA consistent with UTI, sodium 127, and chloride 90. Review of systems: Unable to obtain Physical examination: General: non toxic, no distress, appears at stated age, obese Derm: no unusual rashes/lesions no unusual ecchymoses, warm, dry Head: atraumatic, normocephalic, symmetric Eyes: EOMI, no lid lag, anicteric sclera, pupils equal round reactive to light ENT: Nose and ears atraumatic, no thrush, no pharyngeal erythema Neck: No thyromegaly, no cervical lymphadenopathy, trachea midline, supple Mouth: no lip lesion, mucus membranes dry Cardiovascular: S1S2 reg, no murmur, positive posterior tibial pulse bilateral, no edema, capillary refill less than 2 seconds Lungs: Scattered rhonchi without wheezing, no accessory muscle use Abdominal: soft, nontender to palpation, no guarding, no appreciable organomegaly, normal bowel sounds Ext: no gross muscle atrophy, muscle strength 2 out of 5 in all 4 extremities grossly Neuro: Able to track with eyes and answer basic yes/no questions Assessment/plan Sepsis suspected secondary to UTI (previously VRE and pseudomonas) versus pneumonia -Continue Zosyn -ID consult -Gentle IV fluids -Swallow evaluation due to high risk for aspiration -F/u blood cultures Hyponatremia -IV fluids -Monitor BMP Chronic conditions: Parkinson's, multiple sclerosis -Continue home meds DVT prophylaxis -Heparin subq The patient is admitted with an anticipated greater than 2 midnight stay for evaluation of sepsis CODE STATUS: Full Code Discussed with: Patient Anticipated discharge date: 3-[address]: Home Past Medical History Past Medical History: Cancer, CVA/TIA, Hyperlipidemia, Hypertension, Musculoskeletal Disorder, Pneumonia, Rheumatoid Arthritis (RA), Sleep Apnea/CPAP/BIPAP, Thyroid Disorder Additional Past Medical History / Comment(s): Slurred speech/possible lTIA 2016 , uses CPAP at bed, bronchitis, Melanoma skin ca lt arm, has sx of Parkinson's disease - has MSA. Neurogenic bladder, has suprapubic tube placed - d/c 03/02/20 History of Any Multi-Drug Resistant Organisms: VRE Date of last positivie culture/infection: 05/16/21 MDRO Source:: urine Past Surgical History: Back Surgery, Orthopedic Surgery, Tonsillectomy Additional Past Surgical History / Comment(s): Heel spurs removed, colonoscopy, basal call carcinoma: skin cancer removed, Spinal fusion. Cystoscopy w/ suprapubic SP catheter 08/27/19. Past Anesthesia/Blood Transfusion Reactions: Previous Problems w/ Anesthesia Additional Past Anesthesia/Blood Transfusion Reaction / Comment(s): Stopped breathing during colonoscopy yrs. ago before sleep apnea diagnosed per pt. Past Psychological History: No Psychological Hx Reported Smoking Status: Never smoker Past Alcohol Use History: None Reported Past Drug Use History: None Reported - Past Family History Father Family Medical History: Cancer, Hypertension Additional Family Medical History / Comment(s): oral cancer Mother Family Medical History: Cancer Additional Family Medical History / Comment(s): "irreg heart rythym" Medications and Allergies Home Medications Medication Instructions Recorded Confirmed Type Levothyroxine Sodium [Synthroid] 88 mcg PO HS 08/19/17 07/06/21 History Rosuvastatin Calcium [Crestor] 10 mg PO HS 08/19/17 07/06/21 History Aspirin 81 mg PO DAILY #1 chewable 08/23/17 07/06/21 Rx Lisinopril-Hctz 20-12.5 mg 1 tab PO DAILY 03/26/18 07/06/21 History [Zestoretic 20-12.5] Zinc Oxide [Desitin] 1 applic TOPICAL DAILY PRN 01/12/19 07/06/21 History Cranberry 4200mg 1 tab PO DAILY 03/16/20 07/06/21 History L.acidoph,Paracasei, B.lactis 1 cap PO DAILY 03/16/20 07/06/21 History [Probiotic] Acetaminophen [Tylenol] 1,000 mg PO BID 05/16/21 07/06/21 History Albuterol Nebulized [Ventolin 2.5 mg INHALATION RT-BID 05/16/21 07/06/21 History Nebulized] Carbidopa/Levodopa 1 tab PO TID 05/16/21 07/06/21 History [Carbidopa-Levodopa 25-100 Tab] Citalopram Hydrobromide [CeleXA] 40 mg PO DAILY 05/16/21 07/06/21 History Wheat Dextrin [Benefiber] 1 packet PO DAILY PRN 07/06/21 07/06/21 History Allergies Allergy/AdvReac Type Severity Reaction Status Date / Time No Known Allergies Allergy Verified 07/06/21 22:42 Physical Exam Vitals: Vital Signs Temp Pulse Resp BP Pulse Ox 07/07/21 02:09 98.7 F 86 18 91/60 98 07/07/21 00:00 101 H 18 88/62 99 07/06/21 23:00 101 H 18 99/66 99 07/06/21 21:45 105 H 14 105/71 97 07/06/21 21:38 98.9 F 106 H 20 105/69 98 Intake and Output 07/06/21 07/06/21 07/07/21 14:59 22:59 06:59 Other: Weight 121 kg Results CBC & Chem 7: 07/06/21 21:52 07/06/21 21:52 Labs: Abnormal Lab Results - Last 24 Hours (Table) 07/06/21 07/06/21 07/06/21 Range/Units 21:52 21:52 23:20 WBC 16.0 H (3.8-10.6) k/uL Neutrophils # 13.3 H (1.3-7.7) k/uL Sodium 127 L (137-145) mmol/L Chloride 90 L (98-107) mmol/L Glucose 119 H (74-99) mg/dL Urine Protein 1+ H (Negative) Urine Blood Moderate H (Negative) Ur Leukocyte Esterase Large H (Negative) Urine RBC 41 H (0-5) /hpf Urine WBC 180 H (0-5) /hpf Urine Bacteria Rare H (None) /hpf Urine Mucus Rare H (None) /hpf
[2021-07-07] MEDS: SODIUM CHLORIDE 0.9% 1,000 ML IV SCH ×2 (08:33→20:04)
[2021-07-07] MEDS: ASPIRIN 81 MG PO SCH (08:33)
[2021-07-07] MEDS: CITALOPRAM HYDROBROMIDE 20 MG TAB PO SCH (08:33)
[2021-07-07] MEDS: HEPARIN SODIUM,PORCINE/PF 5,000 UNIT/0.5 ML SYRINGE SQ SCH ×3 (08:33→22:59)
[2021-07-07] MEDS: CARBIDOPA-LEVODOPA 25-100 MG 1 EACH TAB PO SCH ×3 (08:33→20:32)
[2021-07-07] MEDS: LISINOPRIL-HCTZ 20-12.5 MG 1 EACH TAB PO SCH (08:34)
[2021-07-07] MEDS: PIPERACILLIN-TAZOBACTAM 3.375 GM in SODIUM CHLORIDE 0.9% 100 ML IVPB SCH ×2 (08:34→17:29)
[2021-07-07 10:06] LABS: HCT 37.6 % (39.6-50.0); HGB 12.6 g/dL (13.0-17.0); MCH 31.3 pg (27.0-32.0); MCHC 33.5 g/dL (32.0-37.0); MCV 93.3 fL (80.0-97.0); NRBC Per 100 WBC 0 /100 WBCS (0.0-0.0); Platelet Count 288 X 10*3/uL (140-440); RBC 4.03 X 10*6/uL (4.40-5.60); RDW 12.9 % (11.5-14.5); WBC 15.96 X 10*3/uL (4.50-10.00)
[2021-07-07 10:32] LABS: Anion Gap 9.8 mmol/L (10.00-18.00); BUN/Creat Ratio 15.6 Ratio (12.00-20.00); Blood Urea Nitrogen 15.6 mg/dL (9.0-27.0); Calcium 8.8 mg/dL (8.7-10.3); Carbon Dioxide 26.2 mmol/L (20.0-27.5); Non-African American GFR(CKD) 75.9 (60.0-200.0); Potassium 4.8 mmol/L (3.5-5.5)
--- NOTE | 2021-07-07 13:51 | FL ---
EXAMINATION TYPE: FL barium swallow w video DATE OF EXAM: 07/07/2021 MODIFIED SWALLOW / DEGLUTITION STUDY CLINICAL HISTORY: Dysphagia. History of Parkinson's disease. TECHNIQUE: Deglutition study is performed utilizing thin liquid barium, honey and nectar thick liqui d barium, and barium thick applesauce. 2.05 minutes of fluoro time and 0 images obtained. COMPARISON: None. FINDINGS: There is delay in swallowing with all modalities tested. Pharyngeal phase appears within no rmal limits. Single episode of aspiration with thin liquid barium which produces cough reflex and nadiya ars. Other attempts only showed one episode of deep penetration with nectar thick liquid barium. No s ignificant pharyngeal residue was appreciated. Surgical change to the posterior aspect of the cervica l spine is partially imaged. IMPRESSION: Single episode of aspiration with thin liquid barium which clears with cough reflex. Nancy yed swallowing noted. Please refer to speech therapist notes for further details if necessary.
[2021-07-07] MEDS: ACETAMINOPHEN TAB 325 MG TAB PO PRN (20:31)
[2021-07-07] MEDS: ATORVASTATIN 20 MG TAB PO SCH (20:32)
[2021-07-07] MEDS: LEVOTHYROXINE 88 MCG TAB PO SCH (20:33)
[2021-07-08] MEDS: PIPERACILLIN-TAZOBACTAM 3.375 GM in SODIUM CHLORIDE 0.9% 100 ML IVPB SCH ×3 (01:20→18:14)
--- NOTE | 2021-07-08 01:48 | P.CONS ---
History of Present Illness - Reason for Consult Consult date: 07/07/21 Pneumonia and UTI Requesting physician: Amber Martinez - Chief Complaint Increasing shortness of breath x one day - History of Present Illness Patient is a 70-year-old male with a past medical history significant for Parkinson's disease multiple sclerosis history of urinary retention with chronic indwelling Nielsen catheter UTI patient was brought into the hospital for evaluation of increasing shortness of breath and nonproductive cough symptom apparently has been going on for about a day or 2 before presentation to the hospital patient apparently was hypoxic on presentation to the hospital and noted to have some small tension with intermittent dysfunction on arrival to the ER patient was afebrile and no fever had recorded subsequently patient did have white count of 16,000 with a left shift creatinine was normal liver enzymes are normal urine has been positive hernadez and influenza PCR was negative patient did have a chest x-ray atelectasis lung bases new left-sided perihilar infiltrate patient did have a videofluoroscopic swallow shows episodes of aspiration with thin liquid. Patient was started on Zosyn has been admitted to hospital infectious was consulted for further management of antibiotic therapy most information has been obtained from review of chart and talking to the as the patient himself unemployed and history Review of Systems Positive points has been mentioned in HPI complete review could not be obtained because of his underlying mental status Past Medical History Past Medical History: Cancer, CVA/TIA, Hyperlipidemia, Hypertension, Musculoskeletal Disorder, Pneumonia, Rheumatoid Arthritis (RA), Skin Disorder, Sleep Apnea/CPAP/BIPAP, Thyroid Disorder Additional Past Medical History / Comment(s): Parkinson's disease, MSA, neuro genic bladder/past suprapubic catheters but now IDC, recurrent UTIs, UTIs with pseudomonas/VRE and sepsis, speech limited mostly to yes/no and tracks with his eyes, bedbound or donny to chair, coccygeal decubs, 2017 TIA, ESMER with Cpap, possible past pneumonia/bronchitis, hypothyroid, melanoma skin cancer removed from L arm. History of Any Multi-Drug Resistant Organisms: VRE Year Discovered:: 05/16/21 MDRO Source:: urine Past Surgical History: Back Surgery, Orthopedic Surgery, Tonsillectomy Additional Past Surgical History / Comment(s): Cervical fusion, heel spurs removed, cystoscopies/suprapubic catheters, colonoscopy/benign polyp, melanoma removed L arm. Past Anesthesia/Blood Transfusion Reactions: No Reported Reaction Additional Past Anesthesia/Blood Transfusion Reaction / Comm: Stopped breathing during colonoscopy yrs. ago before sleep apnea diagnosed per pt. Smoking Status: Never smoker - Past Family History Father Family Medical History: Cancer, Diabetes Mellitus, Hypertension Additional Family Medical History / Comment(s): oral cancer Mother Family Medical History: Cancer Additional Family Medical History / Comment(s): "irreg heart rythym" Medications and Allergies Home Medications Medication Instructions Recorded Confirmed Type Levothyroxine Sodium [Synthroid] 88 mcg PO HS 08/19/17 07/06/21 History Rosuvastatin Calcium [Crestor] 10 mg PO HS 08/19/17 07/06/21 History Aspirin 81 mg PO DAILY #1 chewable 08/23/17 07/06/21 Rx Lisinopril-Hctz 20-12.5 mg 1 tab PO DAILY 03/26/18 07/06/21 History [Zestoretic 20-12.5] Zinc Oxide [Desitin] 1 applic TOPICAL DAILY PRN 01/12/19 07/06/21 History Cranberry 4200mg 1 tab PO DAILY 03/16/20 07/06/21 History L.acidoph,Paracasei, B.lactis 1 cap PO DAILY 03/16/20 07/06/21 History [Probiotic] Acetaminophen [Tylenol] 1,000 mg PO BID 05/16/21 07/06/21 History Albuterol Nebulized [Ventolin 2.5 mg INHALATION RT-BID 05/16/21 07/06/21 History Nebulized] Carbidopa/Levodopa 1 tab PO TID 05/16/21 07/06/21 History [Carbidopa-Levodopa 25-100 Tab] Citalopram Hydrobromide [CeleXA] 40 mg PO DAILY 05/16/21 07/06/21 History Wheat Dextrin [Benefiber] 1 packet PO DAILY PRN 07/06/21 07/06/21 History Allergies Allergy/AdvReac Type Severity Reaction Status Date / Time No Known Allergies Allergy Verified 07/06/21 22:42 Physical Exam Vitals: Vital Signs Temp Pulse Resp BP Pulse Ox 07/07/21 14:08 72 24 98/59 100 07/07/21 13:02 65 18 99 07/07/21 12:00 98.6 F 77 16 101/64 100 07/07/21 10:00 64 18 107/72 99 07/07/21 08:00 97.5 F L 62 18 97/73 97 07/07/21 05:00 63 18 99/65 97 07/07/21 02:09 98.7 F 86 18 91/60 98 07/07/21 00:00 101 H 18 88/62 99 07/06/21 23:00 101 H 18 99/66 99 07/06/21 21:45 105 H 14 105/71 97 07/06/21 21:38 98.9 F 106 H 20 105/69 98 Intake and Output 07/06/21 07/07/21 07/07/21 22:59 06:59 14:59 Output Total 850 Balance -850 Output: Urine 850 Other: Weight 121 kg 121 kg GENERAL DESCRIPTION: Elderly male lying in bed, no distress. No tachypnea or accessory muscle of respiration use. HEENT: Shows Pallor , no scleral icterus. Oral mucous membrane is dry. No p haryngeal erythema or thrush NECK: Trachea central, no thyromegaly. LUNGS: Unlabored breathing. Decreased breath sounds at the base. No wheeze or crackle. HEART: S1, S2, regular rate and rhythm. No loud murmur ABDOMEN: Soft, no tenderness , guarding or rigidity, no organomegaly EXTREMITIES: No edema of feet. SKIN: No rash, no masses palpable. NEUROLOGICAL: The patient is awake, but nonverbal orientation couldn't be determined Results CBC & Chem 7: 07/07/21 05:27 07/07/21 05:27 Labs: Abnormal Lab Results - Last 24 Hours (Table) 07/06/21 07/06/21 07/06/21 Range/Units 21:52 21:52 23:20 WBC 16.0 H (3.8-10.6) k/uL RBC (4.40-5.60) X 10*6/uL Hgb (13.0-17.0) g/dL Hct (39.6-50.0) % MPV (9.5-12.2) fL Neutrophils # 13.3 H (1.3-7.7) k/uL Sodium 127 L (137-145) mmol/L Chloride 90 L (98-107) mmol/L Anion Gap (10.00-18.00) mmol/L Glucose 119 H (74-99) mg/dL Urine Protein 1+ H (Negative) Urine Blood Moderate H (Negative) Ur Leukocyte Esterase Large H (Negative) Urine RBC 41 H (0-5) /hpf Urine WBC 180 H (0-5) /hpf Urine Bacteria Rare H (None) /hpf Urine Mucus Rare H (None) /hpf 07/07/21 07/07/21 Range/Units 05:27 05:27 WBC 15.96 H (3.8-10.6) k/uL RBC 4.03 L (4.40-5.60) X 10*6/uL Hgb 12.6 L (13.0-17.0) g/dL Hct 37.6 L (39.6-50.0) % MPV 9.0 L (9.5-12.2) fL Neutrophils # (1.3-7.7) k/uL Sodium 132 L (137-145) mmol/L Chloride (98-107) mmol/L Anion Gap 9.80 L (10.00-18.00) mmol/L Glucose (74-99) mg/dL Urine Protein (Negative) Urine Blood (Negative) Ur Leukocyte Esterase (Negative) Urine RBC (0-5) /hpf Urine WBC (0-5) /hpf Urine Bacteria (None) /hpf Urine Mucus (None) /hpf Microbiology - Last 24 Hours (Table) 07/06/21 23:20 Urine Culture - Preliminary Urine,Voided Assessment and Plan (1) Pneumonia Current Visit: Yes Status: Acute Code(s): J18.9 - PNEUMONIA, UNSPECIFIED ORGANISM SNOMED Code(s): 192087243 Plan: 1patient presented to hospital with increasing shortness of breath and cough and respiratory have a elevated white count with evidence of left perihilar infiltrate did have abnormal swallow valuation likely aspiration pneumonia. 2patient to continue with Zosyn 3.375 g every 8 hours. 3aspiration precaution. 4try to obtain sputum for gram stain culture. We will follow on clinical condition and cultures to further adjust medication if needed Thank you for this consultation will follow this patient along with you Time with Patient: Greater than 30
[2021-07-08] MEDS: SODIUM CHLORIDE 0.9% 1,000 ML IV SCH ×2 (04:43→19:52)
[2021-07-08] MEDS: ACETAMINOPHEN TAB 325 MG TAB PO PRN ×2 (05:00→19:47)
[2021-07-08 05:20] LABS: HCT 39.1 % (39.0-53.0); HGB 12.7 gm/dL (13.0-17.5); MCH 30.8 pg (25.0-35.0); MCHC 32.5 g/dL (31.0-37.0); MCV 94.9 fL (80.0-100.0); Mean Platelet Volume 6.7; Platelet Count 295 k/uL (150-450); RBC 4.12 m/uL (4.30-5.90); RDW 12.7 % (11.5-15.5); WBC 14.6 k/uL (3.8-10.6)
[2021-07-08 05:36] LABS: African American GFR (CKD) >90 (>60 ml/min/1.73 sqM); Anion Gap 5 mmol/L; Blood Urea Nitrogen 12 mg/dL (9-20); Calcium 8.5 mg/dL (8.4-10.2); Carbon Dioxide 29 mmol/L (22-30); Chloride 102 mmol/L (98-107); Glucose 81 mg/dL (74-99); Non-African American GFR(CKD) >90 (>60 ml/min/1.73 sqM); Potassium 4.2 mmol/L (3.5-5.1); Sodium 136 mmol/L (137-145)
[2021-07-08] MEDS: IBUPROFEN 400 MG TAB PO PRN (05:44)
[2021-07-08] MEDS: CARBIDOPA-LEVODOPA 25-100 MG 1 EACH TAB PO SCH ×3 (09:42→21:53)
[2021-07-08] MEDS: CITALOPRAM HYDROBROMIDE 20 MG TAB PO SCH (09:42)
[2021-07-08] MEDS: ASPIRIN 81 MG PO SCH (09:43)
[2021-07-08] MEDS: HEPARIN SODIUM,PORCINE/PF 5,000 UNIT/0.5 ML SYRINGE SQ SCH ×3 (09:43→23:10)
[2021-07-08] MEDS: LISINOPRIL-HCTZ 20-12.5 MG 1 EACH TAB PO SCH (09:43)
--- NOTE | 2021-07-08 12:18 | CDI ---
Documentation Clarification Form Date: 07/08/2021 11:43:16 AM From: Tika Stout RN CCDS Admit Date: 07/07/2021 12:35:00 AM Patient Name: Alan Chun Visit Number: [id number] Discharge Date: ATTENTION: The Clinical Documentation Specialists (CDI) and [facility] Coding Staff appreciate your assistance in clarifying documentation. Please respond to the clarification below the line at the bottom and electronically sign. The CDI & [facility] Coding staff will review the response and follow-up if needed. Please note: Queries are made part of the Legal Health Record. If you have any questions, please contact the author of this message via ITS. Dr. Mary DO, A Stage 1 pressure ulcer is documented by Nursing 07/07, pressure injury assessment. Based on this information and the findings below, is there an additional diagnosis that is clinically appropriate for this patient? History/Risk Factors: 70-year-old male presents to the ED via EMS with shortness of breath and a cough. Medical History: Advanced Parkinsons, Bed bound and history of coccygeal decubs. Clinical Indicators: Location: Coccyx Wound description: Stage 1 Treatment: Turning q 2 hours, Absorbent Under pad, Pillow between the knees, Pillow elevating the arms, Specialty bed and checking hourly incontinence. Is there an additional diagnosis that is clinically appropriate for this patient? [ ] Coccyx Pressure Ulcer Stage 1 POA [ ] Other condition, please specify [ ] Unable to determine Clinical Definitions: Stage 1 Pressure Ulcer: intact skin, non-blanching redness of local area Stage 2 Pressure Ulcer: Partial thickness, loss of dermis, pink wound bed Stage 3 Pressure Ulcer: Full thickness tissue loss Stage 4 Pressure Ulcer: Full thickness tissue loss with exposed bone, tendon, or muscle. Unstageable pressure ulcer: Full thickness tissue loss in which the base of the ulcer is covered by slough (yellow, fisher, merino, green or brown) and/or eschar (fisher, brown or black) in the wound bed. (Template Last Revised: May 2020) Coccyx Pressure Ulcer Stage 1 POA JULIAD
--- NOTE | 2021-07-08 17:01 | P.PN ---
Subjective Progress Note Date: 07/08/21 (delayed charting seen at 1030) Principal diagnosis: cough Patient is a 70-year-old male with advanced Parkinson's and multiple sclerosis resulting in functional quadriplegia, recurrent UTIs, and multiple other comorbid conditions was brought in for cough and shortness of breath. In the ER he underwent an extensive evaluation. On arrival his vital signs showed tachy cardia. Laboratory evaluation was medical for leukocytosis, sodium 127. Chest x-ray showed probable pneumonia. Urinalysis was consistent with bacteriuria. He was started on IV fluids and antibiotics. He is admitted for further monitoring. Infectious disease was consulted. He was seen by speech therapy and underwent modified barium swallow study which showed some aspiration of thin liquids he was started on nectar thick liquids. Infectious disease agreed with Gama. Patient seen and examined at bedside. He does complain of pain on his bottom. He denies any shortness of breath. He indicates he ate breakfast. General: non toxic, no distress, appears at stated age Derm: warm, dry Head: atraumatic, normocephalic, symmetric Eyes: EOMI, no lid lag, anicteric sclera Mouth: no lip lesion, mucus membranes moist Cardiovascular: S1S2 reg, no murmur, positive posterior tibial pulse bilateral, Lungs: Decreased bs bilateral], no rhonchi, no rales , no accessory muscle use Abdominal: soft, nontender to palpation, no guarding, no appreciable organomegaly Ext: + gross muscle atrophy, no edema, no contractures Neuro: Tracks with eyes, masked facies, hypophonia Psych: Alert, oriented Assessment/plan: Pneumonia with sepsis Aspiration Dysphasia Anticipate chronic colonization of urine Hyponatremia due to dehyrdation - zosyn - speech recommendations - IV fluids - ID recs Anemia, suspect delusional -Repeat CBC in a.m. Hypertension, controlled -Continue with lisinopril. Stop hydrochlorothiazide. -Follow blood pressures Hypothyroidism -Synthroid Parkinson's disease Multiple sclerosis Functional quadraplegia Coccyx Pressure Ulcer Stage 1 POA -Turn Every 2 hours - Sinemet - supportive care DVT prophylaxis: Heparin Discussed with: patient, nursing, no family present at bedside. Anticipated discharge: in 3-[address]: home with palliative A total of 45 minutes was spent on the care of this complex patient more than 50% of the time was spent in counseling and care coordination. Objective - Vital Signs Vital signs: Vital Signs Temp 98.4 F 07/08/21 14:00 Pulse 88 07/08/21 14:00 Resp 16 07/08/21 14:00 BP 108/71 07/08/21 14:00 Pulse Ox 96 07/08/21 16:49 Intake & Output 07/07/21 07/08/21 07/08/21 18:59 06:59 18:59 Intake Total 850 406 Output Total 850 850 Balance -850 0 406 Weight 121 kg Intake: Intake, IV Titration 850 Amount Piperacillin-Tazobactam 3 100 .375 gm In Sodium Chloride 0.9% 100 ml @ 25 mls/hr IVPB Q8H [facility] Rx#: [id number] Sodium Chloride 0.9% 1, 750 000 ml @ 75 mls/hr IV . [id number] [facility] Rx#:[id number] Oral 406 Output: Urine 850 850 Other: Voiding Method Indwelling Catheter Indwelling Catheter - Labs CBC & Chem 7: 07/08/21 04:48 07/08/21 04:44 Labs: Abnormal Lab Results - Last 24 Hours (Table) 07/08/21 07/08/21 Range/Units 04:44 04:48 WBC 14.6 H (3.8-10.6) k/uL RBC 4.12 L (4.30-5.90) m/uL Hgb 12.7 L (13.0-17.5) gm/dL Sodium 136 L (137-145) mmol/L Creatinine 0.63 L (0.66-1.25) mg/dL Microbiology - Last 24 Hours (Table) 07/06/21 23:20 Urine Culture - Preliminary Urine,Voided Gram Neg Bacilli 07/06/21 22:00 Blood Culture - Preliminary Blood No Growth after 24 hours 07/06/21 21:52 Blood Culture - Preliminary Blood No Growth after 24 hours
--- NOTE | 2021-07-08 17:35 | P.PN ---
Subjective Progress Note Date: 07/08/21 Principal diagnosis: Aspiration pneumonia and possible UTI Patient is a 70-year-old male with multiple comorbidities presented to the hospital with increasing shortness of breath patient was noticed to have pneumonia and the patient did fail his swallow evaluation. On today's evaluation that is 07/08/2021 the patient is afebrile the patient seemed to be breathing comfortably on nasal cannula oxygen no choking coughing or vomiting reported by the at the bedside and no diarrhea Objective - Vital Signs Vital signs: Vital Signs Temp 98.4 F 07/08/21 14:00 Pulse 88 07/08/21 14:00 Resp 16 07/08/21 14:00 BP 108/71 07/08/21 14:00 Pulse Ox 97 07/08/21 14:00 Intake & Output 07/07/21 07/08/21 07/08/21 18:59 06:59 18:59 Intake Total 850 406 Output Total 850 850 Balance -850 0 406 Weight 121 kg Intake: Intake, IV Titration 850 Amount Piperacillin-Tazobactam 3 100 .375 gm In Sodium Chloride 0.9% 100 ml @ 25 mls/hr IVPB Q8H [facility] Rx#: [id number] Sodium Chloride 0.9% 1, 750 000 ml @ 75 mls/hr IV . [id number] [facility] Rx#:[id number] Oral 406 Output: Urine 850 850 Other: Voiding Method Indwelling Catheter Indwelling Catheter - Exam GENERAL DESCRIPTION: An elderly male lying in bed in no distress RESPIRATORY SYSTEM: Unlabored breathing , decreased breath sounds at bases HEART: S1 S2 regular rate and rhythm , ABDOMEN: Soft , no tenderness EXTREMITIES: No edema feet - Labs CBC & Chem 7: 07/08/21 04:48 07/08/21 04:44 Labs: Abnormal Lab Results - Last 24 Hours (Table) 07/08/21 07/08/21 Range/Units 04:44 04:48 WBC 14.6 H (3.8-10.6) k/uL RBC 4.12 L (4.30-5.90) m/uL Hgb 12.7 L (13.0-17.5) gm/dL Sodium 136 L (137-145) mmol/L Creatinine 0.63 L (0.66-1.25) mg/dL Microbiology - Last 24 Hours (Table) 07/06/21 22:00 Blood Culture - Preliminary Blood No Growth after 24 hours 07/06/21 21:52 Blood Culture - Preliminary Blood No Growth after 24 hours 07/06/21 23:20 Urine Culture - Preliminary Urine,Voided Assessment and Plan (1) Pneumonia Current Visit: Yes Status: Acute Code(s): J18.9 - PNEUMONIA, UNSPECIFIED ORGANISM SNOMED Code(s): 017592518 Plan: 1patient presented to hospital with increasing shortness of breath and cough and respiratory have a elevated white count with evidence of left perihilar infiltrate did have abnormal swallow valuation likely aspiration pneumonia. 2patient to continue with Zosyn 3.375 g every 8 hours. 3aspiration precaution. 4try to obtain sputum for gram stain culture. at the bedside questions and concerns were answered Time with Patient: Less than 30
[2021-07-08] MEDS: LEVOTHYROXINE 88 MCG TAB PO SCH (19:47)
[2021-07-08] MEDS: ATORVASTATIN 20 MG TAB PO SCH (19:47)
[2021-07-09] MEDS: IBUPROFEN 400 MG TAB PO PRN (00:42)
[2021-07-09] MEDS: PIPERACILLIN-TAZOBACTAM 3.375 GM in SODIUM CHLORIDE 0.9% 100 ML IVPB SCH ×3 (00:43→15:06)
[2021-07-09 04:25] LABS: HGB 12.4 gm/dL (13.0-17.5); MCH 31.6 pg (25.0-35.0); MCHC 33.6 g/dL (31.0-37.0); Mean Platelet Volume 6.4; Platelet Count 327 k/uL (150-450); RBC 3.94 m/uL (4.30-5.90); RDW 13.4 % (11.5-15.5); WBC 9.8 k/uL (3.8-10.6)
[2021-07-09 04:55] LABS: African American GFR (CKD) >90 (>60 ml/min/1.73 sqM); Anion Gap 4 mmol/L; Blood Urea Nitrogen 12 mg/dL (9-20); Calcium 8.4 mg/dL (8.4-10.2); Carbon Dioxide 29 mmol/L (22-30); Chloride 104 mmol/L (98-107); Glucose 84 mg/dL (74-99); Non-African American GFR(CKD) >90 (>60 ml/min/1.73 sqM); Potassium 3.7 mmol/L (3.5-5.1); Sodium 137 mmol/L (137-145)
[2021-07-09] MEDS: CITALOPRAM HYDROBROMIDE 20 MG TAB PO SCH (09:02)
[2021-07-09] MEDS: CARBIDOPA-LEVODOPA 25-100 MG 1 EACH TAB PO SCH ×3 (09:02→21:20)
[2021-07-09] MEDS: lisinopriL 20 MG TAB PO SCH (09:02)
[2021-07-09] MEDS: ASPIRIN 81 MG PO SCH (09:02)
[2021-07-09] MEDS: HEPARIN SODIUM,PORCINE/PF 5,000 UNIT/0.5 ML SYRINGE SQ SCH ×2 (09:02→15:06)
[2021-07-09] MEDS: SODIUM CHLORIDE 0.9% 1,000 ML IV SCH (09:03)
--- NOTE | 2021-07-09 16:23 | P.PN ---
Subjective Progress Note Date: 07/09/21 (delayed charting seen at 1145) Principal diagnosis: cough Patient is a 70-year-old male with advanced Parkinson's and multiple sclerosis resulting in functional quadriplegia, recurrent UTIs, and multiple other comorbid conditions was brought in for cough and shortness of breath. In the ER he underwent an extensive evaluation. On arrival his vital signs showed tachy cardia. Laboratory evaluation was medical for leukocytosis, sodium 127. Chest x-ray showed probable pneumonia. Urinalysis was consistent with bacteriuria. He was started on IV fluids and antibiotics. He is admitted for further monitoring. Infectious disease was consulted. He was seen by speech therapy and underwent modified barium swallow study which showed some aspiration of thin liquids he was started on nectar thick liquids. Infectious disease agreed with Gama. Patient seen and examined at bedside. He is not longer having pain, no shortness of breath, states he became bed bound due to a surgery. General: non toxic, no distress, appears at stated age Derm: warm, dry Head: atraumatic, normocephalic, symmetric Eyes: EOMI, no lid lag, anicteric sclera Mouth: no lip lesion, mucus membranes moist Cardiovascular: S1S2 reg, no murmur, positive posterior tibial pulse bilateral, Lungs: Decreased bs bilateral], no rhonchi, no rales , no accessory muscle use Abdominal: soft, nontender to palpation, no guarding, no appreciable organomegaly Ext: + gross muscle atrophy, trace edema, no contractures Neuro: Tracks with eyes, masked facies, hypophonia Psych: Alert, oriented Assessment/plan: Pneumonia with sepsis Aspiration Dysphagia Anticipate chronic colonization of urine Hyponatremia due to dehydration and HCTZ - zosyn - speech recommendations - IV fluids - ID recs - off HCTZ Anemia, suspect dilutional - stable -Repeat CBC in a.m. Hypertension, controlled -Continue with lisinopril. off hydrochlorothiazide. -Follow blood pressures Hypothyroidism -Synthroid Parkinson's disease Multiple sclerosis Functional quadraplegia Coccyx Pressure Ulcer Stage 1 POA -Turn Every 2 hours - Sinemet - supportive care DVT prophylaxis: Heparin Discussed with: patient, nursing, no family present at bedside. Anticipated discharge: in 3-[address]: home with palliative A total of 25 minutes was spent on the care of this complex patient more than 50% of the time was spent in counseling and care coordination. Objective - Vital Signs Vital signs: Vital Signs Temp 98.8 F 07/09/21 14:00 Pulse 75 07/09/21 14:00 Resp 20 07/09/21 00:50 BP 123/75 07/09/21 14:00 Pulse Ox 97 07/09/21 14:00 Intake & Output 07/08/21 07/09/21 07/09/21 18:59 06:59 18:59 Intake Total 516 850 600 Output Total 200 525 Balance 316 325 600 Intake: Intake, IV Titration 850 600 Amount Piperacillin-Tazobactam 3 100 .375 gm In Sodium Chloride 0.9% 100 ml @ 25 mls/hr IVPB Q8H [facility] Rx#: [id number] Sodium Chloride 0.9% 1, 750 600 000 ml @ 75 mls/hr IV . [id number] [facility] Rx#:[id number] Oral 516 Output: Urine 200 525 Other: Voiding Method Indwelling Catheter Indwelling Catheter Indwelling Catheter # Bowel Movements 1 - Labs CBC & Chem 7: 07/09/21 04:03 07/09/21 04:03 Labs: Abnormal Lab Results - Last 24 Hours (Table) 07/09/21 Range/Units 04:03 RBC 3.94 L (4.30-5.90) m/uL Hgb 12.4 L (13.0-17.5) gm/dL Hct 37.0 L (39.0-53.0) % Microbiology - Last 24 Hours (Table) 07/06/21 23:20 Urine Culture - Final Urine,Voided Pseudomonas aeruginosa 07/06/21 22:00 Blood Culture - Preliminary Blood No Growth after 48 hours 07/06/21 21:52 Blood Culture - Preliminary Blood No Growth after 48 hours
[2021-07-09 20:08] VITALS: RESP 18
[2021-07-09] MEDS: LEVOTHYROXINE 88 MCG TAB PO SCH (21:20)
[2021-07-09] MEDS: ATORVASTATIN 20 MG TAB PO SCH (21:21)
[2021-07-10] MEDS: HEPARIN SODIUM,PORCINE/PF 5,000 UNIT/0.5 ML SYRINGE SQ SCH ×3 (00:59→15:34)
[2021-07-10] MEDS: PIPERACILLIN-TAZOBACTAM 3.375 GM in SODIUM CHLORIDE 0.9% 100 ML IVPB SCH ×3 (00:59→15:33)
[2021-07-10] MEDS: ASPIRIN 81 MG PO SCH (08:03)
[2021-07-10] MEDS: CARBIDOPA-LEVODOPA 25-100 MG 1 EACH TAB PO SCH ×3 (08:03→20:58)
[2021-07-10] MEDS: CITALOPRAM HYDROBROMIDE 20 MG TAB PO SCH (08:03)
[2021-07-10] MEDS: lisinopriL 20 MG TAB PO SCH (08:03)
--- NOTE | 2021-07-10 18:27 | P.PN ---
Subjective Progress Note Date: 07/10/21 (delayed charting seen at 1610) Principal diagnosis: cough Patient is a 70-year-old male with advanced Parkinson's and multiple sclerosis resulting in functional quadriplegia, recurrent UTIs, and multiple other comorbid conditions was brought in for cough and shortness of breath. In the ER he underwent an extensive evaluation. On arrival his vital signs showed tachy cardia. Laboratory evaluation was medical for leukocytosis, sodium 127. Chest x-ray showed probable pneumonia. Urinalysis was consistent with bacteriuria. He was started on IV fluids and antibiotics. He is admitted for further monitoring. Infectious disease was consulted. He was seen by speech therapy and underwent modified barium swallow study which showed some aspiration of thin liquids he was started on nectar thick liquids. Infectious disease agreed with Marcinn. He continued to improved. Patient seen and examined at bedside. No pain, no nausea. Doing well. and bedside and all questions answered General: non toxic, no distress, appears at stated age Derm: warm, dry Head: atraumatic, normocephalic, symmetric Eyes: EOMI, no lid lag, anicteric sclera Mouth: no lip lesion, mucus membranes moist Cardiovascular: S1S2 reg, no murmur, positive posterior tibial pulse bilateral, Lungs: Decreased bs bilateral], no rhonchi, no rales , no accessory muscle use Abdominal: soft, nontender to palpation, no guarding, no appreciable organomegaly Ext: + gross muscle atrophy, trace edema, no contractures Neuro: Tracks with eyes, masked facies, hypophonia Psych: Alert, oriented Assessment/plan: Pneumonia with sepsis Aspiration Dysphagia Anticipate chronic colonization of urine Hyponatremia due to dehydration and HCTZ - zosyn - speech recommendations - IV fluids - ID recs - off HCTZ Anemia, suspect dilutional - stable -Repeat CBC in a.m. Hypertension, controlled -Continue with lisinopril. off hydrochlorothiazide. -Follow blood pressures Hypothyroidism -Synthroid Parkinson's disease MSA Functional quadraplegia Coccyx Pressure Ulcer Stage 1 POA -Turn Every 2 hours - Sinemet - supportive care DVT prophylaxis: Heparin Discussed with: patient, nursing, no family present at bedside. Anticipated discharge:Likely home in AM Anticipated discharge place: home with palliative A total of 25 minutes was spent on the care of this complex patient more than 50% of the time was spent in counseling and care coordination. Objective - Vital Signs Vital signs: Vital Signs Temp 99.1 F 07/10/21 14:00 Pulse 78 07/10/21 14:00 Resp 18 07/10/21 02:00 BP 127/79 07/10/21 14:00 Pulse Ox 97 07/10/21 14:00 Intake & Output 07/09/21 07/10/21 07/10/21 18:59 06:59 18:59 Intake Total 600 390 700 Output Total 950 550 Balance 600 -560 150 Intake: Intake, IV Titration 600 340 700 Amount Piperacillin-Tazobactam 3 100 100 .375 gm In Sodium Chloride 0.9% 100 ml @ 25 mls/hr IVPB Q8H [facility] Rx#: [id number] Sodium Chloride 0.9% 1, 600 240 600 000 ml @ 75 mls/hr IV . [id number] [facility] Rx#:[id number] Oral 50 Output: Urine 950 550 Other: Voiding Method Indwelling Catheter Indwelling Catheter # Bowel Movements 2 1 - Labs CBC & Chem 7: 07/09/21 04:03 07/09/21 04:03 Labs: Microbiology - Last 24 Hours (Table) 07/06/21 22:00 Blood Culture - Preliminary Blood No Growth after 72 hours 07/06/21 21:52 Blood Culture - Preliminary Blood No Growth after 72 hours
--- NOTE | 2021-07-10 19:21 | XR ---
EXAMINATION TYPE: XR chest 1V portable DATE OF EXAM: 07/10/2021 COMPARISON: 07/06/2021 HISTORY: Shortness of breath TECHNIQUE: Single frontal view of the chest is obtained. FINDINGS: There is marked suboptimal inspiration and elevation right hemidiaphragm. There is an opac ity in the left lung base most likely collecting moderate pleural effusion. The heart size is difficu lt to assess given the technique. There is no pneumothorax. The osseous structures are intact. IMPRESSION: 1. Suboptimal inspiration technique. 2. no change in the left lower lobe opacity likely reflecting moderate pleural effusion. 3. No significant interval change compared to previous.
[2021-07-10] MEDS: ATORVASTATIN 20 MG TAB PO SCH (20:58)
[2021-07-10] MEDS: LEVOTHYROXINE 88 MCG TAB PO SCH (20:58)
--- NOTE | 2021-07-10 23:52 | P.PN ---
Subjective Progress Note Date: 07/09/21 Principal diagnosis: Aspiration pneumonia and possible UTI Patient is a 70-year-old male with multiple comorbidities presented to the hospital with increasing shortness of breath patient was noticed to have pneumonia and the patient did fail his swallow evaluation. On today's evaluation that is 07/09/2021 the patient remains to be afebrile the patient is breathing comfortably on nasal cannula oxygen, no vomiting or diarrhea has been reported by the nurses to patient's himself did not provide any history Objective - Vital Signs Vital signs: Vital Signs Temp 98.8 F 07/09/21 14:00 Pulse 75 07/09/21 14:00 Resp 20 07/09/21 00:50 BP 123/75 07/09/21 14:00 Pulse Ox 97 07/09/21 14:00 Intake & Output 07/08/21 07/09/21 07/09/21 18:59 06:59 18:59 Intake Total 516 850 600 Output Total 200 525 Balance 316 325 600 Intake: Intake, IV Titration 850 600 Amount Piperacillin-Tazobactam 3 100 .375 gm In Sodium Chloride 0.9% 100 ml @ 25 mls/hr IVPB Q8H [facility] Rx#: [id number] Sodium Chloride 0.9% 1, 750 600 000 ml @ 75 mls/hr IV . [id number] [facility] Rx#:[id number] Oral 516 Output: Urine 200 525 Other: Voiding Method Indwelling Catheter Indwelling Catheter Indwelling Catheter # Bowel Movements 1 - Exam GENERAL DESCRIPTION: An elderly male lying in bed in no distress RESPIRATORY SYSTEM: Unlabored breathing , decreased breath sounds at bases HEART: S1 S2 regular rate and rhythm , ABDOMEN: Soft , no tenderness EXTREMITIES: No edema feet - Labs CBC & Chem 7: 07/09/21 04:03 07/09/21 04:03 Labs: Abnormal Lab Results - Last 24 Hours (Table) 07/09/21 Range/Units 04:03 RBC 3.94 L (4.30-5.90) m/uL Hgb 12.4 L (13.0-17.5) gm/dL Hct 37.0 L (39.0-53.0) % Microbiology - Last 24 Hours (Table) 07/06/21 23:20 Urine Culture - Final Urine,Voided Pseudomonas aeruginosa 07/06/21 22:00 Blood Culture - Preliminary Blood No Growth after 48 hours 07/06/21 21:52 Blood Culture - Preliminary Blood No Growth after 48 hours Assessment and Plan (1) Pneumonia Current Visit: Yes Status: Acute Code(s): J18.9 - PNEUMONIA, UNSPECIFIED ORGANISM SNOMED Code(s): 516071290 Plan: 1patient presented to hospital with increasing shortness of breath and cough and respiratory have a elevated white count with evidence of left perihilar infiltrate did have abnormal swallow evaluation likely aspiration pneumonia. 2patient seemed to have clinically responded to Zosyn which will be continued along with aspiration precaution. 3-positive UA with urine culture showed gram-negative ID sensitivities pending 4try to obtain sputum for gram stain culture. Time with Patient: Less than 30
--- NOTE | 2021-07-10 23:54 | P.PN ---
Subjective Progress Note Date: 07/10/21 Principal diagnosis: Aspiration pneumonia and possible UTI Patient is a 70-year-old male with multiple comorbidities presented to the hospital with increasing shortness of breath patient was noticed to have pneumonia and the patient did fail his swallow evaluation. On today's evaluation that is 07/10/2021 the patient denies any fever or chills, the patient is breathing comfortably on nasal cannula oxygen, no vomiting or diarrhea has been reported by the nursing staff or at the bedside she did mention the patient seemed to be doing well Objective - Vital Signs Vital signs: Vital Signs Temp 99.1 F 07/10/21 14:00 Pulse 78 07/10/21 14:00 Resp 18 07/10/21 02:00 BP 127/79 07/10/21 14:00 Pulse Ox 97 07/10/21 14:00 Intake & Output 07/09/21 07/10/21 07/10/21 18:59 06:59 18:59 Intake Total 600 390 700 Output Total 950 Balance 600 -560 700 Intake: Intake, IV Titration 600 340 700 Amount Piperacillin-Tazobactam 3 100 100 .375 gm In Sodium Chloride 0.9% 100 ml @ 25 mls/hr IVPB Q8H [facility] Rx#: [id number] Sodium Chloride 0.9% 1, 600 240 600 000 ml @ 75 mls/hr IV . [id number] [facility] Rx#:[id number] Oral 50 Output: Urine 950 Other: Voiding Method Indwelling Catheter Indwelling Catheter # Bowel Movements 2 - Exam GENERAL DESCRIPTION: An elderly male lying in bed in no distress RESPIRATORY SYSTEM: Unlabored breathing , decreased breath sounds at bases HEART: S1 S2 regular rate and rhythm , ABDOMEN: Soft , no tenderness EXTREMITIES: No edema feet - Labs CBC & Chem 7: 07/09/21 04:03 07/09/21 04:03 Labs: Microbiology - Last 24 Hours (Table) 07/06/21 22:00 Blood Culture - Preliminary Blood No Growth after 72 hours 07/06/21 21:52 Blood Culture - Preliminary Blood No Growth after 72 hours 07/06/21 23:20 Urine Culture - Final Urine,Voided Pseudomonas aeruginosa Assessment and Plan (1) Pneumonia Current Visit: Yes Status: Acute Code(s): J18.9 - PNEUMONIA, UNSPECIFIED ORGANISM SNOMED Code(s): 282767204 Plan: 1patient presented to hospital with increasing shortness of breath and cough and respiratory have a elevated white count with evidence of left perihilar infiltrate did have abnormal swallow evaluation likely aspiration pneumonia. 2patient seemed to have clinically responded to Zosyn and the patient white count has normalized blood culture negative, sputum could not be obtained, plan is to continue with the Zosyn in outpatient setting for 10 days for which the midline will be placed 3-positive UA with urine culture finalized Pseudomonas sensitive to Zosyn Time with Patient: Less than 30
[2021-07-11] MEDS: PIPERACILLIN-TAZOBACTAM 3.375 GM in SODIUM CHLORIDE 0.9% 100 ML IVPB SCH ×3 (00:36→16:12)
[2021-07-11] MEDS: HEPARIN SODIUM,PORCINE/PF 5,000 UNIT/0.5 ML SYRINGE SQ SCH ×3 (00:37→16:15)
[2021-07-11 06:50] LABS: HCT 39.4 % (39.0-53.0); HGB 12.6 gm/dL (13.0-17.5); MCH 30.4 pg (25.0-35.0); Mean Platelet Volume 6.6; Platelet Count 322 k/uL (150-450); RBC 4.15 m/uL (4.30-5.90); RDW 12.6 % (11.5-15.5); WBC 8.7 k/uL (3.8-10.6)
[2021-07-11 07:09] LABS: African American GFR (CKD) >90 (>60 ml/min/1.73 sqM); Anion Gap 7 mmol/L; Blood Urea Nitrogen 10 mg/dL (9-20); Calcium 8.6 mg/dL (8.4-10.2); Carbon Dioxide 28 mmol/L (22-30); Chloride 104 mmol/L (98-107); Glucose 83 mg/dL (74-99); Non-African American GFR(CKD) >90 (>60 ml/min/1.73 sqM); Potassium 3.8 mmol/L (3.5-5.1); Sodium 139 mmol/L (137-145)
[2021-07-11] MEDS: lisinopriL 20 MG TAB PO SCH (08:28)
[2021-07-11] MEDS: CITALOPRAM HYDROBROMIDE 20 MG TAB PO SCH (08:28)
[2021-07-11] MEDS: CARBIDOPA-LEVODOPA 25-100 MG 1 EACH TAB PO SCH ×2 (08:28→16:11)
[2021-07-11] MEDS: ASPIRIN 81 MG PO SCH (08:28)
--- NOTE | 2021-07-11 10:55 | CDI ---
Documentation Clarification Form Date: 07/11/2021 10:30:38 AM From: Tika Stout RN CCDS Admit Date: 07/07/2021 12:35:00 AM Patient Name: Alan Chun Visit Number: [id number] Discharge Date: ATTENTION: The Clinical Documentation Specialists (CDI) and [facility] Coding Staff appreciate your assistance in clarifying documentation. Please respond to the clarification below the line at the bottom and electronically sign. The CDI & [facility] Coding staff will review the response and follow-up if needed. Please note: Queries are made part of the Legal Health Record. If you have any questions, please contact the author of this message via ITS. Dr. Bebe Hernandez Your patient is receiving the following: Oxygen via nasal cannula , 07/06 07/10. Please clarify what condition/diagnosis is being treated. History/Risk Factors: 70-year-old male presents to the ED via EMS with shortness of breath and a cough. Medical History: Advanced Parkinsons, Bed bound and history of coccygeal decubitus ulcers. 07/07, H&P. Clinical indicators: Admitting Diagnosis: Sepsis and Aspiration pneumonia. VSS: 07/06 21:38: B/P 105/69; HR 106; Temp 98.9 F Axillary; RR 20 SpO2 98% 6L nc VSS: 07/07 14:08: B/P 98/59; HR 72; RR 24; SpO2 100% 6L nc VSS: 07/07 16:00: B/P 116/78; HR 67; RR 18; SpO2 3L nc CXR 07/06: Poor inspiration with some atelectasis at the lung bases. Some left perihilar pulmonary infiltrates. Lung examination ED note 07/07: Crackles throughout Lung examination H&P 07/07: Scattered rhonchi without wheezing, no accessory muscle use. Treatment: 07/06 07/07 6L nc; 07/07 - 07/11 3L nc What diagnosis are you treating with Oxygen ? [ ] No additional diagnosis [ ] Other, please specify [ ] Unable to determine (Template Last Reviewed: April 2020) [ X ] Acute Respiratory Failure MTDD
--- NOTE | 2021-07-11 13:11 | P.CNPUL ---
History of Present Illness Consult date: 07/11/21 Requesting physician: Bebe Hernandez Reason for consult: hypoxemia, pleural effusion, other Chief complaint: Small pleural effusions, mild hypoxia History of present illness: This is a 70-year-old white male patient with past medical history of advanced Parkinson's, multiple sclerosis, previous history of CVA, neurogenic bladder, suprapubic catheter placement, chronic decubitus ulcers on the heel and sacrum, chronic medical debility, poor historian, who was admitted to the hospital on 07/06/2021 when he was brought in by EMS from his home for evaluation of altered mental status. Patient had been cared for at home by his family, and has been on palliative care for several years now. Apparently the EMS was called by the family as they noted she had some labored breathing, on arrival EMS found the patient tachycardic, tachypneic and hypoxic, his chest x-ray in the emergency department showed atelectasis at the lung bases similar to his previous chest x- ray from 05/16/2021, and new left-sided perihilar infiltrate. EKG showed sinus tachycardia. Admission blood work showed white blood cell count of 16, hemoglobin of 14.3, coagulation profile was within normal limits, sodium was 127, potassium is 4.2, chloride was 90, CO2 is 28, BUN 17 creatinine 0.89, lactic acid was 1.5, LFTs are within normal limits, urinalysis showed evidence of urinary tract infection, with large amount of leuk trase, RBCs, and 180 of white blood cells. Patient was tested for COVID-19 influenza A and B UN was found to be negative. Patient was found to have pseudomonas aeruginosa in his urine, and patient also had evidence of VRE in addition to pseudomonas aeruginosa on his most recent previous urine culture from 05/16/2021. Multiple other urine cultures were positive for pseudomonas aeruginosa and VRE, Citrobacter youngae, and Klebsiella pneumonia in the past. Patient was placed on IV Zosyn. He is awake and alert, he seems quite debilitated, he is unable to perform any of his ADLs independently, he is awake, he is able to answer some simple questions, he denies any shortness of breath. Is currently on 3 L of oxygen pulse ox is 96%, follow-up chest x-ray today showed left lower lobe opacity likely reflecting moderate pleural effusion, and elevation of the right hemidiaphragm. We were asked to see the patient for possibility of left-sided thoracentesis. Review of Systems All systems: negative Constitutional: Reports weakness, Denies chills, Denies fever Eyes: denies blurred vision, denies pain Ears, nose, mouth and throat: Denies headache, Denies sore throat Cardiovascular: Denies chest pain, Denies shortness of breath Respiratory: Denies cough Gastrointestinal: Denies abdominal pain, Denies diarrhea, Denies nausea, Denies vomiting Musculoskeletal: Denies myalgias Integumentary: Denies pruritus, Denies rash Neurological: Reports balance difficulties, Reports change in mentation, Reports confusion, Reports gait dysfunction, Reports motor disturbance, Reports spasticity, Denies numbness, Denies weakness Psychiatric: Denies anxiety, Denies depression Endocrine: Denies fatigue, Denies weight change Past Medical History Past Medical History: Cancer, CVA/TIA, Hyperlipidemia, Hypertension, Musculoskeletal Disorder, Pneumonia, Rheumatoid Arthritis (RA), Skin Disorder, Sleep Apnea/CPAP/BIPAP, Thyroid Disorder Additional Past Medical History / Comment(s): Parkinson's disease, MSA, neurog enic bladder/past suprapubic catheters but now IDC, recurrent UTIs, UTIs with pseudomonas/VRE and sepsis, speech limited mostly to yes/no and tracks with his eyes, bedbound or donny to chair, coccygeal decubs, 2017 TIA, ESMER with Cpap, possible past pneumonia/bronchitis, hypothyroid, melanoma skin cancer removed from L arm. History of Any Multi-Drug Resistant Organisms: VRE Date of last positivie culture/infection: 05/16/21 MDRO Source:: urine Past Surgical History: Back Surgery, Orthopedic Surgery, Tonsillectomy Additional Past Surgical History / Comment(s): Cervical fusion, heel spurs removed, cystoscopies/suprapubic catheters, colonoscopy/benign polyp, melanoma removed L arm. Past Anesthesia/Blood Transfusion Reactions: No Reported Reaction Additional Past Anesthesia/Blood Transfusion Reaction / Comment(s): Stopped breathing during colonoscopy yrs. ago before sleep apnea diagnosed per pt. Smoking Status: Never smoker - Past Family History Father Family Medical History: Cancer, Diabetes Mellitus, Hypertension Additional Family Medical History / Comment(s): oral cancer Mother Family Medical History: Cancer Additional Family Medical History / Comment(s): "irreg heart rythym" Medications and Allergies Home Medications Medication Instructions Recorded Confirmed Type Levothyroxine Sodium [Synthroid] 88 mcg PO HS 08/19/17 07/06/21 History Rosuvastatin Calcium [Crestor] 10 mg PO HS 08/19/17 07/06/21 History Aspirin 81 mg PO DAILY #1 chewable 08/23/17 07/06/21 Rx Zinc Oxide [Desitin] 1 applic TOPICAL DAILY PRN 01/12/19 07/06/21 History Cranberry 4200mg 1 tab PO DAILY 03/16/20 07/06/21 History L.acidoph,Paracasei, B.lactis 1 cap PO DAILY 03/16/20 07/06/21 History [Probiotic] Albuterol Nebulized [Ventolin 2.5 mg INHALATION RT-BID 05/16/21 07/06/21 History Nebulized] Carbidopa/Levodopa 1 tab PO TID 05/16/21 07/06/21 History [Carbidopa-Levodopa 25-100 Tab] Citalopram Hydrobromide [CeleXA] 40 mg PO DAILY 05/16/21 07/06/21 History Wheat Dextrin [Benefiber] 1 packet PO DAILY PRN 07/06/21 07/06/21 History Piperacillin-Tazobactam [Zosyn] 3.375 gm IVPB Q8H each 07/11/21 Rx lisinopriL [Zestril] 20 mg PO DAILY #30 tab 07/11/21 Rx Allergies Allergy/AdvReac Type Severity Reaction Status Date / Time No Known Allergies Allergy Verified 07/06/21 22:42 Physical Exam Vitals: Vital Signs Temp Pulse Resp BP Pulse Ox 07/11/21 07:13 97.7 F 74 18 136/83 96 07/11/21 03:01 98.2 F 74 18 148/92 95 07/10/21 19:25 98.1 F 65 18 149/85 97 07/10/21 14:00 99.1 F 78 127/79 97 Intake and Output 07/10/21 07/11/21 07/11/21 22:59 06:59 14:59 Output Total 550 500 Balance -550 -500 Output: Urine 550 500 Other: Voiding Method Indwelling Catheter Indwelling Catheter # Bowel Movements 1 GENERAL EXAM: Alert, chronically debilitated, poor historian, 70-year-old white female, resting in bed, on 3 L of oxygen pulse ox of 96% comfortable in no apparent distress. HEAD: Normocephalic/atraumatic. EYES: Normal reaction of pupils, equal size. Conjunctiva pink, sclera white. NOSE: Clear with pink turbinates. THROAT: No erythema or exudates. NECK: No masses, no JVD, no thyroid enlargement, no adenopathy. CHEST: No chest wall deformity. Symmetrical expansion. LUNGS: Equal air entry with no crackles, wheeze, rhonchi or dullness. CVS: Regular rate and rhythm, normal S1 and S2, no gallops, no murmurs, no rubs ABDOMEN: Soft, nontender. No hepatosplenomegaly, normal bowel sounds, no guardi ng or rigidity. EXTREMITIES: No clubbing, no edema, no cyanosis, 2+ pulses and upper and lower extremities. MUSCULOSKELETAL: Muscle strength and tone normal. SPINE: No scoliosis or deformity SKIN: No rashes, stage I on heels and coccyx CENTRAL NERVOUS SYSTEM: Alert and oriented -3. No focal deficits, tone is normal in all 4 extremities. PSYCHIATRIC: Alert and oriented -3. Appropriate affect. Intact judgment and insight. Results - Laboratory Findings CBC and BMP: 07/11/21 06:12 07/11/21 06:12 PT/INR, D-dimer PT 10.5 sec (9.0-12.0) 07/06/21 21:52 INR 1.0 (<1.2) 07/06/21 21:52 Abnormal lab findings: Abnormal Labs 07/06/21 07/06/21 07/06/21 21:52 21:52 23:20 WBC 16.0 H RBC Hgb Hct MPV Neutrophils # 13.3 H Sodium 127 L Chloride 90 L Anion Gap Creatinine Glucose 119 H Urine Protein 1+ H Urine Blood Moderate H Ur Leukocyte Esterase Large H Urine RBC 41 H Urine WBC 180 H Urine Bacteria Rare H Urine Mucus Rare H 07/07/21 07/07/21 07/08/21 05:27 05:27 04:44 WBC 15.96 H RBC 4.03 L Hgb 12.6 L Hct 37.6 L MPV 9.0 L Neutrophils # Sodium 132 L 136 L Chloride Anion Gap 9.80 L Creatinine 0.63 L Glucose Urine Protein Urine Blood Ur Leukocyte Esterase Urine RBC Urine WBC Urine Bacteria Urine Mucus 07/08/21 07/09/21 07/11/21 04:48 04:03 06:12 WBC 14.6 H RBC 4.12 L 3.94 L 4.15 L Hgb 12.7 L 12.4 L 12.6 L Hct 37.0 L MPV Neutrophils # Sodium Chloride Anion Gap Creatinine Glucose Urine Protein Urine Blood Ur Leukocyte Esterase Urine RBC Urine WBC Urine Bacteria Urine Mucus 07/11/21 06:12 WBC RBC Hgb Hct MPV Neutrophils # Sodium Chloride Anion Gap Creatinine 0.61 L Glucose Urine Protein Urine Blood Ur Leukocyte Esterase Urine RBC Urine WBC Urine Bacteria Urine Mucus - Diagnostic Findings Chest x-ray: report reviewed, image reviewed Assessment and Plan Plan: Assessment: #1. Acute hypoxic respiratory failure related to bibasilar atelectasis, small left pleural effusion, and elevated right hemidiaphragm, possibility of underlying pneumonia is less likely, no need for thoracentesis at this time #2. Chronic medical debility, related to history of MS, and Parkinson's, patient has been on palliative care for several years and being cared for at home #3. Chronic aspiration #4. Altered mental status related to sepsis #5. Pseudomonal urinary tract infection and a recent history of pseudomonas aeruginosa and VRE in the urine culture. Patient is on Zosyn #6. Hypothyroidism #7. History of multiple sclerosis #9. History of Parkinson's disease #10. Neurogenic bladder with suprapubic catheter placement #11. 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 Previous history of CVA/TIA #13. Poor mobility, gait dysfunction #14. Nonsmoker Plan: Patient was seen and evaluated at the bedside with Dr. Garcia Chest x-rays and lab work reviewed Patient does not seem to be in any respiratory distress Vital signs are stable Patient is already covered with antibiotics Left-sided pleural effusion is very tiny, no need for thoracentesis From pulmonary perspective patient can be considered for transfer back to his residence with palliative care once cleared by medicine I have personally seen and examined the patient, performed the documentation and the assessment and plan as written. Number of minutes spent on the visit: [15] Time with Patient: Greater than 30
[2021-07-11 14:27] VITALS: BP 149/91; PULSE 71; TEMP 98.9
--- NOTE | 2021-07-11 20:49 | P.DS ---
Providers Date of admission: 07/07/21 00:35 Expected date of discharge: 07/11/21 Attending physician: Amber Martinez MD Consults: 07/07/21 02:55 Consult Physician Urgent Consulting Provider: Janki Ospina Consult Reason/Comments: Sepsis, UTI Do you want consulting provider notified?: Yes 07/11/21 09:08 Consult Physician Routine Consulting Provider: Keith Brown Consult Reason/Comments: PLeural effusion Do you want consulting provider notified?: Yes Primary care physician: Stated None Hospital Course: Discharge Diagnosis: Pneumonia with sepsis Aspiration Dysphagia Anticipate chronic colonization of urine Hyponatremia due to dehydration and HCTZ Anemia, suspect dilutional Hypertension, controlled Hypothyroidism Parkinson's disease MSA Functional quadraplegia Coccyx Pressure Ulcer Stage 1 POA Acute hypoxic respiratory failure Hospital Course: Patient is a 70-year-old male with advanced Parkinson's and MSA resulting in functional quadriplegia with suprapubic tube, recurrent UTIs, and multiple other comorbid conditions was brought in for cough and shortness of breath. In the ER he underwent an extensive evaluation. On arrival his vital signs showed tachycardia. Laboratory evaluation was medical for leukocytosis, sodium 127. Chest x-ray showed probable pneumonia. Urinalysis was consistent with bacteriuria. He was started on IV fluids and antibiotics. He is admitted for further monitoring. Infectious disease was consulted. He was seen by speech therapy and underwent modified barium swallow study which showed some aspiration of thin liquids he was started on nectar thick liquids. Infectious disease agreed with Zosyn. He continued to improved. Repat CXR demonstrated pleural effusion he was evaluated bypulmonary no indication fro thora at this time. He was determined stable for discharge. ID did recommend 10 days of IV zosyn at home. Follow-up: He follows with [facility] for his neurologic conditions, visiting physicians, home nursing, home palliative. complete zosyn. off HCTZ due to hyponatremia on admission, will stay off now with nectar thick liquids but continue with lisinopril. Patient seen and examined at bedside. Denies pain and shortness of breath Vital signs reviewed and stable. General: non toxic, no distress, appears at stated age Derm: warm, dry Head: atraumatic, normocephalic, symmetric Eyes: EOMI, no lid lag, anicteric sclera Mouth: no lip lesion, mucus membranes moist Cardiovascular: S1S2 reg, no murmur, positive posterior tibial pulse bilateral, Lungs: Decreased bs bilateral, no rhonchi, no rales , no accessory muscle use Abdominal: soft, nontender to palpation, no guarding, no appreciable organomegaly Ext: no gross muscle atrophy, no edema, no contractures Neuro: can move b/l arms slight, no movement of legs, masked facies, hypophonia Psych: awake, blunted affect, A total of 35 minutes of time were spent preparing this complex discharge summary . Patient Condition at Discharge: Undetermined Plan - Discharge Summary Discharge Rx Participant: No New Discharge Prescriptions: New lisinopriL [Zestril] 20 mg PO DAILY #30 tab Piperacillin-Tazobactam [Zosyn] 3.375 gm IVPB Q8H each Continue Rosuvastatin Calcium [Crestor] 10 mg PO HS Levothyroxine Sodium [Synthroid] 88 mcg PO HS Aspirin 81 mg PO DAILY #1 chewable Zinc Oxide [Desitin] 1 applic TOPICAL DAILY PRN PRN Reason: BEDSORE Cranberry 4200mg 1 tab PO DAILY L.acidoph,Paracasei, B.lactis [Probiotic] 1 cap PO DAILY Citalopram Hydrobromide [CeleXA] 40 mg PO DAILY Wheat Dextrin [Benefiber] 1 packet PO DAILY PRN PRN Reason: Constipation Albuterol Nebulized [Ventolin Nebulized] 2.5 mg INHALATION RT-BID Carbidopa/Levodopa [Carbidopa-Levodopa 25-100 Tab] 1 tab PO TID Discontinued Lisinopril-Hctz 20-12.5 mg [Zestoretic 20-12.5] 1 tab PO DAILY Acetaminophen [Tylenol] 1,000 mg PO BID Discharge Medication List Levothyroxine Sodium [Synthroid] 88 mcg PO HS 08/19/17 [History] Rosuvastatin Calcium [Crestor] 10 mg PO HS 08/19/17 [History] Aspirin 81 mg PO DAILY #1 chewable 08/23/17 [Rx] Zinc Oxide [Desitin] 1 applic TOPICAL DAILY PRN 01/12/19 [History] Cranberry 4200mg 1 tab PO DAILY 03/16/20 [History] L.acidoph,Paracasei, B.lactis [Probiotic] 1 cap PO DAILY 03/16/20 [History] Albuterol Nebulized [Ventolin Nebulized] 2.5 mg INHALATION RT-BID 05/16/21 [History] Carbidopa/Levodopa [Carbidopa-Levodopa 25-100 Tab] 1 tab PO TID 05/16/21 [History] Citalopram Hydrobromide [CeleXA] 40 mg PO DAILY 05/16/21 [History] Wheat Dextrin [Benefiber] 1 packet PO DAILY PRN 07/06/21 [History] Piperacillin-Tazobactam [Zosyn] 3.375 gm IVPB Q8H each 07/11/21 [Rx] lisinopriL [Zestril] 20 mg PO DAILY #30 tab 07/11/21 [Rx] Follow up Appointment(s)/Referral(s): Residential Home,Health [NON-STAFF] - As Needed Assocation,Visiting Physicians [NON-STAFF] - 1 Week Patient Instructions/Handouts: Hyponatremia (DC), Sepsis (DC), Community Acquired Pneumonia (DC) Activity/Diet/Wound Care/Special Instructions: Activity: as tolerated, bed bound, donny, awaiting electric wheelchair Diet: [place] Thick liquids, aspiration precautions, pureed foods Discharge Disposition: HOME SELF-CARE
--- NOTE | 2021-07-11 23:30 | P.PN ---
Subjective Progress Note Date: 07/11/21 Principal diagnosis: Aspiration pneumonia and possible UTI Patient is a 70-year-old male with multiple comorbidities presented to the hospital with increasing shortness of breath patient was noticed to have pneumonia and the patient did fail his swallow evaluation. On today's evaluation that is 07/11/2021 the patient remains to be afebrile, the patient is breathing comfortably on nasal cannula oxygen and seemed to be in no distress, no vomiting or diarrhea has been reported by the nursing staff , patient is currently waiting for midline placement and outpatient IV antibiotic arrangement for discharge Objective - Vital Signs Vital signs: Vital Signs Temp 97.7 F 07/11/21 07:13 Pulse 74 07/11/21 07:13 Resp 18 07/11/21 07:13 BP 136/83 07/11/21 07:13 Pulse Ox 96 07/11/21 07:13 Intake & Output 07/10/21 07/11/21 07/11/21 18:59 06:59 18:59 Intake Total 700 Output Total 550 500 Balance 150 -500 Intake: Intake, IV Titration 700 Amount Piperacillin-Tazobactam 3 100 .375 gm In Sodium Chloride 0.9% 100 ml @ 25 mls/hr IVPB Q8H MAC Rx#: [id number] Sodium Chloride 0.9% 1, 600 000 ml @ 75 mls/hr IV . [id number] MAC Rx#:[id number] Output: Urine 550 500 Other: Voiding Method Indwelling Catheter Indwelling Catheter # Bowel Movements 1 - Exam GENERAL DESCRIPTION: An elderly male lying in bed in no distress RESPIRATORY SYSTEM: Unlabored breathing , decreased breath sounds at bases HEART: S1 S2 regular rate and rhythm , ABDOMEN: Soft , no tenderness EXTREMITIES: No edema feet - Labs CBC & Chem 7: 07/11/21 06:12 07/11/21 06:12 Labs: Abnormal Lab Results - Last 24 Hours (Table) 07/11/21 07/11/21 Range/Units 06:12 06:12 RBC 4.15 L (4.30-5.90) m/uL Hgb 12.6 L (13.0-17.5) gm/dL Creatinine 0.61 L (0.66-1.25) mg/dL Microbiology - Last 24 Hours (Table) 07/06/21 22:00 Blood Culture - Preliminary Blood No Growth after 96 hours 07/06/21 21:52 Blood Culture - Preliminary Blood No Growth after 96 hours Assessment and Plan (1) Pneumonia Current Visit: Yes Status: Acute Code(s): J18.9 - PNEUMONIA, UNSPECIFIED ORGANISM SNOMED Code(s): 505363274 Plan: 1patient presented to hospital with increasing shortness of breath and cough and respiratory have a elevated white count with evidence of left perihilar infiltrate did have abnormal swallow evaluation likely aspiration pneumonia. 2patient has clinically responded to Zosyn and the patient white count has normalized blood culture negative, sputum could not be obtained, plan is to finish therapy with the Zosyn in outpatient setting for 10 days, once antibiotic coverage he should be able to go home from ID standpoint 3-positive UA with urine culture finalized Pseudomonas sensitive to Zosyn Time with Patient: Less than 30
== END 2021-07-11 18:00 | disposition home or self-care (01) | DRG 871 ==
LOC: EC 21:38 → 4SSUR 07-07 00:35
PROVIDERS: ADMIT Internal Medicine; ATTEND Internal Medicine
PROC: 05HF33Z Insertion of Infusion Device into Left Cephalic Vein, Percutaneous Approach (ICD-10-PCS; principal; 2021-07-11 09:20)
DX: A41.9 Sepsis, unspecified organism (principal); J69.0 Pneumonitis due to inhalation of food and vomit; J96.01 Acute respiratory failure with hypoxia; R53.2 Functional quadriplegia; E87.1 Hypo-osmolality and hyponatremia; J90 Pleural effusion, not elsewhere classified; J98.11 Atelectasis; N39.0 Urinary tract infection, site not specified; Z16.21 Resistance to vancomycin; B96.5 Pseudomonas (aeruginosa) (mallei) (pseudomallei) as the cause of diseases classified elsewhere; Z20.822 Contact with and (suspected) exposure to COVID-19; D64.9 Anemia, unspecified; E03.9 Hypothyroidism, unspecified; E78.5 Hyperlipidemia, unspecified; E86.0 Dehydration; G20 Parkinson's disease; G35 Multiple sclerosis; I10 Essential (primary) hypertension; L89.151 Pressure ulcer of sacral region, stage 1; R53.81 Other malaise; M06.9 Rheumatoid arthritis, unspecified; N31.9 Neuromuscular dysfunction of bladder, unspecified; R26.9 Unspecified abnormalities of gait and mobility; R47.02 Dysphasia; Z74.01 Bed confinement status; Z79.82 Long term (current) use of aspirin; Z79.890 Hormone replacement therapy; Z79.899 Other long term (current) drug therapy; Z80.8 Family history of malignant neoplasm of other organs or systems; Z82.49 Family history of ischemic heart disease and other diseases of the circulatory system; Z83.3 Family history of diabetes mellitus; Z85.820 Personal history of malignant melanoma of skin; Z86.73 Personal history of transient ischemic attack (TIA), and cerebral infarction without residual deficits; Z87.440 Personal history of urinary (tract) infections; Z98.1 Arthrodesis status; Z87.01 Personal history of pneumonia (recurrent); Z85.828 Personal history of other malignant neoplasm of skin; Z86.010 Personal history of colon polyps; Z98.890 Other specified postprocedural states; Z90.89 Acquired absence of other organs; Z51.5 Encounter for palliative care
CPT/HCPCS: 36410; 36415; 71045; 74230; 76937; 80048; 80053; 81001; 83605; 83735; 85025; 85027; 85610; 85730; 87040; 87077; 87086; 87186; 87502; 87635; 93005; 96365; 96367; 96375; 99291